=== PATIENT | female | born 1940 | race Caucasian/White ===

== ENCOUNTER 2016-12-08 10:34 | Observation (INO) | payer MEDICARE ==
[2016-12-08] MEDS: HYDROcodone/APAP 10-325MG 1 EACH TAB PO PRN (16:39)
[2016-12-08] MEDS: FLECAINIDE 50 MG TAB PO SCH ×2 (16:39→20:47)
[2016-12-08] MEDS: GABAPENTIN 300 MG CAP PO SCH ×2 (16:40→20:47)
[2016-12-08] MEDS: FUROSEMIDE 40 MG TAB PO SCH (16:41)
[2016-12-08 16:51] LABS: INR 3.3 (<1.1); Prothrombin Time 32.4 sec (9.0-12.0)
[2016-12-08] MEDS: NORTRIPTYLINE 25 MG CAP PO SCH (20:47)
[2016-12-08] MEDS: ATORVASTATIN 10 MG TAB PO SCH (20:47)
[2016-12-08] MEDS ORDERED: METOPROLOL TARTRATE 50 MG TAB PO SCH (21:00)
[2016-12-09] MEDS: HYDROcodone/APAP 10-325MG 1 EACH TAB PO PRN ×4 (00:11→22:04)
[2016-12-09 06:14] LABS: INR 3.2 (<1.1); Prothrombin Time 31.5 sec (9.0-12.0)
[2016-12-09] MEDS: BENZOCAINE SPRAY 100 APPLIC/CAN TOPICAL ONE ×2 (07:28→07:35)
[2016-12-09] MEDS ORDERED: SODIUM CHLORIDE 0.9% 1,000 ML IV ONE (07:32)
[2016-12-09] MEDS: DULoxetine HCL 60 MG CAPSULE.DR PO SCH (10:22)
[2016-12-09] MEDS: SODIUM CHLORIDE 0.9% 1,000 ML IV SCH (10:22)
[2016-12-09] MEDS: FUROSEMIDE 40 MG TAB PO SCH ×2 (10:22→15:59)
[2016-12-09] MEDS: LEVOTHYROXINE 75 MCG TAB PO SCH (10:22)
[2016-12-09] MEDS: GABAPENTIN 300 MG CAP PO SCH ×4 (10:23→22:04)
[2016-12-09] MEDS: FLECAINIDE 50 MG TAB PO SCH ×2 (10:23→22:03)
[2016-12-09] MEDS: NORTRIPTYLINE 25 MG CAP PO SCH ×2 (10:24→22:03)
[2016-12-09] MEDS: LISINOPRIL 10 MG TAB PO SCH (10:24)
[2016-12-09] MEDS: METOPROLOL TARTRATE 25 MG TAB PO SCH ×2 (10:27→22:03)
[2016-12-09] MEDS ORDERED: WARFARIN 2 MG TAB PO SCH (18:00)
[2016-12-09 18:29] VITALS: RESP 18
[2016-12-09] MEDS: ATORVASTATIN 10 MG TAB PO SCH (22:03)
[2016-12-10] MEDS: LEVOTHYROXINE 75 MCG TAB PO SCH (06:43)
[2016-12-10] MEDS: SODIUM CHLORIDE 0.9% 1,000 ML IV SCH (08:28)
[2016-12-10] MEDS: METOPROLOL TARTRATE 25 MG TAB PO SCH (08:36)
[2016-12-10] MEDS: GABAPENTIN 300 MG CAP PO SCH (08:36)
[2016-12-10] MEDS: FUROSEMIDE 40 MG TAB PO SCH (08:36)
[2016-12-10] MEDS: NORTRIPTYLINE 25 MG CAP PO SCH (08:37)
[2016-12-10] MEDS: LISINOPRIL 10 MG TAB PO SCH (08:37)
[2016-12-10] MEDS: DULoxetine HCL 60 MG CAPSULE.DR PO SCH (08:37)
[2016-12-10] MEDS: FLECAINIDE 50 MG TAB PO SCH (08:37)
--- NOTE | 2016-12-10 09:26 | P.PN ---
Subjective Principal diagnosis: Atrial fibrillation Discharge note This is a 76-year-old female with history of hypertension, hyperlipidemia, atrial fibrillation, paroxysmal, admitted to the hospital by Dr. Portillo to undergo a MEGAN and cardioversion. This was performed yesterday. Patient continues to be in a normal sinus rhythm this morning QT interval is normal, patient was started on flexion night. Overall she feels well, no complaints, up ambulating without any difficulty. Objective - Vital Signs Vital signs: Vital Signs Temp 96.3 F L 12/10/16 04:00 Pulse 82 12/10/16 04:00 Resp 18 12/10/16 04:00 BP 132/57 12/10/16 04:00 Pulse Ox 92 L 12/10/16 04:00 Intake & Output 12/09/16 12/10/16 12/10/16 18:59 06:59 18:59 Intake Total 240 400 Output Total 500 Balance 240 -100 Weight 93 kg Intake: Oral 240 400 Output: Urine 500 Other: # Voids 1 2 # Bowel Movements 0 - Exam PHYSICAL EXAMINATION: HEENT: Head is atraumatic, normocephalic. Pupils equal, round. Neck is supple. There is no elevated jugular venous pressure. HEART EXAMINATION: Heart S1, S2 normal. No murmur or gallop heard. CHEST EXAMINATION: Lungs are clear to auscultation and precussion. No chest wall tenderness is noted on palpation or with deep breathing. ABDOMEN: Soft, nontender. Bowel sounds are heard. No organomegaly noted. EXTREMITIES: 2+ peripheral pulses with no evidence of peripheral edema and no calf tenderness noted. NEUROLOGIC patient is awake, alert and oriented -3. . Assessment and Plan Plan: Assessment and plan #1 paroxysmal atrial fibrillation, status post MEGAN and cardioversion of yesterday. Patient remaining in normal sinus rhythm. QT interval normal on this morning's EKG. #2 hypertension #3 hyperlipidemia Plan Patient will be discharged home today. We will make her a follow-up appointment to see Dr. Yeboah in the office in one week. Discharge medications include Zocor 10 mg daily, Cymbalta 60 mg daily, flecainide 100 mg by mouth twice a day, Lasix 40 mg twice a day, Neurontin 300 mg 4 times a day, Synthroid 150 g daily, Zestril 10 mg daily, metoprolol tartrate 25 mg one tablet by mouth twice a day, Pamelor 50 mg one tablet by mouth twice a day, Coumadin 1 mg alternating with 2 mg. PT/INR will be obtained on Monday. DNP note has been reviewed, I agree with a documented findings and plan of care. Patient was seen and examined.
[2016-12-10] MEDS: HYDROcodone/APAP 10-325MG 1 EACH TAB PO PRN (12:11)
[2016-12-10 12:54] VITALS: BP 117/56; PULSE 74; TEMP 98.4
[2016-12-10] MEDS ORDERED: WARFARIN 1 MG TAB PO SCH (18:00)
== END 2016-12-10 13:46 | disposition home or self-care (01) ==
LOC: 6SEL 10:34
PROVIDERS: ADMIT Internal Medicine Cardiovascular Disease; ATTEND Internal Medicine Cardiovascular Disease
DX: I48.0 Paroxysmal atrial fibrillation (principal); I10 Essential (primary) hypertension; E78.5 Hyperlipidemia, unspecified
CPT/HCPCS: 92960; 85610 ×2; G0378 ×3; G0379; 99152

== ENCOUNTER 2016-12-27 06:31 | Inpatient (IN) | payer MEDICARE ==
[2016-12-27] MEDS ORDERED: OXYMETAZOLINE 0.05% NASL SPRAY 15 ML NASAL STA (06:46)
--- NOTE | 2016-12-27 07:37 | ED ---
General Adult HPI - General Chief complaint: ENT Stated complaint: NOSE BLEED Time Seen by Provider: 12/27/16 07:16 Source: patient, RN notes reviewed Mode of arrival: wheelchair Limitations: no limitations - History of Present Illness Initial comments: Patient is a pleasant 76-year-old female presenting to the emergency Department with epistaxis. Onset was just prior to arrival. Patient was switched from Coumadin to xarelto approximately 10 days ago. Patient has atrial fibrillation. No bleeding from other sites. No shortness of breath or weakness. No trauma. - Related Data Home Medications Medication Instructions Recorded Confirmed Benazepril HCl 10 mg PO HS 09/23/16 12/27/16 DULoxetine HCL [Cymbalta] 60 mg PO DAILY 09/23/16 12/27/16 Gabapentin [Neurontin] 300 mg PO QID 09/23/16 12/27/16 Nortriptyline [Pamelor] 100 mg PO HS 09/23/16 12/27/16 Simvastatin [Zocor] 5 mg PO HS 09/23/16 12/27/16 HYDROcodone/APAP 7.5-325MG [[place] 1 tab PO QID 12/06/16 12/27/16 7.5-325] Metoprolol Tartrate [Lopressor] 75 mg PO BID 12/06/16 12/27/16 Levothyroxine Sodium [Synthroid] 112 mcg PO DAILY 12/08/16 12/27/16 Amiodarone [Cordarone] 200 mg PO BID 12/27/16 12/27/16 Apixaban [Eliquis] 5 mg PO BID 12/27/16 12/27/16 Multivitamins, Thera [Multivitamin] 1 tab PO DAILY 12/27/16 12/27/16 Previous Rx's Medication Instructions Recorded Furosemide [Lasix] 40 mg PO BID #60 tab 09/26/16 Allergies Allergy/AdvReac Type Severity Reaction Status Date / Time No Known Allergies Allergy Verified 12/27/16 07:53 Review of Systems ROS Statement: Those systems with pertinent positive or pertinent negative responses have been documented in the HPI. ROS Other: All systems not noted in ROS Statement are negative. Constitutional: Denies: fever Eyes: Denies: eye pain ENT: Denies: ear pain Respiratory: Denies: cough Cardiovascular: Denies: chest pain Endocrine: Denies: fatigue Gastrointestinal: Denies: abdominal pain Genitourinary: Denies: dysuria Musculoskeletal: Denies: back pain Skin: Denies: rash Neurological: Denies: weakness Past Medical History Past Medical History: Atrial Fibrillation, Heart Failure, GERD/Reflux, GI Bleed , Hyperlipidemia, Hypertension, Osteoarthritis (OA), Pneumonia, Rheumatoid Arthritis (RA), Thyroid Disorder Additional Past Medical History / Comment(s): Afib with past RVR, chronic back pain with bilateral sciatica, gastric ulcer, rectal bleed, past migraines, bronchitis, hypothyroidism, generalized arthritis. History of Any Multi-Drug Resistant Organisms: None Reported Past Surgical History: Hysterectomy, Joint Replacement, Orthopedic Surgery Additional Past Surgical History / Comment(s): Bilateral total knee replacement , bilateral shoulder rotator cuff repairs, L cataract removal, EGDs and colonoscopy with ulcer cauterized, cardioversions/MEGAN, rt hand surgery, left foot surgery. Past Anesthesia/Blood Transfusion Reactions: No Reported Reaction Additional Past Anesthesia/Blood Transfusion Reaction / Comment(s): Pt received blood in 2007 with gastric bleed without reaction. Past Psychological History: No Psychological Hx Reported Additional Psychological History / Comment(s): Pt resides alone. She has a cane and a seated walker. She drives. Smoking Status: Never smoker Past Alcohol Use History: Daily Additional Past Alcohol Use History / Comment(s): Pt states she drinks 1 drink each day Past Drug Use History: None Reported - Past Family History Father Family Medical History: No Reported History Additional Family Medical History / Comment(s): Father was healthy and lived to be 80yrs old. Mother Family Medical History: No Reported History Additional Family Medical History / Comment(s): Mother was healthy and lived to be 80 yrs old. General Exam Limitations: no limitations General appearance: alert, in no apparent distress Head exam: Present: atraumatic Eye exam: Present: normal appearance, PERRL ENT exam: Present: other (Active bleeding left nares. After cleaning out with suction and patient blowing unable to identify site of bleeding.) Expanded Mouth exam: Present: other (Clots in the pharynx.) Neck exam: Present: normal inspection Respiratory exam: Present: normal lung sounds bilaterally Cardiovascular Exam: Present: irregular rhythm GI/Abdominal exam: Present: soft. Absent: tenderness Extremities exam: Present: normal inspection Neurological exam: Present: alert Psychiatric exam: Present: normal affect, normal mood Skin exam: Absent: rash Course Vital Signs 12/27/16 12/27/16 12/27/16 06:32 09:10 11:04 Temperature 97.7 F 98.0 F Pulse Rate 134 H 97 97 Respiratory 20 18 18 Rate Blood Pressure 141/93 141/69 157/101 O2 Sat by Pulse 96 95 98 Oximetry 12/27/16 12:09 Temperature Pulse Rate 115 H Respiratory 20 Rate Blood Pressure 162/84 O2 Sat by Pulse 96 Oximetry - Reevaluation(s) Reevaluation #1: 12/27/16 09:21 Patient did start bleeding again despite nasal packing. Patient will be given Kcentra for coagulopathy. 12/27/16 10:38 Patient with continued mild bleeding despite packing. Right nares was also packed with Merocel Procedures - Procedures Initial comment: Epistaxis: Left knee her cleaned out with suction and patient blowing. Afrin was applied. Attempted to insert Rhino Rocket however unable to do so secondary to patient anatomy. Bleeding has however stopped at this time. Bleeding later reoccurred. Patient did blow nose again and suction again. Patient did have Merisel packing placed. Antibiotic ointment was used as well as Afrin. Bleeding controlled again. 1039: Right side was packed with Merocel secondary to continued light bleeding. Medical Decision Making - Medical Decision Making Patient continues to have some mild oozing. Patient has soaked through gauze mustache after approximately 20-30 minutes. Case was discussed in detail with Dr. Bourgeois who recommends medical admission for observation. He will consult however does not anticipate further intervention. Case is also discussed in detail with Dr. Martinez, who will admit for Dr. Braxton. Patient was updated. - Lab Data Result diagrams: 12/27/16 09:25 12/27/16 09:25 Lab Results 12/27/16 12/27/16 12/27/16 Range/Units 09:25 09:25 09:25 WBC 9.7 (3.8-10.6) k/uL RBC 4.31 (3.80-5.40) m/uL Hgb 13.0 (11.4-16.0) gm/dL Hct 40.4 (34.0-46.0) % MCV 93.6 (80.0-100.0) fL MCH 30.2 (25.0-35.0) pg MCHC 32.3 (31.0-37.0) g/dL RDW 14.7 (11.5-15.5) % Plt Count 264 (150-450) k/uL Neutrophils % 72 % Lymphocytes % 20 % Monocytes % 5 % Eosinophils % 1 % Basophils % 0 % Neutrophils # 7.0 (1.3-7.7) k/uL Lymphocytes # 2.0 (1.0-4.8) k/uL Monocytes # 0.5 (0-1.0) k/uL Eosinophils # 0.1 (0-0.7) k/uL Basophils # 0.0 (0-0.2) k/uL PT 12.1 H (9.0-12.0) sec INR 1.2 (<1.1) APTT 25.4 (22.0-30.0) sec Sodium 141 (137-145) mmol/L Potassium 4.4 (3.5-5.1) mmol/L Chloride 101 (98-107) mmol/L Carbon Dioxide 28 (22-30) mmol/L Anion Gap 12 mmol/L BUN 33 H (7-17) mg/dL Creatinine 0.99 (0.52-1.04) mg/dL Est GFR (MDRD) Af Amer >60 (>60 ml/min/1.73 sqM) Est GFR (MDRD) Non-Af 54 (>60 ml/min/1.73 sqM) Glucose 120 H (74-99) mg/dL Calcium 9.2 (8.4-10.2) mg/dL Critical Care Time Critical Care Time: Yes Total Critical Care Time: 36 Disposition Clinical Impression: Coagulopathy, Left-sided epistaxis Disposition: ADMITTED IP TO THIS HOSP Referrals: Radha Braxton DO [Primary Care Provider] - 1-2 days
[2016-12-27] MEDS ORDERED: HUMAN PROTHROMBIN COMPLX 500 UNIT/16 ML VIAL IV ONE (07:40)
[2016-12-27] MEDS ORDERED: HUMAN PROTHROMBIN COMPLX IV ONE ×3 (09:04→09:30)
[2016-12-27 10:53] LABS: Basophils % (A) 0 %; CH 30.2; CHCM 32.4; Eosinophils # (A) 0.1 k/uL (0-0.7); Eosinophils % (A) 1 %; HCT 40.4 % (34.0-46.0); HDW 2.32; Luc # (Auto) 0.11; Luc % (Auto) 1; Lymphocytes % (A) 20 %; MCH 30.2 pg (25.0-35.0); MCHC 32.3 g/dL (31.0-37.0); MCV 93.6 fL (80.0-100.0); Mean Platelet Volume 7.1; Monocytes # (A) 0.5 k/uL (0-1.0); Monocytes % (A) 5 %; Neutrophils % (A) 72 %; RBC 4.31 m/uL (3.80-5.40); RDW 14.7 % (11.5-15.5); WBC 9.7 k/uL (3.8-10.6); WBC (Perox) 9.36
[2016-12-27 11:01] LABS: Anion Gap 12 mmol/L; Blood Urea Nitrogen 33 mg/dL (7-17); Calcium 9.2 mg/dL (8.4-10.2); Carbon Dioxide 28 mmol/L (22-30); Chloride 101 mmol/L (98-107); Glucose 120 mg/dL (74-99); Non-African American GFR(MDRD) 54 (>60 ml/min/1.73 sqM); Potassium 4.4 mmol/L (3.5-5.1); Sodium 141 mmol/L (137-145)
[2016-12-27 11:23] LABS: INR 1.2 (<1.1); Partial Thromboplastin Time 25.4 sec (22.0-30.0); Prothrombin Time 12.1 sec (9.0-12.0)
[2016-12-27] MEDS ORDERED: METOPROLOL TARTRATE 50 MG TAB PO STA (11:41)
[2016-12-27] MEDS ORDERED: FUROSEMIDE 40 MG TAB PO STA (11:41)
[2016-12-27] MEDS ORDERED: METOPROLOL TARTRATE 25 MG TAB PO STA (11:41)
[2016-12-27] MEDS ORDERED: GABAPENTIN 300 MG CAP PO STA (12:10)
[2016-12-27] MEDS ORDERED: HYDROcodone/APAP 7.5-325MG 1 EACH TAB PO STA (12:10)
[2016-12-27] MEDS ORDERED: NALOXONE 0.4 MG/ML 1 ML VIAL IV PRN (12:16)
[2016-12-27] MEDS: SODIUM CHLORIDE 0.9% 1,000 ML IV SCH (13:42)
[2016-12-27] MEDS: PANTOPRAZOLE 40 MG/10 ML VIAL IV SCH (13:44)
[2016-12-27 13:57] VITALS: BMI 35.2
[2016-12-27] MEDS: FUROSEMIDE 40 MG TAB PO SCH (15:28)
[2016-12-27] MEDS: GABAPENTIN 300 MG CAP PO SCH ×2 (15:28→21:47)
[2016-12-27] MEDS: CEPHALEXIN 500 MG CAP PO SCH ×2 (17:16→21:47)
[2016-12-27] MEDS: HYDROcodone/APAP 7.5-325MG 1 EACH TAB PO SCH ×2 (17:17→21:47)
--- NOTE | 2016-12-27 19:19 | CONS ---
DATE OF CONSULTATION: 12/27/2016 REASON FOR CONSULTATION: Epistaxis. HISTORY: This is a 76-year-old white female who early this morning around 6:00 a.m. developed acute onset of left-sided epistaxis when she got up in the morning. She has had no trauma and has not had a epistasis recently, although does have a remote history of epistaxis a few years ago while in [facility] visiting family, which required some packing. This was when she was on Coumadin. She, about 10 days ago, was change from Coumadin to Xarelto. She has no chronic nasal symptoms such as allergies or sinusitis. She does have history of hypertension, but states that she feels that this has been well-controlled. She had initially attempted a balloon pack on the left, which was unable to be passed due to her anatomy, and therefore a Merocel pack was placed in the left, which controlled the bleeding, although there was still some oozing and therefore a Merocel pack was placed on the right. She does have some discomfort but this is controlled with [place]. PAST MEDICAL HISTORY: Positive for atrial fibrillation, heart failure, GERD, GI bleed, hyperlipidemia, hypertension, osteoarthritis, pneumonia, rheumatoid arthritis, diabetes, migraines, bronchitis, hypothyroidism. PAST SURGICAL HISTORY: Joint replacement, hysterectomy, rotator cuff repair, cataract, EGD and colonoscopy. ALLERGIES: Known drug allergies. Medications: 1. Benazepril. 2. Cymbalta. 3. Neurontin. 4. Pamelor. 5. Zocor. 6. [place]. 7. Lopressor. 8. Synthroid. 9. Cordarone. 10. Xarelto, although listed as Eliquis. SOCIAL HISTORY: The patient does not smoke. Drinks alcohol one drink per day. FAMILY HISTORY: Noncontributory. REVIEW OF SYSTEMS: Noncontributory other than as above. PHYSICAL EXAM: Vital signs are stable with most recent blood pressure 162/84, pulse was 115, respiratory rate 20, O2 sat 96%. GENERAL: This is a well-developed, elderly white female in no acute distress. She is conversant, alert and awake and oriented x3. HEENT: Head normocephalic and atraumatic. EARS: Bilaterally canals clear. NOSE: Bilateral Merocel packs with the one on the right being white and the one on the left being blood stained, but no active bleeding. The right one was removed and there was no active bleeding or bleeding points noted on the right. The oral cavity and oropharynx were unremarkable. No abnormal masses or lesions. No posterior bleeding noted. NECK: Supple without adenopathy. ASSESSMENT: 1. Left epistaxis, presumed posterior. 2. Hypertension. 3. Anticoagulated status. PLAN: Would recommend leaving the current Merocel pack in place for 3 days total, therefore remove in the office in 3 days. This appointment would need to be made for her. In the meantime, pain control with the above noted [place] and we will add prophylactic antibiotics in the form of Keflex in the meantime which should be maintained. No nose blowing. Medical service to control hypertension and also her other medical comorbidities. Would recommend off of the anticoagulants if at all possible while the packing is in place. She may well have a minimal oozing due to anticoagulants, but would generally still treat this conservatively without surgery or embolization if at all possible. If there are any questions or concerns, please feel to contact me. If she is doing well tomorrow, she could be discharged home with follow up on Monday.
[2016-12-27] MEDS ORDERED: LISINOPRIL 10 MG TAB PO SCH (21:00)
[2016-12-27] MEDS ORDERED: ATORVASTATIN 10 MG TAB PO SCH (21:00)
[2016-12-27] MEDS ORDERED: NORTRIPTYLINE 25 MG CAP PO SCH (21:00)
[2016-12-27] MEDS: AMIODARONE 200 MG TAB PO SCH (21:48)
[2016-12-27] MEDS: METOPROLOL TARTRATE 25 MG TAB PO SCH (21:48)
[2016-12-28] MEDS ORDERED: LEVOTHYROXINE 112 MCG TAB PO SCH (06:30)
[2016-12-28 08:05] VITALS: RESP 18
[2016-12-28] MEDS: AMIODARONE 200 MG TAB PO SCH (08:25)
[2016-12-28] MEDS: CEPHALEXIN 500 MG CAP PO SCH ×3 (08:25→17:27)
[2016-12-28] MEDS: GABAPENTIN 300 MG CAP PO SCH ×3 (08:26→17:27)
[2016-12-28] MEDS: FUROSEMIDE 40 MG TAB PO SCH ×2 (08:26→15:58)
[2016-12-28] MEDS: PANTOPRAZOLE 40 MG/10 ML VIAL IV SCH (08:26)
[2016-12-28] MEDS: METOPROLOL TARTRATE 25 MG TAB PO SCH (08:27)
[2016-12-28] MEDS: HYDROcodone/APAP 7.5-325MG 1 EACH TAB PO SCH ×3 (08:29→17:27)
[2016-12-28] MEDS ORDERED: DULoxetine HCL 60 MG CAPSULE.DR PO SCH (09:00)
[2016-12-28 09:43] LABS: Basophils # (A) 0.1 k/uL (0-0.2); Basophils % (A) 1 %; CHCM 31.6; Eosinophils # (A) 0.2 k/uL (0-0.7); Eosinophils % (A) 2 %; HCT 40.6 % (34.0-46.0); HDW 2.42; HGB 12.3 gm/dL (11.4-16.0); Luc % (Auto) 1; Lymphocytes # (A) 2.8 k/uL (1.0-4.8); Lymphocytes % (A) 31 %; MCH 29.1 pg (25.0-35.0); MCHC 30.4 g/dL (31.0-37.0); MCV 95.8 fL (80.0-100.0); Mean Platelet Volume 7.7; Monocytes # (A) 0.4 k/uL (0-1.0); Monocytes % (A) 5 %; Neutrophils # (A) 5.4 k/uL (1.3-7.7); Neutrophils % (A) 60 %; RBC 4.24 m/uL (3.80-5.40); RDW 14.8 % (11.5-15.5); WBC 8.9 k/uL (3.8-10.6); WBC (Perox) 9.17
[2016-12-28 09:51] LABS: INR 1.1 (<1.1); Prothrombin Time 11.3 sec (9.0-12.0)
[2016-12-28 10:06] LABS: ALT 37 U/L (9-52); AST 25 U/L (14-36); Alkaline Phosphatase 94 U/L (38-126); Anion Gap 11 mmol/L; Blood Urea Nitrogen 29 mg/dL (7-17); Carbon Dioxide 31 mmol/L (22-30); Chloride 101 mmol/L (98-107); Glucose 159 mg/dL (74-99); Non-African American GFR(MDRD) 54 (>60 ml/min/1.73 sqM); Sodium 143 mmol/L (137-145); Total Bilirubin 0.8 mg/dL (0.2-1.3); Total Protein 6.6 g/dL (6.3-8.2)
[2016-12-28] MEDS: SODIUM CHLORIDE 0.9% 1,000 ML IV SCH (11:36)
[2016-12-28] MEDS ORDERED: MULTIVITAMINS, THERA 1 EACH TAB PO SCH (12:00)
[2016-12-28 16:13] VITALS: BP 106/51; PULSE 81; TEMP 97.9
--- NOTE | 2016-12-28 17:09 | P.HPIM ---
History of Present Illness H&P Date: 12/28/16 Chief Complaint: Epistaxis Patient is a 76-year-old female who sees Dr. Radha Braxton for primary care, and Dr. Esa Yeboah for cardiology, patient has a known history of atrial fibrillation she has been maintained on Coumadin for years, she was recently switched from Coumadin to Xarelto about 2 weeks ago, patient developed severe epistaxis she had to come to emergency room and had nasal packing she was admitted for observation Dr. Najera was consult Past Medical History Past Medical History: Atrial Fibrillation, Heart Failure, GERD/Reflux, GI Bleed , Hyperlipidemia, Hypertension, Osteoarthritis (OA), Pneumonia, Rheumatoid Arthritis (RA), Thyroid Disorder Additional Past Medical History / Comment(s): Afib with past RVR, chronic back pain with bilateral sciatica, gastric ulcer, rectal bleed, past migraines, bronchitis, hypothyroidism, generalized arthritis. History of Any Multi-Drug Resistant Organisms: None Reported Past Surgical History: Hysterectomy, Joint Replacement, Orthopedic Surgery Additional Past Surgical History / Comment(s): Bilateral total knee replacement , bilateral shoulder rotator cuff repairs, L cataract removal, EGDs and colonoscopy with ulcer cauterized, cardioversions/MEGAN, rt hand surgery, left foot surgery. Past Anesthesia/Blood Transfusion Reactions: No Reported Reaction Additional Past Anesthesia/Blood Transfusion Reaction / Comment(s): Pt received blood in 2007 with gastric bleed without reaction. Past Psychological History: No Psychological Hx Reported Additional Psychological History / Comment(s): Pt resides alone in a house. She has a cane and a seated walker. She drives. Smoking Status: Never smoker Past Alcohol Use History: None Reported Additional Past Alcohol Use History / Comment(s): used to drink one a day, but not anymroe since last visit for afib and new heart medication. Past Drug Use History: None Reported - Past Family History Father Family Medical History: No Reported History Additional Family Medical History / Comment(s): Father was healthy and lived to be 80yrs old. Mother Family Medical History: No Reported History Additional Family Medical History / Comment(s): Mother was healthy and lived to be 80 yrs old. Medications and Allergies Home Medications Medication Instructions Recorded Confirmed Type Benazepril HCl 10 mg PO HS 09/23/16 12/27/16 History DULoxetine HCL [Cymbalta] 60 mg PO DAILY 09/23/16 12/27/16 History Gabapentin [Neurontin] 300 mg PO QID 09/23/16 12/27/16 History Nortriptyline [Pamelor] 100 mg PO HS 09/23/16 12/27/16 History Simvastatin [Zocor] 5 mg PO HS 09/23/16 12/27/16 History HYDROcodone/APAP 7.5-325MG [[place] 1 tab PO QID 12/06/16 12/27/16 History 7.5-325] Metoprolol Tartrate [Lopressor] 75 mg PO BID 12/06/16 12/27/16 History Levothyroxine Sodium [Synthroid] 112 mcg PO DAILY 12/08/16 12/27/16 History Amiodarone [Cordarone] 200 mg PO BID 12/27/16 12/27/16 History Apixaban [Eliquis] 5 mg PO BID 12/27/16 12/27/16 History Multivitamins, Thera [Multivitamin] 1 tab PO DAILY 12/27/16 12/27/16 History Allergies Allergy/AdvReac Type Severity Reaction Status Date / Time No Known Allergies Allergy Verified 12/27/16 14:00 Physical Exam Vitals: Vital Signs Temp Pulse Resp BP Pulse Ox 12/28/16 15:00 97.9 F 81 18 106/51 95 12/28/16 07:00 97.4 F L 88 18 128/74 96 12/27/16 23:00 97.0 F L 82 20 122/72 90 L Intake and Output 12/28/16 12/28/16 12/28/16 06:59 14:59 22:59 Other: # Voids 1 2 # Bowel Movements 0 Results CBC & Chem 7: 12/28/16 08:50 12/28/16 08:50 Labs: Abnormal Lab Results - Last 24 Hours (Table) 12/28/16 12/28/16 Range/Units 08:50 08:50 MCHC 30.4 L (31.0-37.0) g/dL Carbon Dioxide 31 H (22-30) mmol/L BUN 29 H (7-17) mg/dL Glucose 159 H (74-99) mg/dL Thrombosis Risk Factor Assmnt - Choose All That Apply Each Risk Factor Represents 3 Points: Age 75 years or older Thrombosis Risk Factor Assessment Total Risk Factor Score: 3 Thrombosis Risk Factor Assessment Level: Moderate Risk Assessment and Plan Plan: #1 epistaxis bleeding controlled at this time was nasal packing #2 underlying history of atrial fibrillation #3 Underlying history of Coongestive heart failure #4 history of hypothyroidism, continue current medication Patient will be monitored on the medical floor input from Dr. Moreau reviewed.
--- NOTE | 2016-12-28 17:13 | P.DS ---
Providers Date of admission: 12/27/16 12:18 Expected date of discharge: 12/28/16 Attending physician: Carlene Martinez Consults: 12/28/16 15:20 Consult Physician Stat Consulting Provider: Hoang Deleon Consult Reason/Comments: anticoagulation therapy Do you want consulting provider notified?: Yes Primary care physician: Radha Braxton [facility] Course: Diagnoses on discharge #1 epistaxis requiring nasal packing #2 atrial fibrillation, chronic #3 underlying history of congestive heart failure Hospital course patient is a 76-year-old who presented to [facility] emergency room with a chief complaint of epistaxis, agent had severe bleeding requiring packing in the emergency room she was subsequently admitted to medical floor she was seen by Dr. Moreau, who advised that patient should be off anticoagulation for the next few days. Patient was maintained on Coumadin for years however she was recently switched from Coumadin to Xarelto. She will be referred back to Dr. 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 Follow-up was Dr. Yeboah within one week Follow-up with Dr. Radha Braxton within one week Please send a carbon copy to Dr. Neyda Yeboah and Dr. Radha Braxton Plan - Discharge Summary Discharge Medication List Benazepril HCl 10 mg PO HS 09/23/16 [History] DULoxetine HCL [Cymbalta] 60 mg PO DAILY 09/23/16 [History] Gabapentin [Neurontin] 300 mg PO QID 09/23/16 [History] Nortriptyline [Pamelor] 100 mg PO HS 09/23/16 [History] Simvastatin [Zocor] 5 mg PO HS 09/23/16 [History] Furosemide [Lasix] 40 mg PO BID #60 tab 09/26/16 [Rx] HYDROcodone/APAP 7.5-325MG [[place] 7.5-325] 1 tab PO QID 12/06/16 [History] Metoprolol Tartrate [Lopressor] 75 mg PO BID 12/06/16 [History] Levothyroxine Sodium [Synthroid] 112 mcg PO DAILY 12/08/16 [History] Amiodarone [Cordarone] 200 mg PO BID 12/27/16 [History] Apixaban [Eliquis] 5 mg PO BID 12/27/16 [History] Multivitamins, Thera [Multivitamin] 1 tab PO DAILY 12/27/16 [History] Follow up Appointment(s)/Referral(s): Radha Braxton DO [Primary Care Provider] - 1-2 days Patient Instructions/Handouts: Heart Failure (DC)
== END 2016-12-28 18:07 | disposition home or self-care (01) | DRG 151 ==
LOC: EC 06:31 → OBSVTOIN 12:18 → 4MS4W 12:18
PROVIDERS: ADMIT Internal Medicine; ATTEND Internal Medicine
PROC: 2Y41X5Z Packing of Nasal Region using Packing Material (ICD-10-PCS; principal; 2016-12-27)
DX: R04.0 Epistaxis (principal); I48.2 Chronic atrial fibrillation; I11.0 Hypertensive heart disease with heart failure; I50.9 Heart failure, unspecified; E11.9 Type 2 diabetes mellitus without complications; E78.5 Hyperlipidemia, unspecified; E03.9 Hypothyroidism, unspecified; G43.909 Migraine, unspecified, not intractable, without status migrainosus; R79.1 Abnormal coagulation profile; T45.515A Adverse effect of anticoagulants, initial encounter; G89.29 Other chronic pain; M06.9 Rheumatoid arthritis, unspecified; K21.9 Gastro-esophageal reflux disease without esophagitis; M19.90 Unspecified osteoarthritis, unspecified site; M54.9 Dorsalgia, unspecified; Z87.11 Personal history of peptic ulcer disease; Z90.710 Acquired absence of both cervix and uterus; Z96.653 Presence of artificial knee joint, bilateral; Z98.42 Cataract extraction status, left eye; Z79.01 Long term (current) use of anticoagulants; Z79.891 Long term (current) use of opiate analgesic; Z79.899 Other long term (current) drug therapy; Y92.009 Unspecified place in unspecified non-institutional (private) residence as the place of occurrence of the external cause
CPT/HCPCS: 30901; 36415; 80048; 80053; 85025; 85610; 85730; 99285

== ENCOUNTER 2017-07-08 08:56 | Emergency (ER) | payer MEDICARE ==
[2017-07-08] MEDS ORDERED: MORPHINE SULFATE 10 MG/ML SYRINGE IM STA (09:48)
--- NOTE | 2017-07-08 09:52 | ED ---
Extremity Problem HPI <Kenyon Mcghee - Last Filed: 07/08/17 10:35> - General Source: patient, EMS, RN notes reviewed Mode of arrival: EMS <Tona Jaffe - Last Filed: 07/08/17 10:57> - General Chief complaint: Extremity Problem,Nontraumatic Stated complaint: Shoulder Pain Time Seen by Provider: 07/08/17 09:09 - History of Present Illness Initial comments: Patient is a 76-year-old female presents emergency room for evaluation of left shoulder pain. Patient states last night while gardening and pressing down on one of the tools to remove a branch she felt a sharp pain in her left shoulder. Patient states pain has been worse since the incident. Patient states she was unable to sleep at night due to throbbing pain. Patient states unable move her shoulder secondary to pain. Patient denies any direct trauma or fall to her shoulder. Patient does state she has a history of bilateral rotator cuff repair by Dr. Sanon about 8 years ago. Patient denies any numbness or tingling going down her left arm. Patient denies chest pain or shortness of breath. Patient denies headache or dizziness. Patient states the pain is worse with movement. Patient states she took a Tyro with no relief of symptoms. Patient denies any other injuries or complaints at this time. (Tona Jaffe) - Related Data Home Medications Medication Instructions Recorded Confirmed Benazepril HCl 10 mg PO HS 09/23/16 12/27/16 DULoxetine HCL [Cymbalta] 60 mg PO DAILY 09/23/16 12/27/16 Gabapentin [Neurontin] 300 mg PO QID 09/23/16 12/27/16 Nortriptyline [Pamelor] 100 mg PO HS 09/23/16 12/27/16 Simvastatin [Zocor] 5 mg PO HS 09/23/16 12/27/16 HYDROcodone/APAP 7.5-325MG [Tyro 1 tab PO QID 12/06/16 12/27/16 7.5-325] Metoprolol Tartrate [Lopressor] 75 mg PO BID 12/06/16 12/27/16 Levothyroxine Sodium [Synthroid] 112 mcg PO DAILY 12/08/16 12/27/16 Amiodarone [Cordarone] 200 mg PO BID 12/27/16 12/27/16 Multivitamins, Thera [Multivitamin 1 tab PO DAILY 12/27/16 12/27/16 (formulary)] Previous Rx's Medication Instructions Recorded Furosemide [Lasix] 40 mg PO BID #60 tab 09/26/16 Allergies Allergy/AdvReac Type Severity Reaction Status Date / Time No Known Allergies Allergy Verified 07/08/17 09:12 Review of Systems ROS Other: All systems not noted in ROS Statement are negative. <Kenyon Mcghee - Last Filed: 07/08/17 10:35> ROS Other: All systems not noted in ROS Statement are negative. <Tona Jaffe - Last Filed: 07/08/17 10:57> ROS Statement: Those systems with pertinent positive or pertinent negative responses have been documented in the HPI. Past Medical History Past Medical History: Atrial Fibrillation, Heart Failure, GERD/Reflux, GI Bleed , Hyperlipidemia, Hypertension, Osteoarthritis (OA), Pneumonia, Rheumatoid Arthritis (RA), Thyroid Disorder Additional Past Medical History / Comment(s): Afib with past RVR, chronic back pain with bilateral sciatica, gastric ulcer, rectal bleed, past migraines, bronchitis, hypothyroidism, generalized arthritis. History of Any Multi-Drug Resistant Organisms: None Reported Past Surgical History: Hysterectomy, Joint Replacement, Orthopedic Surgery Additional Past Surgical History / Comment(s): Bilateral total knee replacement , bilateral shoulder rotator cuff repairs, L cataract removal, EGDs and colonoscopy with ulcer cauterized, cardioversions/MEGAN, rt hand surgery, left foot surgery. Past Anesthesia/Blood Transfusion Reactions: No Reported Reaction Additional Past Anesthesia/Blood Transfusion Reaction / Comment(s): Pt received blood in 2007 with gastric bleed without reaction. Past Psychological History: No Psychological Hx Reported Smoking Status: Never smoker Past Alcohol Use History: Occasional Past Drug Use History: None Reported - Past Family History Father Family Medical History: No Reported History Additional Family Medical History / Comment(s): Father was healthy and lived to be 80yrs old. Mother Family Medical History: No Reported History Additional Family Medical History / Comment(s): Mother was healthy and lived to be 80 yrs old. <Tona Jaffe - Last Filed: 07/08/17 10:57> General Exam <Kenyon Mcghee - Last Filed: 07/08/17 10:35> Limitations: no limitations General appearance: alert, in no apparent distress Head exam: Present: atraumatic, normocephalic, normal inspection Eye exam: Present: normal appearance ENT exam: Present: normal exam Neck exam: Present: normal inspection Respiratory exam: Present: normal lung sounds bilaterally. Absent: respiratory distress Cardiovascular Exam: Present: regular rate, normal rhythm, normal heart sounds Left Shoulder Exam: Present: normal inspection, full ROM (limited extension and abduction secondary to pain.), tenderness (tenderness on palpating over the anterior shoulder joint, posterior shoulder joint and deltoid). Absent: swelling, deformity, erythema, tenderness over AC joint Upper Arm exam: Present: normal inspection Elbow exam: Present: normal inspection. Absent: tenderness Forearm Wrist exam: Present: normal inspection. Absent: tenderness Hand Wrist exam: Present: normal inspection. Absent: tenderness Vascular: Present: normal capillary refill (capillary refill less than 2 seconds ), radial pulse (2+), ulnar pulse (2+) Back exam: Present: normal inspection Neurological exam: Present: alert, oriented X3, CN II-XII intact Psychiatric exam: Present: normal affect, normal mood Skin exam: Present: warm, dry, intact, normal color. Absent: rash <Tona Jaffe - Last Filed: 07/08/17 10:57> - General Exam Comments Initial Comments: laying in exam room, no acute distress. (Tona Jaffe) Course <Kenyon Mcghee - Last Filed: 07/08/17 10:35> <Tona Jaffe - Last Filed: 07/08/17 10:57> Vital Signs 07/08/17 09:03 Temperature 97.5 F L Pulse Rate 89 Respiratory 18 Rate Blood Pressure 166/97 O2 Sat by Pulse 97 Oximetry - Reevaluation(s) Reevaluation #1: 07/08/17 10:35 Chief [id number] evaluation the patient did discuss the findings with her. She does demonstrate tenderness palpation on the rotator cuff she posteriorly. X-ray show no evidence of acute findings. Patient will follow-up with her orthopedist. I do agree with the assessment and plan. (Kenyon Mcghee) Medical Decision Making <Kenyon Mcghee - Last Filed: 07/08/17 10:35> - Radiology Data Radiology results: report reviewed, image reviewed <Tona Jaffe - Last Filed: 07/08/17 10:57> - Medical Decision Making Patient is a 76-year-old female presents emergency room for evaluation of left shoulder pain. Patient does have rotator cuff like symptoms. Patient placed in an arm sling and advised to follow-up with auto radiator specialist or her previous orthopedic surgeon. X-ray shows a signs of osteoarthritis. Return parameters discussed. Case discussed Dr. Mcghee. (Tona Jaffe) Disposition <Kenyon Mcghee - Last Filed: 07/08/17 10:35> Time of Disposition: 10:41 <Tona Jaffe - Last Filed: 07/08/17 10:57> Clinical Impression: Osteoarthritis of left shoulder, Left shoulder pain Disposition: HOME SELF-CARE Condition: Good Instructions: Rotator Cuff Injury (ED), Osteoarthritis (ED) Additional Instructions: Ice on and off for 10-15 minutes for the next 24-48 hours. Continue taking her home pain medications as needed. Please follow-up with auto radiator specialist for further evaluation. If new symptoms develop or symptoms worsen, please return to the ER. Referrals: Radha Braxton DO [Primary Care Provider] - 1-2 days Lobito Sims DO [Doctor of Osteopathic Medicine] - 1-2 days
--- NOTE | 2017-07-08 10:23 | XR ---
EXAMINATION TYPE: XR shoulder complete LT DATE OF EXAM: 07/08/2017 COMPARISON: NONE HISTORY: Shoulder pain TECHNIQUE: 3 views FINDINGS: I see no fracture nor dislocation. There is moderate spurring at the glenohumeral joint. Th ere is a screw within the greater tuberosity of the humerus. IMPRESSION: Moderate osteoarthritis. No fracture.
[2017-07-08 10:58] VITALS: BP 162/82; PULSE 87; RESP 17; TEMP 97
== END 2017-07-08 11:08 | disposition home or self-care (01) ==
LOC: EC 08:56
DX: M19.012 Primary osteoarthritis, left shoulder (principal); I48.91 Unspecified atrial fibrillation; I11.0 Hypertensive heart disease with heart failure; I50.9 Heart failure, unspecified; E78.5 Hyperlipidemia, unspecified; E03.9 Hypothyroidism, unspecified; M06.9 Rheumatoid arthritis, unspecified; Z98.890 Other specified postprocedural states; Z96.653 Presence of artificial knee joint, bilateral; Z79.899 Other long term (current) drug therapy
CPT/HCPCS: 99283 ×2; 96372 ×2; 73030; J2270

== ENCOUNTER → 2017-11-28 | Outpatient (CLI) | payer MEDICARE ==
--- NOTE | 2017-11-28 13:04 | MR ---
EXAMINATION TYPE: MR brain wo con DATE OF EXAM: 11/28/2017 COMPARISON: NONE HISTORY: Balance T1-weighted sagittal, T2, FLAIR, and diffusion axial, and T2 coronal coronal views of the brain are s ubmitted. There is no evidence of acute ischemia. The ventricles, basal cisterns, and sulci overlying the conv exities are consistent with the patient's age. There is no mass effect. Craniocervical junction maintained. Sella turcica has a normal appearance. No cerebellopontine angle mass. There is diffuse and numerous focal areas of abnormal signal scattered throughout the white matter bi laterally measuring greater than 15 number. Abnormal signal within the basal ganglia and thalamus is most typical remote microvascular ischemia. Tiny areas of abnormal signal involving the obdulio suggestive of remote ischemia. Changes of chronic sinusitis noted. No midline shift or mass effect. IMPRESSION: 1. No acute intracranial process. 2. Diffuse abnormal signal within the white matter is nonspecific but most typical of remote microvas cular ischemia. 3. 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 4. Small focal areas of abnormal signal involving the obdulio likely in the bases remote ischemia. Patte rn is nonspecific and not diagnostic of central pontine myelinolysis. Correlate clinically.
== END | disposition home or self-care (01) ==
LOC: RADMRIMAIN 11:59
PROVIDERS: ATTEND Family Medicine
DX: I63.9 Cerebral infarction, unspecified (principal); R90.89 Other abnormal findings on diagnostic imaging of central nervous system; I67.82 Cerebral ischemia; E87.8 Other disorders of electrolyte and fluid balance, not elsewhere classified
CPT/HCPCS: 70551

== ENCOUNTER → 2018-01-04 | Outpatient (CLI) | payer MEDICARE ==
--- NOTE | 2018-01-04 11:26 | US ---
EXAMINATION TYPE: US carotid duplex BILAT DATE OF EXAM: 01/04/2018 COMPARISON: NONE CLINICAL HISTORY: D68.9 Coagulation defect,E78.5 Hyperlipidema. EXAM MEASUREMENTS: RIGHT: Peak Systolic Velocity (PSV) cm/sec ----- Right CCA: 69.9 ----- Right ICA: 95.3 ----- Right ECA: 72.1 ICA/CCA ratio: 1.4 RIGHT: End Diastole cm/sec ----- Right CCA: 7.3 ----- Right ICA: 12.4 ----- Right ECA: 0 LEFT: Peak Systolic Velocity (PSV) cm/sec ----- Left CCA: 80.9 ----- Left ICA: 117.3 ----- Left ECA: 85.2 ICA/CCA ratio: 1.4 LEFT: End Diastole cm/sec ----- Left CCA: 9.5 ----- Left ICA: 17.1 ----- Left ECA: 0 VERTEBRALS (direction of flow): Right Vertebral: Antegrade Left Vertebral: Antegrade Rhythm: Normal IMPRESSION: Moderate/severe atherosclerotic change bilaterally bulbs/ proximal ICAs no hemodynamic stenosis Criteria for Assigning % of Stenosis / Diameter reduction (Estimation based on the indirect measurements of the internal carotid artery velocities (ICA PSV). 1. Normal (no stenosis)=ICA PSV < 125 cm/s: ratio < 2.0: ICA EDV<40 cm/s. 2. Less than 50% stenosis=ICA PSV < 125 cm/s: ratio < 2.0: ICA EDV<40 cm/s. 3. 50 to 69% stenosis=ICA PSV of 125 to 230 cm/s: ration 2.0 ? 4.0: ICA EDV 40-100 cm/s. 4. Greater than 70% stenosis to near occlusion= ICA PSV > 230 cm/s: ratio > 4.0: ICA EDV > 100 cm/s. 5. Near occlusion= ICA PSV velocities may be low or undetectable: variable ratio and ICA EDV. 6. Total occlusion=unable to detect flow.
== END | disposition home or self-care (01) ==
LOC: RADUSWWP 09:01
PROVIDERS: ATTEND Family Medicine
DX: I65.23 Occlusion and stenosis of bilateral carotid arteries (principal); E78.5 Hyperlipidemia, unspecified
CPT/HCPCS: 93880

== ENCOUNTER → 2018-01-08 | Outpatient (CLI) | payer MEDICARE ==
[2018-01-08 15:05] LABS: Albumin 3.8 g/dL (3.5-5.0); Calcium 9.3 mg/dL (8.4-10.2); Magnesium 1.5 mg/dL (1.6-2.3); Potassium 3.8 mmol/L (3.5-5.1); Total Bilirubin 0.7 mg/dL (0.2-1.3); Total Protein 6.1 g/dL (6.3-8.2)
--- NOTE | 2018-01-08 16:36 | CT ---
EXAMINATION TYPE: CT abdomen pelvis w con DATE OF EXAM: 01/08/2018 HISTORY: Nausea x 3 weeks per patient. Nausea and vomiting with left lower quadrant pain per order. CT DLP: 967.4mGycm Automated Exposure Control for Dose Reduction was Utilized. CONTRAST: CT scan of the abdomen and pelvis is performed with IV Contrast, patient injected with 80 mL of Visip aque 320. COMPARISON: None. FINDINGS: LUNG BASES: Heart size is mildly enlarged. LIVER/GB: Dependent density in gallbladder could reflect vicarious excretion of contrast versus small dependent stones and/or gallbladder sludge. No surrounding inflammatory changes are present. PANCREAS: No significant abnormality is seen. SPLEEN: No significant abnormality is seen. ADRENALS: No significant abnormality is seen. KIDNEYS: There is simple appearing 1.1 cm cyst upper pole level right kidney axial image 26. There is symmetric cortical medullary uptake and excretion from both kidneys without hydronephrosis bilateral ly. There is exophytic 1.6 cm fat and soft tissue mass consistent with angiomyolipoma lower pole leve l left kidney coronal image 46. BOWEL: The oral contrast only reaches proximal ileal level in the right lower quadrant. There is no s uspicious small or large bowel dilatation. There is some redundancy of the sigmoid colon. There is so me prominence of fecal material throughout the colon most prominent in the right and transverse colon . There is small bowel feces sign in the terminal ileum consistent with delayed passage of ingested m aterial 2 colonic level. UTERUS/ADNEXA: Uterus is surgically absent or markedly atrophic in appearance. LYMPH NODES: No greater than 1cm abdominal or pelvic lymph nodes are appreciated. OSSEOUS STRUCTURES: Osseous structures are demineralized. There is multilevel vacuum disc phenomenon and disc space narrowing most prominent L2-L3 and L5-S1 le vels. There is moderate to severe joint space loss and spurring in both hips, right greater than left . OTHER: There is moderate to severe calcified plaque of the abdominal aorta extending into branch vess els. There is 5.9 x 4.4 cm heterogeneous hyperdense area right posterior gluteal region with surrounding m oderate ill-defined fluid or fat stranding, suspect soft tissue bruising and central hematoma related to recent trauma. Clinical correlation advised. IMPRESSION: 1. No bowel obstruction is present. There is fairly moderate proximal colonic fecal stasis noted. 2. Attention to right gluteal region, moderate-sized focal subcutaneous hematoma with surrounding sub cutaneous inflammatory change felt present. Correlate clinically. 3. 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 4. Dependent small stones or gallbladder sludge without CT evidence for acute cholecystitis.
== END | disposition home or self-care (01) ==
LOC: RADCTMAIN 14:01
PROVIDERS: ATTEND Family Medicine
DX: K59.8 Other specified functional intestinal disorders (principal); D17.71 Benign lipomatous neoplasm of kidney; M79.81 Nontraumatic hematoma of soft tissue
CPT/HCPCS: 80053; 82150; 83690; 83735; 84443; 74177; 36415; Q9967; 80299

== ENCOUNTER 2018-01-09 09:56 | Inpatient (IN) | payer MEDICARE ==
[2018-01-09] MEDS ORDERED: MECLIZINE 25 MG TAB PO STA (10:26)
--- NOTE | 2018-01-09 10:32 | ED ---
General Adult HPI - General Chief complaint: Nausea/Vomiting/Diarrhea Stated complaint: vomiting Time Seen by Provider: 01/09/18 10:00 Source: patient, RN notes reviewed Mode of arrival: ambulatory Limitations: no limitations - History of Present Illness Initial comments: This is a 77-year-old female who presents emergency department stating that she has been off balance for 3-4 months and she's been getting worked up by her primary medical care doctor for weeks. Patient states also associated with that off balance is nausea. Patient states that only started a few weeks ago but continues to get worse and she has Zofran and does not appear to help. Patient states she gets off balance and nauseous the most when she moves her head particularly when she looks backwards. Patient states she's fallen multiple times and doesn't do much but lay around because everything makes her nauseous. Patient is already had an MRI of her brain CT of her abdomen and pelvis. Patient has had a carotid Doppler as well. Patient comes in today because she states she is just so nauseated she didn't feel so she could make her primary medical care doctor appointment today. She denies any abdominal pain. Patient denies any diarrhea today. Patient states the last time she vomited was last night. Patient states eating food usually helps for a little while and then the nausea returned. Patient denies any chest pain difficulty breathing or shortness of breath per patient denies any recent fever chills or cough per patient denies any headache patient denies numbness weakness. - Related Data Home Medications Medication Instructions Recorded Confirmed DULoxetine HCL [Cymbalta] 60 mg PO DAILY 09/23/16 01/09/18 HYDROcodone/APAP 7.5-325MG [Hazard 1 tab PO HS 12/06/16 01/09/18 7.5-325] Levothyroxine Sodium [Synthroid] 112 mcg PO DAILY 12/08/16 01/09/18 Amiodarone [Cordarone] 200 mg PO DAILY 12/27/16 01/09/18 Benazepril [Lotensin] 5 mg PO HS 01/09/18 01/09/18 Esomeprazole Magnesium 40 mg PO DAILY 01/09/18 01/09/18 [Esomeprazole Magnesium] Furosemide [Lasix] 40 mg PO DAILY 01/09/18 01/09/18 Metoprolol Succinate (ER) [Toprol 50 mg PO DAILY 01/09/18 01/09/18 XL] Simvastatin [Zocor] 20 mg PO HS 01/09/18 01/09/18 Warfarin [Coumadin] 1 mg PO MOTUWETHFR 01/09/18 01/09/18 metFORMIN HCL ER [Glucophage Xr] 500 mg PO DAILY 01/09/18 01/09/18 Allergies Allergy/AdvReac Type Severity Reaction Status Date / Time No Known Allergies Allergy Verified 01/09/18 10:59 Review of Systems ROS Statement: Those systems with pertinent positive or pertinent negative responses have been documented in the HPI. ROS Other: All systems not noted in ROS Statement are negative. Past Medical History Past Medical History: Atrial Fibrillation, Heart Failure, GERD/Reflux, GI Bleed , Hyperlipidemia, Hypertension, Osteoarthritis (OA), Pneumonia, Rheumatoid Arthritis (RA), Thyroid Disorder Additional Past Medical History / Comment(s): Afib with past RVR, chronic back pain with bilateral sciatica, gastric ulcer, rectal bleed, past migraines, bronchitis, hypothyroidism, generalized arthritis. History of Any Multi-Drug Resistant Organisms: None Reported Past Surgical History: Hysterectomy, Joint Replacement, Orthopedic Surgery Additional Past Surgical History / Comment(s): Bilateral total knee replacement , bilateral shoulder rotator cuff repairs, L cataract removal, EGDs and colonoscopy with ulcer cauterized, cardioversions/MEGAN, rt hand surgery, left foot surgery. right toe surgery Past Anesthesia/Blood Transfusion Reactions: No Reported Reaction Additional Past Anesthesia/Blood Transfusion Reaction / Comment(s): Pt received blood in 2007 with gastric bleed without reaction. Past Psychological History: No Psychological Hx Reported Smoking Status: Never smoker Past Alcohol Use History: Occasional Past Drug Use History: None Reported - Past Family History Father Family Medical History: No Reported History Additional Family Medical History / Comment(s): Father was healthy and lived to be 80yrs old. Mother Family Medical History: No Reported History Additional Family Medical History / Comment(s): Mother was healthy and lived to be 80 yrs old. General Exam - General Exam Comments Initial Comments: GENERAL: Patient is well-developed and well-nourished. Patient is nontoxic and well- hydrated and is in mild distress. ENT: Neck is soft and supple. No significant lymphadenopathy is noted. Oropharynx is clear. Moist mucous membranes. Neck has full range of motion without eliciting any pain. EYES: The sclera were anicteric and conjunctiva were pink and moist. Extraocular movements were intact and pupils were equal round and reactive to light. Eyelids were unremarkable. PULMONARY: Unlabored respirations. Good breath sounds bilaterally. No audible rales rhonchi or wheezing was noted. CARDIOVASCULAR: There is a regular rate and rhythm without any murmurs gallops or rubs. ABDOMEN: Soft and nontender with normal bowel sounds. No palpable organomegaly was noted. There is no palpable pulsatile mass. SKIN: Skin is clear with no lesions or rashes and otherwise unremarkable. NEUROLOGIC: Patient is alert and oriented x3. Cranial nerves II through XII are grossly intact. Motor and sensory are also intact. Normal speech, volume and content. Symmetrical smile. Cerebellar testing finger to nose is equal bilaterally MUSCULOSKELETAL: Normal extremities with adequate strength and full range of motion. LYMPHATICS: No significant lymphadenopathy is noted PSYCHIATRIC: Normal psychiatric evaluation. Normal interpersonal interactions appears functionally intact in deals appropriately with others. No signs of depression. No signs of anxiety. Limitations: no limitations Course Vital Signs 01/09/18 01/09/18 09:57 11:30 Temperature 97.2 F L Pulse Rate 68 64 Respiratory 16 20 Rate Blood Pressure 125/59 131/62 O2 Sat by Pulse 99 99 Oximetry Medical Decision Making - Medical Decision Making I reviewed the patient's MRI of the brain and CT of the abdomen and pelvis. EKG showed normal sinus rhythm at 64 bpm AK interval 198 QRS is under 10 Q-T intervals 510 QTC is 526. Patient has a prolonged QT interval. Patient is on Zofran at home. Patient was given an opportunity to walk in the emergency department was unable to get away from the side of her bed. - Lab Data Result diagrams: 01/09/18 10:35 01/09/18 10:35 Lab Results 01/09/18 01/09/18 01/09/18 Range/Units 10:35 10:35 10:35 WBC 10.9 H (3.8-10.6) k/uL RBC 3.45 L (3.80-5.40) m/uL Hgb 10.3 L (11.4-16.0) gm/dL Hct 33.5 L (34.0-46.0) % MCV 97.0 (80.0-100.0) fL MCH 29.9 (25.0-35.0) pg MCHC 30.8 L (31.0-37.0) g/dL RDW 14.5 (11.5-15.5) % Plt Count 259 (150-450) k/uL Neutrophils % 77 % Lymphocytes % 13 % Monocytes % 9 % Eosinophils % 0 % Basophils % 0 % Neutrophils # 8.4 H (1.3-7.7) k/uL Lymphocytes # 1.4 (1.0-4.8) k/uL Monocytes # 0.9 (0-1.0) k/uL Eosinophils # 0.0 (0-0.7) k/uL Basophils # 0.0 (0-0.2) k/uL PT (9.0-12.0) sec INR (<1.2) APTT (22.0-30.0) sec Sodium 135 L (137-145) mmol/L Potassium 3.6 (3.5-5.1) mmol/L Chloride 94 L (98-107) mmol/L Carbon Dioxide 29 (22-30) mmol/L Anion Gap 12 mmol/L BUN 19 H (7-17) mg/dL Creatinine 1.30 H (0.52-1.04) mg/dL Est GFR (MDRD) Af Amer 48 (>60 ml/min/1.73 sqM) Est GFR (MDRD) Non-Af 40 (>60 ml/min/1.73 sqM) Glucose 141 H (74-99) mg/dL Calcium 9.0 (8.4-10.2) mg/dL Magnesium 1.6 (1.6-2.3) mg/dL Total Bilirubin 0.8 (0.2-1.3) mg/dL AST 56 H (14-36) U/L ALT 80 H (9-52) U/L Alkaline Phosphatase 94 (38-126) U/L Total Creatine Kinase 50 (30-135) U/L CK-MB (CK-2) 1.9 (0.0-2.4) ng/mL CK-MB (CK-2) Rel Index 3.8 Troponin I 0.018 (0.000-0.034) ng/mL Total Protein 5.7 L (6.3-8.2) g/dL Albumin 3.5 (3.5-5.0) g/dL Urine Color Urine Appearance (Clear) Urine pH (5.0-8.0) Ur Specific Flomot (1.001-1.035) Urine Protein (Negative) Urine Glucose (UA) (Negative) Urine Ketones (Negative) Urine Blood (Negative) Urine Nitrite (Negative) Urine Bilirubin (Negative) Urine Urobilinogen (<2.0) mg/dL Ur Leukocyte Esterase (Negative) Urine RBC (0-5) /hpf Urine WBC (0-5) /hpf Ur Squamous Epith Cells (0-4) /hpf Urine Bacteria (None) /hpf Hyaline Casts (0-2) /lpf Urine Mucus (None) /hpf 01/09/18 01/09/18 01/09/18 Range/Units 10:35 10:35 12:06 WBC (3.8-10.6) k/uL RBC (3.80-5.40) m/uL Hgb (11.4-16.0) gm/dL Hct (34.0-46.0) % MCV (80.0-100.0) fL MCH (25.0-35.0) pg MCHC (31.0-37.0) g/dL RDW (11.5-15.5) % Plt Count (150-450) k/uL Neutrophils % % Lymphocytes % % Monocytes % % Eosinophils % % Basophils % % Neutrophils # (1.3-7.7) k/uL Lymphocytes # (1.0-4.8) k/uL Monocytes # (0-1.0) k/uL Eosinophils # (0-0.7) k/uL Basophils # (0-0.2) k/uL PT 27.5 H (9.0-12.0) sec INR 3.1 H (<1.2) APTT 38.2 H (22.0-30.0) sec Sodium (137-145) mmol/L Potassium (3.5-5.1) mmol/L Chloride (98-107) mmol/L Carbon Dioxide (22-30) mmol/L Anion Gap mmol/L BUN (7-17) mg/dL Creatinine (0.52-1.04) mg/dL Est GFR (MDRD) Af Amer (>60 ml/min/1.73 sqM) Est GFR (MDRD) Non-Af (>60 ml/min/1.73 sqM) Glucose (74-99) mg/dL Calcium (8.4-10.2) mg/dL Magnesium 1.6 (1.6-2.3) mg/dL Total Bilirubin (0.2-1.3) mg/dL AST (14-36) U/L ALT (9-52) U/L Alkaline Phosphatase (38-126) U/L Total Creatine Kinase (30-135) U/L CK-MB (CK-2) (0.0-2.4) ng/mL CK-MB (CK-2) Rel Index Troponin I (0.000-0.034) ng/mL Total Protein (6.3-8.2) g/dL Albumin (3.5-5.0) g/dL Urine Color Yellow Urine Appearance Clear (Clear) Urine pH 6.0 (5.0-8.0) Ur Specific [place] 1.035 (1.001-1.035) Urine Protein Trace H (Negative) Urine Glucose (UA) Negative (Negative) Urine Ketones Negative (Negative) Urine Blood Negative (Negative) Urine Nitrite Negative (Negative) Urine Bilirubin Negative (Negative) Urine Urobilinogen <2.0 (<2.0) mg/dL Ur Leukocyte Esterase Trace H (Negative) Urine RBC 2 (0-5) /hpf Urine WBC 4 (0-5) /hpf Ur Squamous Epith Cells <1 (0-4) /hpf Urine Bacteria Rare H (None) /hpf Hyaline Casts 24 H (0-2) /lpf Urine Mucus Rare H (None) /hpf Disposition Clinical Impression: Multiple falls, Prolonged QT interval, Nausea, Ataxia Disposition: ADMITTED IP TO THIS HOSP Referrals: Radha Braxton DO [Primary Care Provider] - 1-2 days Time of Disposition: 13:04
[2018-01-09 10:51] LABS: Basophils % (A) 0 %; Eosinophils % (A) 0 %; HCT 33.5 % (34.0-46.0); HGB 10.3 gm/dL (11.4-16.0); Lymphocytes # (A) 1.4 k/uL (1.0-4.8); Lymphocytes % (A) 13 %; MCH 29.9 pg (25.0-35.0); MCHC 30.8 g/dL (31.0-37.0); Mean Platelet Volume 7.7; Monocytes # (A) 0.9 k/uL (0-1.0); Monocytes % (A) 9 %; Neutrophils # (A) 8.4 k/uL (1.3-7.7); Neutrophils % (A) 77 %; Platelet Count 259 k/uL (150-450); RBC 3.45 m/uL (3.80-5.40); RDW 14.5 % (11.5-15.5); WBC 10.9 k/uL (3.8-10.6)
[2018-01-09] MEDS ORDERED: METOCLOPRAMIDE 5 MG/ML 2 ML VIAL IVP STA (10:52)
[2018-01-09 11:02] LABS: Albumin 3.5 g/dL (3.5-5.0); Magnesium 1.6 mg/dL (1.6-2.3); Potassium 3.6 mmol/L (3.5-5.1); Total Bilirubin 0.8 mg/dL (0.2-1.3); Total Protein 5.7 g/dL (6.3-8.2)
[2018-01-09 11:05] LABS: INR 3.1 (<1.2); Partial Thromboplastin Time 38.2 sec (22.0-30.0); Prothrombin Time 27.5 sec (9.0-12.0)
--- NOTE | 2018-01-09 11:23 | XR ---
EXAMINATION TYPE: XR chest 2V DATE OF EXAM: 01/09/2018 COMPARISON: Prior chest x-ray 09/23/2016 HISTORY: Chest pain TECHNIQUE: Frontal and lateral views of the chest are obtained. FINDINGS: The heart remains enlarged. Patient is rotated and there are overlying cardiac leads. Ther e is improved aeration as compared to prior exam. No pneumothorax or pleural effusion. IMPRESSION: Cardiomegaly. Improvement in aeration.
[2018-01-09 11:35] LABS: Creatine Kinase MB 1.9 ng/mL (0.0-2.4); Troponin I 0.018 ng/mL (0.000-0.034)
[2018-01-09 12:42] LABS: Appearance,Urine Clear (Clear); Bacteria,Urine Rare /hpf; Bilirubin,Urine Negative (Negative); Blood,Urine Negative (Negative); Color,Urine Yellow; Glucose,Urine (UA) Negative (Negative); Hyaline Casts,Urine 24 /lpf (0-2); Ketones,Urine Negative (Negative); Leukocyte Esterase,Urine Trace (Negative); Mucus,Urine Rare /hpf; Nitrite,Urine Negative (Negative); Protein,Urine Trace (Negative); RBC,Urine 2 /hpf (0-5); Specific Gravity,Urine 1.035 (1.001-1.035); Squamous Epithelial Cell,Urine <1 /hpf (0-4); Urobilinogen,Urine <2.0 mg/dL (<2.0); WBC,Urine 4 /hpf (0-5)
[2018-01-09] MEDS ORDERED: SODIUM CHLORIDE 0.9% 1,000 ML IV ONE (13:04)
[2018-01-09] MEDS ORDERED: ONDANSETRON 4 MG/2 ML VIAL IVP PRN (14:54)
--- NOTE | 2018-01-09 14:57 | P.HPIM ---
History of Present Illness H&P Date: 01/09/18 Chief Complaint: Multiple falls with nausea This is a 77-year-old female, patient of [facility]. She has a known past medical history of atrial fibrillation anticoagulated with Coumadin, congestive heart failure, hyperlipidemia, hypertension, ostearthritis, rheumatoid arthritis, hypothyroidism, bleeding peptic ulcer, lacunar stroke, chronic back pain with degenerative disc disease and bulging disks and diabetes mellitus. Patient presents to the hospital with worsening complaints of falling frequently, having difficulty with her balance and severe nausea with vomiting. Patient reports it feels like her legs give out on her sometimes. Patient reports that her family doctor had started workup in the outpatient setting. However, patient's symptoms continued to worsen and she presented to the emergency room for further evaluation. Patient has been having symptoms for a couple months and within the last 2 weeks symptoms have worsened. She had an MRI of the brain on 11/28/2017 showing no acute intracranial process. Diffuse abnormal signal within the white matter is nonspecific but most typical of remote microvascular ischemia. 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 Small focal areas of abnormal signal involving the obdulio likely on the basis of remote ischemia. Carotid Doppler showed no snacking hemodynamic stenosis and a computed tomography scan of the abdomen and pelvis for further workup of nausea showed no bowel obstruction present there is fairly moderate proximal colonic fecal stasis attention to a right gluteal region moderate sized focal subcutaneous hematoma was subcutaneous inflammatory change. 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 Patient does have mildly elevated LFTs with AST of 56 and ALT of 80. Last episode of vomiting was yesterday. Patient reports having a bowel movement possibly yesterday. Does not feel constipated. Denies any abdominal pain. She reports eating does help her symptoms. The nausea comes on mostly in the morning as well as after the falling episodes. She has difficulty getting back up and has to call EMS to get her up. She denies any loss of consciousness. She denies hitting her head. Denies any chest pain or shortness of breath. Denies any fever or chills or sweats. Denies any burning with urination. Was being treated for UTI within the last week on Keflex. Patient states that she stopped taking the antibiotics because she wasn't feeling well. Chest x-ray showed cardiomegaly. EKG had shown normal sinus rhythm with prolonged QT interval. Patient has been admitted to the hospital for further workup of her frequent falls and nausea. Patient lives alone at home and uses a walker to ambulate. She was found have an INR of 3.1 and creatinine elevated at 1.30 AST 56 ALT 80 and hemoglobin 10.3. Patient denies any blood in her emesis and denies any black stools or blood in the stools. Neurology has been consulted. Patient reports her last EGD was several years ago when she had the peptic ulcer. Patient was given Antivert and Reglan in the ER. Patient was seen and examined in the emergency. Review of Systems Please refer to HPI otherwise unremarkable Past Medical History Past Medical History: Atrial Fibrillation, Heart Failure, GERD/Reflux, GI Bleed , Hyperlipidemia, Hypertension, Osteoarthritis (OA), Pneumonia, Rheumatoid Arthritis (RA), Thyroid Disorder Additional Past Medical History / Comment(s): Afib with past RVR, chronic back pain with bilateral sciatica, gastric ulcer, rectal bleed, past migraines, bronchitis, hypothyroidism, generalized arthritis. History of Any Multi-Drug Resistant Organisms: None Reported Past Surgical History: Hysterectomy, Joint Replacement, Orthopedic Surgery Additional Past Surgical History / Comment(s): Bilateral total knee replacement , bilateral shoulder rotator cuff repairs, L cataract removal, EGDs and colonoscopy with ulcer cauterized, cardioversions/MEGAN, rt hand surgery, left foot surgery. right toe surgery Past Anesthesia/Blood Transfusion Reactions: No Reported Reaction Additional Past Anesthesia/Blood Transfusion Reaction / Comment(s): Pt received blood in 2007 with gastric bleed without reaction. Past Psychological History: No Psychological Hx Reported Smoking Status: Never smoker Past Alcohol Use History: Occasional Past Drug Use History: None Reported - Past Family History Father Family Medical History: No Reported History Additional Family Medical History / Comment(s): Father was healthy and lived to be 80yrs old. Mother Family Medical History: No Reported History Additional Family Medical History / Comment(s): Mother was healthy and lived to be 80 yrs old. Medications and Allergies Home Medications Medication Instructions Recorded Confirmed Type DULoxetine HCL [Cymbalta] 60 mg PO DAILY 09/23/16 01/09/18 History HYDROcodone/APAP 7.5-325MG [Candor 1 tab PO HS 12/06/16 01/09/18 History 7.5-325] Levothyroxine Sodium [Synthroid] 112 mcg PO DAILY 12/08/16 01/09/18 History Amiodarone [Cordarone] 200 mg PO DAILY 12/27/16 01/09/18 History Benazepril [Lotensin] 5 mg PO HS 01/09/18 01/09/18 History Esomeprazole Magnesium 40 mg PO DAILY 01/09/18 01/09/18 History [Esomeprazole Magnesium] Furosemide [Lasix] 40 mg PO DAILY 01/09/18 01/09/18 History Metoprolol Succinate (ER) [Toprol 50 mg PO DAILY 01/09/18 01/09/18 History XL] Simvastatin [Zocor] 20 mg PO HS 01/09/18 01/09/18 History Warfarin [Coumadin] 1 mg PO MOTUWETHFR 01/09/18 01/09/18 History metFORMIN HCL ER [Glucophage Xr] 500 mg PO DAILY 01/09/18 01/09/18 History Allergies Allergy/AdvReac Type Severity Reaction Status Date / Time No Known Allergies Allergy Verified 01/09/18 10:59 Physical Exam Vitals: Vital Signs Temp Pulse Resp BP Pulse Ox 01/09/18 11:30 64 20 131/62 99 01/09/18 09:57 97.2 F L 68 16 125/59 99 Intake and Output 01/08/18 01/09/18 01/09/18 22:59 06:59 14:59 Other: Weight 83.915 kg Patient Weight 01/10/18 06:59 Weight 83.915 kg Head normocephalic Neck supple Lungs clear to auscultation bilaterally no wheezing or crackles Heart regular rate and rhythm S1-S2, no rub or gallop Abdomen is soft nontender nondistended positive bowel sounds no hepatosplenomegaly Extremities no edema Neuro alert and orientated to 3. Hand heel seat filler equal bilaterally but weak. Lower extremity strength week more so on the left than right. No sensation loss Skin exam: Patient's right glute has a large hard firm hematoma Results CBC & Chem 7: 01/09/18 10:35 01/09/18 10:35 Labs: Abnormal Lab Results - Last 24 Hours (Table) 01/09/18 01/09/18 01/09/18 Range/Units 10:35 10:35 10:35 WBC 10.9 H (3.8-10.6) k/uL RBC 3.45 L (3.80-5.40) m/uL Hgb 10.3 L (11.4-16.0) gm/dL Hct 33.5 L (34.0-46.0) % MCHC 30.8 L (31.0-37.0) g/dL Neutrophils # 8.4 H (1.3-7.7) k/uL PT 27.5 H (9.0-12.0) sec INR 3.1 H (<1.2) APTT 38.2 H (22.0-30.0) sec Sodium 135 L (137-145) mmol/L Chloride 94 L (98-107) mmol/L BUN 19 H (7-17) mg/dL Creatinine 1.30 H (0.52-1.04) mg/dL Glucose 141 H (74-99) mg/dL AST 56 H (14-36) U/L ALT 80 H (9-52) U/L Total Protein 5.7 L (6.3-8.2) g/dL Urine Protein (Negative) Ur Leukocyte Esterase (Negative) Urine Bacteria (None) /hpf Hyaline Casts (0-2) /lpf Urine Mucus (None) /hpf 01/09/18 Range/Units 12:06 WBC (3.8-10.6) k/uL RBC (3.80-5.40) m/uL Hgb (11.4-16.0) gm/dL Hct (34.0-46.0) % MCHC (31.0-37.0) g/dL Neutrophils # (1.3-7.7) k/uL PT (9.0-12.0) sec INR (<1.2) APTT (22.0-30.0) sec Sodium (137-145) mmol/L Chloride (98-107) mmol/L BUN (7-17) mg/dL Creatinine (0.52-1.04) mg/dL Glucose (74-99) mg/dL AST (14-36) U/L ALT (9-52) U/L Total Protein (6.3-8.2) g/dL Urine Protein Trace H (Negative) Ur Leukocyte Esterase Trace H (Negative) Urine Bacteria Rare H (None) /hpf Hyaline Casts 24 H (0-2) /lpf Urine Mucus Rare H (None) /hpf Assessment and Plan Assessment: 1. Multiple falls with unsteady balance and nausea with vomiting: Exact etiology unclear. Consult neurology. MRI of the brain showed no acute intracranial process. Did reveal remote lacunar infarct and small areas of abnormal signal involving the obdulio basal ganglia and thalamus likely in the basis remote ischemia. Also, Concerns about side effects from amiodarone contributing to patient's symptoms. We'll hold amiodarone. Consult cardiology. Her EKG had shown a prolonged QT interval. Check orthostatics. Carotid Doppler on 01/04/2018 showed no significant hemodynamic stenosis 2. Nausea and vomiting: Improves with eating. History of peptic ulcer disease. Consult GI service for further evaluation and possible EGD. Add Zofran. We'll switch Protonix to IV 3. Acute kidney injury: Possibly related to vomiting and medications. As well as patient had a computed tomography scan of the abdomen and pelvis with contrast on January 08. Hold Lasix and JULIEN inhibitor. Continue normal saline at 75 mL an hour. Repeat labs in a.m. 3. Large Right gluteal hematoma secondary to fall and Coumadin. Hold Coumadin. Continue monitor hemoglobin 4. Coagulopathy with an INR of 3.1. Hold Coumadin. Repeat PT/INR in a.m. 5. Elevated LFTs no abdominal pain. Computed tomography scan did show small stones and gallbladder sludge. At this time hold simvastatin. 6. Recent UTI outpatient taking Keflex. Patient did not complete antibiotic regimen. She is asymptomatic for UTI. However urinalysis is showing trace leukocyte Estrace. We'll check urine culture before starting antibiotics 7. History of type 2 diabetes mellitus: Hold metformin with the elevated creatinine. Add sliding scale coverage 8. Chronic atrial fibrillation: On amiodarone, metoprolol and Coumadin at home. At this time hold Coumadin for elevated INR of 3.1 and right gluteal hematoma. Amiodarone on hold until evaluated by cardiology 9. Hyperlipidemia statin on hold due to elevated LFTs 10. Hypothyroidism: Resume Synthroid. 11. Chronic back pain history with degenerative disc changes and bulging disks 12. Chronic systolic CHF. Stable. EF 40-45 %. Lasix on hold due to acute kidney injury Time with Patient: Greater than 30 (Greater than 50% of the total time spent in counseling and coordination of care.I performed an examination of the patient and discussed their management with the physician Floorman. I have reviewed the Physician Floorman's notes and agree with the documented findings and plan of care)
[2018-01-09] MEDS: INSULIN ASPART 100 UNIT/ML 1 ML 10 ML VIAL SQ SCH ×2 (18:59→23:31)
[2018-01-09] MEDS: DOCUSATE 100 MG CAP PO SCH (20:03)
[2018-01-09] MEDS: HYDROcodone/APAP 7.5-325MG 1 EACH TAB PO SCH (20:04)
[2018-01-09 21:22] LABS: Glucose,Whole Blood 132 mg/dL (75-99)
[2018-01-09 21:56] LABS: Hemoglobin A1C 5.8 % (4.0-6.0)
[2018-01-10] MEDS: LEVOTHYROXINE 112 MCG TAB PO SCH (04:03)
[2018-01-10 06:51] LABS: Glucose,Whole Blood 113 mg/dL (75-99)
[2018-01-10 07:19] LABS: Basophils % (A) 0 %; Eosinophils # (A) 0.1 k/uL (0-0.7); Eosinophils % (A) 1 %; HCT 29.8 % (34.0-46.0); HGB 9.3 gm/dL (11.4-16.0); Lymphocytes # (A) 2.2 k/uL (1.0-4.8); Lymphocytes % (A) 21 %; MCH 30.4 pg (25.0-35.0); MCHC 31.1 g/dL (31.0-37.0); MCV 97.6 fL (80.0-100.0); Mean Platelet Volume 6.9; Monocytes # (A) 1.1 k/uL (0-1.0); Monocytes % (A) 10 %; Neutrophils % (A) 66 %; Platelet Count 225 k/uL (150-450); RBC 3.06 m/uL (3.80-5.40); RDW 14.3 % (11.5-15.5); WBC 10.6 k/uL (3.8-10.6)
[2018-01-10] MEDS ORDERED: PANTOPRAZOLE 40 MG TABLET PO SCH (07:30)
[2018-01-10 07:44] LABS: Calcium 8.6 mg/dL (8.4-10.2); Total Bilirubin 0.7 mg/dL (0.2-1.3); Total Protein 5.2 g/dL (6.3-8.2)
[2018-01-10 07:45] LABS: Potassium 3.6 mmol/L (3.5-5.1)
[2018-01-10] MEDS: INSULIN ASPART 100 UNIT/ML 1 ML 10 ML VIAL SQ SCH ×4 (08:53→20:35)
--- NOTE | 2018-01-10 09:46 | CONS ---
CONSULTATION DATE OF CONSULTATION: 01/09/2018 CHIEF COMPLAINT: Ataxia. HISTORY OF PRESENT ILLNESS: Mrs. Lee is a pleasant 77-year-old, female, who was being evaluated today on 01/09/2018 by the neurology service per the request of Dr. Henning for ataxia. The patient states that over the past 2 weeks, she has been having frequent falls due to gait instability. She denies tripping over objects and states that she just feels significant disequilibrium "as if she was drunk". She is not able to pinpoint whether she is always falling towards one side. She denies any vertigo. She informs me that she had milder symptoms approximately 6 weeks ago and did see her primary care physician, Dr. Radha Braxton, who did order an MRI of the brain which was done back on. 11/28/2017. I did review this study and it showed multiple lacunar infarcts involving the basal ganglia, thalamus, and obdulio. Small vessel ischemic changes were also seen. The patient does have history of atrial fibrillation and does take Coumadin for anticoagulation therapy. Her INR on admission was therapeutic at 3.1. A carotid Doppler was done on 01/04/2018, which showed moderate plaques with no hemodynamically significant stenosis. Her comprehensive metabolic profile showed mild renal insufficiency with a BUN of 19 and creatinine of 1.3 and elevated liver enzymes with an AST of 56 and an ALT of 80. Her CBC showed anemia with a hemoglobin of 10.3. At the time of my evaluation, she is lying in her bed and appears to be in no acute distress. She still feels very unsteady whenever she gets up. She is also complaining of severe low back pain with any increased activity. She states that she has been suffering with chronic low back pain for several years and this has significantly hindered her normal daily activity. She denies any lateralizing numbness or weakness, but does complain of severe fatigue. Her urinalysis showed 4 WBCs with trace leukocyte esterase. PAST MEDICAL HISTORY: Atrial fibrillation, heart failure, gastroesophageal reflux disease, history of GI bleed, dyslipidemia, hypertension, arthritis, hypothyroidism, rheumatoid arthritis, history of strokes, history of migraines, history of joint replacement surgery and multiple orthopedic surgeries. She also has history of hysterectomy. SOCIAL HISTORY: She denies any tobacco or drug use. She occasionally drinks alcohol. FAMILY HISTORY: Noncontributory. HOME MEDICATIONS: Reviewed in the chart. ALLERGIES: No known drug allergies. REVIEW OF SYSTEMS: CONSTITUTIONAL: Positive for fatigue. EYES: Negative. ENT: Negative. CARDIOVASCULAR: As mentioned above. RESPIRATORY: Negative. NEUROLOGICAL: As mentioned above. GASTROINTESTINAL: Positive for occasional heartburn. GENITOURINARY: Negative. PSYCHIATRIC: Negative. MUSCULOSKELETAL: As mentioned above. DERMATOLOGICAL: Negative. ENDOCRINE: Positive for hypothyroidism. PHYSICAL EXAM: Vital signs show a temperature of 97.9, pulse 73, respiration 20, blood pressure 118/55. Orthostatics were checked and her blood pressure went from 125/57 in a supine position to 94/46 in a standing position and her pulse went from 79 beats per minute supine to 62 beats per minute standing. GENERAL APPEARANCE: The patient is a well-developed, elderly female who appears to be in no acute distress. HEENT: Normocephalic, atraumatic. Extraocular muscles are intact with no nystagmus seen, no facial asymmetry is seen. Neck is supple with no masses felt. CARDIOVASCULAR: Regular rate and rhythm. ABDOMEN: Nontender, nondistended. Extremities showed no edema or clubbing. NEUROLOGICAL EXAM: The patient is alert, aware and oriented x3. Speech and language are normal. Strength is 5 minus out of 5 in all 4 extremities. Sensory exam was normal to light touch in all 4 extremities. [id number] testing showed mild dysmetria in the right upper extremity compared to the left. Fine motor movements were difficult to assess due to severe arthritis in her hands. No pronator drift is seen. No facial asymmetry is noticed on cranial nerve testing. IMPRESSION: 1. Dysmetria, rule out right cerebellar infarct. 2. Gait instability. 3. Atrial fibrillation. 4. Coagulopathy. 5. Chronic pain syndrome. 6. Orthostatic hypotension. RECOMMENDATION: The patient has been having disequilibrium over the past 2 weeks and does have mild dysmetria on my neurological assessment today. Given her increased risk factors for strokes, a right cerebellar infarct needs to be ruled out. I will order a repeat MRI of the brain without contrast. Continue Coumadin for anticoagulation therapy. Her INR is therapeutic at this time. I will order a fasting lipid panel, EEG, and serum homocystine level. Continue IV hydration as tolerated as she did have mild orthostatic hypotension on her recent vital checks. Her renal function was slightly abnormal as well likely due to dehydration. As for her chronic pain syndrome, I had a lengthy discussion with her regarding various treatment options as this is significantly affecting her normal daily activity. Further management will be discussed in the outpatient setting. Continue neuro checks. Continue the rest of your current workup and management. I will continue to follow with you. Further recommendations to follow. Thank you for allowing me to participate in the care of your patient. If you have any questions, please feel free to contact me. BAUDILIO / JAYLENEN: [phone] /
[2018-01-10] MEDS ORDERED: METOCLOPRAMIDE 5 MG/ML 2 ML VIAL IVP PRN (09:51)
--- NOTE | 2018-01-10 10:00 | P.CONS ---
History of Present Illness - Reason for Consult Consult date: 01/10/18 Nausea Requesting physician: Nickolas Henning - History of Present Illness 77-year-old female with a history of chronic atrial fibrillation warfarin maintenance, lacunar stroke, chronic back pain, hypertension, hyperlipidemia, bleeding duodenal ulcer 2006, rheumatoid arthritis. Admitted with reports of persistent nausea and dry heaves small emesis for at least 2 weeks as well as frequent falls over the last month. She is scheduled for MRI brain today. Denies hematemesis hematochezia melena. Denies abdominal pain. Afebrile. No weight loss. Home medications include but not limited amiodarone 200 mg daily. Zocor 20 mg daily. Hemoglobin 9.3-10.3. White count 10.6. Platelet 225. INR 3.1. BUN 19. Creatinine 1.3. AST 56. ALT 80. Total bilirubin alkaline phosphatase within normal limits. Previous hemoglobin was 12.3-13.0 2 weeks ago. History of EGD many years ago. CT abdomen and pelvis 01/08/2018 reported no bowel obstruction. Moderate proximal colonic fecal stasis. Dependency gallstones or gallbladder sludge. Review of medical records EGD colonoscopy 2006 with findings of duodenal ulcer and diverticulosis performed by Dr. Espitia. Review of Systems Constitutional: Denies fever, chills, sweats, weight gain, or loss. HEENT: Negative for migraines, blurred vision or loss, earaches, drainage, tinnitus, oral mucosal lesions, dysphagia, or odynophagia. CARDIAC: Chronic atrial fibrillation. Hypertension. Hyperlipidemia. Negative for chest pain, arrhythmias, or palpitation. RESPIRATORY: Negative for shortness of breath, hemoptysis, cough, or sputum production. GI: See HPI for pertinent findings. : Negative for hematuria, urgency, frequency, polyuria, or dysuria. GYNc: Denies possibility of . Negative vaginal discharge. MUSCULOSKELETAL: Rheumatoid arthritis. Negative for muscle aches, swelling, arthritis, and arthralgias. NEUROLOGIC: Negative for stroke or TIA. ENDOCRINE: Negative for thyroid problems. SKIN: Negative for rash or itching. PSYCHIATRIC: Negative history for depression and anxiety Past Medical History Past Medical History: Atrial Fibrillation, Heart Failure, GERD/Reflux, GI Bleed , Hyperlipidemia, Hypertension, Osteoarthritis (OA), Pneumonia, Rheumatoid Arthritis (RA), Thyroid Disorder Additional Past Medical History / Comment(s): Afib with past RVR, chronic back pain with bilateral sciatica, gastric ulcer, rectal bleed, past migraines, bronchitis, hypothyroidism, generalized arthritis. History of Any Multi-Drug Resistant Organisms: None Reported Past Surgical History: Hysterectomy, Joint Replacement, Orthopedic Surgery Additional Past Surgical History / Comment(s): Bilateral total knee replacement , bilateral shoulder rotator cuff repairs, L cataract removal, EGDs and colonoscopy with ulcer cauterized, cardioversions/MEGAN, rt hand surgery, left foot surgery. right toe surgery Past Anesthesia/Blood Transfusion Reactions: No Reported Reaction Additional Past Anesthesia/Blood Transfusion Reaction / Comm: Pt received blood in 2007 with gastric bleed without reaction. Smoking Status: Never smoker - Past Family History Father Family Medical History: No Reported History Additional Family Medical History / Comment(s): Father was healthy and lived to be 80yrs old. Mother Family Medical History: No Reported History Additional Family Medical History / Comment(s): Mother was healthy and lived to be 80 yrs old. Medications and Allergies Home Medications Medication Instructions Recorded Confirmed Type DULoxetine HCL [Cymbalta] 60 mg PO DAILY 09/23/16 01/09/18 History HYDROcodone/APAP 7.5-325MG [[place] 1 tab PO HS 12/06/16 01/09/18 History 7.5-325] Levothyroxine Sodium [Synthroid] 112 mcg PO DAILY 12/08/16 01/09/18 History Amiodarone [Cordarone] 200 mg PO DAILY 12/27/16 01/09/18 History Benazepril [Lotensin] 5 mg PO HS 01/09/18 01/09/18 History Esomeprazole Magnesium 40 mg PO DAILY 01/09/18 01/09/18 History [Esomeprazole Magnesium] Furosemide [Lasix] 40 mg PO DAILY 01/09/18 01/09/18 History Metoprolol Succinate (ER) [Toprol 50 mg PO DAILY 01/09/18 01/09/18 History XL] Simvastatin [Zocor] 20 mg PO HS 01/09/18 01/09/18 History Warfarin [Coumadin] 1 mg PO MOTUWETHFR 01/09/18 01/09/18 History metFORMIN HCL ER [Glucophage Xr] 500 mg PO DAILY 01/09/18 01/09/18 History Allergies Allergy/AdvReac Type Severity Reaction Status Date / Time No Known Allergies Allergy Verified 01/09/18 10:59 Physical Exam Vitals: Vital Signs Temp Pulse Pulse Pulse Pulse Pulse Resp 01/10/18 08:00 97.9 F 69 18 01/10/18 03:39 98.3 F 71 16 01/10/18 03:38 16 01/10/18 00:00 16 01/09/18 23:57 98.3 F 79 16 01/09/18 20:00 16 01/09/18 19:26 99.0 F 71 16 01/09/18 16:01 97.9 F 73 88 70 01/09/18 15:33 98.3 F 66 20 01/09/18 14:00 63 20 01/09/18 11:30 64 20 01/09/18 09:57 97.2 F L 68 16 BP BP BP BP BP BP Pulse Ox 01/10/18 08:00 113/65 94 L 01/10/18 03:39 108/52 98 01/10/18 03:38 01/10/18 00:00 01/09/18 23:57 138/47 93 L 01/09/18 20:00 01/09/18 19:26 114/45 100 01/09/18 16:01 118/55 94/46 125/57 94 L 01/09/18 15:33 127/60 99 01/09/18 14:00 137/70 99 01/09/18 11:30 131/62 99 01/09/18 09:57 125/59 99 Intake and Output 01/09/18 01/10/18 01/10/18 22:59 06:59 14:59 Intake Total 240 Balance 240 Intake: Oral 240 Other: Voiding Method Toilet Toilet # Voids 1 1 Weight 82.7 kg General appearance: The patient is alert, oriented, in no acute distress. HET: Head is normocephalic and atraumatic. Pupils are equal and reactive. Oropharynx is clear without lesions. Neck: Supple without lymphadenopathy. Trachea midline. Heart: S1 S2. Regular rate and rhythm. Lungs: No crackles or wheezes are heard. Abdomen: Soft, nontender, nondistended with bowel sounds. No peritoneal signs. No palpable organomegaly or masses. Extremities: Normal skin color and turgor. No cyanosis, rash, ulceration, clubbing, or edema. Radial and pedal pulses are 2/4 bilaterally. Neurological: No focal deficits. Strength and sensation are grossly intact. Results CBC & Chem 7: 01/10/18 07:03 01/10/18 07:03 Labs: Abnormal Lab Results - Last 24 Hours (Table) 01/09/18 01/09/18 01/09/18 Range/Units 10:35 10:35 10:35 WBC 10.9 H (3.8-10.6) k/uL RBC 3.45 L (3.80-5.40) m/uL Hgb 10.3 L (11.4-16.0) gm/dL Hct 33.5 L (34.0-46.0) % MCHC 30.8 L (31.0-37.0) g/dL Neutrophils # 8.4 H (1.3-7.7) k/uL Monocytes # (0-1.0) k/uL PT 27.5 H (9.0-12.0) sec INR 3.1 H (<1.2) APTT 38.2 H (22.0-30.0) sec Sodium 135 L (137-145) mmol/L Chloride 94 L (98-107) mmol/L BUN 19 H (7-17) mg/dL Creatinine 1.30 H (0.52-1.04) mg/dL Glucose 141 H (74-99) mg/dL POC Glucose (mg/dL) (75-99) mg/dL AST 56 H (14-36) U/L ALT 80 H (9-52) U/L Total Protein 5.7 L (6.3-8.2) g/dL Albumin (3.5-5.0) g/dL Urine Protein (Negative) Ur Leukocyte Esterase (Negative) Urine Bacteria (None) /hpf Hyaline Casts (0-2) /lpf Urine Mucus (None) /hpf 01/09/18 01/09/18 01/10/18 Range/Units 12:06 21:14 06:51 WBC (3.8-10.6) k/uL RBC (3.80-5.40) m/uL Hgb (11.4-16.0) gm/dL Hct (34.0-46.0) % MCHC (31.0-37.0) g/dL Neutrophils # (1.3-7.7) k/uL Monocytes # (0-1.0) k/uL PT (9.0-12.0) sec INR (<1.2) APTT (22.0-30.0) sec Sodium (137-145) mmol/L Chloride (98-107) mmol/L BUN (7-17) mg/dL Creatinine (0.52-1.04) mg/dL Glucose (74-99) mg/dL POC Glucose (mg/dL) 132 H 113 H (75-99) mg/dL AST (14-36) U/L ALT (9-52) U/L Total Protein (6.3-8.2) g/dL Albumin (3.5-5.0) g/dL Urine Protein Trace H (Negative) Ur Leukocyte Esterase Trace H (Negative) Urine Bacteria Rare H (None) /hpf Hyaline Casts 24 H (0-2) /lpf Urine Mucus Rare H (None) /hpf 01/10/18 01/10/18 Range/Units 07:03 07:03 WBC (3.8-10.6) k/uL RBC 3.06 L (3.80-5.40) m/uL Hgb 9.3 L (11.4-16.0) gm/dL Hct 29.8 L (34.0-46.0) % MCHC (31.0-37.0) g/dL Neutrophils # (1.3-7.7) k/uL Monocytes # 1.1 H (0-1.0) k/uL PT (9.0-12.0) sec INR (<1.2) APTT (22.0-30.0) sec Sodium 134 L (137-145) mmol/L Chloride (98-107) mmol/L BUN 23 H (7-17) mg/dL Creatinine 1.16 H (0.52-1.04) mg/dL Glucose 106 H (74-99) mg/dL POC Glucose (mg/dL) (75-99) mg/dL AST 58 H (14-36) U/L ALT 86 H (9-52) U/L Total Protein 5.2 L (6.3-8.2) g/dL Albumin 3.0 L (3.5-5.0) g/dL Urine Protein (Negative) Ur Leukocyte Esterase (Negative) Urine Bacteria (None) /hpf Hyaline Casts (0-2) /lpf Urine Mucus (None) /hpf Microbiology - Last 24 Hours (Table) 01/09/18 12:06 Urine Culture - Preliminary Urine,Voided CT scan - abdomen: report reviewed (Dr. Neil) Assessment and Plan Assessment: Impression: 1. 77-year-old female with a history chronic atrial fibrillation CVA with warfarin maintenance presents with 2 week history of nausea and nonbloody emesis as well as frequent falls. History of remote peptic ulcer disease clinically without active GI bleeding current hemoglobin 9.3. 2. Warfarin coagulopathy. 3. History of remote bleeding peptic ulcer disease duodenal ulcer 2006. 4. Anemia possible component of acute blood loss. Recommendations: 1. Daily PT/INR; vitamin K administration to reverse coagulopathy. 2. Recommend EGD once INR is 1.5 or less. 3. Continue with Zofran for melena times every 6 hours as needed as well as Reglan 5 mg every 6 hours as needed for nausea vomiting. 4. Light diet as tolerated. 5. Daily CBC. 6. Neurology cardiology consultation. The merchant mill utility worker has discussed the risks, benefits and alternative therapies for the above-mentioned procedure and for both sedation/analgesia as well as necessary blood product administration, if indicated, as they pertain to this patient. The patient has indicated understanding and acceptance of the risks and procedures discussed. Thank you for this kind referral and the opportunity to participate in the care of your patient. This consultation was discussed with Dr. Neil. The impression and plan of care have been directed as dictated.
[2018-01-10 10:46] LABS: INR 2.3 (<1.2); Prothrombin Time 20.4 sec (9.0-12.0)
[2018-01-10 12:02] LABS: Glucose,Whole Blood 137 mg/dL (75-99)
--- NOTE | 2018-01-10 12:03 | MR ---
EXAMINATION TYPE: MR brain wo con DATE OF EXAM: 01/10/2018 COMPARISON: 11/28/2017 HISTORY: CVA, DYSMETRIA, ATAXIA TECHNIQUE: Multiplanar, multisequence images of the brain and brainstem is performed without IV contrast. FINDINGS: Diffusion weighted images demonstrate no evidence of a recent infarct or other diffusion ab normality. There is no extra-axial fluid collection. Confluent periventricular and subcortical white matter changes are moderate, most commonly on the basis of chronic microangiopathy. No infratentoria l white matter changes are identified. Major intracranial flow voids are maintained. The ventricular system and cisternal spaces are symmetrically prominent related to age-related volume loss. No enlarg ement of the ventricles to suggest normal pressure hydrocephalus in this patient with ataxia. Multipl e prominent perivascular spaces are noted at the level of the basal ganglia and inferior to the basal ganglia. Redemonstration of small lacunar infarcts involving the basal ganglia and thalami. Focal ar ea of T2/IR hyperintensity within the right lateral obdulio is unchanged from the prior of 11/28/2017 and favored to represent small remote infarct versus the previously questioned central pontine myelinolys is. Midline structures demonstrate normal morphology. The craniocervical junction appears within normal limits. Post contrast images demonstrate no abnormal enhancement. The dural venous sinuses appear pa tent. The globes are intact. There is near circumferential mucosal thickening in the right maxillary sinus and moderate mucosal thickening in the ethmoid sinuses. Remaining visualized paranasal sinuses are well aerated as are the mastoid air cells. Incidental note is made of left inferior nasal turbina te mucosal hypertrophy. IMPRESSION: 1. No acute territorial infarct, midline shift or mass effect. 2. The previously seen small focus of white matter change within the right lateral obdulio is favored to represent a small remote infarct atelectasis is unchanged from the prior exam. The previously questi oned central pontine myelinolysis on the prior exam is unlikely although correlation with clinical sy mptoms is recommended. 3. Old lacunar injuries of the basal ganglia and thalami as well as confluent areas of nonspecific wh ite matter change most commonly on the basis of chronic microangiopathy.
[2018-01-10] MEDS: DOCUSATE 100 MG CAP PO SCH ×2 (12:56→20:34)
[2018-01-10] MEDS: DULoxetine HCL 60 MG CAPSULE.DR PO SCH (12:56)
[2018-01-10] MEDS: METOPROLOL SUCCINATE (ER) 50 MG TAB.ER.24H PO SCH (12:57)
[2018-01-10] MEDS: PANTOPRAZOLE 40 MG/10 ML VIAL IVP SCH (12:57)
--- NOTE | 2018-01-10 13:09 | P.CRDCN ---
History of Present Illness Consult date: 01/10/18 History of present illness: Mrs. Lee is a pleasant 77-year old female past medical history significant for hypertension, dyslipidemia, coronary artery disease, paroxysmal atrial fibrillation, hypothyroid and cardiomyopathy. She sees Dr. Yeboah in the office. We have been asked to see her in consultation for a prolong QT on EKG. She presented to the hospital complaining of persistent nausea, unsteady gait and frequent falls. She states this has been going on for approximately 2-3 weeks and she has been following with her PCP. She was placed on zofran and antibiotic for urinary tract infection initially with no resolve to her symptoms. She denies symptoms of chest pain, shortness of breath, dizziness, palpitations, diaphoresis or any actual loss of consciousness. Orthostatic vital signs obtained in the emergency department are positive with a change from 125 systolic to 94 systolic from lying to standing. EKG on arrival reveals sinus mechanism with corrected QT of 526ms. She underwent a cardioversion 11/2016 that was initially successful but she ultimately converted back to atrial fibrillation. It was at this time she was started on amiodarone and has been in sinus rhythm ever since. QT prolongation is secondary to administration of amiodarone. Chest xray is negative for an acute cardiopulmonary process with evidence of cardiomegaly. Laboratory data reviewed, hemoglobin 9.3, platelets 225, INR 2.3, potassium 3.6 , magnesium 1.6, creatinine 1.16. Current cardiac medications include amiodarone 200 mg daily, benazepril 5 mg daily, Lasix 40 mg daily, Toprol 50 mg daily, Zocor 20 mg daily and Coumadin 1 mg daily on weekdays only. Most recent echocardiogram August 2016 reveals moderately decreased systolic function with ejection fraction 40%, mild concentric hypertrophy, mild aortic regurgitation. At the time of this echo cardiac patient was in atrial fibrillation. Review of Systems At the time of my exam: CONSTITUTIONAL: Denies fever. Denies chills. EYES: Denies blurred vision. Denies vision changes. Denies eye pain. EARS, NOSE, MOUTH & THROAT: Denies headache. Denies sore throat. Denies ear pain. CARDIOVASCULAR: Denies chest pain. Denies shortness of breath. Denies orthopnea. Denies PND. Denies palpitations. RESPIRATORY: Denies cough. GASTROINTESTINAL: Denies abdominal pain. Denies diarrhea. Denies constipation. Complains of nausea. Denies vomiting. MUSCULOSKELETAL: Denies myalgias. INTEGUMENTARY: Denies pruitis. Denies rash. NEUROLOGIC: Denies numbness. Denies tingling. Denies weakness. PSYCHIATRIC: Denies anxiety. Denies depression. ENDOCRINE: Denies fatigue. Denies weight change. Denies polydipsia. Denies polyurina. GENITOURINARY: Denies burning, hematuria or urgency with micturation. HEMATOLOGIC: Denies history of anemia. Denies bleeding. Past Medical History Past Medical History: Atrial Fibrillation, Heart Failure, GERD/Reflux, GI Bleed , Hyperlipidemia, Hypertension, Osteoarthritis (OA), Pneumonia, Rheumatoid Arthritis (RA), Thyroid Disorder Additional Past Medical History / Comment(s): Afib with past RVR, chronic back pain with bilateral sciatica, gastric ulcer, rectal bleed, past migraines, bronchitis, hypothyroidism, generalized arthritis. History of Any Multi-Drug Resistant Organisms: None Reported Past Surgical History: Hysterectomy, Joint Replacement, Orthopedic Surgery Additional Past Surgical History / Comment(s): Bilateral total knee replacement , bilateral shoulder rotator cuff repairs, L cataract removal, EGDs and colonoscopy with ulcer cauterized, cardioversions/MEGAN, rt hand surgery, left foot surgery. right toe surgery Past Anesthesia/Blood Transfusion Reactions: No Reported Reaction Additional Past Anesthesia/Blood Transfusion Reaction / Comment(s): Pt received blood in 2007 with gastric bleed without reaction. Smoking Status: Never smoker - Past Family History Father Family Medical History: No Reported History Additional Family Medical History / Comment(s): Father was healthy and lived to be 80yrs old. Mother Family Medical History: No Reported History Additional Family Medical History / Comment(s): Mother was healthy and lived to be 80 yrs old. Medications and Allergies Home Medications Medication Instructions Recorded Confirmed Type DULoxetine HCL [Cymbalta] 60 mg PO DAILY 09/23/16 01/09/18 History HYDROcodone/APAP 7.5-325MG [[place] 1 tab PO HS 12/06/16 01/09/18 History 7.5-325] Levothyroxine Sodium [Synthroid] 112 mcg PO DAILY 12/08/16 01/09/18 History Amiodarone [Cordarone] 200 mg PO DAILY 12/27/16 01/09/18 History Benazepril [Lotensin] 5 mg PO HS 01/09/18 01/09/18 History Esomeprazole Magnesium 40 mg PO DAILY 01/09/18 01/09/18 History [Esomeprazole Magnesium] Furosemide [Lasix] 40 mg PO DAILY 01/09/18 01/09/18 History Metoprolol Succinate (ER) [Toprol 50 mg PO DAILY 01/09/18 01/09/18 History XL] Simvastatin [Zocor] 20 mg PO HS 01/09/18 01/09/18 History Warfarin [Coumadin] 1 mg PO MOTUWETHFR 01/09/18 01/09/18 History metFORMIN HCL ER [Glucophage Xr] 500 mg PO DAILY 01/09/18 01/09/18 History Allergies Allergy/AdvReac Type Severity Reaction Status Date / Time No Known Allergies Allergy Verified 01/09/18 10:59 Physical Exam Vitals: Vital Signs Temp Pulse Pulse Pulse Pulse Pulse Resp 01/10/18 03:39 98.3 F 71 16 01/10/18 03:38 16 01/10/18 00:00 16 01/09/18 23:57 98.3 F 79 16 01/09/18 20:00 16 01/09/18 19:26 99.0 F 71 16 01/09/18 16:01 97.9 F 73 88 70 01/09/18 15:33 98.3 F 66 20 01/09/18 14:00 63 20 01/09/18 11:30 64 20 01/09/18 09:57 97.2 F L 68 16 BP BP BP BP BP Pulse Ox 01/10/18 03:39 108/52 98 01/10/18 03:38 01/10/18 00:00 01/09/18 23:57 138/47 93 L 01/09/18 20:00 01/09/18 19:26 114/45 100 01/09/18 16:01 118/55 94/46 125/57 94 L 01/09/18 15:33 127/60 99 01/09/18 14:00 137/70 99 01/09/18 11:30 131/62 99 01/09/18 09:57 125/59 99 Intake and Output 01/09/18 01/10/18 01/10/18 22:59 06:59 14:59 Intake Total 240 Balance 240 Intake: Oral 240 Other: Voiding Method Toilet Toilet # Voids 1 1 Weight 82.7 kg Blood pressure 113/65 heart rate 69 afebrile GENERAL: This is a 77-year-old female in no apparent distress at the time of my examination. HEENT: Head is atraumatic, normocephalic. Pupils are equal, round. Sclerae anicteric. Conjunctivae are clear. Mucous membranes of the mouth are moist. Neck is supple. There is no jugular venous distention. No carotid bruit is heard. LUNGS: Clear to auscultation no wheezes, rales or rhonchi. No chest wall tenderness is noted on palpation or with deep breathing. HEART: Regular rate and rhythm without murmurs, rubs or gallops. S1 and S2 heard. ABDOMEN: Soft, nontender. Bowel sounds are heard. No organomegaly noted. EXTREMITIES: No evidence of peripheral edema and no calf tenderness noted. VASCULAR: Radial and dorsalis pedis pulses palpated, no evidence of clubbing. NEUROLOGIC: Patient is awake, alert and oriented x3. Results 01/10/18 07:03 01/10/18 07:03 Cardiac Enzymes 01/09/18 01/09/18 01/10/18 Range/Units 10:35 10:35 07:03 AST 56 H 58 H (14-36) U/L CK-MB (CK-2) 1.9 (0.0-2.4) ng/mL Troponin I 0.018 (0.000-0.034) ng/mL Coagulation 01/09/18 Range/Units 10:35 PT 27.5 H (9.0-12.0) sec APTT 38.2 H (22.0-30.0) sec Lipids 01/10/18 Range/Units 07:03 Triglycerides 89 (<150) mg/dL Cholesterol 106 (<200) mg/dL HDL Cholesterol 52 (40-60) mg/dL CBC 01/09/18 01/10/18 Range/Units 10:35 07:03 WBC 10.9 H 10.6 (3.8-10.6) k/uL RBC 3.45 L 3.06 L (3.80-5.40) m/uL Hgb 10.3 L 9.3 L (11.4-16.0) gm/dL Hct 33.5 L 29.8 L (34.0-46.0) % Plt Count 259 225 (150-450) k/uL Comprehensive Metabolic Panel 01/09/18 01/10/18 Range/Units 10:35 07:03 Sodium 135 L 134 L (137-145) mmol/L Potassium 3.6 3.6 (3.5-5.1) mmol/L Chloride 94 L 98 (98-107) mmol/L Carbon Dioxide 29 27 (22-30) mmol/L BUN 19 H 23 H (7-17) mg/dL Creatinine 1.30 H 1.16 H (0.52-1.04) mg/dL Glucose 141 H 106 H (74-99) mg/dL Calcium 9.0 8.6 (8.4-10.2) mg/dL AST 56 H 58 H (14-36) U/L ALT 80 H 86 H (9-52) U/L Alkaline Phosphatase 94 97 (38-126) U/L Total Protein 5.7 L 5.2 L (6.3-8.2) g/dL Albumin 3.5 3.0 L (3.5-5.0) g/dL Current Medications Generic Name Dose Route Start Last Admin Trade Name Freq PRN Reason Stop Dose Admin Hydrocodone Bitart/Acetaminophen 1 each 01/09/18 21:00 01/09/18 20:04 [place] 7.5-325 PO 1 each HS ADOLFO Administration Docusate Sodium 100 mg 01/09/18 21:00 01/09/18 20:03 Colace PO 100 mg BID ADOLFO Administration Duloxetine HCl 60 mg 01/10/18 09:00 Cymbalta PO DAILY ADOLFO Insulin Aspart 0 unit 01/09/18 17:30 01/09/18 23:31 Novolog SQ Not Given ACHS ADOLFO Protocol Levothyroxine Sodium 112 mcg 01/10/18 06:30 01/10/18 04:03 Synthroid PO 112 mcg DAILY@0630 ADOLFO Administration Metoprolol Succinate 50 mg 01/10/18 09:00 Toprol Xl PO DAILY ADOLFO Ondansetron HCl 4 mg 01/09/18 14:54 Zofran IVP Q6HR PRN Vomiting Pantoprazole Sodium 40 mg 01/10/18 09:00 Protonix IVP DAILY ADOLFO Intake and Output 01/09/18 01/10/1801/10/18 22:59 06:59 14:59 Intake Total 240 Balance 240 Intake: Oral 240 Other: Voiding Method Toilet Toilet # Voids 1 1 Weight 82.7 kg 01/10/18 07:03 01/10/18 07:03 Assessment and Plan Assessment: ASSESSMENT 1. Paroxysmal atrial fibrillation on fpc anticoagulation. Currently maintaining sinus mechanism. 2. Hypertension 3. Dyslipidemia 4. Non-ischemic cardiomyopathy 5. Prolonged QTc secondary to amiodarone. This is a typical finding with this drug. No evidence of arrhythmia on telemetry. 6. Anemia with history of GI bleeding. GI is consulted and planning for EGD when INRs less than 1.5. Coumadin is currently on hold. 7. Ataxia and nausea with history of CVA in the past. MRI is pending neurology on consult. PLAN Obtain 2-D echocardiogram and Doppler study to assess cardiac structure and function. Continue to monitor on telemetry for any evidence of an acute arrhythmia. Continue amiodarone for suppression of atrial fibrillation. Prolonged QTC an expected finding with administration of this drug. This wa not evident prior to starting this medication therefore is not contraindicated. Thank you kindly for this consultation. Nurse Practitioner note has been reviewed, I agree with a documented findings and plan of care. Patient was seen and examined.
--- NOTE | 2018-01-10 14:20 | ECHOF ---
Referral Reason:cardiomyopathy MEASUREMENTS -------- HEIGHT: 167.6 cm WEIGHT: 84.4 kg BP: 137/51 RVIDd: 3.3 cm (< 3.3) IVSd: 1.2 cm (0.6 - 1.1) LVIDd: 4.9 cm (3.9 - 5.3) LVPWd: 1.3 cm (0.6 - 1.1) IVSs: 1.6 cm LVIDs: 3.5 cm LVPWs: 1.8 cm LA Diam: 4.3 cm (2.7 - 3.8) LAESV Index (A-L): 64.83 ml/m Ao Diam: 2.9 cm (2.0 - 3.7) AV Cusp: 2.0 cm (1.5 - 2.6) EPSS: 0.6 cm MV E Raad: 1.10 m/s MV DecT: 250 ms MV A Raad: 1.12 m/s MV E/A Ratio: 0.98 AV maxP.34 mmHg AV meanP.32 mmHg RAP: 5.00 mmHg RVSP: 43.23 mmHg MV EF SLOPE: 50.86 mm/s (70 - 150) MV EXCURSION: 1.30 cm (> 18.000) FINDINGS -------- Sinus rhythm. This was a technically good study. The left ventricular size is normal. There is mild concentric left ventricular hypertrophy. Overa ll left ventricular systolic function is normal with, an EF between 60 - 65 %. The right ventricle is mildly enlarged. LA is severely dilated >40 ml/m2 The right atrium is normal in size. There is mild aortic valve sclerosis. Trace amount of aortic regurgitation. Peak/mean gradient a cross the Aortic Valve is 21.34mmHg / 11.32mmHg. The mitral valve leaflets are mildly thickened. Mild mitral annular calcification present. Mild m itral regurgitation is present. Mild tricuspid regurgitation present. There is mild pulmonary hypertension. The right ventricular systolic pressure, as measured by Doppler, is 43.23mmHg. Trace/mild (physiologic) pulmonic regurgitation. The aortic root size is normal. Normal inferior vena cava with normal inspiratory collapse consistent with estimated right atrial pre ssure of 5 mmHg. There is no pericardial effusion. CONCLUSIONS -------- 1. Sinus rhythm. 2. This was a technically good study. 3. The left ventricular size is normal. 4. There is mild concentric left ventricular hypertrophy. 5. Overall left ventricular systolic function is normal with, an EF between 60 - 65 %. 6. The right ventricle is mildly enlarged. 7. LA is severely dilated >40 ml/m2 8. The right atrium is normal in size. 9. There is mild aortic valve sclerosis. 10. Trace amount of aortic regurgitation. 11. Peak/mean gradient across the Aortic Valve is 21.34mmHg / 11.32mmHg. 12. The mitral valve leaflets are mildly thickened. 13. Mild mitral annular calcification present. 14. Mild mitral regurgitation is present. 15. Mild tricuspid regurgitation present. 16. There is mild pulmonary hypertension. 17. The right ventricular systolic pressure, as measured by Doppler, is 43.23mmHg. 18. Trace/mild (physiologic) pulmonic regurgitation. 19. The aortic root size is normal. 20. Normal inferior vena cava with normal inspiratory collapse consistent with estimated right atrial pressure of 5 mmHg. 21. There is no pericardial effusion. SOFTWARE INSTALLATION ENGINEER: CINDY Madrigal
[2018-01-10] MEDS: AMIODARONE 200 MG TAB PO SCH (14:40)
[2018-01-10] MEDS: FUROSEMIDE 40 MG TAB PO SCH (14:40)
[2018-01-10] MEDS ORDERED: PHYTONADIONE ORAL 5 MG/5 ML ORAL.SYRG PO STA (16:03)
--- NOTE | 2018-01-10 16:03 | P.PN ---
Subjective Progress Note Date: 01/10/18 Patient is doing a little better today. She continues to have nausea. Objective - Vital Signs Vital signs: Vital Signs Temp 98.2 F 01/10/18 15:48 Pulse 68 01/10/18 15:48 Resp 18 01/10/18 15:48 BP 128/58 01/10/18 15:48 Pulse Ox 96 01/10/18 15:48 Intake & Output 01/09/18 01/10/18 01/10/18 18:59 06:59 18:59 Intake Total 240 620 Balance 240 620 Weight 82.7 kg Intake: Oral 240 420 Other 200 Other: Voiding Method Toilet Toilet Toilet # Voids 1 1 - Exam General: The patient is awake and alert, in no distress Eye: there is normal conjunctiva bilaterally. Neck: The neck is supple, there is no JVD. Cardiovascular: Normal S1-S2, no S3-S4, no murmurs. Respiratory: Lungs clear to auscultation bilaterally Gastrointestinal: Abdomen is soft, nontender Musculoskeletal: There is no pedal edema. Neurological:. Speech is normal. Skin: Skin is warm and dry - Labs CBC & Chem 7: 01/10/18 07:03 01/10/18 07:03 Labs: Abnormal Lab Results - Last 24 Hours (Table) 01/09/18 01/10/18 01/10/18 Range/Units 21:14 06:51 07:03 RBC 3.06 L (3.80-5.40) m/uL Hgb 9.3 L (11.4-16.0) gm/dL Hct 29.8 L (34.0-46.0) % Monocytes # 1.1 H (0-1.0) k/uL PT (9.0-12.0) sec INR (<1.2) Sodium (137-145) mmol/L BUN (7-17) mg/dL Creatinine (0.52-1.04) mg/dL Glucose (74-99) mg/dL POC Glucose (mg/dL) 132 H 113 H (75-99) mg/dL AST (14-36) U/L ALT (9-52) U/L Total Protein (6.3-8.2) g/dL Albumin (3.5-5.0) g/dL 02/01/10/18 01/10/18 Range/Units 07:03 07:03 11:59 RBC (3.80-5.40) m/uL Hgb (11.4-16.0) gm/dL Hct (34.0-46.0) % Monocytes # (0-1.0) k/uL PT 20.4 H (9.0-12.0) sec INR 2.3 H (<1.2) Sodium 134 L (137-145) mmol/L BUN 23 H (7-17) mg/dL Creatinine 1.16 H (0.52-1.04) mg/dL Glucose 106 H (74-99) mg/dL POC Glucose (mg/dL) 137 H (75-99) mg/dL AST 58 H (14-36) U/L ALT 86 H (9-52) U/L Total Protein 5.2 L (6.3-8.2) g/dL Albumin 3.0 L (3.5-5.0) g/dL Microbiology - Last 24 Hours (Table) 01/09/18 12:06 Urine Culture - Preliminary Urine,Voided Assessment and Plan Assessment: 1. Multiple falls with unsteady balance: Exact etiology unclear. May be attributed to physical debility. Consult neurology. MRI of the brain showed no acute intracranial process. Did reveal remote lacunar infarct and small areas of abnormal signal involving the obdulio basal ganglia and thalamus likely in the basis remote ischemia. Her EKG had shown a prolonged QT interval. No arrhythmia on monitoring coordinator. Carotid Doppler on 01/04/2018 showed no significant hemodynamic stenosis 2. Nausea and vomiting: History of peptic ulcer disease. Consulted GI service for further evaluation and possible EGD. 3. Acute kidney injury: Improved with IV fluid hydration 3. Large Right gluteal hematoma secondary to fall and Coumadin. Hold Coumadin. Continue monitor hemoglobin 4. Coagulopathy with an INR of 3.1. Hold Coumadin. Repeat PT/INR in a.m. 5. Elevated LFTs no abdominal pain. Computed tomography scan did show small stones and gallbladder sludge. At this time hold simvastatin. 6. Recent UTI outpatient taking Keflex. Patient did not complete antibiotic regimen. She is asymptomatic for UTI. However urinalysis is showing trace leukocyte Estrace. We'll check urine culture before starting antibiotics 7. History of type 2 diabetes mellitus: Hold metformin with the elevated creatinine. Add sliding scale coverage 8. Chronic atrial fibrillation: On amiodarone, metoprolol and Coumadin at home. 9. Hyperlipidemia statin on hold due to elevated LFTs 10. Hypothyroidism: Resume Synthroid. 11. Chronic back pain history with degenerative disc changes and bulging disks 12. Chronic systolic CHF. Stable. EF 40-45 %. Lasix on hold due to acute kidney injury Today I had a prolonged discussion with the patient and her daughter. She has a large gluteal hematoma measuring approximately 6 x 4.5 cm. I advised to discontinue anticoagulation for the next couple of weeks and repeat computed tomography scan to assess that the hematoma is shrinking. MAy use aspirin 81 mg for stroke prevention.
[2018-01-10 17:02] LABS: Glucose,Whole Blood 123 mg/dL (75-99)
--- NOTE | 2018-01-10 17:52 | P.PN ---
Subjective Progress Note Date: 01/10/18 Patient is a pleasant 77-year-old female who is being followed by the neurology service for ataxia. Patient has had more frequent falls over the past 2 weeks. She states she feels unsteady and reports significant disequilibrium. Patient had recent MRI of the brain done which showed multiple lacunar infarcts involving the basal ganglia, thalamus, and obdulio. Small vessel ischemic changes were also noted. Patient has history of chronic atrial fibrillation and takes Coumadin in the home setting. INR was 2.3 today. Carotid Doppler showed no hemodynamically significant stenosis. Patient had a repeat MRI to evaluate for possible cerebellar infarct. MRI does not reveal evidence of cerebellar pathology. Patient continues to complain of chronic low back pain. Patient also complaining of nausea and emesis over the last month. Patient is being evaluated by GI and possibly will be having an EGD done. Patient denies any lateralizing weakness or numbness. At the time of my evaluation, patient is resting comfortably in bed and appears to be in no acute distress. Objective - Vital Signs Vital signs: Vital Signs Temp 98.2 F 01/10/18 15:48 Pulse 68 01/10/18 15:48 Resp 18 01/10/18 15:48 BP 128/58 01/10/18 15:48 Pulse Ox 96 01/10/18 15:48 Intake & Output 01/09/18 01/10/18 01/10/18 18:59 06:59 18:59 Intake Total 240 620 Balance 240 620 Weight 82.7 kg Intake: Oral 240 420 Other 200 Other: Voiding Method Toilet Toilet Toilet # Voids 1 1 - Exam PHYSICAL EXAM: GENERAL APPEARANCE: Patient is a well-developed, female who appears to be in no acute distress. HEENT: Normocephalic, atraumatic, no facial asymmetry is seen. Neck is supple with no masses felt. CARDIOVASCULAR: Regular rate and rhythm. ABDOMEN: Nontender, nondistended. EXTREMITIES: Show no edema or clubbing. NEUROLOGICAL EXAM: Patient is awake, alert, and oriented 3. Speech and language are normal. Strength is 5-/5 in all 4 extremities. Sensory exam is normal to light touch in all 4 extremities. Sensory exam is normal to light touch in all 4 extremities. [id number] testing showed mild dysmetria in the right upper extremity as compared to the left. No facial asymmetry seen on cranial nerve testing. No tremors or seizure-like activity is noted. - Labs CBC & Chem 7: 01/10/18 07:03 01/10/18 07:03 Labs: Abnormal Lab Results - Last 24 Hours (Table) 01/09/18 01/10/18 01/10/18 Range/Units 21:14 06:51 07:03 RBC 3.06 L (3.80-5.40) m/uL Hgb 9.3 L (11.4-16.0) gm/dL Hct 29.8 L (34.0-46.0) % Monocytes # 1.1 H (0-1.0) k/uL PT (9.0-12.0) sec INR (<1.2) Sodium (137-145) mmol/L BUN (7-17) mg/dL Creatinine (0.52-1.04) mg/dL Glucose (74-99) mg/dL POC Glucose (mg/dL) 132 H 113 H (75-99) mg/dL AST (14-36) U/L ALT (9-52) U/L Total Protein (6.3-8.2) g/dL Albumin (3.5-5.0) g/dL 01/10/18 01/10/18 01/10/18 Range/Units 07:03 07:03 11:59 RBC (3.80-5.40) m/uL Hgb (11.4-16.0) gm/dL Hct (34.0-46.0) % Monocytes # (0-1.0) k/uL PT 20.4 H (9.0-12.0) sec INR 2.3 H (<1.2) Sodium 134 L (137-145) mmol/L BUN 23 H (7-17) mg/dL Creatinine 1.16 H (0.52-1.04) mg/dL Glucose 106 H (74-99) mg/dL POC Glucose (mg/dL) 137 H (75-99) mg/dL AST 58 H (14-36) U/L ALT 86 H (9-52) U/L Total Protein 5.2 L (6.3-8.2) g/dL Albumin 3.0 L (3.5-5.0) g/dL 01/10/18 Range/Units 17:00 RBC (3.80-5.40) m/uL Hgb (11.4-16.0) gm/dL Hct (34.0-46.0) % Monocytes # (0-1.0) k/uL PT (9.0-12.0) sec INR (<1.2) Sodium (137-145) mmol/L BUN (7-17) mg/dL Creatinine (0.52-1.04) mg/dL Glucose (74-99) mg/dL POC Glucose (mg/dL) 123 H (75-99) mg/dL AST (14-36) U/L ALT (9-52) U/L Total Protein (6.3-8.2) g/dL Albumin (3.5-5.0) g/dL Microbiology - Last 24 Hours (Table) 01/09/18 12:06 Urine Culture - Preliminary Urine,Voided Assessment and Plan Plan: Impression: 1. Dysmetria 2. 8 instability 3. Atrial fibrillation 4. Coagulopathy 5. Chronic pain syndrome 6. Orthostatic hypotension 7. Nausea/history of duodenal ulcer Recommendations: Patient continues to have mild dysmetria on assessment today. MRI did not reveal any cerebellar pathology or infarct. I recommend continuing anticoagulation and statin therapy. Fasting lipid panel and homocysteine level were within normal limits. EEG was done and results are pending. As for her chronic pain syndrome, we discussed multiple treatment options that can be done as an outpatient. Continue current medical management. Continue neurological checks. Barring any abnormality on the EEG, I will continue to follow with you on an as-needed basis. Feel free to call with any questions or concerns. I performed an examination of the patient and discussed the management with the FIREWALL ENGINEER. I have reviewed the FIREWALL ENGINEER notes and agree with the findings and plan of care.
--- NOTE | 2018-01-10 19:01 | EEG ---
ELECTROENCEPHALOGRAM REPORT DATE OF SERVICE: 01/10/2018. REASON FOR TESTING: Stroke. DESCRIPTION OF THE PROCEDURE: This EEG was performed using a 21 channel digital electroencephalograph, following international 10-20 system. DESCRIPTION OF THE RECORDING: From the beginning of the tracing, and with patient's eyes closed, the background rhythm was mostly consisting of 8 Hz alpha frequency in the posterior occipital leads. No obvious asymmetry is seen. Photic stimulation was performed with a minimal driving response seen. No pathological waves were elicited. Occasional movement artifacts and muscle artifacts are seen. Hyperventilation was not performed. The patient remains awake throughout the tracing. No epileptiform discharges were seen. Her EKG lead showed a regular rate and rhythm. INTERPRETATION: This awake EEG can be considered within normal limits. There was no asymmetry seen. No epileptiform discharges were noticed. The absence of epileptiform discharges does not rule out the diagnosis of epilepsy, therefore clinical correlation is recommended. MMTINAL / IJN: [id number] /
[2018-01-10 20:27] LABS: Glucose,Whole Blood 105 mg/dL (75-99)
[2018-01-10] MEDS: ATORVASTATIN 10 MG TAB PO SCH (20:34)
[2018-01-10] MEDS: LISINOPRIL 5 MG TAB PO SCH (20:34)
[2018-01-10] MEDS: HYDROcodone/APAP 7.5-325MG 1 EACH TAB PO SCH (20:34)
[2018-01-11 06:56] LABS: Glucose,Whole Blood 113 mg/dL (75-99)
[2018-01-11 07:17] LABS: Basophils % (A) 1 %; Eosinophils # (A) 0.1 k/uL (0-0.7); Eosinophils % (A) 1 %; HCT 26.2 % (34.0-46.0); HGB 8.4 gm/dL (11.4-16.0); Lymphocytes # (A) 1.9 k/uL (1.0-4.8); Lymphocytes % (A) 29 %; MCH 30.6 pg (25.0-35.0); MCHC 32.1 g/dL (31.0-37.0); MCV 95.6 fL (80.0-100.0); Monocytes # (A) 0.7 k/uL (0-1.0); Monocytes % (A) 10 %; Neutrophils # (A) 3.8 k/uL (1.3-7.7); Neutrophils % (A) 57 %; Platelet Count 226 k/uL (150-450); RBC 2.74 m/uL (3.80-5.40); RDW 14.4 % (11.5-15.5); WBC 6.7 k/uL (3.8-10.6)
[2018-01-11 07:25] LABS: INR 1.3 (<1.2); Prothrombin Time 12.5 sec (9.0-12.0)
[2018-01-11 07:38] LABS: ALT 76 U/L (9-52); AST 56 U/L (14-36); Albumin 2.8 g/dL (3.5-5.0); Alkaline Phosphatase 79 U/L (38-126); Anion Gap 7 mmol/L; Blood Urea Nitrogen 15 mg/dL (7-17); Calcium 8.3 mg/dL (8.4-10.2); Carbon Dioxide 31 mmol/L (22-30); Chloride 100 mmol/L (98-107); Glucose 93 mg/dL (74-99); Potassium 3.6 mmol/L (3.5-5.1); Sodium 138 mmol/L (137-145); Total Protein 4.8 g/dL (6.3-8.2)
[2018-01-11] MEDS: LEVOTHYROXINE 112 MCG TAB PO SCH (08:57)
[2018-01-11] MEDS: AMIODARONE 200 MG TAB PO SCH (08:58)
[2018-01-11] MEDS: FUROSEMIDE 40 MG TAB PO SCH (08:59)
[2018-01-11] MEDS: INSULIN ASPART 100 UNIT/ML 1 ML 10 ML VIAL SQ SCH ×4 (08:59→21:24)
[2018-01-11] MEDS: DULoxetine HCL 60 MG CAPSULE.DR PO SCH (08:59)
[2018-01-11] MEDS: METOPROLOL SUCCINATE (ER) 50 MG TAB.ER.24H PO SCH (08:59)
[2018-01-11] MEDS: DOCUSATE 100 MG CAP PO SCH ×2 (08:59→21:23)
[2018-01-11] MEDS: PANTOPRAZOLE 40 MG/10 ML VIAL IVP SCH (08:59)
--- NOTE | 2018-01-11 11:11 | P.PN ---
Subjective Progress Note Date: 01/11/18 This is a 77-year-old female, patient of [facility]. She has a known past medical history of atrial fibrillation anticoagulated with Coumadin, congestive heart failure, hyperlipidemia, hypertension, ostearthritis, rheumatoid arthritis, hypothyroidism, bleeding peptic ulcer, lacunar stroke, chronic back pain with degenerative disc disease and bulging disks and diabetes mellitus. Patient presents to the hospital with worsening complaints of falling frequently, having difficulty with her balance and severe nausea with vomiting. Patient reports it feels like her legs give out on her sometimes. Patient reports that her family doctor had started workup in the outpatient setting. However, patient's symptoms continued to worsen and she presented to the emergency room for further evaluation. Patient has been having symptoms for a couple months and within the last 2 weeks symptoms have worsened. She had an MRI of the brain on 11/28/2017 showing no acute intracranial process. Diffuse abnormal signal within the white matter is nonspecific but most typical of remote microvascular ischemia. 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 Small focal areas of abnormal signal involving the obdulio likely on the basis of remote ischemia. Carotid Doppler showed no snacking hemodynamic stenosis and a computed tomography scan of the abdomen and pelvis for further workup of nausea showed no bowel obstruction present there is fairly moderate proximal colonic fecal stasis attention to a right gluteal region moderate sized focal subcutaneous hematoma was subcutaneous inflammatory change. 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 Patient does have mildly elevated LFTs with AST of 56 and ALT of 80. Last episode of vomiting was yesterday. Patient reports having a bowel movement possibly yesterday. Does not feel constipated. Denies any abdominal pain. She reports eating does help her symptoms. The nausea comes on mostly in the morning as well as after the falling episodes. She has difficulty getting back up and has to call EMS to get her up. She denies any loss of consciousness. She denies hitting her head. Denies any chest pain or shortness of breath. Denies any fever or chills or sweats. Denies any burning with urination. Was being treated for UTI within the last week on Keflex. Patient states that she stopped taking the antibiotics because she wasn't feeling well. Chest x-ray showed cardiomegaly. EKG had shown normal sinus rhythm with prolonged QT interval. Patient has been admitted to the hospital for further workup of her frequent falls and nausea. Patient lives alone at home and uses a walker to ambulate. She was found have an INR of 3.1 and creatinine elevated at 1.30 AST 56 ALT 80 and hemoglobin 10.3. Patient denies any blood in her emesis and denies any black stools or blood in the stools. Neurology has been consulted. Patient reports her last EGD was several years ago when she had the peptic ulcer. Patient was given Antivert and Reglan in the ER. Patient was seen and examined in the emergency. 01/11/2018 patient reports improvement in her nausea with the IV Protonix. She is scheduled for an EGD today. She has been ambulating in the room without difficulty. Physical therapy will be consulted to ambulate in the hallway with patient. Patient denies any chest pain or shortness breath. Denies any vomiting. Denies any burning with urination. Echo shows an EF of 60-65%. LA severely dilated, mild pulmonary hypertension Objective - Vital Signs Vital signs: Vital Signs Temp 98.1 F 01/11/18 07:54 Pulse 60 01/11/18 08:18 Resp 18 01/11/18 07:54 BP 136/56 01/11/18 07:54 Pulse Ox 97 01/11/18 07:54 Intake & Output 01/10/18 01/11/18 01/11/18 18:59 06:59 18:59 Intake Total 1320 Balance 1320 Intake: Oral 1120 Other 200 Other: Voiding Method Toilet Toilet # Voids 1 - Exam Head normocephalic Neck supple Lungs clear to auscultation bilaterally no wheezing or crackles Heart regular rate and rhythm S1-S2, no rub or gallop Abdomen is soft nontender nondistended positive bowel sounds no hepatosplenomegaly Extremities no edema Neuro alert and orientated to 3 Skin: Large hematoma along the right buttocks moving into the left buttocks - Labs CBC & Chem 7: 01/11/18 06:21 01/11/18 06:21 Labs: Abnormal Lab Results - Last 24 Hours (Table) 01/10/18 01/10/18 01/10/18 Range/Units 11:59 17:00 20:25 RBC (3.80-5.40) m/uL Hgb (11.4-16.0) gm/dL Hct (34.0-46.0) % PT (9.0-12.0) sec INR (<1.2) Carbon Dioxide (22-30) mmol/L POC Glucose (mg/dL) 137 H 123 H 105 H (75-99) mg/dL Calcium (8.4-10.2) mg/dL AST (14-36) U/L ALT (9-52) U/L Total Protein (6.3-8.2) g/dL Albumin (3.5-5.0) g/dL 01/11/18 01/11/18 01/11/18 Range/Units 06:21 06:21 06:21 RBC 2.74 L (3.80-5.40) m/uL Hgb 8.4 L (11.4-16.0) gm/dL Hct 26.2 L (34.0-46.0) % PT 12.5 H (9.0-12.0) sec INR 1.3 H (<1.2) Carbon Dioxide 31 H (22-30) mmol/L POC Glucose (mg/dL) (75-99) mg/dL Calcium 8.3 L (8.4-10.2) mg/dL AST 56 H (14-36) U/L ALT 76 H (9-52) U/L Total Protein 4.8 L (6.3-8.2) g/dL Albumin 2.8 L (3.5-5.0) g/dL 01/11/18 Range/Units 06:52 RBC (3.80-5.40) m/uL Hgb (11.4-16.0) gm/dL Hct (34.0-46.0) % PT (9.0-12.0) sec INR (<1.2) Carbon Dioxide (22-30) mmol/L POC Glucose (mg/dL) 113 H (75-99) mg/dL Calcium (8.4-10.2) mg/dL AST (14-36) U/L ALT (9-52) U/L Total Protein (6.3-8.2) g/dL Albumin (3.5-5.0) g/dL Microbiology - Last 24 Hours (Table) 01/09/18 12:06 Urine Culture - Final Urine,Voided Assessment and Plan Assessment: 1. Multiple falls with unsteady balance: Dysmetria evaluated by neurology. Repeat MRI of the brain did not reveal any cerebellar pathology or infarct. MRI of the brain showed no acute intracranial process. Did reveal remote lacunar infarct and small areas of abnormal signal involving the obdulio basal ganglia and thalamus likely in the basis remote ischemia. Also, Concerns about side effects from amiodarone contributing to patient's symptoms. We'll hold amiodarone. Consult cardiology. Her EKG had shown a prolonged QT interval. Carotid Doppler on 01/04/2018 showed no significant hemodynamic stenosis. Telemetry shows no arrhythmia. EEG showed no acute seizure activity 2. Nausea and vomiting: Improves with eating. History of peptic ulcer disease. Continue Protonix. Scheduled for EGD today 3. Acute kidney injury: Possibly related to vomiting and medications. Kidney functions have improved. Lasix and JULIEN inhibitor resumed. IV fluids discontinued. 3. Large Right gluteal hematoma secondary to fall and Coumadin. Coumadin will be held for the next couple weeks. Will need to repeat a computed tomography scan to assess hematoma is shrinking 4. Coagulopathy with an INR of 3.1 on admission. Reverse with vitamin K for EGD 5. Elevated LFTs likely medication induced. Computed tomography scan did show small stones and gallbladder sludge. 6. Recent UTI outpatient taking Keflex. Patient did not complete antibiotic regimen. She is asymptomatic for UTI. Urine culture grows contamination. No need for antibiotics 7. History of type 2 diabetes mellitus: Hold metformin with the elevated creatinine. Add sliding scale coverage 8. Paroxysmal atrial fibrillation: On amiodarone, metoprolol and Coumadin at home. Coumadin discontinued for now due to hematoma 9. Hyperlipidemia statin on hold due to elevated LFTs 10. Hypothyroidism: Resume Synthroid. 11. Chronic back pain history with degenerative disc changes and bulging disks 12. Chronic systolic CHF. Stable. EF 40-45 %. Home Lasix dose resumed by cardiology 13. Prolonged QTc secondary to amiodarone. Evaluated by cardiology. They felt that this is a typical finding with this drug. No evidence of arrhythmia on telemetry. It was not evident prior to starting this medication therefore it is not contraindicated. Appreciate cardiacs recommendations. 14. Anemia: Hemoglobin trending down. Patient scheduled for EGD today.
[2018-01-11 12:16] LABS: Glucose,Whole Blood 113 mg/dL (75-99)
[2018-01-11] MEDS ORDERED: PROPOFOL 10 MG/ML 20 ML VIAL IV ONE (13:52)
[2018-01-11] MEDS ORDERED: LACTATED RINGERS 1,000 ML IV ONE (14:04)
--- NOTE | 2018-01-11 14:32 | P.PCN ---
Date of Procedure: 01/11/18 Procedure(s) Performed: Procedure: Esophagogastroduodenoscopy and biopsy. Preoperative diagnosis: Nausea and history of peptic ulcer disease. Postoperative diagnosis: 1. Small sliding hiatal hernia with no obvious esophagitis or complicated reflux disease. 2. Mild antral gastritis. 3. Multiple biopsies obtained from the duodenum, antrum and esophagus. Preparation and sedation: Was provided by anesthesia. Brief clinical history: The patient is a 77-year-old female with a history of chronic atrial fibrillation warfarin maintenance, lacunar stroke, chronic back pain, hypertension, hyperlipidemia, bleeding duodenal ulcer 2006, rheumatoid arthritis, who was admitted with reports of persistent nausea and dry heaves small emesis for at least 2 weeks as well as frequent falls over the last month. Denies hematemesis, hematochezia or melena. Denies abdominal pain. Afebrile. No weight loss. Home medications include but not limited amiodarone 200 mg daily. Zocor 20 mg daily. Hemoglobin 9.3-10.3. White count 10.6. Platelet 225. INR 3.1. BUN 19. Creatinine 1.3. AST 56. ALT 80. Total bilirubin alkaline phosphatase within normal limits. Previous hemoglobin was 12.3-13.0 around [address] abdomen and pelvis 01/08/2018 reported no bowel obstruction. Moderate proximal colonic fecal stasis. Dependency gallstones or gallbladder sludge. Had EGD and colonoscopy 2006 with findings of duodenal ulcer and diverticulosis. The details are summarized in the history and physical and dictated consultations and progress notes. Procedure: With the patient on her left lateral decubitus position and after informed consent and adequate sedation, I passed the Olympus-GIF 160 video upper endoscope through the cricopharyngeus down the esophagus. The esophagus did not show any obvious erosions or ulcers. There were no strictures or Terry's esophagus. GE junction was around 39 cm from the incisors. There was a small sliding hiatal hernia then the endoscope was passed into the stomach which was insufflated with air and inspected in detail including the retroflex view in the cardia. There was some mottling and erythema in the antrum but there were no ulcers or bleeding. Pyloric channel did not show any ulcers. Duodenal bulb, post bulbar area and descending duodenum appeared within normal limits. Because of her symptoms, I obtained biopsies from the duodenum, antrum, cardia and esophagus then the endoscope was withdrawn. The patient tolerated the procedure well. Plan: The patient was reassured. Will await biopsy results. Will allow diet as tolerated and make further plans based on her course and biopsy results. We will continue to follow with you with interest.
--- NOTE | 2018-01-11 16:48 | P.CONS ---
History of Present Illness - Chief Complaint Walking difficulty with history of falls - History of Present Illness I had the opportunity to see patient for inpatient consultation regard to walking difficulty. She was admitted to [place] [id number] with history of nausea and falls. Seen by cardiology who notes stable paroxysmal atrial fibrillation. Seen by Dr. Nikhil García who did perform EGD with biopsy. Chest x-ray demonstrates cardiomegaly. Cardiac echo done and appears negative. Brain MRI demonstrates small white matter change as well as a possible punctate lesion in the lateral obdulio. PT reports supervision to modified independent bed mobility and transfer. Supervision for gait 100 feet with roller walker. I have added OT. Previous functional history as elicited patient: 77-year-old right-handed white female who lives in a first-floor of HER-2 floor home, alone. Single. Retired. Has help for laundry. Otherwise independent with own simple cooking, driving, standing shower and gait with 4 wheeled walker. We'll have a new sitdown shower soon. Regular doctors Dr. Radha Braxton. Past family medical history both parents with hypertension. Review of Systems Review of systems: ENT: Denies sneezes or discharge. Eyes: Denies discharge or photophobia. Cardiac: Denies chest pain or palpitation. Pulmonary: Denies cough or shortness of breath. Breast: Denies discharge or lumps. Gastrointestinal: Nausea currently controlled. Genitourinary: Denies discharge or frequency. Musculoskeletal: Denies muscle or bone aches. Neurologic: Denies motor or sensory change. Endocrine: Denies shakes or sweats. Oncology: Denies cancers. Dermatologic: Denies rash, itching, pruritus. ALLERGY/immunology: Denies sneezes, rashes. Past Medical History Past Medical History: Atrial Fibrillation, Heart Failure, GERD/Reflux, GI Bleed , Hyperlipidemia, Hypertension, Osteoarthritis (OA), Pneumonia, Rheumatoid Arthritis (RA), Thyroid Disorder Additional Past Medical History / Comment(s): Afib with past RVR, chronic back pain with bilateral sciatica, gastric ulcer, rectal bleed, past migraines, bronchitis, hypothyroidism, generalized arthritis. History of Any Multi-Drug Resistant Organisms: None Reported Past Surgical History: Hysterectomy, Joint Replacement, Orthopedic Surgery Additional Past Surgical History / Comment(s): Bilateral total knee replacement , bilateral shoulder rotator cuff repairs, L cataract removal, EGDs and colonoscopy with ulcer cauterized, cardioversions/MEGAN, rt hand surgery, left foot surgery. right toe surgery Past Anesthesia/Blood Transfusion Reactions: No Reported Reaction Additional Past Anesthesia/Blood Transfusion Reaction / Comm: Pt received blood in 2007 with gastric bleed without reaction. Smoking Status: Never smoker - Past Family History Father Family Medical History: No Reported History Additional Family Medical History / Comment(s): Father was healthy and lived to be 80yrs old. Mother Family Medical History: No Reported History Additional Family Medical History / Comment(s): Mother was healthy and lived to be 80 yrs old. Medications and Allergies Home Medications Medication Instructions Recorded Confirmed Type DULoxetine HCL [Cymbalta] 60 mg PO DAILY 09/23/16 01/09/18 History HYDROcodone/APAP 7.5-325MG [[place] 1 tab PO HS 12/06/16 01/09/18 History 7.5-325] Levothyroxine Sodium [Synthroid] 112 mcg PO DAILY 12/08/16 01/09/18 History Amiodarone [Cordarone] 200 mg PO DAILY 12/27/16 01/09/18 History Benazepril [Lotensin] 5 mg PO HS 01/09/18 01/09/18 History Esomeprazole Magnesium 40 mg PO DAILY 01/09/18 01/09/18 History [Esomeprazole Magnesium] Furosemide [Lasix] 40 mg PO DAILY 01/09/18 01/09/18 History Metoprolol Succinate (ER) [Toprol 50 mg PO DAILY 01/09/18 01/09/18 History XL] Simvastatin [Zocor] 20 mg PO HS 01/09/18 01/09/18 History Warfarin [Coumadin] 1 mg PO MOTUWETHFR 01/09/18 01/09/18 History metFORMIN HCL ER [Glucophage Xr] 500 mg PO DAILY 01/09/18 01/09/18 History Allergies Allergy/AdvReac Type Severity Reaction Status Date / Time No Known Allergies Allergy Verified 01/09/18 10:59 Physical Exam Vitals: Vital Signs Temp Pulse Resp BP BP Pulse Ox 01/11/18 15:06 135/57 97 01/11/18 15:05 69 142/62 97 01/11/18 14:35 97.4 F L 68 18 133/51 98 01/11/18 11:55 97.4 F L 61 18 135/57 100 01/11/18 08:18 60 01/11/18 07:54 98.1 F 71 18 136/56 97 01/11/18 04:00 97.8 F 75 18 114/45 94 L 01/10/18 23:31 18 01/10/18 23:12 82 18 115/56 96 01/10/18 20:00 18 01/10/18 19:15 98.3 F 72 18 128/54 98 Intake and Output 01/11/18 01/11/18 01/11/18 06:59 14:59 22:59 Intake Total 200 Balance 200 Intake: IV 200 Other: Voiding Method Toilet # Voids 1 Skin: Good color, texture, turgor. General: Overweight build and comfortable appearance. Head: Normocephalic, atraumatic. Eyes: Symmetric. Pupils equal round. Ears: Symmetric. Hearing within normal limits. Mouth: Clear. Neck: Supple. Carotid without bruit. Cardiac: Regular rate and rhythm. Lungs: Clear anteriorly and posteriorly. Abdomen: Soft active nontender. Extremities: Normal tone. Neurological: Mental status: Alert, cooperative, pleasant. Cranial nerves: Symmetric facial tone and trapezius. Motor: Active movement normally all 4 limbs. Sensation: Intact throughout. DTRs: Symmetric and equal throughout. Mobility: Reports independent in room including bathroom privileges. Results CBC & Chem 7: 01/11/18 06:21 01/11/18 06:21 Labs: Abnormal Lab Results - Last 24 Hours (Table) 01/10/18 01/10/18 01/11/18 Range/Units 17:00 20:25 06:21 RBC 2.74 L (3.80-5.40) m/uL Hgb 8.4 L (11.4-16.0) gm/dL Hct 26.2 L (34.0-46.0) % PT (9.0-12.0) sec INR (<1.2) Carbon Dioxide (22-30) mmol/L POC Glucose (mg/dL) 123 H 105 H (75-99) mg/dL Calcium (8.4-10.2) mg/dL AST (14-36) U/L ALT (9-52) U/L Total Protein (6.3-8.2) g/dL Albumin (3.5-5.0) g/dL 01/11/18 01/11/18 01/11/18 Range/Units 06:21 06:21 06:52 RBC (3.80-5.40) m/uL Hgb (11.4-16.0) gm/dL Hct (34.0-46.0) % PT 12.5 H (9.0-12.0) sec INR 1.3 H (<1.2) Carbon Dioxide 31 H (22-30) mmol/L POC Glucose (mg/dL) 113 H (75-99) mg/dL Calcium 8.3 L (8.4-10.2) mg/dL AST 56 H (14-36) U/L ALT 76 H (9-52) U/L Total Protein 4.8 L (6.3-8.2) g/dL Albumin 2.8 L (3.5-5.0) g/dL 01/11/18 Range/Units 12:06 RBC (3.80-5.40) m/uL Hgb (11.4-16.0) gm/dL Hct (34.0-46.0) % PT (9.0-12.0) sec INR (<1.2) Carbon Dioxide (22-30) mmol/L POC Glucose (mg/dL) 113 H (75-99) mg/dL Calcium (8.4-10.2) mg/dL AST (14-36) U/L ALT (9-52) U/L Total Protein (6.3-8.2) g/dL Albumin (3.5-5.0) g/dL Microbiology - Last 24 Hours (Table) 01/09/18 12:06 Urine Culture - Final Urine,Voided Chest x-ray: report reviewed (Cardiomegaly.) MRI - head: report reviewed (Small white matter changes as well as possible punctate lesion lateral obdulio.) Assessment and Plan (1) Multiple falls Current Visit: Yes Status: Acute Code(s): R29.6 - REPEATED FALLS SNOMED Code(s): 716531858 Plan: Impression: 1. Walking difficulty with history of frequent falls. 2. Nausea. 3. Paroxysmal active fibrillation. 4. Heart failure. 5. Rheumatoid and osteoarthritis. 6. Hypertension. 7. Dyslipidemia. Comments and plan: At this time PT ongoing but in fact they're recommending only return home with home therapy. I have added OT to assess ADL function and possible safety concern.
[2018-01-11 17:09] LABS: Glucose,Whole Blood 148 mg/dL (75-99)
[2018-01-11 20:37] LABS: Glucose,Whole Blood 122 mg/dL (75-99)
[2018-01-11] MEDS: HYDROcodone/APAP 7.5-325MG 1 EACH TAB PO SCH (21:23)
[2018-01-11] MEDS: ATORVASTATIN 10 MG TAB PO SCH (21:23)
[2018-01-11] MEDS: LISINOPRIL 5 MG TAB PO SCH (21:47)
[2018-01-12] MEDS: LEVOTHYROXINE 112 MCG TAB PO SCH (06:26)
[2018-01-12 06:49] LABS: Glucose,Whole Blood 128 mg/dL (75-99)
[2018-01-12 06:58] LABS: Basophils % (A) 0 %; Eosinophils # (A) 0.2 k/uL (0-0.7); Eosinophils % (A) 2 %; HCT 27.7 % (34.0-46.0); HGB 8.9 gm/dL (11.4-16.0); Lymphocytes # (A) 1.8 k/uL (1.0-4.8); Lymphocytes % (A) 26 %; MCH 31.1 pg (25.0-35.0); MCHC 32.1 g/dL (31.0-37.0); MCV 96.8 fL (80.0-100.0); Mean Platelet Volume 7.2; Monocytes # (A) 0.7 k/uL (0-1.0); Monocytes % (A) 10 %; Neutrophils % (A) 59 %; Platelet Count 265 k/uL (150-450); RBC 2.86 m/uL (3.80-5.40); RDW 14.5 % (11.5-15.5); WBC 6.8 k/uL (3.8-10.6)
[2018-01-12 07:07] LABS: INR 1.1 (<1.2); Prothrombin Time 10.7 sec (9.0-12.0)
[2018-01-12 07:08] LABS: ALT 75 U/L (9-52); AST 55 U/L (14-36); Albumin 2.8 g/dL (3.5-5.0); Alkaline Phosphatase 99 U/L (38-126); Anion Gap 7 mmol/L; Blood Urea Nitrogen 14 mg/dL (7-17); Calcium 8.6 mg/dL (8.4-10.2); Carbon Dioxide 31 mmol/L (22-30); Chloride 101 mmol/L (98-107); Glucose 104 mg/dL (74-99); Potassium 3.7 mmol/L (3.5-5.1); Sodium 139 mmol/L (137-145); Total Bilirubin 1.3 mg/dL (0.2-1.3)
[2018-01-12 07:58] VITALS: RESP 16
[2018-01-12] MEDS: INSULIN ASPART 100 UNIT/ML 1 ML 10 ML VIAL SQ SCH ×2 (08:11→12:53)
[2018-01-12] MEDS: DOCUSATE 100 MG CAP PO SCH (08:16)
[2018-01-12] MEDS: METOPROLOL SUCCINATE (ER) 50 MG TAB.ER.24H PO SCH (08:16)
[2018-01-12] MEDS: AMIODARONE 200 MG TAB PO SCH (08:17)
[2018-01-12] MEDS: DULoxetine HCL 60 MG CAPSULE.DR PO SCH (08:17)
[2018-01-12] MEDS: FUROSEMIDE 40 MG TAB PO SCH (08:17)
[2018-01-12] MEDS: PANTOPRAZOLE 40 MG/10 ML VIAL IVP SCH (08:17)
--- NOTE | 2018-01-12 08:54 | P.PN ---
Subjective Progress Note Date: 01/12/18 Principal diagnosis: Nausea Status post EGD no evidence of peptic ulcer disease. Reports much improvement in her nausea. Tolerating diet without emesis. Denies some emesis hematochezia melena. Hemoglobin 8.9 improved. Denies abdominal pain. Objective - Vital Signs Vital signs: Vital Signs Temp 98.2 F 01/12/18 07:56 Pulse 71 01/12/18 07:56 Resp 16 01/12/18 07:56 BP 155/58 01/12/18 07:56 Pulse Ox 95 01/12/18 07:56 Intake & Output 01/11/18 01/12/18 01/12/18 18:59 06:59 18:59 Intake Total 640 240 236 Balance 640 240 236 Weight 82.7 kg Intake: IV 200 Oral 240 240 236 Other 200 Other: Voiding Method Toilet # Voids 1 - Exam General appearance: The patient is alert, oriented, in no acute distress. HET: Head is normocephalic and atraumatic. Pupils are equal and reactive. Oropharynx is clear without lesions. Neck: Supple without lymphadenopathy. Trachea midline. Heart: S1 S2. Lungs: No crackles or wheezes are heard. Abdomen: Soft, nontender, nondistended with bowel sounds. No peritoneal signs. No palpable organomegaly or masses. Extremities: Normal skin color and turgor. No cyanosis, rash, ulceration, clubbing, or edema. Radial and pedal pulses are 2/4 bilaterally. Neurological: No focal deficits. Strength and sensation are grossly intact. - Labs CBC & Chem 7: 01/12/18 06:35 01/12/18 06:35 Labs: Abnormal Lab Results - Last 24 Hours (Table) 01/11/18 01/11/18 01/11/18 Range/Units 12:06 17:05 20:27 RBC (3.80-5.40) m/uL Hgb (11.4-16.0) gm/dL Hct (34.0-46.0) % Carbon Dioxide (22-30) mmol/L Glucose (74-99) mg/dL POC Glucose (mg/dL) 113 H 148 H 122 H (75-99) mg/dL AST (14-36) U/L ALT (9-52) U/L Total Protein (6.3-8.2) g/dL Albumin (3.5-5.0) g/dL 01/12/18 01/12/18 01/12/18 Range/Units 06:35 06:35 06:47 RBC 2.86 L (3.80-5.40) m/uL Hgb 8.9 L (11.4-16.0) gm/dL Hct 27.7 L (34.0-46.0) % Carbon Dioxide 31 H (22-30) mmol/L Glucose 104 H (74-99) mg/dL POC Glucose (mg/dL) 128 H (75-99) mg/dL AST 55 H (14-36) U/L ALT 75 H (9-52) U/L Total Protein 5.0 L (6.3-8.2) g/dL Albumin 2.8 L (3.5-5.0) g/dL Assessment and Plan Assessment: Impression: 1. 77-year-old female with a history chronic atrial fibrillation CVA with warfarin maintenance presents with 2 week history of nausea and nonbloody emesis as well as frequent falls. History of remote peptic ulcer disease status post EGD evaluation without evidence of peptic ulcer disease presently clinically without active GI bleeding current hemoglobin 8.9. 2. Warfarin coagulopathy; corrected. 3. History of remote bleeding peptic ulcer disease duodenal ulcer 2006. 4. Anemia possible component of acute blood loss. Recommendations: 1. Light diet as tolerated. 2. DC per medicine. 3. Patient states Reglan has significantly improved her nausea and requested prescription. Will provide seven-day dose of Reglan 5 mg before meals meals. Return to office in 2-3 weeks for reevaluation. Assessment and plan a care discussed with Dr. Neil
[2018-01-12 11:50] VITALS: BP 117/55; PULSE 63; TEMP 98
[2018-01-12 12:22] LABS: Glucose,Whole Blood 100 mg/dL (75-99)
--- NOTE | 2018-01-12 13:19 | P.DS ---
Providers Date of admission: 01/12/18 07:43 Expected date of discharge: 01/12/18 Attending physician: Nickolas Henning Consults: 01/09/18 13:04 Consult Physician Urgent Consulting Provider: Homa Soares Consult Reason/Comments: Ataxia Do you want consulting provider notified?: Yes 01/09/18 14:41 Consult Physician Routine Consulting Provider: Kvng Mariee Consult Reason/Comments: evaluate if amiodarone contributing to patient's symptoms Do you want consulting provider notified?: Yes 01/11/18 14:56 Consult Physician Routine Consulting Provider: Alejo Solis Consult Reason/Comments: inpatient rehab Do you want consulting provider notified?: Yes Primary care physician: Radha Braxton [facility] Course: Discharge diagnosis 1. Multiple falls with unsteady balance: Dysmetria. evaluated by neurology. Discussed case with neurology. They felt patient's symptoms were related to her deconditioning. She is now actively ambulating and has been evaluated by physical therapy. They are recommending home with home care. Repeat MRI of the brain did not reveal any cerebellar pathology or infarct. MRI of the brain showed no acute intracranial process. Did reveal remote lacunar infarct and small areas of abnormal signal involving the obdulio basal ganglia and thalamus likely in the basis remote ischemia. Also, Concerns about side effects from amiodarone contributing to patient's symptoms. We'll hold amiodarone. Consult cardiology. Her EKG had shown a prolonged QT interval. Carotid Doppler on showed no significant hemodynamic stenosis. Telemetry shows no arrhythmia. EEG showed no acute seizure activity 2. Nausea and vomiting: Possibly related to her gastritis. Resolved with the addition of Protonix and Reglan. Status post EGD revealing mild antral gastritis and a small hiatal hernia. Patient will be discharged home with Protonix and Reglan. Follow up with GI service in the office 3. Acute kidney injury: Possibly related to vomiting and medications. Kidney functions have improved. Lasix and JULIEN inhibitor resumed. IV fluids discontinued. 3. Large Right gluteal hematoma secondary to fall and Coumadin. Coumadin will be held for the next couple weeks. Will need to repeat a computed tomography scan to assess hematoma is shrinking 4. Coagulopathy with an INR of 3.1 on admission. Reverse with vitamin K for EGD 5. Elevated LFTs likely medication induced. Computed tomography scan did show small stones and gallbladder sludge. No abdominal pain 6. Recent UTI outpatient taking Keflex. Patient did not complete antibiotic regimen. She is asymptomatic for UTI. Urine culture grows contamination. No need for antibiotics 7. History of type 2 diabetes mellitus: Hold metformin with the elevated creatinine. Add sliding scale coverage 8. Paroxysmal atrial fibrillation: On amiodarone, metoprolol and Coumadin at home. Coumadin discontinued for now due to hematoma 9. Hyperlipidemia statin on hold due to elevated LFTs 10. Hypothyroidism: Resume Synthroid. 11. Chronic back pain history with degenerative disc changes and bulging disks 12. Chronic systolic CHF. Stable. EF 40-45 %. Home Lasix dose resumed by cardiology 13. Prolonged QTc secondary to amiodarone. Evaluated by cardiology. They felt that this is a typical finding with this drug. No evidence of arrhythmia on telemetry. It was not evident prior to starting this medication therefore it is not contraindicated. Appreciate cardiacs recommendations. 14. Anemia likely acute blood loss anemia: No evidence of bleeding on EGD. Patient will follow-up with GI service in the office. She'll be sent home with iron supplement. Recommend checking a CBC on Monday Hospital course This is a 77-year-old female, patient of [facility]. She has a known past medical history of atrial fibrillation anticoagulated with Coumadin, congestive heart failure, hyperlipidemia, hypertension, ostearthritis, rheumatoid arthritis, hypothyroidism, bleeding peptic ulcer, lacunar stroke, chronic back pain with degenerative disc disease and bulging disks and diabetes mellitus. Patient presents to the hospital with worsening complaints of falling frequently, having difficulty with her balance and severe nausea with vomiting. Patient reports it feels like her legs give out on her sometimes. Patient reports that her family doctor had started workup in the outpatient setting. However, patient's symptoms continued to worsen and she presented to the emergency room for further evaluation. Patient has been having symptoms for a couple months and within the last 2 weeks symptoms have worsened. She had an MRI of the brain on 11/28/2017 showing no acute intracranial process. Diffuse abnormal signal within the white matter is nonspecific but most typical of remote microvascular ischemia. 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 Small focal areas of abnormal signal involving the obdulio likely on the basis of remote ischemia. Carotid Doppler showed no snacking hemodynamic stenosis and a computed tomography scan of the abdomen and pelvis for further workup of nausea showed no bowel obstruction present there is fairly moderate proximal colonic fecal stasis attention to a right gluteal region moderate sized focal subcutaneous hematoma was subcutaneous inflammatory change. 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 Patient does have mildly elevated LFTs with AST of 56 and ALT of 80. Last episode of vomiting was yesterday. Patient reports having a bowel movement possibly yesterday. Does not feel constipated. Denies any abdominal pain. She reports eating does help her symptoms. The nausea comes on mostly in the morning as well as after the falling episodes. She has difficulty getting back up and has to call EMS to get her up. She denies any loss of consciousness. She denies hitting her head. Denies any chest pain or shortness of breath. Denies any fever or chills or sweats. Denies any burning with urination. Was being treated for UTI within the last week on Keflex. Patient states that she stopped taking the antibiotics because she wasn't feeling well. Chest x-ray showed cardiomegaly. EKG had shown normal sinus rhythm with prolonged QT interval. Patient has been admitted to the hospital for further workup of her frequent falls and nausea. Patient lives alone at home and uses a walker to ambulate. She was found have an INR of 3.1 and creatinine elevated at 1.30 AST 56 ALT 80 and hemoglobin 10.3. Patient denies any blood in her emesis and denies any black stools or blood in the stools. Neurology has been consulted. Patient reports her last EGD was several years ago when she had the peptic ulcer. Patient was given Antivert and Reglan in the ER. Patient was seen and examined in the emergency. Patient's difficulty with balance and coordination is likely related to deconditioning. Patient seen by neurology they have cleared her for discharge. Patient will be discharged home with home care. She is working with physical therapy and they felt that she was stable for home. Patient underwent EGD with GI service for valuation of her nausea. There is no evidence of any peptic ulcer disease. She did have some antral gastritis and a small hiatal hernia. GI services recommending Reglan and we will also add Protonix. She'll follow- up with GI service in the office. She does have some anemia hemoglobin at discharge is 8.9 and likely this is related to the acute blood loss anemia due to her hematoma on her buttocks. Coumadin will be remained on hold for 2 weeks. Recommend having a repeat computed tomography scan of the abdomen and pelvis for further evaluation to make sure that the hematoma is shrinking. Patient is stable she is up and ambulating tolerating diet. Her nausea has resolved. Patient has been cleared by consulting physicians for discharge. At this time also will hold off on starting an aspirin. Recommend that she has blood work CBC and CMP repeated on Monday. Recommend that she follows up with her PCP in 1 week. Patient is medically stable for discharge. I performed an examination of the patient and discussed their management with the physician Auxiliary Engineer. I have reviewed the Physician Auxiliary Engineer's notes and agree with the documented findings and plan of care Patient Condition at Discharge: Stable Plan - Discharge Summary Discharge Rx Participant: No New Discharge Prescriptions: New Metoclopramide [Reglan] 5 mg PO AC-BID #14 tab Ferrous Sulfate [Feosol] 325 mg PO BID #60 tab Pantoprazole Sodium [Protonix] 40 mg PO DAILY #30 tablet.dr [place] DULoxetine HCL [Cymbalta] 60 mg PO DAILY HYDROcodone/APAP 7.5-325MG [[place] 7.5-325] 1 tab PO HS Levothyroxine Sodium [Synthroid] 112 mcg PO DAILY Amiodarone [Cordarone] 200 mg PO DAILY Benazepril [Lotensin] 5 mg PO HS Furosemide [Lasix] 40 mg PO DAILY metFORMIN HCL ER [Glucophage Xr] 500 mg PO DAILY Simvastatin [Zocor] 20 mg PO HS Metoprolol Succinate (ER) [Toprol XL] 50 mg PO DAILY Esomeprazole Magnesium 40 mg PO DAILY Discontinued Warfarin [Coumadin] 1 mg PO MOTUWETHFR Discharge Medication List DULoxetine HCL [Cymbalta] 60 mg PO DAILY 09/23/16 [History] HYDROcodone/APAP 7.5-325MG [[place] 7.5-325] 1 tab PO HS 12/06/16 [History] Levothyroxine Sodium [Synthroid] 112 mcg PO DAILY 12/08/16 [History] Amiodarone [Cordarone] 200 mg PO DAILY 12/27/16 [History] Benazepril [Lotensin] 5 mg PO HS 01/09/18 [History] Esomeprazole Magnesium 40 mg PO DAILY 01/09/18 [History] Furosemide [Lasix] 40 mg PO DAILY 01/09/18 [History] Metoprolol Succinate (ER) [Toprol XL] 50 mg PO DAILY 01/09/18 [History] Simvastatin [Zocor] 20 mg PO HS 01/09/18 [History] metFORMIN HCL ER [Glucophage Xr] 500 mg PO DAILY 01/09/18 [History] Ferrous Sulfate [Feosol] 325 mg PO BID #60 tab 01/12/18 [Rx] Metoclopramide [Reglan] 5 mg PO AC-BID #14 tab 01/12/18 [Rx] Pantoprazole Sodium [Protonix] 40 mg PO DAILY #30 tablet. 01/12/18 [Rx] Follow up Appointment(s)/Referral(s): Chance Neil MD [STAFF PHYSICIAN] - 02/05/18 4:30 pm [facility], [NON-STAFF] - Homa Soares MD [STAFF PHYSICIAN] - 1 Week Radha Braxton DO [Primary Care Provider] - 1 Week Activity/Diet/Wound Care/Special Instructions: Diet: cardiac, diabetic Activity: as tolerated check CBC, CMP on Monday Discharge Disposition: HOME WITH HOME HEALTH SERVICES
[2018-01-12] MEDS ORDERED: METOCLOPRAMIDE 5 MG TAB PO SCH (17:30)
== END 2018-01-12 15:05 | disposition home health service (06) | DRG 392 ==
LOC: EC 09:56 → 3OBS 13:04 → OBSVTOIN 01-12 07:43
PROVIDERS: ADMIT Internal Medicine; ATTEND Internal Medicine
PROC: 0DB68ZX Excision of Stomach, Via Natural or Artificial Opening Endoscopic, Diagnostic (ICD-10-PCS; 2018-01-11)
PROC: 0DB58ZX Excision of Esophagus, Via Natural or Artificial Opening Endoscopic, Diagnostic (ICD-10-PCS; 2018-01-11)
PROC: 0DB98ZX Excision of Duodenum, Via Natural or Artificial Opening Endoscopic, Diagnostic (ICD-10-PCS; principal; 2018-01-11 07:55)
DX: K29.70 Gastritis, unspecified, without bleeding (principal); N17.9 Acute kidney failure, unspecified; I42.9 Cardiomyopathy, unspecified; I27.20 Pulmonary hypertension, unspecified; D62 Acute posthemorrhagic anemia; I50.22 Chronic systolic (congestive) heart failure; I11.0 Hypertensive heart disease with heart failure; I45.81 Long QT syndrome; I48.0 Paroxysmal atrial fibrillation; I48.2 Chronic atrial fibrillation; G43.909 Migraine, unspecified, not intractable, without status migrainosus; E11.9 Type 2 diabetes mellitus without complications; E03.9 Hypothyroidism, unspecified; E78.5 Hyperlipidemia, unspecified; G89.4 Chronic pain syndrome; I25.10 Atherosclerotic heart disease of native coronary artery without angina pectoris; I35.1 Nonrheumatic aortic (valve) insufficiency; I95.1 Orthostatic hypotension; K21.9 Gastro-esophageal reflux disease without esophagitis; K44.9 Diaphragmatic hernia without obstruction or gangrene; K57.90 Diverticulosis of intestine, part unspecified, without perforation or abscess without bleeding; K80.20 Calculus of gallbladder without cholecystitis without obstruction; M06.9 Rheumatoid arthritis, unspecified; M13.0 Polyarthritis, unspecified; R29.6 Repeated falls; S30.0XXA Contusion of lower back and pelvis, initial encounter; T46.2X5A Adverse effect of other antidysrhythmic drugs, initial encounter; M54.31 Sciatica, right side; M54.32 Sciatica, left side; R74.8 Abnormal levels of other serum enzymes; R79.1 Abnormal coagulation profile; Z79.01 Long term (current) use of anticoagulants; Z79.84 Long term (current) use of oral hypoglycemic drugs; Z79.899 Other long term (current) drug therapy; Z96.653 Presence of artificial knee joint, bilateral; Z90.710 Acquired absence of both cervix and uterus; Z87.11 Personal history of peptic ulcer disease; Z86.73 Personal history of transient ischemic attack (TIA), and cerebral infarction without residual deficits; Z82.49 Family history of ischemic heart disease and other diseases of the circulatory system; W19.XXXA Unspecified fall, initial encounter; Y92.9 Unspecified place or not applicable
CPT/HCPCS: 36415; 43239; 70551; 71046; 80053; 80061; 81001; 82550; 82553; 83036; 83090; 83735; 84443; 84484; 85025; 85610; 85730; 87086; 88305; 93005; 93306; 95816; 96374; 99285

== ENCOUNTER 2018-04-19 06:52 | Day surgery (SDC) | payer MEDICARE ==
[2018-04-12 10:14] VITALS: BMI 27.6
[~2018-04-19 06:52] MED LIST: HEPARIN SODIUM,PORCINE 5,000 UNIT/ML 1 ML VIAL SQ ONE; HYDROmorphone 0.5 MG/0.5 ML SYRINGE IVP PRN; LACTATED RINGERS 1,000 ML IV SCH; ONDANSETRON 4 MG/2 ML VIAL IVP PRN; fentaNYL (PF) 50 MCG/ML 2 ML AMP IV PRN
[2018-04-19] MEDS ORDERED: LIDOCAINE 1% 20 ML VIAL (10MG/ML) FOR IV START INTRADERMA ONE (07:23)
[2018-04-19] MEDS ORDERED: BUPIVACAINE (PF) 0.5% 30 ML VIAL SQ ONE ×2 (07:26→08:28)
[2018-04-19 07:27] LABS: Glucose,Whole Blood 111 mg/dL (75-99)
--- NOTE | 2018-04-19 07:55 | P.GSHP ---
History of Present Illness H&P Date: 04/19/18 Chief Complaint: Right upper quadrant pain This is a 69-year-old female who's had complaints were quadrant pain. Patient was found have gallstones. She presents today for laparoscopic cholecystectomy. Past Medical History Past Medical History: Atrial Fibrillation, Heart Failure, CVA/TIA, Diabetes Mellitus, GERD/Reflux, GI Bleed, Hyperlipidemia, Hypertension, Osteoarthritis ( OA), Pneumonia, Rheumatoid Arthritis (RA), Thyroid Disorder Additional Past Medical History / Comment(s): Afib with past RVR, chronic back pain with bilateral sciatica, gastric ulcer, rectal bleed, past migraines, bronchitis, hypothyroidism, generalized arthritis. History of Any Multi-Drug Resistant Organisms: None Reported Past Surgical History: Hysterectomy, Joint Replacement, Orthopedic Surgery Additional Past Surgical History / Comment(s): Bilateral total knee replacement , bilateral shoulder rotator cuff repairs, L cataract removal, EGDs and colonoscopy with ulcer cauterized, cardioversions/MEGAN, rt hand surgery, left foot surgery. right toe surgery Past Anesthesia/Blood Transfusion Reactions: Postoperative Nausea & Vomiting ( PONV) Additional Past Anesthesia/Blood Transfusion Reaction / Comment(s): Pt received blood in 2007 with gastric bleed without reaction. Smoking Status: Never smoker - Past Family History Father Family Medical History: No Reported History Additional Family Medical History / Comment(s): Father was healthy and lived to be 80yrs old. Mother Family Medical History: No Reported History Additional Family Medical History / Comment(s): Mother was healthy and lived to be 80 yrs old. Medications and Allergies Home Medications Medication Instructions Recorded Confirmed Type HYDROcodone/APAP 7.5-325MG [[place] 1 tab PO DAILY PRN 12/06/16 04/19/18 History 7.5-325] Levothyroxine Sodium [Synthroid] 112 mcg PO DAILY 12/08/16 04/19/18 History Amiodarone [Cordarone] 200 mg PO DAILY 12/27/16 04/19/18 History Furosemide [Lasix] 40 mg PO DAILY 01/09/18 04/19/18 History Metoprolol Succinate (ER) [Toprol 50 mg PO DAILY 01/09/18 04/19/18 History XL] Simvastatin [Zocor] 20 mg PO HS 01/09/18 04/19/18 History metFORMIN HCL ER [Glucophage Xr] 500 mg PO DAILY 01/09/18 04/19/18 History Ferrous Sulfate [Feosol] 325 mg PO BID #60 tab 01/12/18 04/19/18 Rx Pantoprazole Sodium [Protonix] 40 mg PO DAILY #30 tablet. 01/12/18 04/19/18 Rx Benazepril [Lotensin] 5 mg PO DAILY 04/12/18 04/19/18 History Allergies Allergy/AdvReac Type Severity Reaction Status Date / Time No Known Allergies Allergy Verified 04/12/18 09:58 Surgical - Exam Vital Signs Temp Pulse Resp BP Pulse Ox 97.4 F L 70 16 151/75 93 L 04/19/18 07:12 04/19/18 07:12 04/19/18 07:12 04/19/18 07:12 04/19/18 07:12 - General well developed, no distress - Eyes PERRL - ENT normal pinna - Neck no masses - Respiratory normal expansion - Abdomen Abdomen: soft, non tender Results - Labs Abnormal Lab Results - Last 24 Hours (Table) 04/19/18 Range/Units 07:22 POC Glucose (mg/dL) 111 H (75-99) mg/dL Assessment and Plan Assessment: Lithiasis Chronically cholecystitis We'll perform laparoscopic cholecystectomy.
[2018-04-19] MEDS ORDERED: SUCCINYLCHOLINE CHLORIDE 100 MG/5 ML SYR IV ONE (08:00)
[2018-04-19] MEDS ORDERED: NEOSTIGMINE 1 MG/ML 10 ML VIAL ONE (08:00)
[2018-04-19] MEDS ORDERED: fentaNYL (PF) 50 MCG/ML 2 ML AMP ONE (08:00)
[2018-04-19] MEDS ORDERED: ROCURONIUM BROMIDE 10 MG/ML 10 ML VIAL IV ONE (08:00)
[2018-04-19] MEDS ORDERED: LIDOCAINE 1% INJ 10MG/ML (20 ML MDV) ONE (08:00)
[2018-04-19] MEDS ORDERED: PROPOFOL 10 MG/ML 20 ML VIAL IV ONE (08:00)
[2018-04-19] MEDS ORDERED: GLYCOPYRROLATE 0.2 MG/ML 2 ML VIAL ONE (08:00)
[2018-04-19] MEDS ORDERED: ePHEDrine SULFATE/0.9% NACL/PF 50 MG/5 ML SYRINGE IV ONE (08:00)
[2018-04-19] MEDS: ceFAZolin IN SWFI 2 GM/20 ML SYRINGE IVP ONE ×2 (08:11→08:16)
[2018-04-19 09:03] VITALS: TEMP 97.5
[2018-04-19 09:10] LABS: Glucose,Whole Blood 125 mg/dL (75-99)
[2018-04-19] MEDS ORDERED: METOCLOPRAMIDE 5 MG/ML 2 ML VIAL IVP ONE (10:31)
[2018-04-19] MEDS ORDERED: Acetaminophen-Codeine 300-30mg TAB PO ONE (10:42)
[2018-04-19 10:55] VITALS: BP 134/75; PULSE 72; RESP 16
--- NOTE | 2018-04-26 11:15 | P.OP ---
Date of Procedure: 04/19/18 Preoperative Diagnosis: Cholecystitis Postoperative Diagnosis: Cholecystitis Procedure(s) Performed: Laparoscopic cholecystectomy Anesthesia: TRENT Surgeon: Rogers Tejeda Estimated Blood Loss (ml): 5 Pathology: other (Gallbladder) Condition: stable Disposition: PACU Description of Procedure: The patient was placed on the operating table. The patient received a general endotracheal tube anesthesia. The patients abdomen was prepped and draped in the usual sterile fashion. Through an infraumbilical stab incision, the fascia of the anterior abdominal wall was grasped with a pair of Kochers and then the Veress needle was placed in the peritoneal cavity. Position of the Veress needle was confirmed with positive drop test. The abdomen was then insufflated. After adequate insufflation, the 10 mm trocar was placed in the peritoneal cavity. Following this the laparoscope was placed in the peritoneal cavity. The patient was placed in the head-up, right side up position and then a 5 mm trocar was placed in the right lateral and right subcostal position under direct visualization. A 8 mm trocar was placed in the epigastric position. The gallbladder was grasped in the fundus and infundibulum. Traction on the gallbladder was placed in the lateral and the cephalad positions. The triangle of Calot was visualized.. The cystic duct was bluntly dissected until the union of the cystic duct and common bile duct was seen. The cystic duct was then divided and sealed with the Harmonic scissors. A PDS Endoloop was then placed throughout the cystic duct stump. The cystic artery divided and sealed with the Harmonic scissors. The gallbladder was then removed from the liver bed using Harmonic scissors. The gallbladder was then extracted through the epigastric port site. Operative field was checked for any bleeding spots and Harmonic scissors was used to coagulate the liver bed. The abdomen was irrigated. The trocars were removed. The skin was closed using interrupted 3-0 Vicryl suture. Dermabond dressing were applied. The patient tolerated the procedure well.
== END 2018-04-19 11:22 | disposition home or self-care (01) ==
LOC: OR 06:52
PROVIDERS: ATTEND Surgery
DX: K80.10 Calculus of gallbladder with chronic cholecystitis without obstruction (principal); I11.0 Hypertensive heart disease with heart failure; I50.9 Heart failure, unspecified; I48.91 Unspecified atrial fibrillation; K21.9 Gastro-esophageal reflux disease without esophagitis; M06.9 Rheumatoid arthritis, unspecified; G89.29 Other chronic pain; E78.5 Hyperlipidemia, unspecified; E11.9 Type 2 diabetes mellitus without complications; E03.9 Hypothyroidism, unspecified; Z86.73 Personal history of transient ischemic attack (TIA), and cerebral infarction without residual deficits; Z87.19 Personal history of other diseases of the digestive system; Z90.49 Acquired absence of other specified parts of digestive tract; Z96.653 Presence of artificial knee joint, bilateral
CPT/HCPCS: 47562; 88304; J1644; J2710; J2765; J2405; J2001; J3010; J0330; J2704; J1170; J0690; 93005

== ENCOUNTER → 2018-07-24 | Outpatient (CLI) | payer MEDICARE ==
--- NOTE | 2018-07-24 18:27 | CONS ---
CONSULTATION Consultation for reason for insomnia. This 77-year-old female, patient started having issues with insomnia as of February 2018. Exact trigger is not known. She states that she is becoming very panicky and claustrophobic at night when she falls asleep and she gets anxious and she starts getting different thoughts and her mind races and she cannot fall asleep. When she sleeps, she wakes up frequently. She has had questionable history of congestive heart failure, yet there are no clear signs of any volume overload or symptoms of orthopnea that can be associated with heart failure. The patient seems to be having increased anxiety and panic and she was started on Remeron 30 mg at bedtime by her primary care physician and this has helped; however, she is still having issues in initiating and maintaining sleep. She goes to bed around 11 p.m., wakes up at 7:00 a.m. in the morning. It takes her more than an hour to fall asleep and her current [place] score is at 13. On and off, she may take a nap during the day, yet for the most part, she becomes very tired and sleepy. No recent weight gain. No snoring. She is excessively fatigued and sleepy during the day. No issues with pain. No issues with restlessness in lower extremities. No grinding of the teeth. No nocturia. No nocturnal heartburn or chest pain. No history of chronic psychotic disorder and this presentation is rather subacute's. PAST MEDICAL HISTORY: CHF, hypertension, hyperlipidemia, A. fib., diabetes and history of depression. PAST SURGICAL HISTORY: Includes 2 knee replacement and rotator cuff repair. DRUG ALLERGIES: Not known. MEDICATION LIST: Includes: 1. Omeprazole 40 mg p.o. daily. 2. Lasix 20 mg p.o. daily. 3. Benazepril 5 mg p.o. daily. 4. Coumadin 5 mg MWF. 5. Metoprolol mg p.o. daily. 6. Zocor 20 daily. 7. Metformin 500 mg p.o. daily. 8. Lisinopril 20 mg p.o. daily. 9. Wellbutrin 150 mg p.o. b.i.d. 10.[place] p.r.n. 11.Remeron 45 mg at bedtime. SOCIAL HISTORY: The patient is a nonsmoker. No history of alcohol. No history of IV drugs. She is a . She lives alone in an independent home. FAMILY HISTORY: Negative for insomnia or sleep apnea. REVIEW OF SYSTEMS: A 12-point review of system was done. Positive findings are mentioned above history of present illness. BP is 148/70, pulse 66, respirations 16, temp 97.7, saturation 96% on room air. Weight is 184, height is 5 feet 5 inches, neck size 14-1/2 inches. GENERAL APPEARANCE: Calm, comfortable. Head is atraumatic, normocephalic. NECK: Supple. There is no JVD. There is no goiter or neck mass. LUNGS: Clear to auscultation. HEART: Sounds are regular rate and rhythm. Normal S1, S2. No S3, S4. No murmurs. ABDOMEN: Soft, nontender. No organomegaly. EXTREMITIES: No edema. No cyanosis or clubbing. IMPRESSION: 1. Insomnia which is of a subacute onset, starting in February 2018. Exact trigger is not clear, although this has been associated with increased anxiety/panic/some feeling of claustrophobia. 2. History of depression. 3. History of hypertension. 4. History of the congestive heart failure.. 5. History of hyperlipidemia. 6. History of chronic atrial fibrillation. 7. History of diabetes mellitus. PLAN: I feel that the patient's insomnia is essentially anxiety/panic related. She may be having difficulty with sleep initiation and some issues with maintenance. Remeron has helped to improve her sleep quality. Will give a trial of Xanax 0.5 mg and if this trial works, the patient will need a long-term anxiolytic, probably a longer-acting agent which may help with sleep induction and maintenance and the choice of the medication will be made accordingly. For now, she will be given a trial of Xanax 0.5 mg to be taken half an hour before sleep, continue Remeron, continue Wellbutrin. Will continue to follow. No need for a sleep study at this point in time. MMODL / IJN: [id number] /
== END | disposition home or self-care (01) ==
LOC: SLEEP 14:43
PROVIDERS: ATTEND Internal Medicine Critical Care Medicine
DX: G47.00 Insomnia, unspecified (principal); F40.240 Claustrophobia; F41.0 Panic disorder [episodic paroxysmal anxiety]; F32.9 Major depressive disorder, single episode, unspecified; I11.0 Hypertensive heart disease with heart failure; I50.9 Heart failure, unspecified; E78.5 Hyperlipidemia, unspecified; I48.2 Chronic atrial fibrillation; E11.9 Type 2 diabetes mellitus without complications; Z79.01 Long term (current) use of anticoagulants; Z79.84 Long term (current) use of oral hypoglycemic drugs; Z79.891 Long term (current) use of opiate analgesic; Z79.899 Other long term (current) drug therapy; Z96.653 Presence of artificial knee joint, bilateral
CPT/HCPCS: 99211

== ENCOUNTER 2019-07-26 18:27 | Emergency (ER) | payer MEDICARE ==
[2019-07-26 19:02] LABS: Basophils # (A) 0.1 k/uL (0-0.2); Basophils % (A) 1 %; Eosinophils # (A) 0.2 k/uL (0-0.7); Eosinophils % (A) 2 %; HCT 37.7 % (34.0-46.0); HGB 12.3 gm/dL (11.4-16.0); Lymphocytes # (A) 2.1 k/uL (1.0-4.8); Lymphocytes % (A) 26 %; MCH 31.6 pg (25.0-35.0); MCHC 32.5 g/dL (31.0-37.0); MCV 97.2 fL (80.0-100.0); Mean Platelet Volume 7.1; Monocytes # (A) 0.7 k/uL (0-1.0); Monocytes % (A) 8 %; Neutrophils # (A) 4.9 k/uL (1.3-7.7); Neutrophils % (A) 61 %; Platelet Count 272 k/uL (150-450); RBC 3.88 m/uL (3.80-5.40); RDW 13.1 % (11.5-15.5); WBC 8.1 k/uL (3.8-10.6)
[2019-07-26 19:11] LABS: Albumin 4.3 g/dL (3.5-5.0); Calcium 9.2 mg/dL (8.4-10.2); Potassium 4.2 mmol/L (3.5-5.1); Total Bilirubin 0.3 mg/dL (0.2-1.3); Total Protein 6.9 g/dL (6.3-8.2)
[2019-07-26 19:12] LABS: INR 1.4 (<1.2); Partial Thromboplastin Time 32.3 sec (22.0-30.0); Prothrombin Time 14.4 sec (9.0-12.0)
--- NOTE | 2019-07-26 19:43 | ED ---
General Adult HPI - General Source: patient, RN notes reviewed, old records reviewed Mode of arrival: wheelchair Limitations: no limitations <Vince Salinas - Last Filed: 07/26/19 21:11> <Yina Mota - Last Filed: 07/30/19 00:02> - General Chief complaint: Extremity Problem,Nontraumatic Stated complaint: poss blood clot Time Seen by Provider: 07/26/19 18:32 - History of Present Illness Initial comments: 78-year-old female patient presents ED chief complaint of right lower extremity calf pain. Patient is currently anticoagulated on Coumadin for atrial fibrillation. Patient reports that the pain began last night. Patient denies any recent travel, prolonged immobilization. Patient denies any active cancer. Denies any chest pain shortness of breath. Denies other complaints at this time. Systemic: Pt denies fatigue, fever/chills, rash. Pt denies weakness, night sweats, weight loss. Neuro: Pt denies headache, visual disturbances, syncope or pre-syncope. HEENT: Pt denies ocular discharge or irritation, otalgia, rhinorrhea, pharyngitis or notable lymphadenopathy. Cardiopulmonary: Pt denies chest pain, SOB, heart palpitations, dyspnea on exertion. Abdominal/GI: Pt denies abdominal pain, n/v/d. : Pt denies dysuria, burning w/ urination, frequency/urgency. Denies new onset urinary or bowel incontinence. MSK: Pt denies loss of strength or function in extremities. Neuro: Pt denies new onset weakness, paresthesias. (Vince Salinas) - Related Data Home Medications Medication Instructions Recorded Confirmed HYDROcodone/APAP 7.5-325MG [[place] 1 tab PO BID 12/06/16 07/26/19 7.5-325] Simvastatin [Zocor] 20 mg PO HS 01/09/18 07/26/19 metFORMIN HCL ER [Glucophage Xr] 500 mg PO DAILY 01/09/18 07/26/19 Carvedilol [Coreg] 6.25 mg PO BID 07/26/19 07/26/19 Esomeprazole Magnesium [NexIUM] 40 mg PO DAILY 07/26/19 07/26/19 Furosemide [Lasix] 20 mg PO DAILY PRN 07/26/19 07/26/19 Gabapentin [Neurontin] 400 mg PO HS 07/26/19 07/26/19 Mirtazapine [Remeron] 45 mg PO HS 07/26/19 07/26/19 Warfarin [Coumadin] 1 mg PO SUMOWEFRSA 07/26/19 07/26/19 Allergies Allergy/AdvReac Type Severity Reaction Status Date / Time No Known Allergies Allergy Verified 07/26/19 19:05 Review of Systems ROS Other: All systems not noted in ROS Statement are negative. <Vince Salinas - Last Filed: 07/26/19 21:11> ROS Other: All systems not noted in ROS Statement are negative. <Yina Mota - Last Filed: 07/30/19 00:02> ROS Statement: Those systems with pertinent positive or pertinent negative responses have been documented in the HPI. Past Medical History Past Medical History: Atrial Fibrillation, Heart Failure, CVA/TIA, Diabetes Mellitus, GERD/Reflux, GI Bleed, Hyperlipidemia, Hypertension, Osteoarthritis (OA), Pneumonia, Rheumatoid Arthritis (RA), Thyroid Disorder Additional Past Medical History / Comment(s): Afib with past RVR, chronic back pain with bilateral sciatica, gastric ulcer, rectal bleed, past migraines, bronchitis, hypothyroidism, generalized arthritis. History of Any Multi-Drug Resistant Organisms: None Reported Past Surgical History: Hysterectomy, Joint Replacement, Orthopedic Surgery Additional Past Surgical History / Comment(s): Bilateral total knee replacement, bilateral shoulder rotator cuff repairs, L cataract removal, EGDs and colonoscopy with ulcer cauterized, cardioversions/MEGAN, rt hand surgery, left foot surgery. right toe surgery Past Anesthesia/Blood Transfusion Reactions: Postoperative Nausea & Vomiting (PONV) Additional Past Anesthesia/Blood Transfusion Reaction / Comment(s): Pt received blood in 2007 with gastric bleed without reaction. Past Psychological History: Anxiety Smoking Status: Never smoker - Past Family History Father Family Medical History: No Reported History Additional Family Medical History / Comment(s): Father was healthy and lived to be 80yrs old. Mother Family Medical History: No Reported History Additional Family Medical History / Comment(s): Mother was healthy and lived to be 80 yrs old. <Vince Salinas - Last Filed: 07/26/19 21:11> General Exam Limitations: no limitations <Vince Salinas - Last Filed: 07/26/19 21:11> - General Exam Comments Initial Comments: Constitutional: NAD, AOX3, Pt has pleasant affect. HEENT: NC/AT, trachea midline, neck supple, no lymphadenopathy. Posterior pharynx non erythematous, without exudates. External ears appear normal, without discharge. Mucous membranes moist. Eyes PERRLA, EOM intact. There is no scleral icterus. No pallor noted. Cardiopulmonary: RRR, no murmurs, rubs or gallops, no JVD noted. Lungs CTAB in anterior and posterior [place]. No peripheral edema. Abdominal exam: Abdomen soft and non-distended. Abdomen non-tender to palpation in all 4 quadrants. Bowel sounds active in LLQ. No hepatosplenomegaly. No ecchymosis Neuro: CN II-XII grossly intact. No nuchal rigidity. No raccon eyes, no almaraz sign, no hemotympanum. No cervical spinal tenderness. MSK: Right posterior calf mildly tender to palpation, mild amount of unilateral leg swelling noted. No skin changes. Left calf nontender palpation. Distal pulses intact and equal.. Posterior tibialis and radial pulse +2 bilaterally. Sensation intact in upper and lower extremities. Full active ROM in upper and lower extremities, 5/5 stregnth. (Vince Salinas) Course Vital Signs 07/26/19 07/26/19 18:28 21:56 Temperature 98.7 F 97.8 F Pulse Rate 84 92 Respiratory 16 19 Rate Blood Pressure 159/89 178/89 O2 Sat by Pulse 97 98 Oximetry Medical Decision Making - Lab Data Result diagrams: 07/26/19 18:50 07/26/19 18:50 <Vince Salinas - Last Filed: 07/26/19 21:11> - Lab Data Result diagrams: 07/26/19 18:50 07/26/19 18:50 <Yina Mota - Last Filed: 07/30/19 00:02> - Medical Decision Making 78-year-old female patient presents ED chief complaint of right lower extremity calf pain. Patient is currently anticoagulated on Coumadin for atrial fibrillation. Patient reports that the pain began last night. Patient denies any recent travel, prolonged immobilization. Patient denies any active cancer. Denies any chest pain shortness of breath. Denies other complaints at this time. Patient also has stable, afebrile. Physical exam displayed: Right posterior calf mildly tender to palpation, mild amount of unilateral leg swelling noted. No skin changes. Left calf nontender palpation. Distal pulses intact and equal.. Posterior tibialis and radial pulse +2 bilaterally. Sensation intact in upper and lower extremities. Full active ROM in upper and lower extremities, 5/5 stregnth. Investigations non-impressive. INR slightly subtherapeutic at 1.4. Lower extremity venous Doppler displayed no evidence of DVT, myositis popliteal cyst. This is likely cause of patient's pain. Patient discharged orthopedic follow-up. Case discussed with Dr. Mota. (Vince Salinas) I evaluated the patient myself. She was given 4 mg of morphine as she continues to complain of pain. I informed her that her INR is low and she needs to see her PCP to have her coumadin adjusted and re-evaluation of her high blood pressure. All of her questions were answered. She was discharged in stable condition. (Yina Mota) - Lab Data Lab Results 07/26/19 07/26/19 07/26/19 Range/Units 18:50 18:50 18:50 WBC 8.1 (3.8-10.6) k/uL RBC 3.88 (3.80-5.40) m/uL Hgb 12.3 (11.4-16.0) gm/dL Hct 37.7 (34.0-46.0) % MCV 97.2 (80.0-100.0) fL MCH 31.6 (25.0-35.0) pg MCHC 32.5 (31.0-37.0) g/dL RDW 13.1 (11.5-15.5) % Plt Count 272 (150-450) k/uL Neutrophils % 61 % Lymphocytes % 26 % Monocytes % 8 % Eosinophils % 2 % Basophils % 1 % Neutrophils # 4.9 (1.3-7.7) k/uL Lymphocytes # 2.1 (1.0-4.8) k/uL Monocytes # 0.7 (0-1.0) k/uL Eosinophils # 0.2 (0-0.7) k/uL Basophils # 0.1 (0-0.2) k/uL PT 14.4 H (9.0-12.0) sec INR 1.4 H (<1.2) APTT 32.3 H (22.0-30.0) sec Sodium 140 (137-145) mmol/L Potassium 4.2 (3.5-5.1) mmol/L Chloride 104 (98-107) mmol/L Carbon Dioxide 26 (22-30) mmol/L Anion Gap 10 mmol/L BUN 22 H (7-17) mg/dL Creatinine 0.93 (0.52-1.04) mg/dL Est GFR (CKD-EPI)AfAm 68 (>60 ml/min/1.73 sqM) Est GFR (CKD-EPI)NonAf 59 (>60 ml/min/1.73 sqM) Glucose 111 H (74-99) mg/dL Calcium 9.2 (8.4-10.2) mg/dL Total Bilirubin 0.3 (0.2-1.3) mg/dL AST 33 (14-36) U/L ALT 52 (9-52) U/L Alkaline Phosphatase 169 H (38-126) U/L Total Protein 6.9 (6.3-8.2) g/dL Albumin 4.3 (3.5-5.0) g/dL Disposition Is patient prescribed a controlled substance at d/c from ED?: No <Vince Salinas - Last Filed: 07/26/19 21:11> <Yina Mota - Last Filed: 07/30/19 00:02> Clinical Impression: Popliteal cyst Disposition: HOME SELF-CARE Condition: Stable Instructions (If sedation given, give patient instructions): [place] Cyst (ED) Additional Instructions: Patient to adhere to previously discussed treatment plan and will take medication(s) as directed. Patient to follow up with PCP in 1-2 days. Patient to return to ED if symptoms do not improve. WITH primary care provider and orthopedic consult. Return to ER if condition worsens. Referrals: Radha Braxton DO [Primary Care Provider] - 1-2 days Socrates Elena DO [Medical Doctor] - 1-2 days
--- NOTE | 2019-07-26 20:57 | US ---
EXAMINATION TYPE: US venous doppler duplex LE RT DATE OF EXAM: 07/26/2019 8:19 PM COMPARISON: NONE CLINICAL HISTORY: Pain. Pain right calf. Edema right leg. Patient on Coumadin for cardiac issues SIDE PERFORMED: right TECHNIQUE: The lower extremity deep venous system is examined utilizing real time linear array sonog aisha with graded compression, doppler sonography and color-flow sonography. VESSELS IMAGED: External Iliac Vein (EIV) Common Femoral Vein Deep Femoral Vein Greater Saphenous Vein * Femoral Vein Popliteal Vein Small Saphenous Vein * Proximal Calf Veins (* superficial vessels) Right Leg: No evidence of DVT. complex anechoic area right popliteal fossa = 7.0 x 1.7 x 4.2cm IMPRESSION: No evidence of deep venous thrombosis in the right leg. There is moderate size popliteal cyst.
[2019-07-26] MEDS ORDERED: MORPHINE SULFATE 4 MG/ML SYRINGE IM STA (21:36)
[2019-07-26 21:57] VITALS: BP 178/89; PULSE 92; RESP 19; TEMP 97.8
== END 2019-07-26 21:57 | disposition home or self-care (01) ==
LOC: EC 18:27
DX: M71.21 Synovial cyst of popliteal space [Baker], right knee (principal); M79.661 Pain in right lower leg; I48.91 Unspecified atrial fibrillation; I11.0 Hypertensive heart disease with heart failure; I50.9 Heart failure, unspecified; E11.9 Type 2 diabetes mellitus without complications; K21.9 Gastro-esophageal reflux disease without esophagitis; E78.5 Hyperlipidemia, unspecified; M19.90 Unspecified osteoarthritis, unspecified site; Z79.01 Long term (current) use of anticoagulants; Z79.84 Long term (current) use of oral hypoglycemic drugs; Z79.02 Long term (current) use of antithrombotics/antiplatelets; Z79.899 Other long term (current) drug therapy; Z96.653 Presence of artificial knee joint, bilateral
CPT/HCPCS: 99284 ×2; 96372 ×2; 36415; 80053; 85025; 85610; 85730; 93971; J2270

== ENCOUNTER 2019-07-30 05:34 | Inpatient (IN) | payer MEDICARE ==
[2019-07-30] MEDS ORDERED: ONDANSETRON 4 MG/2 ML VIAL IVP STA (06:01)
[2019-07-30] MEDS ORDERED: MORPHINE SULFATE 4 MG/ML SYRINGE IVP STA (06:01)
--- NOTE | 2019-07-30 06:04 | ED ---
Lower Extremity Injury HPI <Kevan Price - Last Filed: 07/30/19 09:51> - General Source: patient, EMS, RN notes reviewed Mode of arrival: EMS Limitations: physical limitation <Felton Aguiar - Last Filed: 07/30/19 09:56> - General Chief Complaint: Extremity Injury, Lower Stated Complaint: Leg Pain Time Seen by Provider: 07/30/19 05:52 - History of Present Illness Initial Comments: This a 78-year-old female presents emergency Department chief complaint severe right leg and right knee pain. Patient was seen here a few days prior for possible blood clot ultrasound was negative INR was 1.4 that time. Patient's had worsening extensive swelling and pain to the knee. Patient's had 2 prior knee surgeries. Patient states that she cannot move her knee secondary to severe pain. Patient states that she generalized does not feel well in the subjective fevers. Patient denies any hip or ankle pain. Denies any trauma. Patient states that she did have Bowman's cyst on ultrasound though they found no evidence of blood clot. Patient is unable to ambulate secondary to pain. (Felton Aguiar) - Related Data Home Medications Medication Instructions Recorded Confirmed HYDROcodone/APAP 7.5-325MG [[place] 1 tab PO BID 12/06/16 07/30/19 7.5-325] Simvastatin [Zocor] 20 mg PO HS 01/09/18 07/30/19 metFORMIN HCL ER [Glucophage Xr] 500 mg PO DAILY 01/09/18 07/30/19 Carvedilol [Coreg] 6.25 mg PO BID 07/26/19 07/30/19 Esomeprazole Magnesium [NexIUM] 40 mg PO DAILY 07/26/19 07/30/19 Furosemide [Lasix] 20 mg PO DAILY PRN 07/26/19 07/30/19 Gabapentin [Neurontin] 400 mg PO HS 07/26/19 07/30/19 Mirtazapine [Remeron] 45 mg PO HS 07/26/19 07/30/19 Warfarin [Coumadin] 1 mg PO SUMOWEFRSA 07/26/19 07/30/19 Allergies Allergy/AdvReac Type Severity Reaction Status Date / Time No Known Allergies Allergy Verified 07/30/19 07:42 Review of Systems ROS Other: All systems not noted in ROS Statement are negative. <Kevan Price - Last Filed: 07/30/19 09:51> ROS Other: All systems not noted in ROS Statement are negative. <Felton Aguiar - Last Filed: 07/30/19 09:56> ROS Statement: Those systems with pertinent positive or pertinent negative responses have been documented in the HPI. Past Medical History Past Medical History: Atrial Fibrillation, Heart Failure, CVA/TIA, Diabetes Mellitus, GERD/Reflux, GI Bleed, Hyperlipidemia, Hypertension, Osteoarthritis (OA), Pneumonia, Rheumatoid Arthritis (RA), Thyroid Disorder Additional Past Medical History / Comment(s): Afib with past RVR, chronic back pain with bilateral sciatica, gastric ulcer, rectal bleed, past migraines, bronchitis, hypothyroidism, generalized arthritis. History of Any Multi-Drug Resistant Organisms: None Reported Past Surgical History: Hysterectomy, Joint Replacement, Orthopedic Surgery Additional Past Surgical History / Comment(s): Bilateral total knee replacement, bilateral shoulder rotator cuff repairs, L cataract removal, EGDs and colonoscopy with ulcer cauterized, cardioversions/MEGAN, rt hand surgery, left foot surgery. right toe surgery Past Anesthesia/Blood Transfusion Reactions: Postoperative Nausea & Vomiting (PONV) Additional Past Anesthesia/Blood Transfusion Reaction / Comment(s): Pt received blood in 2007 with gastric bleed without reaction. Past Psychological History: Anxiety Smoking Status: Never smoker - Past Family History Father Family Medical History: No Reported History Additional Family Medical History / Comment(s): Father was healthy and lived to be 80yrs old. Mother Family Medical History: No Reported History Additional Family Medical History / Comment(s): Mother was healthy and lived to be 80 yrs old. <Felton Aguiar - Last Filed: 07/30/19 09:56> General Exam Limitations: physical limitation General appearance: alert, in no apparent distress Head exam: Present: atraumatic, normocephalic, normal inspection Eye exam: Present: normal appearance, PERRL, EOMI. Absent: scleral icterus, conjunctival injection, periorbital swelling ENT exam: Present: normal exam, normal oropharynx, mucous membranes moist Neck exam: Present: normal inspection, full ROM. Absent: tenderness, meningismus, lymphadenopathy Respiratory exam: Present: normal lung sounds bilaterally. Absent: respiratory distress, wheezes, rales, rhonchi, stridor Cardiovascular Exam: Present: regular rate, normal rhythm, normal heart sounds. Absent: systolic murmur, diastolic murmur, rubs, gallop, clicks Extremities exam: Present: other (Patient is a swelling to the right knee and right lower leg there is ecchymosis noted, increased warmth to the right knee compared to the left there is pain diffusely over the right knee and very limited passive range of motion pedal pulses equal bilaterally. There is no hip tenderness) Skin exam: Present: warm, dry, intact <Felton Aguiar - Last Filed: 07/30/19 09:56> Course Vital Signs 07/30/19 07/30/19 05:38 06:38 Temperature 98.1 F 98.3 F Pulse Rate 81 78 Respiratory 18 18 Rate Blood Pressure 174/80 177/79 O2 Sat by Pulse 98 100 Oximetry Procedures - Joint Aspiration/Injection Consent Obtained: verbal consent Indications: R/O septic arthritis Side of Body: right Joint Aspirated: knee Skin Prep: Povidone-Iodine1% Local Anesthesia Used: Lidocaine 1% Needle Size Used: 18G Syringe Size Used: 10cc Fluid Obtained: bloody Total Fluid Obtained (mls): 10 Patient Tolerated Procedure: well Complications: none <Kevan Price - Last Filed: 07/30/19 09:51> Medical Decision Making - Lab Data Result diagrams: 07/30/19 05:58 07/30/19 05:58 <Kevan Price - Last Filed: 07/30/19 09:51> - Lab Data Result diagrams: 07/30/19 05:58 07/30/19 05:58 <Felton Aguiar - Last Filed: 07/30/19 09:56> - Medical Decision Making Patient reexamined and reevaluated by myself, Dr. Price. I do agree with PA findings. This includes diagnostic interpretation and treatment plan. Patient does have apparent hemarthrosis with associated DVT on slightly subtherapeutic anticoagulation. Patient updated. Case discussed in detail with Dr. Dela Cruz, who will admit covering for Dr. Braxton. Consults will be placed for both hematology and orthopedics. He does recommend low dose heparin pending consults. (Kevan Price) 78-year-old female presented from for right leg and knee pain. Patient had worsening pain and right knee with increased swelling and increased warmth. There is concern for possible infection. Patient had a knee aspiration which showed hemarthrosis by Dr. Price and myself. Patient is anticoagulated but subtherapeutic is found to have a DVT which was negative for days ago on ultrasound. Patient's pain is uncontrolled. Patient will be admitted for consults of hematology and orthopedics recommended by Dr. Barrios. Patient does not have current orthopedic physician that she sees (Felton Aguiar) - Lab Data Lab Results 07/30/19 07/30/19 07/30/19 Range/Units 05:58 05:58 05:58 WBC 11.3 H (3.8-10.6) k/uL RBC 3.67 L (3.80-5.40) m/uL Hgb 12.0 (11.4-16.0) gm/dL Hct 35.9 (34.0-46.0) % MCV 97.7 (80.0-100.0) fL MCH 32.6 (25.0-35.0) pg MCHC 33.4 (31.0-37.0) g/dL RDW 14.0 (11.5-15.5) % Plt Count 314 (150-450) k/uL Neutrophils % 68 % Lymphocytes % 21 % Monocytes % 7 % Eosinophils % 2 % Basophils % 1 % Neutrophils # 7.7 (1.3-7.7) k/uL Lymphocytes # 2.4 (1.0-4.8) k/uL Monocytes # 0.8 (0-1.0) k/uL Eosinophils # 0.2 (0-0.7) k/uL Basophils # 0.1 (0-0.2) k/uL ESR 28 H (0-20) mm/hr PT (9.0-12.0) sec INR (<1.2) APTT (22.0-30.0) sec Sodium 141 (137-145) mmol/L Potassium 4.7 (3.5-5.1) mmol/L Chloride 105 (98-107) mmol/L Carbon Dioxide 27 (22-30) mmol/L Anion Gap 9 mmol/L BUN 20 H (7-17) mg/dL Creatinine 0.92 (0.52-1.04) mg/dL Est GFR (CKD-EPI)AfAm 69 (>60 ml/min/1.73 sqM) Est GFR (CKD-EPI)NonAf 60 (>60 ml/min/1.73 sqM) Glucose 106 H (74-99) mg/dL Plasma Lactic Acid Sav 1.2 (0.7-2.0) mmol/L Calcium 9.1 (8.4-10.2) mg/dL Total Bilirubin 0.8 (0.2-1.3) mg/dL AST 32 (14-36) U/L ALT 32 (9-52) U/L Alkaline Phosphatase 127 H (38-126) U/L C-Reactive Protein 21.1 H (<10.0) mg/L Total Protein 6.6 (6.3-8.2) g/dL Albumin 4.0 (3.5-5.0) g/dL 07/30/19 Range/Units 05:58 WBC (3.8-10.6) k/uL RBC (3.80-5.40) m/uL Hgb (11.4-16.0) gm/dL Hct (34.0-46.0) % MCV (80.0-100.0) fL MCH (25.0-35.0) pg MCHC (31.0-37.0) g/dL RDW (11.5-15.5) % Plt Count (150-450) k/uL Neutrophils % % Lymphocytes % % Monocytes % % Eosinophils % % Basophils % % Neutrophils # (1.3-7.7) k/uL Lymphocytes # (1.0-4.8) k/uL Monocytes # (0-1.0) k/uL Eosinophils # (0-0.7) k/uL Basophils # (0-0.2) k/uL ESR (0-20) mm/hr PT 17.0 H (9.0-12.0) sec INR 1.7 H (<1.2) APTT 35.6 H (22.0-30.0) sec Sodium (137-145) mmol/L Potassium (3.5-5.1) mmol/L Chloride (98-107) mmol/L Carbon Dioxide (22-30) mmol/L Anion Gap mmol/L BUN (7-17) mg/dL Creatinine (0.52-1.04) mg/dL Est GFR (CKD-EPI)AfAm (>60 ml/min/1.73 sqM) Est GFR (CKD-EPI)NonAf (>60 ml/min/1.73 sqM) Glucose (74-99) mg/dL Plasma Lactic Acid Sav (0.7-2.0) mmol/L Calcium (8.4-10.2) mg/dL Total Bilirubin (0.2-1.3) mg/dL AST (14-36) U/L ALT (9-52) U/L Alkaline Phosphatase (38-126) U/L C-Reactive Protein (<10.0) mg/L Total Protein (6.3-8.2) g/dL Albumin (3.5-5.0) g/dL Disposition <Kevan Price - Last Filed: 07/30/19 09:51> <Felton Aguiar - Last Filed: 07/30/19 09:56> Clinical Impression: Right leg DVT, Hemarthrosis of knee, right Disposition: ADMITTED IP TO THIS [facility] Condition: Fair Referrals: Radha Braxton DO [Primary Care Provider] - 1-2 days
[2019-07-30 06:27] LABS: Calcium 9.1 mg/dL (8.4-10.2); Total Bilirubin 0.8 mg/dL (0.2-1.3); Total Protein 6.6 g/dL (6.3-8.2)
[2019-07-30 06:29] LABS: Potassium 4.7 mmol/L (3.5-5.1)
[2019-07-30 06:35] LABS: INR 1.7 (<1.2); Partial Thromboplastin Time 35.6 sec (22.0-30.0)
[2019-07-30] MEDS ORDERED: HYDROmorphone 1 MG/ML 1 ML SYRINGE IVP STA ×2 (06:40→07:58)
[2019-07-30 06:42] LABS: Basophils # (A) 0.1 k/uL (0-0.2); Basophils % (A) 1 %; Eosinophils # (A) 0.2 k/uL (0-0.7); Eosinophils % (A) 2 %; HCT 35.9 % (34.0-46.0); Lymphocytes # (A) 2.4 k/uL (1.0-4.8); Lymphocytes % (A) 21 %; MCH 32.6 pg (25.0-35.0); MCHC 33.4 g/dL (31.0-37.0); MCV 97.7 fL (80.0-100.0); Mean Platelet Volume 7.4; Monocytes # (A) 0.8 k/uL (0-1.0); Monocytes % (A) 7 %; Neutrophils # (A) 7.7 k/uL (1.3-7.7); Neutrophils % (A) 68 %; Platelet Count 314 k/uL (150-450); RBC 3.67 m/uL (3.80-5.40); WBC 11.3 k/uL (3.8-10.6)
[2019-07-30 06:54] LABS: C Reactive Protein 21.1 mg/L (<10.0)
--- NOTE | 2019-07-30 07:56 | XR ---
EXAM: XR Right Knee, 3 views CLINICAL HISTORY: ITS.REASON XR Reason: Pain TECHNIQUE: Three views of the right knee. COMPARISON: No relevant prior studies available. FINDINGS: Bones/joints: Right total knee prosthesis. Mild lucency below the tibial component. No evidence of acute fracture or dislocation Soft tissues: Mild soft tissue swelling of the knee, especially anteriorly. Small joint effusion. IMPRESSION: 1. Right total knee prosthesis. Mild lucency below the tibial component. Raises possibility of loosening. Compare to priors if available. 2. Small joint effusion. 3. Mild soft tissue swelling of the knee, especially anteriorly.
[2019-07-30] MEDS ORDERED: LIDOCAINE 1% INJ 10MG/ML (20 ML MDV) SQ ONE (08:00)
[2019-07-30 08:32] LABS: Erythrocyte Sedimentation Rate 28 mm/hr (0-20)
--- NOTE | 2019-07-30 09:17 | US ---
EXAMINATION TYPE: US venous doppler duplex LE RT DATE OF EXAM: 07/30/2019 9:07 AM COMPARISON: NONE CLINICAL HISTORY: Persistent pain, repeat exam. Pain and swelling SIDE PERFORMED: Right TECHNIQUE: The lower extremity deep venous system is examined utilizing real time linear array sonog aisha with graded compression, doppler sonography and color-flow sonography. VESSELS IMAGED: External Iliac Vein (EIV) Common Femoral Vein Deep Femoral Vein Greater Saphenous Vein * Femoral Vein Popliteal Vein Small Saphenous Vein * Right Leg: Positive for DVT Popliteal Vein draining into the posterior tibial veins. Proximal veins are compressible with flow. IMPRESSION: Acute occlusive deep venous thrombosis beginning in the popliteal vein and extending into the posterior tibial veins of the right lower extremity.
[2019-07-30] MEDS ORDERED: HEPARIN SODIUM,PORCINE 5,000 UNIT/ML 1 ML VIAL IV PRN (09:50)
[2019-07-30] MEDS ORDERED: HYDROmorphone 0.5 MG/0.5 ML SYRINGE IVP PRN (09:51)
[2019-07-30] MEDS ORDERED: ONDANSETRON 4 MG/2 ML VIAL IVP PRN (09:51)
[2019-07-30] MEDS ORDERED: NALOXONE 0.4 MG/ML 1 ML VIAL IV PRN (09:51)
[2019-07-30] MEDS: HEPARIN SOD,PORK IN 0.45% NACL 25,000 UNIT in 0.45% NACL 1 250ML.BAG IV SCH (10:20)
[2019-07-30] MEDS: HYDROmorphone 1 MG/ML 1 ML SYRINGE IVP PRN ×4 (11:24→21:02)
[2019-07-30] MEDS ORDERED: HYDROcodone/APAP 7.5-325MG 1 EACH TAB PO PRN (11:54)
--- NOTE | 2019-07-30 13:26 | P.PN ---
Subjective Progress Note Date: 07/30/19 Principal diagnosis: Right knee Patient was admitted through the ED early this morning with right knee pain where an aspiration was performed and also was found to have a DVT. She had a TKA performed on the right knee by DR. Sanon previously. Orthopedics received consult for her right knee pain this afternoon. Objective - Vital Signs Vital signs: Vital Signs Temp 97.5 F L 07/30/19 11:14 Pulse 75 07/30/19 11:14 Resp 14 07/30/19 11:14 BP 188/99 07/30/19 11:14 Pulse Ox 96 07/30/19 11:14 Intake & Output 07/29/19 07/30/19 07/30/19 18:59 06:59 18:59 Weight 88.451 kg - Labs CBC & Chem 7: 07/30/19 05:58 07/30/19 05:58 Labs: Abnormal Lab Results - Last 24 Hours (Table) 07/30/19 07/30/19 07/30/19 Range/Units 05:58 05:58 05:58 WBC 11.3 H (3.8-10.6) k/uL RBC 3.67 L (3.80-5.40) m/uL ESR 28 H (0-20) mm/hr PT 17.0 H (9.0-12.0) sec INR 1.7 H (<1.2) APTT 35.6 H (22.0-30.0) sec BUN 20 H (7-17) mg/dL Glucose 106 H (74-99) mg/dL Alkaline Phosphatase 127 H (38-126) U/L C-Reactive Protein 21.1 H (<10.0) mg/L - Imaging and Cardiology xray shows no fracture Assessment and Plan Plan: I did not physically see the patient. Patient was reviewed with Dr. Tirado and he has recommended contacting and following up with Dr. Sanon regarding the patient's disposition and further care. We reviewed her xrays and other findings where it appears no emergent surgical intervention is required. Time with Patient: Less than 30
[2019-07-30] MEDS: CARVEDILOL 6.25 MG TAB PO SCH (17:04)
[2019-07-30] MEDS: GABAPENTIN 400 MG CAP PO SCH (22:24)
[2019-07-30] MEDS: MIRTAZAPINE 45 MG TABLET PO SCH (22:24)
[2019-07-30] MEDS: ATORVASTATIN 10 MG TAB PO SCH (22:24)
[2019-07-31] MEDS: HYDROmorphone 1 MG/ML 1 ML SYRINGE IVP PRN ×3 (00:01→06:01)
[2019-07-31 06:38] LABS: Basophils # (A) 0.1 k/uL (0-0.2); Basophils % (A) 1 %; Eosinophils # (A) 0.1 k/uL (0-0.7); Eosinophils % (A) 1 %; HCT 31.7 % (34.0-46.0); HGB 10.1 gm/dL (11.4-16.0); Lymphocytes # (A) 3.3 k/uL (1.0-4.8); Lymphocytes % (A) 38 %; MCH 31.9 pg (25.0-35.0); MCHC 31.9 g/dL (31.0-37.0); MCV 100.1 fL (80.0-100.0); Mean Platelet Volume 7.5; Monocytes # (A) 0.7 k/uL (0-1.0); Monocytes % (A) 8 %; Neutrophils # (A) 4.3 k/uL (1.3-7.7); Neutrophils % (A) 50 %; Platelet Count 295 k/uL (150-450); RBC 3.17 m/uL (3.80-5.40); RDW 14.3 % (11.5-15.5); WBC 8.6 k/uL (3.8-10.6)
[2019-07-31] MEDS: metFORMIN 500 MG TAB PO SCH (07:49)
[2019-07-31] MEDS: CARVEDILOL 6.25 MG TAB PO SCH ×2 (07:50→17:43)
[2019-07-31] MEDS: PANTOPRAZOLE 40 MG TABLET PO SCH (07:50)
[2019-07-31] MEDS: HEPARIN SOD,PORK IN 0.45% NACL 25,000 UNIT in 0.45% NACL 1 250ML.BAG IV SCH (08:15)
--- NOTE | 2019-07-31 13:57 | P.HPIM ---
History of Present Illness H&P Date: 07/30/19 Chief Complaint: Leg pain Angeline Lee is a 78 yo F with PMH significant for CAD, atrial fibrillation, GERD who presented to the ED with a 2 week history of worsening R knee pain and RLE swelling. She denies any specific injury but states she had been gardening every day and had to kneel down on the R knee to do so. She states the knee began to progressively hurt more and she noticed her R leg swollen compared to the left. She denies any fever, chills, shortness of breath or chest pain. She has no previous history of DVT. Pt states she was switched from her couamdin to eliquis approx 18 months ago but subsequently had a GI bleed and was switched back to coumadin. She has been compliant with coumadin and denies any recent changes to her diet. In the ED WBC 11.3, INR 1.7, XR with mod effusion and US positive for popliteal DVT. Pt underwent arthrocentesis which was positive for blood. Review of Systems All systems: negative Constitutional: Denies chills, Denies fever Eyes: denies blurred vision, denies pain Ears, nose, mouth and throat: Denies headache, Denies sore throat Cardiovascular: Denies chest pain, Denies shortness of breath Respiratory: Denies cough Gastrointestinal: Denies abdominal pain, Denies diarrhea, Denies nausea, Denies vomiting Genitourinary: Denies dysuria, Denies hematuria Musculoskeletal: Reports gait dysfunction, Reports myalgias Musculoskeletal: right: knee pain, knee swelling Integumentary: Denies pruritus, Denies rash Neurological: Denies numbness, Denies weakness Psychiatric: Denies anxiety, Denies depression Endocrine: Denies fatigue, Denies weight change Past Medical History Past Medical History: Atrial Fibrillation, Atrial Flutter, Heart Failure, Diabetes Mellitus, GERD/Reflux, GI Bleed, Hyperlipidemia, Hypertension, Osteoarthritis (OA), Pneumonia, Thyroid Disorder Additional Past Medical History / Comment(s): AFib/flutter with past RVR, MVP, cardiomyopathy, NIDDM type II, gastric ulcer, lower GI bleed, generalized arthritis, spinal stenosis, chronic low back pain with occasional bilateral sciatica, past migraines, bronchitis, hypothyroid, anemia years ago, UTI History of Any Multi-Drug Resistant Organisms: None Reported Past Surgical History: Cholecystectomy, Hysterectomy, Joint Replacement, Orthopedic Surgery Additional Past Surgical History / Comment(s): Bilateral total knee replacement, bilateral shoulder rotator cuff repairs, L cataract removal, EGDs and colonoscopy with gastric ulcer cauterized, cardioversions/TEEs, rt hand surgery- bone removed and tendon placed, left foot surgery d/t fracture, epidural back injections. Past Anesthesia/Blood Transfusion Reactions: Motion Sickness, Postoperative Nausea & Vomiting (PONV) Additional Past Anesthesia/Blood Transfusion Reaction / Comment(s): Pt received blood in 2007 with gastric bleed without reaction. Smoking Status: Never smoker - Past Family History Father Family Medical History: No Reported History Additional Family Medical History / Comment(s): Father was healthy and lived to be 80yrs old. Mother Family Medical History: No Reported History Additional Family Medical History / Comment(s): Mother was healthy and lived to be 80 yrs old-she had one kidney. Medications and Allergies Home Medications Medication Instructions Recorded Confirmed Type HYDROcodone/APAP 7.5-325MG [Hiko 1 tab PO BID 12/06/16 07/30/19 History 7.5-325] Simvastatin [Zocor] 20 mg PO HS 01/09/18 07/30/19 History metFORMIN HCL ER [Glucophage Xr] 500 mg PO DAILY 01/09/18 07/30/19 History Carvedilol [Coreg] 6.25 mg PO BID 07/26/19 07/30/19 History Esomeprazole Magnesium [NexIUM] 40 mg PO DAILY 07/26/19 07/30/19 History Furosemide [Lasix] 20 mg PO DAILY PRN 07/26/19 07/30/19 History Gabapentin [Neurontin] 400 mg PO HS 07/26/19 07/30/19 History Mirtazapine [Remeron] 45 mg PO HS 07/26/19 07/30/19 History Warfarin [Coumadin] 1 mg PO SUMOWEFRSA 07/26/19 07/30/19 History Allergies Allergy/AdvReac Type Severity Reaction Status Date / Time No Known Allergies Allergy Verified 07/30/19 07:42 Physical Exam Vitals: Vital Signs Temp Pulse Pulse Resp BP Pulse Ox 07/31/19 05:00 99.2 F 83 18 161/73 91 L 07/30/19 20:37 98.5 F 92 22 158/73 07/30/19 18:41 84 20 07/30/19 13:40 97.8 F 82 16 138/81 93 L Intake and Output 07/30/19 07/31/19 07/31/19 22:59 06:59 14:59 Intake Total 65.967 120 153.090 Output Total 0 Balance 65.967 120 153.090 Intake: Intake, IV Titration 65.967 153.090 Amount Heparin Sod,Pork in 0.45% 65.967 153.090 NaCl 25,000 unit In 0.45 % NaCl 1 250ml.bag @ 11.3 UNITS/KG/HR 9.995 mls/hr IV .Q24H ADOLFO Rx#: [id number] Oral 120 Output: Urine 0 Other: Voiding Method Toilet # Voids 1 0 General: well nourished, well developed, NAD. Vitals reviewed Eyes: PERRL, EOMI, conjunctiva normal HENT: normocephalic, mucus membranes moist Neck: supple, no JVD Lungs: normal respiratory effort, no wheezes or rales CV: Regular rate and rhythm, no murmur. Peripheral pulses 1+ Abdomen: soft, nondistended, no organomegaly MSK: RLE with 1+ edema, calf tenderness, thigh tenderness posterior. Mod effusion. LLE no edema Lymph: no cervical or axillary LAD Skin: warm and dry. Neuro: A&Ox3, normal mood and affect Results CBC & Chem 7: 07/31/19 06:23 07/30/19 05:58 Labs: Abnormal Lab Results - Last 24 Hours (Table) 07/30/19 07/31/19 07/31/19 Range/Units 15:46 06:23 06:25 RBC 3.17 L (3.80-5.40) m/uL Hgb 10.1 L (11.4-16.0) gm/dL Hct 31.7 L (34.0-46.0) % MCV 100.1 H (80.0-100.0) fL APTT 54.1 H 64.4 H (22.0-30.0) sec Thrombosis Risk Factor Assmnt - Choose All That Apply Any of the Below Risk Factors Present?: Yes Other Risk Factors: Yes Each Risk Factor Represents 3 Points: Age 75 years or older, History of DVT/PE Other congenital or acquired thrombophilia - If yes, enter type in comment: No Thrombosis Risk Factor Assessment Total Risk Factor Score: 6 Thrombosis Risk Factor Assessment Level: High Risk Assessment and Plan (1) Diastolic CHF, chronic Current Visit: Yes Status: Acute Code(s): I50.32 - CHRONIC DIASTOLIC (CONGESTIVE) HEART FAILURE SNOMED Code(s): 557428710 (2) Hemarthrosis of knee, right Current Visit: Yes Status: Acute Code(s): M25.061 - HEMARTHROSIS, RIGHT KNEE SNOMED Code(s): 024869628584395 (3) Right leg DVT Current Visit: Yes Status: Acute Code(s): I82.401 - ACUTE EMBOLISM AND THOMBOS UNSP DEEP VEINS OF R LOW EXTREM SNOMED Code(s): 056174802 (4) Subtherapeutic international normalized ratio (INR) Current Visit: Yes Status: Acute Code(s): R79.1 - ABNORMAL COAGULATION PROFILE SNOMED Code(s): 035800063 (5) Chronic a-fib Current Visit: No Status: Acute Code(s): I48.2 - CHRONIC ATRIAL FIBRILLATION SNOMED Code(s): 490314221 (6) Coagulopathy Current Visit: No Status: Acute Code(s): D68.9 - COAGULATION DEFECT, UNSPECIFIED SNOMED Code(s): 16996590 Plan: 1. DVT on coumadin. Subtherapeutic INR. With history of GI bleed on eliquis. Hematology consult for anticoagulation recs. Continue heparin 2. Hemarthrosis. S/p arthrocentesis in ED. Pain control 3. Chronic A fib. Rate controlled on coreg 4. GERD. Protonix
--- NOTE | 2019-07-31 14:04 | P.PN ---
Subjective Progress Note Date: 07/31/19 Angeline Lee is a 78 yo F with PMH significant for CAD, atrial fibrillation, GERD who presented to the ED with a 2 week history of worsening R knee pain and RLE swelling. She denies any specific injury but states she had been gardening every day and had to kneel down on the R knee to do so. She states the knee began to progressively hurt more and she noticed her R leg swollen compared to the left. She denies any fever, chills, shortness of breath or chest pain. She has no previous history of DVT. Pt states she was switched from her couamdin to eliquis approx 18 months ago but subsequently had a GI bleed and was switched back to coumadin. She has been compliant with coumadin and denies any recent changes to her diet. In the ED WBC 11.3, INR 1.7, XR with mod effusion and US positive for popliteal DVT. Pt underwent arthrocentesis which was positive for blood. 07/31. Pt feels her knee pain is significant improved since the arthrocentesis. No fevers, chest pain or shortness of breath. Still having leg pain with ambulation. Objective - Vital Signs Vital signs: Vital Signs Temp 99.2 F 07/31/19 05:00 Pulse 83 07/31/19 05:00 Resp 18 07/31/19 05:00 BP 161/73 07/31/19 05:00 Pulse Ox 91 L 07/31/19 05:00 Intake & Output 07/30/19 07/31/19 07/31/19 18:59 06:59 18:59 Intake Total 65.967 120 153.090 Output Total 0 Balance 65.967 120 153.090 Intake: Intake, IV Titration 65.967 153.090 Amount Heparin Sod,Pork in 0.45% 65.967 153.090 NaCl 25,000 unit In 0.45 % NaCl 1 250ml.bag @ 11.3 UNITS/KG/HR 9.995 mls/hr IV .Q24H ADOLFO Rx#: [id number] Oral 120 Output: Urine 0 Other: Voiding Method Toilet # Voids 2 0 - Exam General: well nourished, well developed, NAD. Vitals reviewed HENT: normocephalic, mucus membranes moist Lungs: normal respiratory effort, no wheezes or rales CV: Regular rate and rhythm, no murmur. Peripheral pulses 1+ MSK: RLE with 1+ edema, calf tenderness, thigh tenderness posterior. Small effusion. LLE no edema - Labs CBC & Chem 7: 07/31/19 06:23 07/30/19 05:58 Labs: Abnormal Lab Results - Last 24 Hours (Table) 07/30/19 07/31/19 07/31/19 Range/Units 15:46 06:23 06:25 RBC 3.17 L (3.80-5.40) m/uL Hgb 10.1 L (11.4-16.0) gm/dL Hct 31.7 L (34.0-46.0) % MCV 100.1 H (80.0-100.0) fL APTT 54.1 H 64.4 H (22.0-30.0) sec Assessment and Plan (1) Diastolic CHF, chronic Current Visit: Yes Status: Acute Code(s): I50.32 - CHRONIC DIASTOLIC (CONGESTIVE) HEART FAILURE SNOMED Code(s): 602380235 (2) Hemarthrosis of knee, right Current Visit: Yes Status: Acute Code(s): M25.061 - HEMARTHROSIS, RIGHT KNEE SNOMED Code(s): 723051089290580 (3) Right leg DVT Current Visit: Yes Status: Acute Code(s): I82.401 - ACUTE EMBOLISM AND THOMBOS UNSP DEEP VEINS OF R LOW EXTREM SNOMED Code(s): 375412860 (4) Subtherapeutic international normalized ratio (INR) Current Visit: Yes Status: Acute Code(s): R79.1 - ABNORMAL COAGULATION PROFILE SNOMED Code(s): 354261982 (5) Chronic a-fib Current Visit: No Status: Acute Code(s): I48.2 - CHRONIC ATRIAL FIBRILLATION SNOMED Code(s): 239997294 (6) Coagulopathy Current Visit: No Status: Acute Code(s): D68.9 - COAGULATION DEFECT, UNSPECIFIED SNOMED Code(s): 42176304 Plan: 1. DVT on coumadin. Subtherapeutic INR. With history of GI bleed on eliquis. Hematology consult for anticoagulation recs. Continue heparin 2. Hemarthrosis. S/p arthrocentesis in ED. Pain control 3. Chronic A fib. Rate controlled on coreg 4. GERD. Protonix
[2019-07-31] MEDS: ACETAMINOPHEN TAB 325 MG TAB PO PRN (14:55)
--- NOTE | 2019-07-31 17:59 | P.CONS ---
History of Present Illness - Reason for Consult Consult date: 07/31/19 coumadin, new DVT Requesting physician: Felton Aguiar - Chief Complaint pain in right knee - History of Present Illness Mrs. Lee is a very pleasant 78-year-old female with a history of atrial fibrillation for many years, maintained on anticoagulation with Coumadin. Patient denies any history of DVT, PE or stroke. Little over a week ago patient started noticing pain in the right knee-she has had 2 surgeries on this knee. Pain started when she arose from a sitting position, it did not last very long, it was followed by some minor swelling. The pain was better for a few days, she did recall slowly progressive swelling, she does not remember when the bruising in the lower extremity started. By Monday she was having significant pain, went to ER and was evaluated. No DVT on Doppler, INR was subtherapeutic. Pain was controlled and patient was going to see someone outpatient. Unfortunately, pain and swelling progressed over the weekend, she culd not bend the leg and was having trouble moving around, denied any fall or trauma. She returned to the hospital yesterday, she is now positive for a popliteal DVT, she did have a knee aspirate that was positive for hemarthrosis, possible Bowman's cyst rupture. Her right knee and right lower extremity continue to be painful today. She denies any other bruising or bleeding. States has INR checked about every 2-3 weeks, last Coumadin dose adjustment was a few months ago. INR was subtherapeutic on admission at 1.7. Review of Systems 14 point ROS is negative except as stated in HPI Past Medical History Past Medical History: Atrial Fibrillation, Atrial Flutter, Heart Failure, Diabetes Mellitus, GERD/Reflux, GI Bleed, Hyperlipidemia, Hypertension, Osteoarthritis (OA), Pneumonia, Thyroid Disorder Additional Past Medical History / Comment(s): AFib/flutter with past RVR, MVP, cardiomyopathy, NIDDM type II, gastric ulcer, lower GI bleed, generalized arthritis, spinal stenosis, chronic low back pain with occasional bilateral sciatica, past migraines, bronchitis, hypothyroid, anemia years ago, UTI History of Any Multi-Drug Resistant Organisms: None Reported Past Surgical History: Cholecystectomy, Hysterectomy, Joint Replacement, Orthopedic Surgery Additional Past Surgical History / Comment(s): Bilateral total knee replacement, bilateral shoulder rotator cuff repairs, L cataract removal, EGDs and colonoscopy with gastric ulcer cauterized, cardioversions/TEEs, rt hand surgery- bone removed and tendon placed, left foot surgery d/t fracture, epidural back injections. Past Anesthesia/Blood Transfusion Reactions: Motion Sickness, Postoperative Nausea & Vomiting (PONV) Additional Past Anesthesia/Blood Transfusion Reaction / Comm: Pt received blood in 2007 with gastric bleed without reaction. Smoking Status: Never smoker - Past Family History Father Family Medical History: No Reported History Additional Family Medical History / Comment(s): Father was healthy and lived to be 80yrs old. Mother Family Medical History: No Reported History Additional Family Medical History / Comment(s): Mother was healthy and lived to be 80 yrs old-she had one kidney. Medications and Allergies Home Medications Medication Instructions Recorded Confirmed Type HYDROcodone/APAP 7.5-325MG [[place] 1 tab PO BID 12/06/16 07/30/19 History 7.5-325] Simvastatin [Zocor] 20 mg PO HS 01/09/18 07/30/19 History metFORMIN HCL ER [Glucophage Xr] 500 mg PO DAILY 01/09/18 07/30/19 History Carvedilol [Coreg] 6.25 mg PO BID 07/26/19 07/30/19 History Esomeprazole Magnesium [NexIUM] 40 mg PO DAILY 07/26/19 07/30/19 History Furosemide [Lasix] 20 mg PO DAILY PRN 07/26/19 07/30/19 History Gabapentin [Neurontin] 400 mg PO HS 07/26/19 07/30/19 History Mirtazapine [Remeron] 45 mg PO HS 07/26/19 07/30/19 History Warfarin [Coumadin] 1 mg PO SUMOWEFRSA 07/26/19 07/30/19 History Allergies Allergy/AdvReac Type Severity Reaction Status Date / Time No Known Allergies Allergy Verified 07/30/19 07:42 Physical Exam Vitals: Vital Signs Temp Pulse Pulse Resp BP Pulse Ox 07/31/19 05:00 99.2 F 83 18 161/73 91 L 07/30/19 20:37 98.5 F 92 22 158/73 07/30/19 18:41 84 20 07/30/19 13:40 97.8 F 82 16 138/81 93 L Intake and Output 0907/31/19 07/31/19 22:59 06:59 14:59 Intake Total 65.967 120 153.090 Output Total 0 Balance 65.967 120 153.090 Intake: Intake, IV Titration 65.967 153.090 Amount Heparin Sod,Pork in 0.45% 65.967 153.090 NaCl 25,000 unit In 0.45 % NaCl 1 250ml.bag @ 11.3 UNITS/KG/HR 9.995 mls/hr IV .Q24H [facility] Rx#: [id number] Oral 120 Output: Urine 0 Other: Voiding Method Toilet # Voids 1 0 - Constitutional General appearance: average body habitus, cooperative, no acute distress - EENT Eyes: anicteric sclerae, EOMI ENT: hearing grossly normal, normal oropharynx - Neck Neck: no lymphadenopathy - Respiratory Respiratory: bilateral: CTA - Cardiovascular Rhythm: regular Heart sounds: normal: S1, S2 Abnormal Heart Sounds: no systolic murmur, no diastolic murmur, no rub, no S3 Gallop, no S4 Gallop, no click, no other leg Peripheral Edema: right: 2+, left: Trace - Gastrointestinal General gastrointestinal: no absent bowel sounds, no decreased bowel sounds, no distended, no hepatomegaly, no hyperactive bowel sounds, normal bowel sounds, no organomegaly, no rigid, no scaphoid, soft, no splenomegaly, no tenderness, no umbilical hernia, no ventral hernia - Integumentary Integumentary: normal turgor - Neurologic Neurologic: CNII-XII intact - Musculoskeletal Right lower leg has pretty significant bruising both anterior and posteriorly, it is sensitive to the touch, not hot to the touch. Patient's right knee is a lso swollen in comparison with the left knee - Psychiatric Psychiatric: A&O x's 3, appropriate affect, intact judgment & insight Results CBC & Chem 7: 07/31/19 06:23 07/30/19 05:58 Labs: Abnormal Lab Results - Last 24 Hours (Table) 07/30/19 07/31/19 07/31/19 Range/Units 15:46 06:23 06:25 RBC 3.17 L (3.80-5.40) m/uL Hgb 10.1 L (11.4-16.0) gm/dL Hct 31.7 L (34.0-46.0) % MCV 100.1 H (80.0-100.0) fL APTT 54.1 H 64.4 H (22.0-30.0) sec Venous US: report reviewed Assessment and Plan (1) Subtherapeutic international normalized ratio (INR) Narrative/Plan: Coumadin dose will have to be adjusted until INR is therapeutic. Current Visit: Yes Status: Acute Priority: High Code(s): R79.1 - ABNORMAL COAGULATION PROFILE SNOMED Code(s): 263000672 (2) Right leg DVT Narrative/Plan: From history patient provided this certainly sounds a provoked clot due to decreased range of motion, subtherapeutic INR, rupture of a Bowman's cyst, there are also is discussion in the x-ray report of a possible loosening of orthopedic hardware, pending Orthopedic plan. Patient is currently on a heparin drip. Continue until surgical plans are finalized. Postoperatively patient can be resumed on heparin drip with transition to Coumadin until INR is therapeutic. Current Visit: Yes Status: Acute Priority: High Code(s): I82.401 - ACUTE EMBOLISM AND THOMBOS UNSP DEEP VEINS OF R LOW EXTREM SNOMED Code(s): 807339483 (3) Popliteal cyst Current Visit: No Status: Acute Priority: Medium Code(s): M71.20 - SYNOVIAL CYST OF POPLITEAL SPACE [BOWMAN], UNSPECIFIED KNEE SNOMED Code(s): 66655927 Plan: Doctor attests: I performed a history and physical examination of this patient, developed impression and plan of care, discussed with dictator. I agree with dictators note, documented as a scribe.
[2019-07-31] MEDS: GABAPENTIN 400 MG CAP PO SCH (20:57)
[2019-07-31] MEDS: ATORVASTATIN 10 MG TAB PO SCH (20:57)
[2019-07-31] MEDS: MIRTAZAPINE 45 MG TABLET PO SCH (20:57)
[2019-07-31] MEDS: HYDROcodone/APAP 10-325MG 1 EACH TAB PO PRN (20:59)
[2019-07-31 21:18] LABS: Appearance,Urine Clear (Clear); Bilirubin,Urine Negative (Negative); Blood,Urine Negative (Negative); Color,Urine Yellow; Glucose,Urine (UA) Negative (Negative); Ketones,Urine Negative (Negative); Leukocyte Esterase,Urine Trace (Negative); Mucus,Urine Rare /hpf; Nitrite,Urine Negative (Negative); PH, Urine 5.5 (5.0-8.0); Protein,Urine Negative (Negative); RBC,Urine 1 /hpf (0-5); Squamous Epithelial Cell,Urine <1 /hpf (0-4); Urobilinogen,Urine <2.0 mg/dL (<2.0); WBC,Urine 4 /hpf (0-5)
[2019-08-01 06:53] LABS: Basophils % (A) 1 %; Eosinophils # (A) 0.2 k/uL (0-0.7); Eosinophils % (A) 2 %; HCT 32.3 % (34.0-46.0); HGB 10.2 gm/dL (11.4-16.0); Hypochromasia Slight; Lymphocytes # (A) 2.5 k/uL (1.0-4.8); Lymphocytes % (A) 29 %; MCH 31.4 pg (25.0-35.0); MCHC 31.7 g/dL (31.0-37.0); MCV 99.3 fL (80.0-100.0); Mean Platelet Volume 7.6; Monocytes # (A) 0.7 k/uL (0-1.0); Monocytes % (A) 8 %; Neutrophils # (A) 5.3 k/uL (1.3-7.7); Neutrophils % (A) 59 %; Platelet Count 270 k/uL (150-450); RBC 3.25 m/uL (3.80-5.40); RDW 13.1 % (11.5-15.5); WBC 8.9 k/uL (3.8-10.6)
[2019-08-01] MEDS: HYDROcodone/APAP 10-325MG 1 EACH TAB PO PRN ×3 (07:49→22:36)
[2019-08-01] MEDS: PANTOPRAZOLE 40 MG TABLET PO SCH (07:50)
[2019-08-01] MEDS: CARVEDILOL 6.25 MG TAB PO SCH ×2 (07:50→16:45)
[2019-08-01] MEDS: metFORMIN 500 MG TAB PO SCH (07:50)
[2019-08-01] MEDS: HEPARIN SOD,PORK IN 0.45% NACL 25,000 UNIT in 0.45% NACL 1 250ML.BAG IV SCH (07:53)
[2019-08-01] MEDS ORDERED: WARFARIN 2 MG TAB PO ONE (18:00)
[2019-08-01] MEDS: ACETAMINOPHEN TAB 325 MG TAB PO PRN (19:31)
[2019-08-01] MEDS: GABAPENTIN 400 MG CAP PO SCH (21:11)
[2019-08-01] MEDS: ATORVASTATIN 10 MG TAB PO SCH (21:11)
[2019-08-01] MEDS: MIRTAZAPINE 45 MG TABLET PO SCH (21:11)
--- NOTE | 2019-08-01 23:22 | P.PN ---
Subjective Progress Note Date: 08/01/19 Angeline Lee is a 78 yo F with PMH significant for CAD, atrial fibrillation, GERD who presented to the ED with a 2 week history of worsening R knee pain and RLE swelling. She denies any specific injury but states she had been gardening every day and had to kneel down on the R knee to do so. She states the knee began to progressively hurt more and she noticed her R leg swollen compared to the left. She denies any fever, chills, shortness of breath or chest pain. She has no previous history of DVT. Pt states she was switched from her couamdin to eliquis approx 18 months ago but subsequently had a GI bleed and was switched back to coumadin. She has been compliant with coumadin and denies any recent changes to her diet. In the ED WBC 11.3, INR 1.7, XR with mod effusion and US positive for popliteal DVT. Pt underwent arthrocentesis which was positive for blood. 07/31. Pt feels her knee pain is significant improved since the arthrocentesis. No fevers, chest pain or shortness of breath. Still having leg pain with ambulation. 08/01. She is trying to walk more but still weak and painful to ambulate. Warm compresses helping. No chest pain or shortness of breath. Objective - Vital Signs Vital signs: Vital Signs Temp 97.8 F 08/01/19 12:10 Pulse 65 08/01/19 12:10 Resp 18 08/01/19 12:10 BP 134/54 08/01/19 12:10 Pulse Ox 98 08/01/19 12:10 Intake & Output 08/01/19 08/01/19 08/02/19 06:59 18:59 06:59 Intake Total 575 236.216 Output Total 400 Balance 175 236.216 Intake: Intake, IV Titration 236.216 Amount Heparin Sod,Pork in 0.45% 236.216 NaCl 25,000 unit In 0.45 % NaCl 1 250ml.bag @ 11.3 UNITS/KG/HR 9.995 mls/hr IV .Q24H [facility] Rx#: [id number] Oral 575 Output: Urine 400 Other: Voiding Method Bedside Commode Bedside Commode # Voids 2 1 # Bowel Movements 1 - Exam General: well nourished, well developed, NAD. Vitals reviewed HENT: normocephalic, mucus membranes moist Lungs: normal respiratory effort, no wheezes or rales CV: Regular rate and rhythm, no murmur. Peripheral pulses 1+ MSK: RLE with 1+ edema, calf tenderness, thigh tenderness posterior. Small effusion. LLE no edema - Labs CBC & Chem 7: 08/01/19 06:43 07/30/19 05:58 Labs: Abnormal Lab Results - Last 24 Hours (Table) 08/01/19 08/01/19 Range/Units 06:42 06:43 RBC 3.25 L (3.80-5.40) m/uL Hgb 10.2 L (11.4-16.0) gm/dL Hct 32.3 L (34.0-46.0) % APTT 55.3 H (22.0-30.0) sec Assessment and Plan (1) Diastolic CHF, chronic Current Visit: Yes Status: Acute Code(s): I50.32 - CHRONIC DIASTOLIC (CONGESTIVE) HEART FAILURE SNOMED Code(s): 562906157 (2) Hemarthrosis of knee, right Current Visit: Yes Status: Acute Code(s): M25.061 - HEMARTHROSIS, RIGHT KNEE SNOMED Code(s): 874964256130535 (3) Right leg DVT Current Visit: Yes Status: Acute Priority: High Code(s): I82.401 - ACUTE EMBOLISM AND THOMBOS UNSP DEEP VEINS OF R LOW EXTREM SNOMED Code(s): 231650014 (4) Subtherapeutic international normalized ratio (INR) Current Visit: Yes Status: Acute Priority: High Code(s): R79.1 - ABNORMAL COAGULATION PROFILE SNOMED Code(s): 403915128 (5) Chronic a-fib Current Visit: No Status: Acute Code(s): I48.2 - CHRONIC ATRIAL FIBRILLATION SNOMED Code(s): 058529136 (6) Coagulopathy Current Visit: No Status: Acute Code(s): D68.9 - COAGULATION DEFECT, UNSPECIFIED SNOMED Code(s): 39310968 Plan: 1. DVT on coumadin. Subtherapeutic INR. With history of GI bleed on eliquis. As this clot was provoked, resume couamdin per hematology 2. Hemarthrosis. S/p arthrocentesis in ED. Pain control 3. Chronic A fib. Rate controlled on coreg 4. GERD. Protonix
[2019-08-02 02:16] VITALS: PULSE 75; RESP 20
[2019-08-02 05:17] VITALS: BP 171/70; TEMP 98.1
[2019-08-02] MEDS: HYDROcodone/APAP 10-325MG 1 EACH TAB PO PRN ×2 (05:19→10:58)
[2019-08-02 06:28] LABS: Basophils % (A) 1 %; Eosinophils # (A) 0.2 k/uL (0-0.7); Eosinophils % (A) 3 %; HCT 28.5 % (34.0-46.0); HGB 9.3 gm/dL (11.4-16.0); Lymphocytes # (A) 2.3 k/uL (1.0-4.8); Lymphocytes % (A) 28 %; MCH 31.9 pg (25.0-35.0); MCHC 32.5 g/dL (31.0-37.0); MCV 98.2 fL (80.0-100.0); Mean Platelet Volume 8.1; Monocytes # (A) 0.7 k/uL (0-1.0); Monocytes % (A) 9 %; Neutrophils # (A) 4.7 k/uL (1.3-7.7); Neutrophils % (A) 58 %; Platelet Count 270 k/uL (150-450); RDW 13.3 % (11.5-15.5); WBC 8.2 k/uL (3.8-10.6)
[2019-08-02 06:35] LABS: INR 1.2 (<1.2); Partial Thromboplastin Time 50.2 sec (22.0-30.0); Prothrombin Time 12.5 sec (9.0-12.0)
[2019-08-02] MEDS: PANTOPRAZOLE 40 MG TABLET PO SCH (08:18)
[2019-08-02] MEDS: CARVEDILOL 6.25 MG TAB PO SCH (08:18)
[2019-08-02] MEDS: metFORMIN 500 MG TAB PO SCH (08:18)
[2019-08-02] MEDS: HEPARIN SOD,PORK IN 0.45% NACL 25,000 UNIT in 0.45% NACL 1 250ML.BAG IV SCH (08:20)
[2019-08-02] MEDS ORDERED: ENOXAPARIN 100 MG/ML SYRINGE SQ SCH (10:30)
--- NOTE | 2019-08-02 11:00 | P.DS ---
Providers Date of admission: 07/30/19 09:51 Expected date of discharge: 08/02/19 Attending physician: Champ Barrios MD Consults: 07/30/19 09:52 Consult Physician Routine Consulting Provider: Calvin Gooden Consult Reason/Comments: DVT on warfin Do you want consulting provider notified?: Yes 07/30/19 09:53 Consult Physician Routine Consulting Provider: Jenaro Tirado Consult Reason/Comments: knee pain Do you want consulting provider notified?: Yes Primary care physician: Radha Braxton Hospital Course: Final diagnoses (1) Diastolic CHF, chronic Current Visit: Yes Status: Acute Code(s): I50.32 - CHRONIC DIASTOLIC (CONGESTIVE) HEART FAILURE SNOMED Code(s): 964754263 (2) Hemarthrosis of knee, right Current Visit: Yes Status: Acute Code(s): M25.061 - HEMARTHROSIS, RIGHT KNEE SNOMED Code(s): 100302299730167 (3) Right leg DVT Current Visit: Yes Status: Acute Priority: High Code(s): I82.401 - ACUTE EMBOLISM AND THOMBOS UNSP DEEP VEINS OF R LOW EXTREM SNOMED Code(s): 253889800 (4) Subtherapeutic international normalized ratio (INR) Current Visit: Yes Status: Acute Priority: High Code(s): R79.1 - ABNORMAL COAGULATION PROFILE SNOMED Code(s): 216603303 (5) Chronic a-fib Current Visit: No Status: Acute Code(s): I48.2 - CHRONIC ATRIAL FIBRILLATION SNOMED Code(s): 916023754 (6) Coagulopathy Current Visit: No Status: Acute Code(s): D68.9 - COAGULATION DEFECT, UNSPECIFIED SNOMED Code(s): 08901430 Hospital course:Angeline Lee is a 78 yo F with PMH significant for CAD, atrial fibrillation, GERD who presented to the ED with a 2 week history of worsening R knee pain and RLE swelling. She denies any specific injury but states she had been gardening every day and had to kneel down on the R knee to do so. She states the knee began to progressively hurt more and she noticed her R leg swollen compared to the left. She denies any fever, chills, shortness of breath or chest pain. She has no previous history of DVT. Pt states she was switched from her couamdin to eliquis approx 18 months ago but subsequently had a GI bleed and was switched back to coumadin. She has been compliant with coumadin and denies any recent changes to her diet. In the ED WBC 11.3, INR 1.7, XR with mod effusion and US positive for popliteal DVT. Pt underwent arthrocentesis which was positive for blood. 07/31. Pt feels her knee pain is significant improved since the arthrocentesis. No fevers, chest pain or shortness of breath. Still having leg pain with ambulation. 08/01. She is trying to walk more but still weak and painful to ambulate. Warm compresses helping. No chest pain or shortness of breath. Ruptured Bowman's cyst, evaluated by hematology with recommendations noted and appreciated. Coumadin resumed INR 1.2. Lovenox added for bridging until INR therapeutic.Daily PT/INRs .Right posterior calf pain and edema improving. Denies lightheadedness dizziness or focal deficits. Denies chest pain, palpitations or shortness of breath. Significant clinical improvement. Patient is being discharged to [facility] subacute rehab. pending authorization. - Exam General: Alert and oriented 3, no acute distress Lungs: normal respiratory effort, no wheezes or rales CV: Regular rate and rhythm, no murmur. Peripheral pulses 1+ MSK: RLE with 1+ edema, posterior calf tenderness. NEURO: No focal deficits The impression and plan of care has been dictated as directed. : I performed a history and examination of this patient, discussed the same with the dictator. I agree with the dictator's note ,documented as a scribe. Any additional findings or plans will be noted. Time taken: 35 minutes Patient Condition at Discharge: Stable Plan - Discharge Summary Discharge Rx Participant: No New Discharge Prescriptions: New Enoxaparin [Lovenox] 90 mg SQ Q12HR #6 syringe INSULIN LISPRO (HumaLOG) [humaLOG] 0 unit SQ ACHS #1 vial Continue metFORMIN HCL ER [Glucophage Xr] 500 mg PO DAILY Simvastatin [Zocor] 20 mg PO HS Mirtazapine [Remeron] 45 mg PO HS Carvedilol [Coreg] 6.25 mg PO BID Furosemide [Lasix] 20 mg PO DAILY PRN PRN Reason: Edema Esomeprazole Magnesium [NexIUM] 40 mg PO DAILY Gabapentin [Neurontin] 400 mg PO HS #3 cap Changed HYDROcodone/APAP 7.5-325MG [[place] 7.5-325] 1 tab PO Q6H PRN #12 tab PRN Reason: Pain Warfarin [Coumadin] 1 mg PO DAILY@1800 #1 Discontinued Warfarin [Coumadin] 1 mg PO SUMOWEFRSA Discharge Medication List Simvastatin [Zocor] 20 mg PO HS 01/09/18 [History] metFORMIN HCL ER [Glucophage Xr] 500 mg PO DAILY 01/09/18 [History] Carvedilol [Coreg] 6.25 mg PO BID 07/26/19 [History] Esomeprazole Magnesium [NexIUM] 40 mg PO DAILY 07/26/19 [History] Furosemide [Lasix] 20 mg PO DAILY PRN 07/26/19 [History] Mirtazapine [Remeron] 45 mg PO HS 07/26/19 [History] Enoxaparin [Lovenox] 90 mg SQ Q12HR #6 syringe 08/02/19 [Rx] Gabapentin [Neurontin] 400 mg PO HS #3 cap 08/02/19 [Rx] HYDROcodone/APAP 7.5-325MG [[place] 7.5-325] 1 tab PO Q6H PRN #12 tab 08/02/19 [Rx] INSULIN LISPRO (HumaLOG) [humaLOG] 0 unit SQ ACHS #1 vial 08/02/19 [Rx] Warfarin [Coumadin] 1 mg PO DAILY@1800 #1 08/02/19 [Rx] Follow up Appointment(s)/Referral(s): [facility], [NON-STAFF] - Radha Braxton DO [Primary Care Provider] - 1 Week (After DC from subacute rehab) Carlene Martinez MD [STAFF PHYSICIAN] - 3 Days (While at subacute rehab) Activity/Diet/Wound Care/Special Instructions: [facility] Daily PT/INRs. CBC/BMP in 3 days diet: Cardiac Activity: As tolerated Discharge Disposition: TRANSFER TO SNF/F
[2019-08-02] MEDS ORDERED: WARFARIN 2 MG TAB PO ONE (18:00)
== END 2019-08-02 14:00 | DRG 300 ==
LOC: EC 05:34 → 4MS4W 09:51
PROVIDERS: ADMIT Family Medicine; ATTEND Family Medicine
PROC: 0S9C3ZX Drainage of Right Knee Joint, Percutaneous Approach, Diagnostic (ICD-10-PCS; principal; 2019-07-30)
DX: I82.431 Acute embolism and thrombosis of right popliteal vein (principal); M25.061 Hemarthrosis, right knee; I50.32 Chronic diastolic (congestive) heart failure; I42.9 Cardiomyopathy, unspecified; I11.0 Hypertensive heart disease with heart failure; I48.2 Chronic atrial fibrillation; D64.9 Anemia, unspecified; E11.9 Type 2 diabetes mellitus without complications; G43.909 Migraine, unspecified, not intractable, without status migrainosus; I34.1 Nonrheumatic mitral (valve) prolapse; M06.9 Rheumatoid arthritis, unspecified; I25.10 Atherosclerotic heart disease of native coronary artery without angina pectoris; E03.9 Hypothyroidism, unspecified; E78.5 Hyperlipidemia, unspecified; K21.9 Gastro-esophageal reflux disease without esophagitis; M71.21 Synovial cyst of popliteal space [Baker], right knee; M19.90 Unspecified osteoarthritis, unspecified site; G89.29 Other chronic pain; M54.31 Sciatica, right side; M54.32 Sciatica, left side; M48.00 Spinal stenosis, site unspecified; M54.5 Low back pain; Z79.01 Long term (current) use of anticoagulants; Z79.84 Long term (current) use of oral hypoglycemic drugs; Z79.899 Other long term (current) drug therapy; Z87.440 Personal history of urinary (tract) infections; Z86.73 Personal history of transient ischemic attack (TIA), and cerebral infarction without residual deficits; Z87.19 Personal history of other diseases of the digestive system; Z87.01 Personal history of pneumonia (recurrent); Z87.11 Personal history of peptic ulcer disease; Z90.710 Acquired absence of both cervix and uterus; Z96.653 Presence of artificial knee joint, bilateral; Z90.49 Acquired absence of other specified parts of digestive tract; Z87.81 Personal history of (healed) traumatic fracture; Z86.79 Personal history of other diseases of the circulatory system; Z98.42 Cataract extraction status, left eye; Z98.890 Other specified postprocedural states
CPT/HCPCS: 20610; 36415; 80053; 81001; 83605; 85025; 85610; 85652; 85730; 86140; 93005; 96365; 96375; 96376; 99285

== ENCOUNTER 2019-08-04 22:15 | Observation (INO) | payer MEDICARE ==
[2019-08-04 22:52] LABS: Basophils # (A) 0.1 k/uL (0-0.2); Basophils % (A) 1 %; Eosinophils # (A) 0.1 k/uL (0-0.7); Eosinophils % (A) 1 %; HGB 10.2 gm/dL (11.4-16.0); Lymphocytes # (A) 2.6 k/uL (1.0-4.8); Lymphocytes % (A) 26 %; MCH 31.9 pg (25.0-35.0); MCHC 32.8 g/dL (31.0-37.0); MCV 97.2 fL (80.0-100.0); Mean Platelet Volume 7.5; Monocytes # (A) 0.9 k/uL (0-1.0); Monocytes % (A) 9 %; Neutrophils # (A) 6.2 k/uL (1.3-7.7); Neutrophils % (A) 61 %; Platelet Count 390 k/uL (150-450); RBC 3.18 m/uL (3.80-5.40); RDW 14.5 % (11.5-15.5); WBC 10.1 k/uL (3.8-10.6)
[2019-08-04 23:09] LABS: INR 1.7 (<1.2); Partial Thromboplastin Time 43.5 sec (22.0-30.0); Prothrombin Time 16.5 sec (9.0-12.0)
[2019-08-04 23:11] LABS: Calcium 8.5 mg/dL (8.4-10.2); Potassium 3.6 mmol/L (3.5-5.1)
[2019-08-04] MEDS ORDERED: MORPHINE SULFATE 4 MG/ML SYRINGE IV STA (23:14)
--- NOTE | 2019-08-04 23:21 | ED ---
General Adult HPI - General Chief complaint: Extremity Injury, Lower Stated complaint: leg swelling Time Seen by Provider: 08/04/19 22:17 Source: patient, EMS Mode of arrival: EMS Limitations: no limitations - History of Present Illness Initial comments: Dictation was produced using [employer] dictation software. please excuse any grammatical, word or spelling errors. Chief Complaint: 78-year-old female presents from nursing facility for right lower extremity pain. History of Present Illness: Any 8-year-old female she was discharged 2 days ago. Patient was recently diagnosed with deep venous thrombosis of the right lower extremity. She was admitted to the hospital 5 days ago where she was found to have right lower extremity deep venous thrombosis. Patient was also found to have a hemarthrosis of the right knee. She is discharged with Coumadin. She had arthrocentesis that was positive for blood. She was discharged tomorrow wound subacute rehabilitation facility. Today she was getting physical therapy when she began having significant pain and tenderness to her right lower extremity. She was brought to the emergency department via EMS. She adamantly denies any chest pain or shortness of breath. She states she's been compliant with her medications. Patient did have a Doppler was performed 5 days ago showing acute occlusive deep venous thrombosis beginning in the popliteal vein and extending into the posterior tibial vein of the right lower extremity. The ROS documented in this emergency department record has been reviewed and confirmed by me. Those systems with pertinent positive or negative responses have been documented in the HPI. All other systems are other negative and/or noncontributory. PHYSICAL EXAM: General Impression: Alert and oriented x3, not in acute distress HEENT: Normocephalic atraumatic, extra-ocular movements intact, pupils equal and reactive to light bilaterally, mucous membranes moist. Cardiovascular: Heart regular rate and rhythm, S1&S2 audible, no murmurs, rubs or gallops Chest: Lungs clear to auscultation bilaterally, no rhonchi, no wheeze, no rales Abdomen: Bowel sounds present, abdomen soft, non-tender, non-distended, no organomegaly Musculoskeletal: Pulses present and equal in all extremities, no peripheral edema Motor: no focal deficits noted Neurological: CN II-XII grossly intact, no focal motor or sensory deficits noted Right lower extremity: Warmth, tenderness and ecchymosis to the right lower extremity. Skin: Intact with no visualized rashes Psych: Normal affect and mood ED course: 78-year-old female presents with worsening right lower extremity pain. She is recently diagnosed with deep venous thrombosis. Signs upon arrival shows heart rate of 114, temperature 100.3, respiratory signs within acceptable limits. Laboratory evaluation obtained. CBC, coag panel, metabolic panel was obtained. INR slightly third subtherapeutic at 1.7. Patient pending CT of the right lower extremity. There is concern of possible acute infectious process versus hematoma the right lower extremity. Patient is signed out to oncoming physician for follow-up of CT angios results. EKG interpretation: Ventricular rate the 25, sinus tachycardia, ME interval 160, QRS 86, QTC 479. No ME prolongation, no QTC prolongation, no ST or T-wave changes noted. EKG compared to 04/19/2018 showing no changes. Overall, this EKG is unremarkable - Related Data Home Medications Medication Instructions Recorded Confirmed Simvastatin [Zocor] 20 mg PO HS@2100 01/09/18 08/04/19 metFORMIN HCL ER [Glucophage Xr] 500 mg PO DAILY@0800 01/09/18 08/04/19 Carvedilol [Coreg] 6.25 mg PO BID@0800,1700 07/26/19 08/04/19 Esomeprazole Magnesium [NexIUM] 40 mg PO DAILY@0600 07/26/19 08/04/19 Furosemide [Lasix] 20 mg PO DAILY PRN 07/26/19 08/04/19 Mirtazapine [Remeron] 45 mg PO HS@2100 07/26/19 08/04/19 Bisacodyl [Dulcolax] 10 mg RECTAL DAILY PRN 08/04/19 08/04/19 Gabapentin [Neurontin] 400 mg PO HS@2100 08/04/19 08/04/19 INSULIN LISPRO (HumaLOG) [humaLOG] See Protocol SQ ACHS 08/04/19 08/04/19 Magnesium Hydroxide [Milk of 2,400 mg PO DAILY PRN 08/04/19 08/04/19 Magnesia] Na Phos,M-B/Na Phos,Di-Ba [Fleet 133 ml RECTAL DAILY PRN 08/04/19 08/04/19 Adult] Warfarin [Coumadin] 1 mg PO DAILY@1700 08/04/19 08/04/19 Previous Rx's Medication Instructions Recorded Enoxaparin [Lovenox] 90 mg SQ Q12HR #6 syringe 08/02/19 HYDROcodone/APAP 7.5-325MG [[place] 1 tab PO Q6H PRN #12 tab 08/02/19 7.5-325] Allergies Allergy/AdvReac Type Severity Reaction Status Date / Time No Known Allergies Allergy Verified 08/04/19 22:28 Review of Systems ROS Statement: Those systems with pertinent positive or pertinent negative responses have been documented in the HPI. ROS Other: All systems not noted in ROS Statement are negative. Past Medical History Past Medical History: Atrial Fibrillation, Atrial Flutter, Heart Failure, Diabetes Mellitus, GERD/Reflux, GI Bleed, Hyperlipidemia, Hypertension, Osteoarthritis (OA), Pneumonia, Thyroid Disorder Additional Past Medical History / Comment(s): AFib/flutter with past RVR, MVP, cardiomyopathy, NIDDM type II, gastric ulcer, lower GI bleed, generalized arthritis, spinal stenosis, chronic low back pain with occasional bilateral sciatica, past migraines, bronchitis, hypothyroid, anemia years ago, UTI History of Any Multi-Drug Resistant Organisms: None Reported Past Surgical History: Cholecystectomy, Hysterectomy, Joint Replacement, Orthopedic Surgery Additional Past Surgical History / Comment(s): Bilateral total knee replacement, bilateral shoulder rotator cuff repairs, L cataract removal, EGDs and colonoscopy with gastric ulcer cauterized, cardioversions/TEEs, rt hand surgery- bone removed and tendon placed, left foot surgery d/t fracture, epidural back injections. Past Anesthesia/Blood Transfusion Reactions: Motion Sickness, Postoperative Nausea & Vomiting (PONV) Additional Past Anesthesia/Blood Transfusion Reaction / Comment(s): Pt received blood in 2007 with gastric bleed without reaction. Past Psychological History: Anxiety Smoking Status: Never smoker - Past Family History Father Family Medical History: No Reported History Additional Family Medical History / Comment(s): Father was healthy and lived to be 80yrs old. Mother Family Medical History: No Reported History Additional Family Medical History / Comment(s): Mother was healthy and lived to be 80 yrs old-she had one kidney. General Exam Limitations: no limitations Course Vital Signs 08/04/19 08/05/19 22:18 00:07 Temperature 100.3 F H 98.7 F Pulse Rate 114 H 112 H Respiratory 20 18 Rate Blood Pressure 173/116 146/85 O2 Sat by Pulse 98 96 Oximetry Medical Decision Making - Lab Data Result diagrams: 08/04/19 22:37 08/04/19 22:37 Lab Results 08/04/19 08/04/19 08/04/19 Range/Units 22:37 22:37 22:37 WBC 10.1 (3.8-10.6) k/uL RBC 3.18 L (3.80-5.40) m/uL Hgb 10.2 L (11.4-16.0) gm/dL Hct 31.0 L (34.0-46.0) % MCV 97.2 (80.0-100.0) fL MCH 31.9 (25.0-35.0) pg MCHC 32.8 (31.0-37.0) g/dL RDW 14.5 (11.5-15.5) % Plt Count 390 (150-450) k/uL Neutrophils % 61 % Lymphocytes % 26 % Monocytes % 9 % Eosinophils % 1 % Basophils % 1 % Neutrophils # 6.2 (1.3-7.7) k/uL Lymphocytes # 2.6 (1.0-4.8) k/uL Monocytes # 0.9 (0-1.0) k/uL Eosinophils # 0.1 (0-0.7) k/uL Basophils # 0.1 (0-0.2) k/uL PT 16.5 H (9.0-12.0) sec INR 1.7 H (<1.2) APTT 43.5 H (22.0-30.0) sec Sodium 139 (137-145) mmol/L Potassium 3.6 (3.5-5.1) mmol/L Chloride 104 (98-107) mmol/L Carbon Dioxide 29 (22-30) mmol/L Anion Gap 6 mmol/L BUN 16 (7-17) mg/dL Creatinine 0.79 (0.52-1.04) mg/dL Est GFR (CKD-EPI)AfAm 83 (>60 ml/min/1.73 sqM) Est GFR (CKD-EPI)NonAf 72 (>60 ml/min/1.73 sqM) Glucose 120 H (74-99) mg/dL Calcium 8.5 (8.4-10.2) mg/dL Blood Type Blood Type Recheck Bld Type Recheck Status Antibody Screen Spec Expiration Date 08/04/19 Range/Units 22:37 WBC (3.8-10.6) k/uL RBC (3.80-5.40) m/uL Hgb (11.4-16.0) gm/dL Hct (34.0-46.0) % MCV (80.0-100.0) fL MCH (25.0-35.0) pg MCHC (31.0-37.0) g/dL RDW (11.5-15.5) % Plt Count (150-450) k/uL Neutrophils % % Lymphocytes % % Monocytes % % Eosinophils % % Basophils % % Neutrophils # (1.3-7.7) k/uL Lymphocytes # (1.0-4.8) k/uL Monocytes # (0-1.0) k/uL Eosinophils # (0-0.7) k/uL Basophils # (0-0.2) k/uL PT (9.0-12.0) sec INR (<1.2) APTT (22.0-30.0) sec Sodium (137-145) mmol/L Potassium (3.5-5.1) mmol/L Chloride (98-107) mmol/L Carbon Dioxide (22-30) mmol/L Anion Gap mmol/L BUN (7-17) mg/dL Creatinine (0.52-1.04) mg/dL Est GFR (CKD-EPI)AfAm (>60 ml/min/1.73 sqM) Est GFR (CKD-EPI)NonAf (>60 ml/min/1.73 sqM) Glucose (74-99) mg/dL Calcium (8.4-10.2) mg/dL Blood Type O Negative Blood Type Recheck O Neg Bld Type Recheck Status No Antibody Screen NEGATIVE Spec Expiration Date 08/07/2019 - 9061 Disposition Referrals: Carlene Martinez MD [Primary Care Provider] - 1-2 days
[2019-08-05] MEDS ORDERED: HYDROmorphone 0.5 MG/0.5 ML SYRINGE IVP STA ×2 (00:27→04:45)
--- NOTE | 2019-08-05 02:15 | CT ---
EXAM: CT Right Lower Extremity With Intravenous Contrast CLINICAL HISTORY: ITS.REASON CT Reason: lower extremity pain TECHNIQUE: Axial computed tomography images of the right lower extremity with intravenous contrast. CTDI is 6.7 mGy and DLP is 739.9 mGy-cm. This CT exam was performed using one or more of the following dose reduction techniques: automated exposure control, adjustment of the mA and/or kV according to patient size, and/or use of iterative reconstruction technique. COMPARISON: No relevant prior studies available. FINDINGS: Bones/joints: There is a suprapatellar joint effusion with a fluid- fluid level and posterior hyperdensity within the suprapatellar joint. A right total knee arthroplasty is identified. No osseous fracture or appreciable hardware loosening is identified. Soft tissues: There is an intramuscular heterogeneously hyperdense collections noted within the gastrocnemius muscle, measuring approximately 4.8 x 6.2 x 17.4 cm. No active internal extravasation appreciated. However, evaluation of the superior margin of the collection is limited with beam hardening artifact from right total knee arthroplasty. There is subcutaneous increased fat density at the right ankle and in the visualized hindfoot. IMPRESSION: 1. There is an intramuscular heterogeneously hyperdense collections noted within the gastrocnemius muscle, measuring approximately 4.8 x 6.2 x 17.4 cm. No active internal extravasation appreciated. However, evaluation of the superior margin of the collection is limited with beam hardening artifact from right total knee arthroplasty. Finding is most consistent with an intramuscular hematoma. 2. There is subcutaneous increased fat density at the right ankle and in the visualized hindfoot. Findings suggest dependent edema. Cellulitis cannot be excluded given this appearance. Please correlate clinically. 3. There is a suprapatellar joint effusion with a fluid-fluid level and posterior hyperdensity within the suprapatellar joint. Detailed evaluation of the inferior margin of the collection is limited by right knee arthroplasty artifact. Findings are most consistent with hemarthrosis with layering hematocrit effect.
[2019-08-05] MEDS ORDERED: HYDROmorphone 0.5 MG/0.5 ML SYRINGE IM STA (04:25)
--- NOTE | 2019-08-05 05:01 | CT ---
EXAM: CT Angiography Chest With Intravenous Contrast CLINICAL HISTORY: ITS.REASON CT Reason: known DVT, subtherapeutic INR, tachycardia TECHNIQUE: Axial computed tomographic angiography images of the chest with intravenous contrast. CTDI is 16.7 mGy and DLP is 505.6 mGy-cm. This CT exam was performed using one or more of the following dose reduction techniques: automated exposure control, adjustment of the mA and/or kV according to patient size, and/or use of iterative reconstruction technique. MIP reconstructed images were created and reviewed. COMPARISON: No relevant prior studies available. FINDINGS: Pulmonary arteries: No evidence for pulmonary embolism. Aorta: Atherosclerotic calcification is seen involving the aortic arch and descending aorta. No thoracic aortic aneurysm. Lungs: Minimal bronchiectasis with linear changes involving the inferior right middle lobe and lingular segments is presumed chronic. Minimal bronchiectasis involving the lower lobes is noted. Minimal dependent atelectatic changes layering along the posterior lower lobes noted. There is a calcified granuloma noted involving the posterior aspect of the right middle lobe measuring 6 mm. There is a punctate calcified granuloma involving the inferior lingular segment adjacent to the major fissure. No mass. Pleural space: Unremarkable. No significant effusion. No pneumothorax. Heart: Unremarkable. No cardiomegaly. No significant pericardial effusion. Bones/joints: No acute fracture. No dislocation. Soft tissues: Unremarkable. Lymph nodes: Unremarkable. No enlarged lymph nodes. IMPRESSION: 1. No evidence for pulmonary embolism. 2. Chronic appearing changes, as noted above. No lobar consolidation. No pleural effusion or pneumothorax.
[2019-08-05] MEDS ORDERED: NALOXONE 0.4 MG/ML 1 ML VIAL IV PRN (05:59)
[2019-08-05] MEDS ORDERED: BISACODYL 10 MG SUPP RECTAL PRN (09:10)
[2019-08-05] MEDS ORDERED: HYDROcodone/APAP 7.5-325MG 1 EACH TAB PO PRN (09:10)
--- NOTE | 2019-08-05 09:34 | P.HPIM ---
History of Present Illness H&P Date: 08/05/19 Angeline Lee is a 78-year-old female with past medical history significant for DVT diagnosed 3 days ago, atrial fibrillation, CAD, GERD who presents to the emergency department from subacute rehab after experiencing worsening right knee pain after physical therapy yesterday. She was recently discharged on Monday after being diagnosed with provoked DVT of the right lower extremity. At that time she been experiencing 2 weeks of progressive right leg pain and swelling. She has no previous history of DVT. She was seen at that time by hematology who recommended she continue on Coumadin. At the time of discharge she had felt her pain had diminished significantly from time of admission. She was discharged with Lovenox bridging until her INR became therapeutic. She initially did well at physical therapy Monday, but states after working with PT on Monday her posterior calf began to hurt much more so she came back to the ED. In the ED, her INR was 1.7, CT chest was performed and negative for PE. She continues to complain of leg pain which limits her ability to walk. Review of Systems All systems: negative Constitutional: Denies chills, Denies fever Eyes: denies blurred vision, denies pain Ears, nose, mouth and throat: Denies headache, Denies sore throat Cardiovascular: Reports edema, Denies chest pain, Denies shortness of breath Respiratory: Denies cough Gastrointestinal: Denies abdominal pain, Denies diarrhea, Denies nausea, Denies vomiting Genitourinary: Denies dysuria, Denies hematuria Musculoskeletal: Reports limitation of motion, Reports muscle weakness, Reports myalgias Integumentary: Denies pruritus, Denies rash Neurological: Denies numbness, Denies weakness Psychiatric: Denies anxiety, Denies depression Endocrine: Denies fatigue, Denies weight change Past Medical History Past Medical History: Atrial Fibrillation, Atrial Flutter, Coronary Artery Disease (CAD), Heart Failure, Diabetes Mellitus, GERD/Reflux, GI Bleed, Hyperlipidemia, Hypertension, Osteoarthritis (OA), Pneumonia, Thyroid Disorder Additional Past Medical History / Comment(s): Pt recently admitted to [facility] on 07/30/19 with DVT R lower extremity/hemarthrosis R knee-ruptured Bowman's cyst. Other hx: AFib/flutter with past RVR, MVP, cardiomyopathy, NIDDM type II, gastric ulcer, lower GI bleed, generalized arthritis, spinal stenosis, chronic low back pain with occasional bilateral sciatica, past migraines, bronchitis, hypothyroid, anemia years ago, UTI History of Any Multi-Drug Resistant Organisms: None Reported Past Surgical History: Cholecystectomy, Hysterectomy, Joint Replacement, Orthopedic Surgery Additional Past Surgical History / Comment(s): Bilateral total knee replacement, bilateral shoulder rotator cuff repairs, L cataract removal, EGDs and colonoscopy with gastric ulcer cauterized, cardioversions/TEEs, rt hand surgery- bone removed and tendon placed, left foot surgery d/t fracture, epidural back injections. Past Anesthesia/Blood Transfusion Reactions: Motion Sickness, Postoperative Nausea & Vomiting (PONV) Additional Past Anesthesia/Blood Transfusion Reaction / Comment(s): Pt received blood in 2007 with gastric bleed without reaction. Smoking Status: Never smoker - Past Family History Father Family Medical History: No Reported History Additional Family Medical History / Comment(s): Father was healthy and lived to be 80yrs old. Mother Family Medical History: No Reported History Additional Family Medical History / Comment(s): Mother was healthy and lived to be 80 yrs old-she had one kidney. Medications and Allergies Home Medications Medication Instructions Recorded Confirmed Type Simvastatin [Zocor] 20 mg PO HS@2100 01/09/18 08/04/19 History metFORMIN HCL ER [Glucophage Xr] 500 mg PO DAILY@0800 01/09/18 08/04/19 History Carvedilol [Coreg] 6.25 mg PO BID@0800,1700 07/26/19 08/04/19 History Esomeprazole Magnesium [NexIUM] 40 mg PO DAILY@0600 07/26/19 08/04/19 History Furosemide [Lasix] 20 mg PO DAILY PRN 07/26/19 08/04/19 History Mirtazapine [Remeron] 45 mg PO HS@2100 07/26/19 08/04/19 History Enoxaparin [Lovenox] 90 mg SQ Q12HR #6 syringe 08/02/19 08/04/19 Rx HYDROcodone/APAP 7.5-325MG [[place] 1 tab PO Q6H PRN #12 tab 08/02/19 08/04/19 Rx 7.5-325] Bisacodyl [Dulcolax] 10 mg RECTAL DAILY PRN 08/04/19 08/04/19 History Gabapentin [Neurontin] 400 mg PO HS@2100 08/04/19 08/04/19 History INSULIN LISPRO (HumaLOG) [humaLOG] See Protocol SQ ACHS 08/04/19 08/04/19 History Magnesium Hydroxide [Milk of 2,400 mg PO DAILY PRN 08/04/19 08/04/19 History Magnesia] Na Phos,M-B/Na Phos,Di-Ba [Fleet 133 ml RECTAL DAILY PRN 08/04/19 08/04/19 History Adult] Warfarin [Coumadin] 1 mg PO DAILY@1700 08/04/19 08/04/19 History Allergies Allergy/AdvReac Type Severity Reaction Status Date / Time No Known Allergies Allergy Verified 08/04/19 22:28 Physical Exam Vitals: Vital Signs Temp Pulse Pulse Resp BP BP Pulse Ox 08/05/19 08:00 98.3 F 102 H 18 125/75 95 08/05/19 06:19 130 H 18 162/88 96 08/05/19 04:47 112 H 18 154/77 94 L 08/05/19 03:58 130 H 18 156/90 96 08/05/19 01:20 19 166/73 95 08/05/19 00:07 98.7 F 112 H 18 146/85 96 08/04/19 22:18 100.3 F H 114 H 20 173/116 98 Intake and Output 08/04/19 08/05/19 08/05/19 22:59 06:59 14:59 Other: Weight 88.451 kg Gen. Well-developed well-nourished no apparent distress. Vitals reviewed HEENT. normocephalic, atraumatic. TMs clear. Mucous membranes moist Neck. Supple, no thyromegaly, no JVD CV. Irregularly irregular, no murmur. Peripheral pulses 2+ Lungs. Normal inspiratory effort, clear throughout Abdomen. Soft, nontender, nondistended, no organomegaly Extremity. Right lower extremity 2+ edema, posterior calf tenderness, warm. Left lower extremity no edema Neuro. Alert and oriented 3, no focal deficits Skin. Warm and dry Results CBC & Chem 7: 08/04/19 22:37 08/04/19 22:37 Labs: Abnormal Lab Results - Last 24 Hours (Table) 08/04/19 08/04/19 08/04/19 Range/Units 22:37 22:37 22:37 RBC 3.18 L (3.80-5.40) m/uL Hgb 10.2 L (11.4-16.0) gm/dL Hct 31.0 L (34.0-46.0) % PT 16.5 H (9.0-12.0) sec INR 1.7 H (<1.2) APTT 43.5 H (22.0-30.0) sec Glucose 120 H (74-99) mg/dL Thrombosis Risk Factor Assmnt - Choose All That Apply Any of the Below Risk Factors Present?: Yes Each Factor Represents 1 point: Obesity (BMI >25) Other Risk Factors: Yes Each Risk Factor Represents 3 Points: Age 75 years or older, History of DVT/PE Thrombosis Risk Factor Assessment Total Risk Factor Score: 7 Thrombosis Risk Factor Assessment Level: High Risk Assessment and Plan (1) Chronic a-fib Current Visit: No Status: Acute Code(s): I48.2 - CHRONIC ATRIAL FIBRILLATION SNOMED Code(s): 327740379 (2) Coagulopathy Current Visit: No Status: Acute Code(s): D68.9 - COAGULATION DEFECT, U NSPECIFIED SNOMED Code(s): 56468040 (3) Diastolic CHF, chronic Current Visit: No Status: Acute Code(s): I50.32 - CHRONIC DIASTOLIC (CONGESTIVE) HEART FAILURE SNOMED Code(s): 247561079 (4) Hemarthrosis of knee, right Current Visit: No Status: Acute Code(s): M25.061 - HEMARTHROSIS, RIGHT KNEE SNOMED Code(s): 222606796189047 (5) Multiple falls Current Visit: No Status: Acute Code(s): R29.6 - REPEATED FALLS SNOMED Code(s): 290218803 (6) Right leg DVT Current Visit: No Status: Acute Priority: High Code(s): I82.401 - ACUTE EMBOLISM AND THOMBOS UNSP DEEP VEINS OF R LOW EXTREM SNOMED Code(s): 429821502 (7) Subtherapeutic international normalized ratio (INR) Current Visit: No Status: Acute Priority: High Code(s): R79.1 - ABNORMAL COAGULATION PROFILE SNOMED Code(s): 648703894 Plan: 1. Right lower extremity DVT. No evidence of PE. Continue Lovenox therapeutic dosing to bridge until Coumadin is therapeutic 2. Subtherapeutic INR. Continue to load Coumadin 4 mg today, check INR tomorrow 3. Chronic atrial fibrillation. Continue Coreg 4. CAD. Continue statin 5. Chronic diastolic CHF. Continue Lasix 20 mg daily. 6. Insomnia. Continue Remeron and gabapentin daily at bedtime.
[2019-08-05] MEDS: ENOXAPARIN 40 MG/0.4 ML SYRINGE SQ SCH ×2 (10:07→21:12)
[2019-08-05] MEDS: CARVEDILOL 6.25 MG TAB PO SCH ×2 (10:07→17:18)
[2019-08-05] MEDS: metFORMIN 500 MG TAB PO SCH ×2 (10:07→17:18)
[2019-08-05] MEDS ORDERED: HYDROmorphone 1 MG/ML 1 ML SYRINGE IVP STA (10:19)
[2019-08-05 11:04] LABS: INR 1.9 (<1.2); Prothrombin Time 19.2 sec (9.0-12.0)
[2019-08-05] MEDS: HYDROcodone/APAP 10-325MG 1 EACH TAB PO PRN ×2 (13:54→21:07)
[2019-08-05] MEDS ORDERED: WARFARIN 2 MG TAB PO ONE (18:00)
[2019-08-05 19:45] VITALS: RESP 18
[2019-08-05 20:28] LABS: Glucose,Whole Blood 117 mg/dL (75-99)
[2019-08-05] MEDS: MIRTAZAPINE 45 MG TABLET PO SCH (21:07)
[2019-08-05] MEDS: ATORVASTATIN 10 MG TAB PO SCH (21:07)
[2019-08-05] MEDS: GABAPENTIN 400 MG CAP PO SCH (21:07)
[2019-08-06] MEDS: HYDROcodone/APAP 10-325MG 1 EACH TAB PO PRN ×4 (03:07→19:43)
[2019-08-06] MEDS: PANTOPRAZOLE 40 MG TABLET PO SCH (05:55)
[2019-08-06 07:08] LABS: Glucose,Whole Blood 95 mg/dL (75-99)
[2019-08-06 07:23] LABS: INR 2.4 (<1.2); Prothrombin Time 23.4 sec (9.0-12.0)
[2019-08-06] MEDS: metFORMIN 500 MG TAB PO SCH ×3 (08:55→17:29)
[2019-08-06] MEDS: CARVEDILOL 6.25 MG TAB PO SCH ×2 (08:56→17:39)
[2019-08-06] MEDS: FUROSEMIDE 20 MG TAB PO PRN (08:56)
--- NOTE | 2019-08-06 11:13 | P.DS ---
Providers Date of admission: 08/05/19 05:59 Expected date of discharge: 08/06/19 Attending physician: Champ Barrios MD Primary care physician: Radha Braxton [facility] Course: (1) Chronic a-fib Current Visit: No Status: Acute Code(s): I48.2 - CHRONIC ATRIAL FIBRILLATION SNOMED Code(s): 968183434 (2) Coagulopathy Current Visit: No Status: Acute Code(s): D68.9 - COAGULATION DEFECT, UNSPECIFIED SNOMED Code(s): 60005363 (3) Diastolic CHF, chronic Current Visit: No Status: Acute Code(s): I50.32 - CHRONIC DIASTOLIC (CONGESTIVE) HEART FAILURE SNOMED Code(s): 249353317 (4) Hemarthrosis of knee, right Current Visit: No Status: Acute Code(s): M25.061 - HEMARTHROSIS, RIGHT KNEE SNOMED Code(s): 949310696643401 (5) Multiple falls Current Visit: No Status: Acute Code(s): R29.6 - REPEATED FALLS SNOMED Code(s): 336639614 (6) Right leg DVT Current Visit: No Status: Acute Priority: High Code(s): I82.401 - ACUTE EMBOLISM AND THOMBOS UNSP DEEP VEINS OF R LOW EXTREM SNOMED Code(s): 314898133 (7) Subtherapeutic international normalized ratio (INR) Current Visit: No Status: Acute Priority: High Code(s): R79.1 - ABNORMAL COAGULATION PROFILE SNOMED Code(s): 460985633 Hospital course:Angeline Lee is a 78-year-old female with past medical history significant for DVT diagnosed 3 days ago, atrial fibrillation, CAD, GERD who presents to the emergency department from subacute rehab after experiencing worsening right knee pain after physical therapy yesterday. She was recently discharged on Monday after being diagnosed with provoked DVT of the right lower extremity. At that time she been experiencing 2 weeks of progressive right leg pain and swelling. She has no previous history of DVT. She was seen at that time by hematology who recommended she continue on Coumadin. At the time of discharge she had felt her pain had diminished significantly from time of admission. She was discharged with Lovenox bridging until her INR became therapeutic. She initially did well at physical therapy Monday, but states after working with PT on [place] her posterior calf began to hurt much more so she came back to the ED. In the ED, her INR was 1.7, CT chest was performed and negative for PE. She continues to complain of leg pain which limits her ability to walk. INR 2.4. Swelling, pain improving. Significant clinical improvement. Denies chest pain, palpitations or shortness of breath. Denies lightheadedness dizziness or focal deficits. Patient is being discharged back to [facility] subacute rehab in a stable condition with guarded prognosis. EXAM: Gen. Alert and oriented 3, no acute distress CV. Irregularly irregular, no murmur. Peripheral pulses 2+ Lungs. Normal inspiratory effort, clear throughout Abdomen. Soft, nontender, nondistended, no organomegaly Extremity. Right lower extremity improving edema Neuro. Alert and oriented 3, no focal deficits The impression and plan of care has been dictated as directed. : I performed a history and examination of this patient, discussed the same with the dictator. I agree with the dictator's note ,documented as a scribe. Any additional findings or plans will be noted. Time taken: 35 minutes Patient Condition at Discharge: Stable Plan - Discharge Summary Discharge Rx Participant: No New Discharge Prescriptions: Continue metFORMIN HCL ER [Glucophage Xr] 500 mg PO DAILY@0800 Simvastatin [Zocor] 20 mg PO HS@2100 Mirtazapine [Remeron] 45 mg PO HS@2100 Carvedilol [Coreg] 6.25 mg PO BID@0800,1700 Furosemide [Lasix] 20 mg PO DAILY PRN PRN Reason: Edema Esomeprazole Magnesium [NexIUM] 40 mg PO DAILY@0600 Na Phos,M-B/Na Phos,Di-Ba [Fleet Adult] 133 ml RECTAL DAILY PRN PRN Reason: Constipation Bisacodyl [Dulcolax] 10 mg RECTAL DAILY PRN PRN Reason: Constipation INSULIN LISPRO (HumaLOG) [humaLOG] See Protocol SQ ACHS Magnesium Hydroxide [Milk of Magnesia] 2,400 mg PO DAILY PRN PRN Reason: Constipation Gabapentin [Neurontin] 400 mg PO HS@2100 #3 cap Changed Warfarin [Coumadin] 2 mg PO DAILY@1700 #2 HYDROcodone/APAP 7.5-325MG [[place] 7.5-325] 1 tab PO Q4H PRN #18 tab PRN Reason: Pain Discontinued Enoxaparin [Lovenox] 90 mg SQ Q12HR #6 syringe Discharge Medication List Simvastatin [Zocor] 20 mg PO HS@2100 01/09/18 [History] metFORMIN HCL ER [Glucophage Xr] 500 mg PO DAILY@0800 01/09/18 [History] Carvedilol [Coreg] 6.25 mg PO BID@0800,1700 07/26/19 [History] Esomeprazole Magnesium [NexIUM] 40 mg PO DAILY@0600 07/26/19 [History] Furosemide [Lasix] 20 mg PO DAILY PRN 07/26/19 [History] Mirtazapine [Remeron] 45 mg PO HS@2100 07/26/19 [History] Bisacodyl [Dulcolax] 10 mg RECTAL DAILY PRN 08/04/19 [History] INSULIN LISPRO (HumaLOG) [humaLOG] See Protocol SQ ACHS 08/04/19 [History] Magnesium Hydroxide [Milk of Magnesia] 2,400 mg PO DAILY PRN 08/04/19 [History] Na Phos,M-B/Na Phos,Di-Ba [Fleet Adult] 133 ml RECTAL DAILY PRN 08/04/19 [History] Gabapentin [Neurontin] 400 mg PO HS@2100 #3 cap 08/06/19 [Rx] HYDROcodone/APAP 7.5-325MG [[place] 7.5-325] 1 tab PO Q4H PRN #18 tab 08/06/19 [Rx] Warfarin [Coumadin] 2 mg PO DAILY@1700 #2 08/06/19 [Rx] Follow up Appointment(s)/Referral(s): Carlene Martinez MD [STAFF PHYSICIAN] - 3 Days (While at [facility]) Activity/Diet/Wound Care/Special Instructions: [facility] Diet: Consistent carb, Coumadin diet Activity: As tolerated CBC, BMP in 3 days PT/INR daily Discharge Disposition: TRANSFER TO SNF/F
[2019-08-06 12:09] LABS: Glucose,Whole Blood 99 mg/dL (75-99)
[2019-08-06 16:59] LABS: Glucose,Whole Blood 105 mg/dL (75-99)
[2019-08-06] MEDS: GABAPENTIN 400 MG CAP PO SCH (19:44)
[2019-08-06] MEDS: ATORVASTATIN 10 MG TAB PO SCH (19:44)
[2019-08-06 20:24] LABS: Glucose,Whole Blood 109 mg/dL (75-99)
[2019-08-06] MEDS: MIRTAZAPINE 45 MG TABLET PO SCH (21:36)
[2019-08-07] MEDS: HYDROcodone/APAP 10-325MG 1 EACH TAB PO PRN ×3 (01:52→13:30)
[2019-08-07] MEDS: PANTOPRAZOLE 40 MG TABLET PO SCH (06:04)
[2019-08-07 06:46] LABS: Glucose,Whole Blood 115 mg/dL (75-99)
[2019-08-07 07:03] LABS: INR 2.3 (<1.2); Prothrombin Time 22.4 sec (9.0-12.0)
[2019-08-07] MEDS: metFORMIN 500 MG TAB PO SCH (07:51)
[2019-08-07] MEDS: CARVEDILOL 6.25 MG TAB PO SCH (07:56)
[2019-08-07] MEDS: FUROSEMIDE 20 MG TAB PO PRN (07:56)
[2019-08-07 11:45] LABS: Glucose,Whole Blood 104 mg/dL (75-99)
[2019-08-07 12:07] VITALS: BP 145/59; PULSE 97; TEMP 97.9
--- NOTE | 2019-08-07 12:41 | P.DS ---
Providers Date of admission: 08/05/19 05:59 Expected date of discharge: 08/07/19 Attending physician: Champ Barrios MD Primary care physician: Radha Braxton [facility] Course: Final Diagnoses: (1) Chronic a-fib Current Visit: No Status: Acute Code(s): I48.2 - CHRONIC ATRIAL FIBRILLATION SNOMED Code(s): 564088746 (2) Coagulopathy Current Visit: No Status: Acute Code(s): D68.9 - COAGULATION DEFECT, UNSPECIFIED SNOMED Code(s): 95006581 (3) Diastolic CHF, chronic Current Visit: No Status: Acute Code(s): I50.32 - CHRONIC DIASTOLIC (CONGESTIVE) HEART FAILURE SNOMED Code(s): 970570555 (4) Hemarthrosis of knee, right Current Visit: No Status: Acute Code(s): M25.061 - HEMARTHROSIS, RIGHT KNEE SNOMED Code(s): 047401156662914 (5) Multiple falls Current Visit: No Status: Acute Code(s): R29.6 - REPEATED FALLS SNOMED Code(s): 531514159 (6) Right leg DVT Current Visit: No Status: Acute Priority: High Code(s): I82.401 - ACUTE EMBOLISM AND THOMBOS UNSP DEEP VEINS OF R LOW EXTREM SNOMED Code(s): 684364423 (7) Subtherapeutic international normalized ratio (INR) Current Visit: No Status: Acute Priority: High Code(s): R79.1 - ABNORMAL COAGULATION PROFILE SNOMED Code(s): 458067476 Hospital course:Angeline Lee is a 78-year-old female with past medical history significant for DVT diagnosed 3 days ago, atrial fibrillation, CAD, GERD who presents to the emergency department from subacute rehab after experiencing worsening right knee pain after physical therapy yesterday. She was recently discharged on Monday after being diagnosed with provoked DVT of the right lower extremity. At that time she been experiencing 2 weeks of progressive right leg pain and swelling. She has no previous history of DVT. She was seen at that time by hematology who recommended she continue on Coumadin. At the time of discharge she had felt her pain had diminished significantly from time of admission. She was discharged with Lovenox bridging until her INR became therapeutic. She initially did well at physical therapy Monday, but states after working with PT on Monday her posterior calf began to hurt much more so she came back to the ED. In the ED, her INR was 1.7, CT chest was performed and negative for PE. She continues to complain of leg pain which limits her ability to walk. INR 2.3. Swelling, pain improving. Significant clinical improvement. Denies chest pain, palpitations or shortness of breath. Denies lightheadedness dizziness or focal deficits. Patient is being discharged back to [facility] subacute rehab in a stable condition with guarded prognosis. EXAM: Gen. Alert and oriented 3, no acute distress CV. Irregularly irregular, no murmur. Peripheral pulses 2+ Lungs. Normal inspiratory effort, clear throughout Abdomen. Soft, nontender, nondistended, no organomegaly Extremity. Right lower extremity improving edema Neuro. Alert and oriented 3, no focal deficits The impression and plan of care has been dictated as directed. : I performed a history and examination of this patient, discussed the same with the dictator. I agree with the dictator's note ,documented as a scribe. Any additional findings or plans will be noted. Time taken: 35 minutes Patient Condition at Discharge: Stable Plan - Discharge Summary Discharge Rx Participant: No New Discharge Prescriptions: Continue metFORMIN HCL ER [Glucophage Xr] 500 mg PO DAILY@0800 Simvastatin [Zocor] 20 mg PO HS@2100 Mirtazapine [Remeron] 45 mg PO HS@2100 Carvedilol [Coreg] 6.25 mg PO BID@0800,1700 Furosemide [Lasix] 20 mg PO DAILY PRN PRN Reason: Edema Esomeprazole Magnesium [NexIUM] 40 mg PO DAILY@0600 Na Phos,M-B/Na Phos,Di-Ba [Fleet Adult] 133 ml RECTAL DAILY PRN PRN Reason: Constipation Bisacodyl [Dulcolax] 10 mg RECTAL DAILY PRN PRN Reason: Constipation INSULIN LISPRO (HumaLOG) [humaLOG] See Protocol SQ ACHS Magnesium Hydroxide [Milk of Magnesia] 2,400 mg PO DAILY PRN PRN Reason: Constipation Gabapentin [Neurontin] 400 mg PO HS@2100 #3 cap Changed Warfarin [Coumadin] 2 mg PO DAILY@1700 #2 HYDROcodone/APAP 7.5-325MG [[place] 7.5-325] 1 tab PO Q4H PRN #18 tab PRN Reason: Pain Discontinued Enoxaparin [Lovenox] 90 mg SQ Q12HR #6 syringe Discharge Medication List Simvastatin [Zocor] 20 mg PO HS@2100 01/09/18 [History] metFORMIN HCL ER [Glucophage Xr] 500 mg PO DAILY@0800 01/09/18 [History] Carvedilol [Coreg] 6.25 mg PO BID@0800,1700 07/26/19 [History] Esomeprazole Magnesium [NexIUM] 40 mg PO DAILY@0600 07/26/19 [History] Furosemide [Lasix] 20 mg PO DAILY PRN 07/26/19 [History] Mirtazapine [Remeron] 45 mg PO HS@2100 07/26/19 [History] Bisacodyl [Dulcolax] 10 mg RECTAL DAILY PRN 08/04/19 [History] INSULIN LISPRO (HumaLOG) [humaLOG] See Protocol SQ ACHS 08/04/19 [History] Magnesium Hydroxide [Milk of Magnesia] 2,400 mg PO DAILY PRN 08/04/19 [History] Na Phos,M-B/Na Phos,Di-Ba [Fleet Adult] 133 ml RECTAL DAILY PRN 08/04/19 [History] Gabapentin [Neurontin] 400 mg PO HS@2100 #3 cap 08/06/19 [Rx] HYDROcodone/APAP 7.5-325MG [[place] 7.5-325] 1 tab PO Q4H PRN #18 tab 08/06/19 [Rx] Warfarin [Coumadin] 2 mg PO DAILY@1700 #2 08/06/19 [Rx] Follow up Appointment(s)/Referral(s): Carlene Martinez MD [STAFF PHYSICIAN] - 3 Days (While at F) Activity/Diet/Wound Care/Special Instructions: Diet: Consistent carb, Coumadin diet Activity: As tolerated CBC, BMP in 3 days PT/INR daily Discharge Disposition: TRANSFER TO SNF/ECF
== END 2019-08-07 14:20 ==
LOC: EC 22:15 → 1SOBS 08-05 05:59
PROVIDERS: ADMIT Family Medicine; ATTEND Family Medicine
DX: I48.2 Chronic atrial fibrillation (principal); D68.9 Coagulation defect, unspecified; I11.0 Hypertensive heart disease with heart failure; I50.32 Chronic diastolic (congestive) heart failure; I82.401 Acute embolism and thrombosis of unspecified deep veins of right lower extremity; M25.061 Hemarthrosis, right knee; R29.6 Repeated falls; I48.92 Unspecified atrial flutter; E11.9 Type 2 diabetes mellitus without complications; I25.10 Atherosclerotic heart disease of native coronary artery without angina pectoris; K21.9 Gastro-esophageal reflux disease without esophagitis; E78.5 Hyperlipidemia, unspecified; I34.1 Nonrheumatic mitral (valve) prolapse; M15.9 Polyosteoarthritis, unspecified; G89.29 Other chronic pain; M54.42 Lumbago with sciatica, left side; M54.41 Lumbago with sciatica, right side; I42.9 Cardiomyopathy, unspecified; E03.9 Hypothyroidism, unspecified; E66.9 Obesity, unspecified; Z68.30 Body mass index [BMI] 30.0-30.9, adult; M48.00 Spinal stenosis, site unspecified; G47.00 Insomnia, unspecified; Z87.19 Personal history of other diseases of the digestive system; Z87.09 Personal history of other diseases of the respiratory system; Z87.01 Personal history of pneumonia (recurrent); Z87.440 Personal history of urinary (tract) infections; Z86.718 Personal history of other venous thrombosis and embolism; Z87.11 Personal history of peptic ulcer disease; Z79.01 Long term (current) use of anticoagulants; Z79.899 Other long term (current) drug therapy; Z79.4 Long term (current) use of insulin; Z90.49 Acquired absence of other specified parts of digestive tract; Z84.1 Family history of disorders of kidney and ureter; Z79.891 Long term (current) use of opiate analgesic
CPT/HCPCS: 96372; 96376 ×2; 96374; 96375; 99285; 36415; 93005; 97162; 97166; 86900; 86901; 80048; 85025; 85610 ×4; 85730; 86850; 73701; 71275; G0378 ×3; J2270; J1650; J1170 ×2; Q9967 ×2

== ENCOUNTER 2019-08-28 18:28 | Observation (INO) | payer MEDICARE ==
[2019-08-28] MEDS ORDERED: KETOROLAC 30 MG/ML 1 ML VIAL IVP STA (18:44)
[2019-08-28] MEDS ORDERED: HYDROmorphone 1 MG/ML 1 ML SYRINGE IVP STA ×2 (18:44→22:09)
--- NOTE | 2019-08-28 18:44 | ED ---
General Adult HPI <Kevan Price - Last Filed: 08/28/19 22:14> - General Source: EMS, RN notes reviewed, old records reviewed Mode of arrival: EMS Limitations: physical limitation <Peri Heller - Last Filed: 08/28/19 22:21> - General Chief complaint: Extremity Injury, Lower Stated complaint: Poss DVT Time Seen by Provider: 08/28/19 18:30 - History of Present Illness Initial comments: This Patient is a 78-year-old female with a recent history of DVT in the right leg. She presents from home with severe onset of worsening right knee and posterior leg pain starting this afternoon. Patient reports that she was doing well since her last admission to the hospital was proximal only 3 weeks ago for similar pains in her leg. Patient reports she's been taking Coumadin since that time. Patient states that she volunteered yesterday and was doing her normal activities when the pain started to become more severe as of this afternoon. She denies any recent falls or trauma. Denies any chest pain, shortness of breath. She reports that she does have some chronic swelling of the right knee. Denies any lightheadedness dizziness or any focal deficits. Patient reports she did see orthopedics last week and received a cortisone injection within her knee. She denies any back pain. (Peri Heller) - Related Data Home Medications Medication Instructions Recorded Confirmed Simvastatin [Zocor] 20 mg PO HS 01/09/18 08/28/19 metFORMIN HCL ER [Glucophage Xr] 500 mg PO DAILY 01/09/18 08/28/19 Carvedilol [Coreg] 6.25 mg PO BID 07/26/19 08/28/19 Esomeprazole Magnesium [NexIUM] 40 mg PO DAILY 07/26/19 08/28/19 Furosemide [Lasix] 20 mg PO DAILY PRN 07/26/19 08/28/19 Mirtazapine [Remeron] 45 mg PO HS 07/26/19 08/28/19 Amiodarone [Cordarone] 200 mg PO DAILY 08/28/19 08/28/19 DULoxetine HCL [Cymbalta] 30 mg PO HS 08/28/19 08/28/19 Gabapentin 600 mg PO BID 08/28/19 08/28/19 HYDROcodone/APAP 7.5-325MG [[place] 1 tab PO BID PRN 08/28/19 08/28/19 7.5-325] Levothyroxine Sodium [Synthroid] 125 mcg PO DAILY 08/28/19 08/28/19 Warfarin [Coumadin] 2 mg PO HS 08/28/19 08/28/19 Allergies Allergy/AdvReac Type Severity Reaction Status Date / Time No Known Allergies Allergy Verified 08/28/19 21:50 Review of Systems ROS Other: All systems not noted in ROS Statement are negative. <Kevan Price - Last Filed: 08/28/19 22:14> ROS Other: All systems not noted in ROS Statement are negative. <Peri Heller - Last Filed: 08/28/19 22:21> ROS Statement: Those systems with pertinent positive or pertinent negative responses have been documented in the HPI. Past Medical History Past Medical History: Atrial Fibrillation, Atrial Flutter, Coronary Artery Disease (CAD), Heart Failure, Diabetes Mellitus, GERD/Reflux, GI Bleed, Hyperlipidemia, Hypertension, Osteoarthritis (OA), Pneumonia, Thyroid Disorder Additional Past Medical History / Comment(s): Pt recently admitted to [facility] on 07/30/19 with DVT R lower extremity/hemarthrosis R knee-ruptured Bowman's cyst. Other hx: AFib/flutter with past RVR, MVP, cardiomyopathy, NIDDM type II, gastric ulcer, lower GI bleed, generalized arthritis, spinal stenosis, chronic low back pain with occasional bilateral sciatica, past migraines, bronchitis, hypothyroid, anemia years ago, UTI History of Any Multi-Drug Resistant Organisms: None Reported Past Surgical History: Cholecystectomy, Hysterectomy, Joint Replacement, Orthopedic Surgery Additional Past Surgical History / Comment(s): Bilateral total knee replacement, bilateral shoulder rotator cuff repairs, L cataract removal, EGDs and colonoscopy with gastric ulcer cauterized, cardioversions/TEEs, rt hand surgery- bone removed and tendon placed, left foot surgery d/t fracture, epidural back injections. Past Anesthesia/Blood Transfusion Reactions: Motion Sickness, Postoperative Nausea & Vomiting (PONV) Additional Past Anesthesia/Blood Transfusion Reaction / Comment(s): Pt received blood in 2007 with gastric bleed without reaction. Past Psychological History: Anxiety Smoking Status: Never smoker - Past Family History Father Family Medical History: No Reported History Additional Family Medical History / Comment(s): Father was healthy and lived to be 80yrs old. Mother Family Medical History: No Reported History Additional Family Medical History / Comment(s): Mother was healthy and lived to be 80 yrs old-she had one kidney. <Peri Heller - Last Filed: 08/28/19 22:21> General Exam Limitations: no limitations, physical limitation General appearance: alert, in no apparent distress Head exam: Present: atraumatic, normocephalic, normal inspection Eye exam: Present: normal appearance, PERRL, EOMI. Absent: scleral icterus, conjunctival injection, periorbital swelling ENT exam: Present: normal exam, mucous membranes moist Neck exam: Present: normal inspection. Absent: tenderness, meningismus, lymphadenopathy Respiratory exam: Present: normal lung sounds bilaterally. Absent: respiratory distress, wheezes, rales, rhonchi, stridor Cardiovascular Exam: Present: regular rate, normal rhythm, normal heart sounds. Absent: systolic murmur, diastolic murmur, rubs, gallop, clicks GI/Abdominal exam: Present: soft Extremities exam: Present: normal inspection, full ROM, normal capillary refill. Absent: tenderness, pedal edema, joint swelling, calf tenderness Right Knee exam: Present: tenderness, swelling. Absent: normal inspection, full ROM (Unable to bend or flex knee due to severe pain. A well-appearing surgical scar over the knee.) Lower Leg exam: Present: normal inspection, full ROM Ankle exam: Present: normal inspection, full ROM Foot/Toe exam: Present: normal inspection, full ROM Back exam: Present: normal inspection Neurological exam: Present: alert, oriented X3, CN II-XII intact Psychiatric exam: Present: normal affect, normal mood Skin exam: Present: warm, dry, intact, normal color. Absent: rash <Peri Heller - Last Filed: 08/28/19 22:21> - General Exam Comments Initial Comments: 78-year-old female. Alert and oriented 3. There is moderate discomfort. (Peri Heller) Course <Kevan Price - Last Filed: 08/28/19 22:14> <Peri Heller - Last Filed: 08/28/19 22:21> Vital Signs 08/28/19 18:35 Temperature 97.9 F Pulse Rate 83 Respiratory 16 Rate Blood Pressure 176/97 O2 Sat by Pulse 99 Oximetry - Reevaluation(s) Reevaluation #1: 08/28/19 22:14 Case discussed with practitioner Peri. Chart and results reviewed. Case also discussed with Dr. Dela Cruz, who will admit covered for Dr. Braxton. Ortho will be placed on consult. (Kevan Price) 08/28/19 19:53 Patient is requesting multiple narcotic medications. Exhibiting drug-seeking behavior. (Peri Heller) Medical Decision Making - Lab Data Result diagrams: 08/28/19 18:57 08/28/19 19:50 <Kevan Price - Last Filed: 08/28/19 22:14> - Lab Data Result diagrams: 08/28/19 18:57 08/28/19 19:50 - Radiology Data Radiology results: report reviewed <Peri Heller - Last Filed: 08/28/19 22:21> - Medical Decision Making 78-year-old female presents today for concerns for onset of right knee pain. For that she had a steroid injection within her knee by her primary care doctor a week ago. She reports she is doing well, but then developed severe pain tonight. Patient is on Coumadin after she is recently diagnosed with a DVT. At this time patient's INR is elevated at 7.9. She is given oral vitamin K. Patient ultrasound of the knee was completed and there is evidence of a large cyst drinks 16 cm x 5 cm. I am concerned with the onset of pain and inability to move any of his concern for possibility of hemarthrosis. She required multiple rounds of narcotic pain medicine and continue to complain of severe pain. She'll not ambulate on her knee. Discussed he can admit the Patient for intractable knee pain joint effusion. Dr. Price discussed the case with Dr. Barrios. We'll consult orthopedics. (Peri Heller) - Lab Data Lab Results 08/28/19 08/28/19 08/28/19 Range/Units 18:57 18:57 19:50 WBC 11.0 H (3.8-10.6) k/uL RBC 3.74 L (3.80-5.40) m/uL Hgb 11.1 L (11.4-16.0) gm/dL Hct 37.3 (34.0-46.0) % MCV 99.7 (80.0-100.0) fL MCH 29.8 (25.0-35.0) pg MCHC 29.9 L (31.0-37.0) g/dL RDW 13.6 (11.5-15.5) % Plt Count 280 (150-450) k/uL Neutrophils % 61 % Lymphocytes % 30 % Monocytes % 6 % Eosinophils % 1 % Basophils % 1 % Neutrophils # 6.7 (1.3-7.7) k/uL Lymphocytes # 3.3 (1.0-4.8) k/uL Monocytes # 0.6 (0-1.0) k/uL Eosinophils # 0.1 (0-0.7) k/uL Basophils # 0.1 (0-0.2) k/uL Hypochromasia Slight PT 74.4 H (9.0-12.0) sec INR 7.6 H* (<1.2) APTT 61.8 H (22.0-30.0) sec Sodium 140 (137-145) mmol/L Potassium 3.8 (3.5-5.1) mmol/L Chloride 104 (98-107) mmol/L Carbon Dioxide 27 (22-30) mmol/L Anion Gap 9 mmol/L BUN 19 H (7-17) mg/dL Creatinine 1.03 (0.52-1.04) mg/dL Est GFR (CKD-EPI)AfAm 60 (>60 ml/min/1.73 sqM) Est GFR (CKD-EPI)NonAf 52 (>60 ml/min/1.73 sqM) Glucose 113 H (74-99) mg/dL Calcium 9.3 (8.4-10.2) mg/dL Disposition <Kevan Price - Last Filed: 08/28/19 22:14> Is patient prescribed a controlled substance at d/c from ED?: No Time of Disposition: 22:21 <Peri Heller - Last Filed: 08/28/19 22:21> Clinical Impression: Right knee pain, Coagulopathy, Inability to ambulate due to knee Disposition[facility] Condition: Stable Referrals: Radha Braxton DO [Primary Care Provider] - 1-2 days
[2019-08-28 19:29] LABS: Basophils # (A) 0.1 k/uL (0-0.2); Basophils % (A) 1 %; Eosinophils # (A) 0.1 k/uL (0-0.7); Eosinophils % (A) 1 %; HCT 37.3 % (34.0-46.0); HGB 11.1 gm/dL (11.4-16.0); Hypochromasia Slight; Lymphocytes # (A) 3.3 k/uL (1.0-4.8); Lymphocytes % (A) 30 %; MCH 29.8 pg (25.0-35.0); MCHC 29.9 g/dL (31.0-37.0); MCV 99.7 fL (80.0-100.0); Mean Platelet Volume 8.1; Monocytes # (A) 0.6 k/uL (0-1.0); Monocytes % (A) 6 %; Neutrophils # (A) 6.7 k/uL (1.3-7.7); Neutrophils % (A) 61 %; Platelet Count 280 k/uL (150-450); RBC 3.74 m/uL (3.80-5.40); RDW 13.6 % (11.5-15.5)
[2019-08-28] MEDS ORDERED: MORPHINE SULFATE 4 MG/ML SYRINGE IVP STA (19:52)
--- NOTE | 2019-08-28 19:55 | XR ---
EXAMINATION TYPE: XR knee complete RT DATE OF EXAM: 08/28/2019 COMPARISON: 07/30/2019 HISTORY: Knee pain. Deep vein thrombosis. TECHNIQUE: 3 views FINDINGS: There is right knee prosthesis. There is large joint effusion. Components are in anatomic p osition. I see no fracture. There is anterior displacement of the patella. IMPRESSION: Large knee joint effusion increased compared to last exam. No fracture seen.
[2019-08-28 20:07] LABS: Calcium 9.3 mg/dL (8.4-10.2); Potassium 3.8 mmol/L (3.5-5.1)
[2019-08-28 20:09] LABS: Prothrombin Time 74.4 sec (9.0-12.0)
[2019-08-28 20:10] LABS: INR 7.6 (<1.2)
[2019-08-28 20:12] LABS: Partial Thromboplastin Time 61.8 sec (22.0-30.0)
--- NOTE | 2019-08-28 20:36 | US ---
EXAMINATION TYPE: US venous doppler duplex LE RT DATE OF EXAM: 08/28/2019 8:25 PM COMPARISON: US 07/30/2019 CLINICAL HISTORY: pain. Pain in right leg since this morning. Hx DVT. Patient is on coumadin. Right k nee replacement. SIDE PERFORMED: Right TECHNIQUE: The lower extremity deep venous system is examined utilizing real time linear array sonog aisha with graded compression, doppler sonography and color-flow sonography. VESSELS IMAGED: External Iliac Vein (EIV) Common Femoral Vein Deep Femoral Vein Greater Saphenous Vein * Femoral Vein Popliteal Vein Small Saphenous Vein * Proximal Calf Veins (* superficial vessels) Right Leg: No evidence of DVT at this time in veins imaged from prox calf veins to EIV. Complex area seen from right medial popliteal fossa at level of prox calf veins down to the lower calf. This area measures: 16.0 x 5.3 x 3.5 cm. IMPRESSION: No evidence of deep venous thrombosis in the right leg. There is a large popliteal cyst.
[2019-08-28] MEDS ORDERED: PHYTONADIONE ORAL 5 MG/5 ML ORAL.SYRG PO STA (21:17)
[2019-08-28] MEDS ORDERED: NALOXONE 0.4 MG/ML 1 ML VIAL IV PRN (22:21)
[2019-08-28] MEDS ORDERED: ACETAMINOPHEN TAB 325 MG TAB PO PRN (22:21)
[2019-08-28] MEDS ORDERED: TEMAZEPAM 15 MG CAP PO PRN (22:21)
[2019-08-28] MEDS ORDERED: IBUPROFEN 400 MG TAB PO PRN (22:21)
[2019-08-28] MEDS ORDERED: ONDANSETRON 4 MG/2 ML VIAL IVP PRN (22:21)
[2019-08-28] MEDS ORDERED: LABETALOL 5 MG/ML VIAL MDV IVP STA (22:45)
[2019-08-28] MEDS ORDERED: FUROSEMIDE 20 MG TAB PO PRN (23:04)
[2019-08-28 23:33] VITALS: BMI 30.7
[2019-08-29] MEDS: KETOROLAC 30 MG/ML 1 ML VIAL IVP PRN ×2 (00:18→12:25)
[2019-08-29] MEDS: HYDROmorphone 1 MG/ML 1 ML SYRINGE IVP PRN ×2 (01:07→06:32)
[2019-08-29 06:23] LABS: Glucose,Whole Blood 107 mg/dL (75-99)
[2019-08-29 06:31] LABS: INR 3.6 (<1.2)
[2019-08-29] MEDS: LEVOTHYROXINE 125 MCG TAB PO SCH (06:32)
[2019-08-29] MEDS: CARVEDILOL 6.25 MG TAB PO SCH ×2 (06:32→16:51)
[2019-08-29] MEDS: metFORMIN 500 MG TAB PO SCH ×2 (07:56→19:44)
[2019-08-29] MEDS: AMIODARONE 200 MG TAB PO SCH (07:56)
[2019-08-29] MEDS: GABAPENTIN 300 MG CAP PO SCH ×2 (07:56→19:44)
[2019-08-29] MEDS ORDERED: LIDOCAINE 2% INJ 20 MG/ML (20 ML MDV) SQ ONE (08:40)
[2019-08-29] MEDS ORDERED: PANTOPRAZOLE 40 MG/10 ML VIAL IV SCH (09:00)
--- NOTE | 2019-08-29 10:24 | P.CNOR ---
History of Present Illness - [facility] Consult date: 08/29/19 Consult reason: joint pain (Right knee effusion) History of present illness: This is a 78-year-old female admitted with increased right knee pain and swelling. She has a recent history of DVT to the right lower extremity. She is on Coumadin and had a recent elevation in her INR. She denies any trauma or injury to her right knee. She does have history of total right knee arthroplasty several years ago by Dr. Sanon. We're consulted for orthopedic evaluation of her right knee. Past Medical History Past Medical History: Atrial Fibrillation, Atrial Flutter, Coronary Artery Disease (CAD), Heart Failure, Diabetes Mellitus, GERD/Reflux, GI Bleed, Hyperlipidemia, Hypertension, Osteoarthritis (OA), Pneumonia, Thyroid Disorder Additional Past Medical History / Comment(s): Pt recently admitted to [facility] on 07/30/19 with DVT R lower extremity/hemarthrosis R knee-ruptured Bowman's cyst. Other hx: AFib/flutter with past RVR, MVP, cardiomyopathy, NIDDM type II, gastric ulcer, lower GI bleed, generalized arthritis, spinal stenosis, chronic low back pain with occasional bilateral sciatica, past migraines, bronchitis, hypothyroid, anemia years ago, UTI History of Any Multi-Drug Resistant Organisms: None Reported Past Surgical History: Cholecystectomy, Hysterectomy, Joint Replacement, Orthop edic Surgery Additional Past Surgical History / Comment(s): Bilateral total knee replacement, bilateral shoulder rotator cuff repairs, L cataract removal, EGDs and colonoscopy with gastric ulcer cauterized, cardioversions/TEEs, rt hand surgery- bone removed and tendon placed, left foot surgery d/t fracture, epidural back injections. Past Anesthesia/Blood Transfusion Reactions: Motion Sickness, Postoperative Nausea & Vomiting (PONV) Additional Past Anesthesia/Blood Transfusion Reaction / Comm: Pt received blood in 2007 with gastric bleed without reaction. Past Psychological History: Anxiety Additional Psychological History / Comment(s): Normally, pt resides alone in a house. She is currently in [facility] for rehab. She has walkers and scooters at home that she uses prn. She drives. Smoking Status: Never smoker Past Alcohol Use History: Occasional Additional Past Alcohol Use History / Comment(s): Drinks one drink at night time Past Drug Use History: None Reported - Past Family History Father Family Medical History: No Reported History Additional Family Medical History / Comment(s): Father was healthy and lived to be 80yrs old. Mother Family Medical History: No Reported History Additional Family Medical History / Comment(s): Mother was healthy and lived to be 80 yrs old-she had one kidney. Medications and Allergies Home Medications Medication Instructions Recorded Confirmed Type Simvastatin [Zocor] 20 mg PO HS 01/09/18 08/28/19 History metFORMIN HCL ER [Glucophage Xr] 500 mg PO DAILY 01/09/18 08/28/19 History Carvedilol [Coreg] 6.25 mg PO BID 07/26/19 08/28/19 History Esomeprazole Magnesium [NexIUM] 40 mg PO DAILY 07/26/19 08/28/19 History Furosemide [Lasix] 20 mg PO DAILY PRN 07/26/19 08/28/19 History Mirtazapine [Remeron] 45 mg PO HS 07/26/19 08/28/19 History Amiodarone [Cordarone] 200 mg PO DAILY 08/28/19 08/28/19 History DULoxetine HCL [Cymbalta] 30 mg PO HS 08/28/19 08/28/19 History Gabapentin 600 mg PO BID 08/28/19 08/28/19 History HYDROcodone/APAP 7.5-325MG [[place] 1 tab PO BID PRN 08/28/19 08/28/19 History 7.5-325] Levothyroxine Sodium [Synthroid] 125 mcg PO DAILY 08/28/19 08/28/19 History Warfarin [Coumadin] 2 mg PO HS 08/28/19 08/28/19 History Allergies Allergy/AdvReac Type Severity Reaction Status Date / Time No Known Allergies Allergy Verified 08/28/19 21:50 Physical Examination This is a pleasant 78-year-old female in no acute distress. She is alert and oriented 3. Exam of the lower extremities reveals an effusion to the right knee. She has no erythema or ecchymosis to the area. There is a small area of bruising about the calf. There is difficulty with range of motion of the knee secondary to pain and swelling. She has full foot and ankle motion. Pedal pulses +2/4. Neurovascular status to the lower extremity is intact. Results X-rays of the right knee reveal components in good position and alignment without evidence of loosening or migration. No acute fractures identified. - Labs Labs: Abnormal Lab Results - Last 24 Hours (Table) 08/28/19 08/28/19 08/28/19 Range/Units 18:57 18:57 19:50 WBC 11.0 H (3.8-10.6) k/uL RBC 3.74 L (3.80-5.40) m/uL Hgb 11.1 L (11.4-16.0) gm/dL MCHC 29.9 L (31.0-37.0) g/dL PT 74.4 H (9.0-12.0) sec INR 7.6 H* (<1.2) APTT 61.8 H (22.0-30.0) sec BUN 19 H (7-17) mg/dL Glucose 113 H (74-99) mg/dL POC Glucose (mg/dL) (75-99) mg/dL 08/29/19 08/29/19 Range/Units 06:07 06:22 WBC (3.8-10.6) k/uL RBC (3.80-5.40) m/uL Hgb (11.4-16.0) gm/dL MCHC (31.0-37.0) g/dL PT 35.0 H (9.0-12.0) sec INR 3.6 H (<1.2) APTT (22.0-30.0) sec BUN (7-17) mg/dL Glucose (74-99) mg/dL POC Glucose (mg/dL) 107 H (75-99) mg/dL H & H 08/28/19 Range/Units 18:57 Hgb 11.1 L (11.4-16.0) gm/dL Hct 37.3 (34.0-46.0) % Coagulation 08/28/19 08/29/19 Range/Units 18:57 06:07 INR 7.6 H* 3.6 H (<1.2) Result Diagrams: 08/28/19 18:57 08/28/19 19:50 Assessment and Plan (1) Coagulopathy Current Visit: Yes Status: Acute Code(s): D68.9 - COAGULATION DEFECT, UNSPECIFIED SNOMED Code(s): 89416311 (2) Inability to ambulate due to knee Current Visit: Yes Status: Acute Code(s): R26.2 - DIFFICULTY IN WALKING, NOT ELSEWHERE CLASSIFIED SNOMED Code(s): 068752398 (3) Right knee pain Current Visit: Yes Status: Acute Code(s): M25.561 - PAIN IN RIGHT KNEE SNOMED Code(s): 68077086 Plan: The clinical findings are discussed the patient. It is recommended she have aspiration of the right knee. Procedure: The lateral aspect of the knee is prepped with ChloraPrep. The areas anesthetized with lidocaine 2%. An 18-gauge needle is used to puncture the lateral aspect of the knee joint. Approximately 30 mL of sam blood was obtained. The patient tolerated the aspiration well. It is recommended that the patient follow up with her surgeon, Dr. Sanon. She may bear weight as tolerated with walker or cane.
[2019-08-29 11:54] LABS: Glucose,Whole Blood 89 mg/dL (75-99)
[2019-08-29 16:40] LABS: Glucose,Whole Blood 91 mg/dL (75-99)
[2019-08-29] MEDS ORDERED: WARFARIN 0.5 MG TAB PO ONE (18:00)
[2019-08-29 20:03] VITALS: RESP 16
[2019-08-29] MEDS ORDERED: MIRTAZAPINE 45 MG TABLET PO SCH (21:00)
[2019-08-29] MEDS ORDERED: ATORVASTATIN 10 MG TAB PO SCH (21:00)
[2019-08-29 21:23] LABS: Glucose,Whole Blood 126 mg/dL (75-99)
--- NOTE | 2019-08-29 23:36 | P.HPIM ---
History of Present Illness H&P Date: 08/29/19 Chief Complaint: R knee pain Angeline Lee is a 78 yo F with hx A fib, DVT, who presents with R knee pain and inability to bear weight since last night. Pt was admitted last month with a RLE DVT and hemarthrosis and at that time had arthrocentesis and her coumadin dose was adjusted up. Pt states that she was in her usual state of health yesterday morning, did a lot of walking and then later in the day her knee began to hurt. Pt's knee pain increased after she got home so she called EMS. In the ED her INR was noted to be 7.6 so she was given 10 mg vitamin K then admitted for further management. Review of Systems All systems: negative Constitutional: Denies chills, Denies fever Eyes: denies blurred vision, denies pain Ears, nose, mouth and throat: Denies headache, Denies sore throat Cardiovascular: Denies chest pain, Denies shortness of breath Respiratory: Denies cough Gastrointestinal: Denies abdominal pain, Denies diarrhea, Denies nausea, Denies vomiting Genitourinary: Denies dysuria, Denies hematuria Musculoskeletal: Reports as per HPI, Denies myalgias Musculoskeletal: right: knee pain, knee stiffness, knee swelling Integumentary: Denies pruritus, Denies rash Neurological: Denies numbness, Denies weakness Psychiatric: Denies anxiety, Denies depression Endocrine: Denies fatigue, Denies weight change Past Medical History Past Medical History: Atrial Fibrillation, Atrial Flutter, Coronary Artery Disease (CAD), Heart Failure, Diabetes Mellitus, GERD/Reflux, GI Bleed, Hyperlipidemia, Hypertension, Osteoarthritis (OA), Pneumonia, Thyroid Disorder Additional Past Medical History / Comment(s): Pt recently admitted to [facility] on 07/30/19 with DVT R lower extremity/hemarthrosis R knee-ruptured Bowman's cyst. Other hx: AFib/flutter with past RVR, MVP, cardiomyopathy, NIDDM type II, gastric ulcer, lower GI bleed, generalized arthritis, spinal stenosis, chronic low back pain with occasional bilateral sciatica, past migraines, bronchitis, hypothyroid, anemia years ago, UTI History of Any Multi-Drug Resistant Organisms: None Reported Past Surgical History: Cholecystectomy, Hysterectomy, Joint Replacement, Orthopedic Surgery Additional Past Surgical History / Comment(s): Bilateral total knee replacement, bilateral shoulder rotator cuff repairs, L cataract removal, EGDs and colonoscopy with gastric ulcer cauterized, cardioversions/TEEs, rt hand surgery- bone removed and tendon placed, left foot surgery d/t fracture, epidural back injections. Past Anesthesia/Blood Transfusion Reactions: Motion Sickness, Postoperative Nausea & Vomiting (PONV) Additional Past Anesthesia/Blood Transfusion Reaction / Comment(s): Pt received blood in 2007 with gastric bleed without reaction. Past Psychological History: Anxiety Additional Psychological History / Comment(s): Normally, pt resides alone in a house. She is currently in [facility] for rehab. She has walkers and scooters at home that she uses prn. She drives. Smoking Status: Never smoker Past Alcohol Use History: Occasional Additional Past Alcohol Use History / Comment(s): Drinks one drink at night time Past Drug Use History: None Reported - Past Family History Father Family Medical History: No Reported History Additional Family Medical History / Comment(s): Father was healthy and lived to be 80yrs old. Mother Family Medical History: No Reported History Additional Family Medical History / Comment(s): Mother was healthy and lived to be 80 yrs old-she had one kidney. Medications and Allergies Home Medications Medication Instructions Recorded Confirmed Type Simvastatin [Zocor] 20 mg PO HS 01/09/18 08/28/19 History metFORMIN HCL ER [Glucophage Xr] 500 mg PO DAILY 01/09/18 08/28/19 History Carvedilol [Coreg] 6.25 mg PO BID 07/26/19 08/28/19 History Esomeprazole Magnesium [NexIUM] 40 mg PO DAILY 07/26/19 08/28/19 History Furosemide [Lasix] 20 mg PO DAILY PRN 07/26/19 08/28/19 History Mirtazapine [Remeron] 45 mg PO HS 07/26/19 08/28/19 History Amiodarone [Cordarone] 200 mg PO DAILY 08/28/19 08/28/19 History DULoxetine HCL [Cymbalta] 30 mg PO HS 08/28/19 08/28/19 History Gabapentin 600 mg PO BID 08/28/19 08/28/19 History HYDROcodone/APAP 7.5-325MG [[place] 1 tab PO BID PRN 08/28/19 08/28/19 History 7.5-325] Levothyroxine Sodium [Synthroid] 125 mcg PO DAILY 08/28/19 08/28/19 History Warfarin [Coumadin] 2 mg PO HS 08/28/19 08/28/19 History Allergies Allergy/AdvReac Type Severity Reaction Status Date / Time No Known Allergies Allergy Verified 08/28/19 21:50 Physical Exam Vitals: Vital Signs Temp Pulse Resp BP Pulse Ox 08/29/19 23:15 64 16 119/53 96 08/29/19 19:48 98.9 F 61 16 158/67 95 08/29/19 16:00 97.9 F 66 18 177/76 99 08/29/19 11:59 98 F 63 18 135/60 98 08/29/19 07:53 97.4 F L 60 18 113/56 97 08/29/19 05:30 97.7 F 70 16 130/58 99 Intake and Output 08/29/19 08/29/19 08/30/19 14:59 22:59 06:59 Intake Total 120 Balance 120 Intake: Oral 120 Other: # Voids 1 General: well nourished, well developed, NAD. Vitals reviewed Eyes: PERRL, EOMI, conjunctiva normal HENT: normocephalic, mucus membranes moist Neck: supple, no JVD Lungs: normal respiratory effort, no wheezes or rales CV: Regular rate and rhythm, no murmur. Peripheral pulses 2+ Abdomen: soft, nondistended, no organomegaly MSK: R knee tender, effusion present. R distal calf nontender. 1+ edema R>L Lymph: no cervical or axillary LAD Skin: warm and dry. Results CBC & Chem 7: 08/28/19 18:57 08/28/19 19:50 Labs: Abnormal Lab Results - Last 24 Hours (Table) 08/29/19 08/29/19 08/29/19 Range/Units 06:07 06:22 21:13 PT 35.0 H (9.0-12.0) sec INR 3.6 H (<1.2) POC Glucose (mg/dL) 107 H 126 H (75-99) mg/dL Thrombosis Risk Factor Assmnt - Choose All That Apply Any of the Below Risk Factors Present?: Yes Each Factor Represents 1 point: Obesity (BMI >25) Each Risk Factor Represents 3 Points: History of DVT/PE Thrombosis Risk Factor Assessment Total Risk Factor Score: 4 Thrombosis Risk Factor Assessment Level: Moderate Risk Assessment and Plan (1) Supratherapeutic INR Current Visit: Yes Status: Acute Code(s): R79.1 - ABNORMAL COAGULATION PROFILE SNOMED Code(s): 009714471 (2) Coagulopathy Current Visit: Yes Status: Acute Code(s): D68.9 - COAGULATION DEFECT, UNSPECIFIED SNOMED Code(s): 87581780 (3) Inability to ambulate due to knee Current Visit: Yes Status: Acute Code(s): R26.2 - DIFFICULTY IN WALKING, NOT ELSEWHERE CLASSIFIED SNOMED Code(s): 639152568 (4) Chronic a-fib Current Visit: No Status: Acute Code(s): I48.2 - CHRONIC ATRIAL FIBRILLATION SNOMED Code(s): 831212156 (5) Diastolic CHF, chronic Current Visit: No Status: Acute Code(s): I50.32 - CHRONIC DIASTOLIC (CONGESTIVE) HEART FAILURE SNOMED Code(s): 381797697 (6) Right leg DVT Current Visit: No Status: Acute Priority: High Code(s): I82.401 - ACUTE EMBOLISM AND THOMBOS UNSP DEEP VEINS OF R LOW EXTREM SNOMED Code(s): 787096189 Plan: 1. Supratherapeutic INR. Reversed with vit K. Pharmacy to dose while inpatient. Reduce coumadin dose on discharge 2. Hemarthrosis. Ortho consulted, pt for arthocentesis today 3. Chronic atrial fibrillation. Continue coreg, amiodarone 4. Chronic diastolic CHF. Continue lasix 5. Hypothyroidism. continue synthroid DVT prophylaxis coumadin
[2019-08-30 06:17] LABS: Glucose,Whole Blood 100 mg/dL (75-99)
[2019-08-30 06:49] LABS: INR 1.3 (<1.2); Prothrombin Time 13.5 sec (9.0-12.0)
[2019-08-30] MEDS: LEVOTHYROXINE 125 MCG TAB PO SCH (06:53)
[2019-08-30] MEDS: CARVEDILOL 6.25 MG TAB PO SCH (06:53)
[2019-08-30] MEDS: metFORMIN 500 MG TAB PO SCH (08:59)
[2019-08-30] MEDS: AMIODARONE 200 MG TAB PO SCH (08:59)
[2019-08-30] MEDS: GABAPENTIN 300 MG CAP PO SCH (09:00)
[2019-08-30] MEDS ORDERED: PANTOPRAZOLE 40 MG TABLET PO SCH (09:00)
--- NOTE | 2019-08-30 09:01 | P.PN ---
Subjective Progress Note Date: 08/30/19 This is a 78-year-old female who we are following regarding her right knee. Approximately 30 mL of blood was aspirated off the knee yesterday. The patient states that her knee pain is improved. She has no new complaints or concerns today. Objective - Vital Signs Vital signs: Vital Signs Temp 98.1 F 08/30/19 05:35 Pulse 63 08/30/19 05:35 Resp 16 08/30/19 05:35 BP 176/70 08/30/19 05:35 Pulse Ox 95 08/30/19 05:35 Intake & Output 08/29/19 08/30/19 08/30/19 18:59 06:59 18:59 Intake Total 120 Balance 120 Intake: Oral 120 Other: # Voids 1 - Exam This is a pleasant 78-year-old female in no acute distress. She is alert and oriented 3. Exam of the right knee reveals no erythema or ecchymosis. She continues to have some swelling but is improved today. She has improved range of motion of the knee. She has full foot and ankle motion without difficulty or pain. Neurovascular status to the lower extremity is intact. - Labs CBC & Chem 7: 08/28/19 18:57 08/28/19 19:50 Labs: Abnormal Lab Results - Last 24 Hours (Table) 08/29/19 08/30/19 08/30/19 Range/Units 21:13 05:49 06:04 PT 13.5 H (9.0-12.0) sec INR 1.3 H (<1.2) POC Glucose (mg/dL) 126 H 100 H (75-99) mg/dL Assessment and Plan (1) Coagulopathy Current Visit: Yes Status: Acute Code(s): D68.9 - COAGULATION DEFECT, UNSPECIFIED SNOMED Code(s): 55185583 (2) Inability to ambulate due to knee Current Visit: Yes Status: Acute Code(s): R26.2 - DIFFICULTY IN WALKING, NOT ELSEWHERE CLASSIFIED SNOMED Code(s): 785585130 (3) Right knee pain Current Visit: Yes Status: Acute Code(s): M25.561 - PAIN IN RIGHT KNEE SNOMED Code(s): 74815242 Plan: The clinical findings are discussed the patient. It is recommended that the patient follow up with her surgeon, Dr. Sanon. She may bear weight as tolerated with walker or cane. She may be discharged from an orthopedic standpoint.
[2019-08-30 10:24] VITALS: BP 177/76; PULSE 65; TEMP 98
--- NOTE | 2019-08-30 12:03 | P.DS ---
Providers Date of admission: 08/28/19 22:15 Expected date of discharge: 08/30/19 Attending physician: Champ Barrios MD Consults: 08/28/19 22:21 Consult Physician Stat Consulting Provider: Fredis Torres Consult Reason/Comments: Knee pain, inability to ambulate, hemarthortis, popliteal cyst Do you want consulting provider notified?: Yes, Notify in am Primary care physician: Radha Braxton [facility] Course: Final Diagnoses: (1) Supratherapeutic INR Current Visit: Yes Status: Acute Code(s): R79.1 - ABNORMAL COAGULATION PROFILE SNOMED Code(s): 639234488 (2) Coagulopathy Current Visit: Yes Status: Acute Code(s): D68.9 - COAGULATION DEFECT, UNSPECIFIED SNOMED Code(s): 28240250 (3) Inability to ambulate due to knee Current Visit: Yes Status: Acute Code(s): R26.2 - DIFFICULTY IN WALKING, NOT ELSEWHERE CLASSIFIED SNOMED Code(s): 925134321 (4) Chronic a-fib Current Visit: No Status: Acute Code(s): I48.2 - CHRONIC ATRIAL FIBRILLATION SNOMED Code(s): 457034592 (5) Diastolic CHF, chronic Current Visit: No Status: Acute Code(s): I50.32 - CHRONIC DIASTOLIC (CONGESTIVE) HEART FAILURE SNOMED Code(s): 066579396 (6) Right leg DVT Current Visit: No Status: Acute Priority: High Code(s): I82.401 - ACUTE EMBOLISM AND THOMBOS UNSP DEEP VEINS OF R LOW EXTREM SNOMED Code(s): 610331240 (7) Hemarthrosis status post arthrocentesis Hospital course:Angeline Lee is a 78 yo F with hx A fib, DVT, who presents with R knee pain and inability to bear weight since last night. Pt was admitted last month with a RLE DVT and hemarthrosis and at that time had arthrocentesis and her coumadin dose was adjusted up. Pt states that she was in her usual state of health yesterday morning, did a lot of walking and then later in the day her knee began to hurt. Pt's knee pain increased after she got home so she called EMS. In the ED her INR was noted to be 7.6 so she was given 10 mg vitamin K then admitted for further management. Evaluated by a orthopedic surgery, 30 mL supplied aspirated off right knee. Tolerated procedure well. Coumadin dose decreased discharge ;1 mg daily with 2 mg on Monday and , recheck PT/INR on 09/03/2019. Significant clinical improvement. Cleared by orthopedics for discharge. Patient is being discharged home in a stable condition with guarded prognosis. EXAM:General: Alert and oriented 3, NAD. Lungs: normal respiratory effort, no wheezes or rales CV: Regular rate and rhythm, no murmur. Peripheral pulses 2+ Abdomen: soft, nondistended, no organomegaly MSK: R knee tender, no erythema, edema improving.R distal calf nontender. The impression and plan of care has been dictated as directed. : I performed a history and examination of this patient, discussed the same with the dictator. I agree with the dictator's note ,documented as a scribe. Any additional findings or plans will be noted. Patient Condition at Discharge: Stable Plan - Discharge Summary New Discharge Prescriptions: New Ibuprofen [Motrin] 400 mg PO Q6HR PRN #12 tab PRN Reason: Mild Pain Or Fever > 100.5 HYDROcodone/APAP 10-325MG [[place] 10-325] 1 tab PO Q6H PRN #8 tab PRN Reason: Pain Continue metFORMIN HCL ER [Glucophage Xr] 500 mg PO DAILY Simvastatin [Zocor] 20 mg PO HS Mirtazapine [Remeron] 45 mg PO HS Carvedilol [Coreg] 6.25 mg PO BID Furosemide [Lasix] 20 mg PO DAILY PRN PRN Reason: Edema Esomeprazole Magnesium [NexIUM] 40 mg PO DAILY Levothyroxine Sodium [Synthroid] 125 mcg PO DAILY DULoxetine HCL [Cymbalta] 30 mg PO HS Gabapentin 600 mg PO BID Amiodarone [Cordarone] 200 mg PO DAILY HYDROcodone/APAP 7.5-325MG [[place] 7.5-325] 1 tab PO BID PRN #0 PRN Reason: Pain Changed Warfarin [Coumadin] 1 mg PO DAILY #32 tab Discharge Medication List Simvastatin [Zocor] 20 mg PO HS 01/09/18 [History] metFORMIN HCL ER [Glucophage Xr] 500 mg PO DAILY 01/09/18 [History] Carvedilol [Coreg] 6.25 mg PO BID 07/26/19 [History] Esomeprazole Magnesium [NexIUM] 40 mg PO DAILY 07/26/19 [History] Furosemide [Lasix] 20 mg PO DAILY PRN 07/26/19 [History] Mirtazapine [Remeron] 45 mg PO HS 07/26/19 [History] Amiodarone [Cordarone] 200 mg PO DAILY 08/28/19 [History] DULoxetine HCL [Cymbalta] 30 mg PO HS 08/28/19 [History] Gabapentin 600 mg PO BID 08/28/19 [History] Levothyroxine Sodium [Synthroid] 125 mcg PO DAILY 08/28/19 [History] HYDROcodone/APAP 10-325MG [[place] 10-325] 1 tab PO Q6H PRN #8 tab 08/30/19 [Rx] HYDROcodone/APAP 7.5-325MG [[place] 7.5-325] 1 tab PO BID PRN #0 08/30/19 [Rx] Ibuprofen [Motrin] 400 mg PO Q6HR PRN #12 tab 08/30/19 [Rx] Warfarin [Coumadin] 1 mg PO DAILY #32 tab 08/30/19 [Rx] Follow up Appointment(s)/Referral(s): Alfredo Sanon MD [REFERRING] - 09/03/19 3:15 pm (Monday) Radha Braxton DO [Primary Care Provider] - 09/05/19 10:30 am () Ambulatory/Diagnostic Orders: Prothrombin Time INR [LAB.AMB] Time Frame: 09/03/19, Location: None Selected Activity/Diet/Wound Care/Special Instructions: May bear weight as tolerated with walker or cane. Patient is advised to follow-up with Dr. Sanon for reevaluation of her right knee. Discharge Disposition: HOME SELF-CARE
[2019-08-30] MEDS ORDERED: WARFARIN 2 MG TAB PO ONE (18:00)
== END 2019-08-30 11:11 | disposition home or self-care (01) ==
LOC: EC 18:28 → 3SCARD 22:15
PROVIDERS: ADMIT Family Medicine; ATTEND Family Medicine
DX: M25.061 Hemarthrosis, right knee (principal); M71.20 Synovial cyst of popliteal space [Baker], unspecified knee; R79.1 Abnormal coagulation profile; I82.401 Acute embolism and thrombosis of unspecified deep veins of right lower extremity; I48.20 Chronic atrial fibrillation, unspecified; I11.0 Hypertensive heart disease with heart failure; I50.32 Chronic diastolic (congestive) heart failure; K21.9 Gastro-esophageal reflux disease without esophagitis; I25.10 Atherosclerotic heart disease of native coronary artery without angina pectoris; E78.5 Hyperlipidemia, unspecified; I42.9 Cardiomyopathy, unspecified; E03.9 Hypothyroidism, unspecified; E11.9 Type 2 diabetes mellitus without complications; I48.92 Unspecified atrial flutter; I34.1 Nonrheumatic mitral (valve) prolapse; M48.00 Spinal stenosis, site unspecified; G43.909 Migraine, unspecified, not intractable, without status migrainosus; D64.9 Anemia, unspecified; G89.29 Other chronic pain; M54.42 Lumbago with sciatica, left side; M54.41 Lumbago with sciatica, right side; M15.9 Polyosteoarthritis, unspecified; E66.9 Obesity, unspecified; Z68.31 Body mass index [BMI] 31.0-31.9, adult; R26.2 Difficulty in walking, not elsewhere classified; F41.9 Anxiety disorder, unspecified; Z79.84 Long term (current) use of oral hypoglycemic drugs; Z79.890 Hormone replacement therapy; Z79.891 Long term (current) use of opiate analgesic; Z79.01 Long term (current) use of anticoagulants; Z79.899 Other long term (current) drug therapy; Z96.653 Presence of artificial knee joint, bilateral; Z90.49 Acquired absence of other specified parts of digestive tract; Z90.710 Acquired absence of both cervix and uterus; Z98.42 Cataract extraction status, left eye; Z87.11 Personal history of peptic ulcer disease; Z87.81 Personal history of (healed) traumatic fracture; Z87.440 Personal history of urinary (tract) infections; Z87.19 Personal history of other diseases of the digestive system; Z87.01 Personal history of pneumonia (recurrent)
CPT/HCPCS: 20610; 96376 ×2; 96375 ×2; 96374; 99285; 36415; 97162; 97165; 80048; 85025; 85610 ×3; 85730; 73562; 93971; G0378 ×2; J2270; J1885 ×2; J1170 ×2; C9113

== ENCOUNTER 2020-12-25 07:11 | Day surgery (SDC) | payer MEDICARE ==
[2020-12-23 14:34] VITALS: BMI 29.6
[~2020-12-25 07:11] MED LIST changes: -HEPARIN SODIUM,PORCINE 5,000 UNIT/ML 1 ML VIAL SQ ONE; -HYDROmorphone 0.5 MG/0.5 ML SYRINGE IVP PRN; -ONDANSETRON 4 MG/2 ML VIAL IVP PRN; -fentaNYL (PF) 50 MCG/ML 2 ML AMP IV PRN
[2020-12-25] MEDS ORDERED: LIDOCAINE 1% (10MG/ML) FOR IV START INTRADERMA ONE (07:52)
[2020-12-25 07:54] LABS: Glucose,Whole Blood 95 mg/dL (75-99)
[2020-12-25 07:56] VITALS: TEMP 97.1
[2020-12-25] MEDS ORDERED: PROPOFOL 10 MG/ML 20 ML VIAL IV ONE (08:17)
[2020-12-25] MEDS ORDERED: LIDOCAINE 1% INJ 10MG/ML (20 ML MDV) ONE (08:17)
--- NOTE | 2020-12-25 08:25 | P.GSHP ---
History of Present Illness H&P Date: 12/25/20 Chief Complaint: GERD, history of gastric ulcer This 80-year-old female who presents today for EGD. She's had issues with GERD. He also has a previous history of gastric ulcer. Past Medical History Past Medical History: Atrial Fibrillation, Atrial Flutter, Coronary Artery Disease (CAD), Heart Failure, Diabetes Mellitus, GERD/Reflux, GI Bleed, Hyperlipidemia, Hypertension, Osteoarthritis (OA), Pneumonia, Thyroid Disorder Additional Past Medical History / Comment(s): Pt recently admitted to [facility] on 07/30/19 with DVT R lower extremity/hemarthrosis R knee-ruptured Bowman's cyst. Other hx: AFib/flutter with past RVR, MVP, cardiomyopathy, NIDDM type II, gastric ulcer, lower GI bleed, generalized arthritis, spinal stenosis, chronic low back pain with occasional bilateral sciatica, past migraines, bronchitis, hypothyroid, anemia years ago, ABD. PAIN, CRAMPING History of Any Multi-Drug Resistant Organisms: None Reported Past Surgical History: Cholecystectomy, Hysterectomy, Joint Replacement, Orthopedic Surgery Additional Past Surgical History / Comment(s): Bilateral total knee replacement, bilateral shoulder rotator cuff repairs, L cataract removal, EGDs and colonoscopy with gastric ulcer cauterized, cardioversions/TEEs, rt hand surgery- bone removed and tendon placed, left foot surgery d/t fracture, epidural back injections. Past Anesthesia/Blood Transfusion Reactions: Motion Sickness, Postoperative Nausea & Vomiting (PONV) Additional Past Anesthesia/Blood Transfusion Reaction / Comment(s): Pt received blood in 2007 with gastric bleed without reaction. Smoking Status: Never smoker - Past Family History Father Family Medical History: No Reported History Additional Family Medical History / Comment(s): Father was healthy and lived to be 80yrs old. Mother Family Medical History: No Reported History Additional Family Medical History / Comment(s): Mother was healthy and lived to be 80 yrs old-she had one kidney. Medications and Allergies Home Medications Medication Instructions Recorded Confirmed Type Simvastatin [Zocor] 20 mg PO HS 01/09/18 12/25/20 History metFORMIN HCL ER [Glucophage Xr] 500 mg PO BID 01/09/18 12/25/20 History Esomeprazole Magnesium [NexIUM] 40 mg PO DAILY 07/26/19 12/25/20 History Furosemide [Lasix] 20 mg PO DAILY PRN 07/26/19 12/25/20 History carvediloL [Coreg] 6.25 mg PO BID 07/26/19 12/25/20 History Amiodarone [Cordarone] 200 mg PO DAILY 08/28/19 12/25/20 History DULoxetine HCL [Cymbalta] 30 mg PO HS 08/28/19 12/25/20 History Warfarin [Coumadin] 1 mg PO DAILY #32 tab 08/30/19 12/25/20 Rx ARIPiprazole [Abilify] 20 mg PO DAILY 12/23/20 12/25/20 History Atorvastatin [Lipitor] 20 mg PO DAILY 12/23/20 12/25/20 History Cyclobenzaprine [Flexeril] 5 mg PO QAM 12/23/20 12/25/20 History Cyclobenzaprine [Flexeril] 10 mg PO HS 12/23/20 12/25/20 History Dicyclomine [Bentyl] 10 mg PO TID 12/23/20 12/25/20 History Gabapentin [Neurontin] 300 mg PO BID 12/23/20 12/25/20 History Levothyroxine Sodium [Levoxyl] 25 mcg PO DAILY 12/23/20 12/25/20 History Losartan [Cozaar] 25 mg PO DAILY 12/23/20 12/25/20 History Mirtazapine [Remeron] 30 mg PO HS 12/23/20 12/25/20 History Potassium Chloride [K-Tab ER] 20 meq PO DAILY 12/23/20 12/25/20 History Sucralfate [Carafate] 1 gm PO BID 12/23/20 12/25/20 History ondansetron HCL [Zofran] 8 mg PO Q8HR PRN 12/23/20 12/25/20 History oxyCODONE-APAP 10-325MG [Percocet 1 tab PO Q6HR PRN 12/23/20 12/25/20 History 10-325 mg] oxyCODONE-APAP 7.5-325MG [Percocet 1 tab PO Q6HR PRN 12/23/20 12/25/20 History 7.5-325 mg] Allergies Allergy/AdvReac Type Severity Reaction Status Date / Time No Known Allergies Allergy Verified 12/25/20 07:39 Surgical - Exam Vital Signs Temp Pulse Resp BP Pulse Ox 97.1 F L 82 18 185/84 93 L 12/25/20 07:54 12/25/20 07:54 12/25/20 07:54 12/25/20 07:54 12/25/20 07:54 - General well developed, well nourished, no distress - Eyes PERRL - ENT normal pinna - Neck no masses - Respiratory normal expansion - Cardiovascular Rhythm: regular - Abdomen Abdomen: soft, non tender Assessment and Plan Assessment: GERD, history of gastric ulcer. We'll perform EGD.
[2020-12-25 08:36] VITALS: PULSE 74
--- NOTE | 2020-12-25 08:41 | P.OP ---
Date of Procedure: 12/25/20 Preoperative Diagnosis: Peptic ulcer disease Postoperative Diagnosis: Antral inflammation biopsy pending Procedure(s) Performed: EGD Anesthesia: MAC Surgeon: Rogers Tejeda Pathology: other (Antral Biopsy) Condition: stable Disposition: PACU Description of Procedure: The patient's placed on the endoscopy table in the lateral position. She received IV sedation. The gastroscope placed oropharynx and passed in the esophagus into the stomach. Scope was then placed through the pylorus. The first and second portion of the duodenum appeared normal. Scope was then brought back the antrum and at the level of the pylorus there is inflammation. A biopsies performed. Scope was unretroflexed and remainder of the stomach appeared normal. There was a small sliding hiatal hernia. The GE junction was at 38 and is. The distal esophagus appeared inflamed. The proximal esophagus appeared normal. The scope was withdrawn for patient.
[2020-12-25 08:50] VITALS: BP 144/62; RESP 18
== END 2020-12-25 09:49 | disposition home or self-care (01) ==
LOC: ORWHC2ENDO 07:11
PROVIDERS: ATTEND Surgery
DX: K29.50 Unspecified chronic gastritis without bleeding (principal); K44.9 Diaphragmatic hernia without obstruction or gangrene; K21.9 Gastro-esophageal reflux disease without esophagitis; Z87.11 Personal history of peptic ulcer disease; I48.91 Unspecified atrial fibrillation; I48.92 Unspecified atrial flutter; I25.10 Atherosclerotic heart disease of native coronary artery without angina pectoris; I11.0 Hypertensive heart disease with heart failure; I50.9 Heart failure, unspecified; I42.9 Cardiomyopathy, unspecified; E11.9 Type 2 diabetes mellitus without complications; E78.5 Hyperlipidemia, unspecified; M17.11 Unilateral primary osteoarthritis, right knee; Z87.01 Personal history of pneumonia (recurrent); E03.9 Hypothyroidism, unspecified; Z86.718 Personal history of other venous thrombosis and embolism; G89.29 Other chronic pain; M54.5 Low back pain; M54.32 Sciatica, left side; M54.31 Sciatica, right side; G43.909 Migraine, unspecified, not intractable, without status migrainosus; Z90.49 Acquired absence of other specified parts of digestive tract; Z90.710 Acquired absence of both cervix and uterus; Z96.653 Presence of artificial knee joint, bilateral; Z98.42 Cataract extraction status, left eye; Z98.890 Other specified postprocedural states; Z87.81 Personal history of (healed) traumatic fracture; Z79.01 Long term (current) use of anticoagulants; Z79.84 Long term (current) use of oral hypoglycemic drugs; Z79.890 Hormone replacement therapy; Z79.891 Long term (current) use of opiate analgesic; Z79.899 Other long term (current) drug therapy
CPT/HCPCS: 43239; J2001; J2704; 88305; 88342

== ENCOUNTER → 2021-07-21 | Outpatient (CLI) | payer MEDICARE ==
[2021-07-22 06:19] LABS: African American GFR (CKD) 69.5 (60.0-200.0); Anion Gap 12.1 mmol/L (4.00-12.00); BUN/Creat Ratio 21.11 Ratio (12.00-20.00); Calcium 9.6 mg/dL (8.7-10.3); Carbon Dioxide 23.9 mmol/L (21.6-31.8); Potassium 4.2 mmol/L (3.5-5.5)
== END | disposition home or self-care (01) ==
LOC: LABWHC1 11:17
PROVIDERS: ATTEND Internal Medicine Clinical Cardiac Electrophysiology
DX: I10 Essential (primary) hypertension (principal)
CPT/HCPCS: 36415; 80048

== ENCOUNTER 2021-08-26 17:28 | Inpatient (IN) | payer MEDICARE ==
[2021-08-26] MEDS ORDERED: ACETAMINOPHEN TAB 500 MG TAB PO STA (17:48)
[2021-08-26] MEDS ORDERED: HYDROmorphone 0.5 MG/0.5 ML SYRINGE IVP STA (18:03)
[2021-08-26 18:37] LABS: Basophils % (A) 0 %; Eosinophils # (A) 0.1 k/uL (0-0.7); Eosinophils % (A) 1 %; HCT 29.3 % (34.0-46.0); HGB 10.2 gm/dL (11.4-16.0); Lymphocytes # (A) 3.6 k/uL (1.0-4.8); Lymphocytes % (A) 31 %; MCH 32.1 pg (25.0-35.0); MCHC 34.6 g/dL (31.0-37.0); MCV 92.8 fL (80.0-100.0); Mean Platelet Volume 7.8; Monocytes # (A) 0.9 k/uL (0-1.0); Monocytes % (A) 8 %; Neutrophils # (A) 6.5 k/uL (1.3-7.7); Neutrophils % (A) 57 %; Platelet Count 346 k/uL (150-450); RBC 3.16 m/uL (3.80-5.40); RDW 13.1 % (11.5-15.5); WBC 11.4 k/uL (3.8-10.6)
[2021-08-26 18:48] LABS: Calcium 8.8 mg/dL (8.4-10.2); Potassium 5.5 mmol/L (3.5-5.1)
[2021-08-26] MEDS ORDERED: FUROSEMIDE 10 MG/ML 2 ML VIAL IV ONE (19:52)
[2021-08-26] MEDS ORDERED: NALOXONE 0.4 MG/ML 1 ML VIAL IV PRN (19:54)
[2021-08-26] MEDS ORDERED: INSULIN REGULAR 100 UNIT/ML VIAL (IV) IV ONE (19:56)
[2021-08-26] MEDS ORDERED: FUROSEMIDE 20 MG TAB PO PRN (19:57)
[2021-08-26] MEDS ORDERED: DEXTROSE 50% SYRINGE 50 ML IVP STA (19:57)
--- NOTE | 2021-08-26 20:01 | ED ---
General Adult HPI - General Chief complaint: Extremity Injury, Lower Stated complaint: hip pain Time Seen by Provider: 08/26/21 17:46 Source: patient, EMS Mode of arrival: EMS Limitations: physical limitation - History of Present Illness Initial comments: The patient was evaluated when she was placed in a room.Patient is a 80-year-old female with past medical history remarkable for atrial fibrillation, atrial flutter on Coumadin, CAD, heart failure, diabetes, hypertension, thyroid disease who presents emergency Department complaining of acute on chronic right hip pain. She states she did not following experienced this worsening right hip pain beginning on Monday. His progressively gotten worse over the last few days. She is normally on Percocet at home, however states it is not improving it. She is difficulty moving her right hip. She denies any trauma, fall. She states that over the last day does gotten particularly worse, where she is not able to ambulate well, even with her normal Walker. She does live at home and has minimal help at home getting around, and therefore comes emergency department for evaluation. She is due for an MRI on the right hip next month, however due to her worsening acute symptoms, she wants to be evaluated. Denies any numbness, weakness in the right lower extremity. Denies any rashes or skin changes. Denies any new onset back pain, saddle anesthesias, difficulty with urination or bowel movements. She has no other acute complaint at this time. She states she did not fall and did not hit her head. She is compliant with all medications. She denies any fevers, chills, sick contacts. - Related Data Home Medications Medication Instructions Recorded Confirmed Simvastatin [Zocor] 20 mg PO HS 01/09/18 12/25/20 metFORMIN HCL ER [Glucophage XR] 500 mg PO BID 01/09/18 12/25/20 Esomeprazole Magnesium [NexIUM] 40 mg PO DAILY 07/26/19 12/25/20 Furosemide [Lasix] 20 mg PO DAILY PRN 07/26/19 12/25/20 carvediloL [Coreg] 6.25 mg PO BID 07/26/19 12/25/20 Amiodarone [Cordarone] 200 mg PO DAILY 08/28/19 12/25/20 DULoxetine HCL [Cymbalta] 30 mg PO HS 08/28/19 12/25/20 ARIPiprazole [Abilify] 20 mg PO DAILY 12/23/20 12/25/20 Atorvastatin [Lipitor] 20 mg PO DAILY 12/23/20 12/25/20 Cyclobenzaprine [Flexeril] 5 mg PO QAM 12/23/20 12/25/20 Cyclobenzaprine [Flexeril] 10 mg PO HS 12/23/20 12/25/20 Dicyclomine [Bentyl] 10 mg PO TID 12/23/20 12/25/20 Gabapentin [Neurontin] 300 mg PO BID 12/23/20 12/25/20 Levothyroxine Sodium [Levoxyl] 25 mcg PO DAILY 12/23/20 12/25/20 Losartan [Cozaar] 25 mg PO DAILY 12/23/20 12/25/20 Mirtazapine [Remeron] 30 mg PO HS 12/23/20 12/25/20 Potassium Chloride [K-Tab ER] 20 meq PO DAILY 12/23/20 12/25/20 Sucralfate [Carafate] 1 gm PO BID 12/23/20 12/25/20 ondansetron HCL [Zofran] 8 mg PO Q8HR PRN 12/23/20 12/25/20 oxyCODONE-APAP 10-325MG [Percocet 1 tab PO Q6HR PRN 12/23/20 12/25/20 10-325 mg] oxyCODONE-APAP 7.5-325MG [Percocet 1 tab PO Q6HR PRN 12/23/20 12/25/20 7.5-325 mg] Previous Rx's Medication Instructions Recorded Warfarin [Coumadin] 1 mg PO DAILY #32 tab 08/30/19 Allergies Allergy/AdvReac Type Severity Reaction Status Date / Time No Known Allergies Allergy Verified 08/26/21 20:49 Review of Systems ROS Statement: Those systems with pertinent positive or pertinent negative responses have been documented in the HPI. Review of Systems: CONST: Denies fever EYES: Denies blurry vision ENT: Denies nasal congestion C/V: Denies Chest pain RESP: Denies shortness of breath GI: Denies abdominal pain : Denies dysuria SKIN: Denies rash. MSK: Acute on chronic right hip pain. NEURO: Denies headache ROS Other: All systems not noted in ROS Statement are negative. Past Medical History Past Medical History: Atrial Fibrillation, Atrial Flutter, Coronary Artery Disease (CAD), Heart Failure, Diabetes Mellitus, GERD/Reflux, GI Bleed, Hyperlipidemia, Hypertension, Osteoarthritis (OA), Pneumonia, Thyroid Disorder Additional Past Medical History / Comment(s): Pt recently admitted to [facility] on 07/30/19 with DVT R lower extremity/hemarthrosis R knee-ruptured Bowman's cyst. Other hx: AFib/flutter with past RVR, MVP, cardiomyopathy, NIDDM type II, gas tric ulcer, lower GI bleed, generalized arthritis, spinal stenosis, chronic low back pain with occasional bilateral sciatica, past migraines, bronchitis, hypothyroid, anemia years ago, ABD. PAIN, CRAMPING History of Any Multi-Drug Resistant Organisms: None Reported Past Surgical History: Cholecystectomy, Hysterectomy, Joint Replacement, Orthopedic Surgery Additional Past Surgical History / Comment(s): Bilateral total knee replacement, bilateral shoulder rotator cuff repairs, L cataract removal, EGDs and colonoscopy with gastric ulcer cauterized, cardioversions/TEEs, rt hand surgery- bone removed and tendon placed, left foot surgery d/t fracture, epidural back injections. Past Anesthesia/Blood Transfusion Reactions: Motion Sickness, Postoperative Nausea & Vomiting (PONV) Additional Past Anesthesia/Blood Transfusion Reaction / Comment(s): Pt received blood in 2007 with gastric bleed without reaction. Past Psychological History: No Psychological Hx Reported Smoking Status: Never smoker Past Alcohol Use History: None Reported Past Drug Use History: None Reported - Past Family History Father Family Medical History: No Reported History Additional Family Medical History / Comment(s): Father was healthy and lived to be 80yrs old. Mother Family Medical History: No Reported History Additional Family Medical History / Comment(s): Mother was healthy and lived to be 80 yrs old-she had one kidney. General Exam - General Exam Comments Initial Comments: General: Appears in mild to moderate distress secondary to right hip pain. HEAD: Normal with no signs of head trauma. EYES: PERRLA, EOMI, conjunctiva normal, no discharge. ENT: Hearing grossly intact, normal oropharynx. RESPIRATORY: Clear breath sounds bilaterally. No wheezes, rales, or rhonchi. C/V: Regular rate and rhythm. S1 and S2 auscultated, no edema, peripheral pulses 2+ and intact throughout ABD: Abd is soft, nontender, nondistended EXT: Patient is tender to palpation over the right lateral femoral head as well as the right lateral pelvis. Tenderness seems to focus on the hip, which is worse with flexion and extension of the hip. There is no shortening. No obvious deformity. She has intact sensation distal to the hip as well as intact 2+ pulses in the right lower extremity. She is able to flex and extend the knee without difficulty, however it is difficult secondary to pain in the right hip. I did not attempt to ambulate the patient secondary to her pain. Baseline is ambulation via wheelchair or walker. No overlying skin changes to the right hip. Pelvis is otherwise stable. No midline cervical, thoracic, lumbar spine tenderness to palpation. SKIN: No rashes or lesions observed on exposed skin. NEURO: Alert and oriented 4. No focal sensory deficits. Strength in right hip is decreased secondary to acute on chronic pain, causing difficulty with am bulation. Baseline ambulation is with assistance via walker or wheelchair. Limitations: physical limitation Course Vital Signs 08/26/21 08/26/21 17:35 21:02 Temperature 97.8 F 98 F Pulse Rate 78 80 Respiratory 18 20 Rate Blood Pressure 147/73 144/70 O2 Sat by Pulse 96 97 Oximetry Medical Decision Making - Medical Decision Making Based on the patient's presentation and physical exam, I believe she will likely require admission for orthopedic evaluation secondary to acute on chronic right hip pain. There was no trauma involved. She is no other acute complaint at this time. Therefore basic labs will be obtained, we will obtain an x-ray of the pelvis and hip. She'll be given Dilaudid for pain management. She was in agreement this plan. Laboratory studies were remarkable for a mild leukocytosis of 11.4 which is likely reactive. Patient is a normocytic anemia with a hemoglobin of 10.2. Patient is mildly hyponatremic to 132. Patient is hyperkalemic to 5.5. EKG was obtained to assess for acute changes secondary to hyperkalemia, and it showed no peaked T waves, intervals are within normal limits, and it appears to be in normal sinus rhythm without any changes. On reevaluation, patient still complaining of right hip pain. She was started on additional Dilaudid at this time. The patient's hyperkalemia without EKG changes, we will administer a dose of Lasix as well as IV insulin and D50 amp. She was in agreement this plan. Patient's pelvis x-ray with right hip revealed osteoarthritis. I spoke with the admitting physician, Dr. Barrios, who was in agreement with the plan. He'll consult orthopedic surgery for evaluation the patient tomorrow as well as place an MRI the right hip for the patient. Consult was placed to Dr. Garzon per patient's request. Patient was therefore admitted to the hospital in stable condition. She is admitted to observation. - Lab Data Result diagrams: 08/26/21 18:21 08/26/21 18:21 Lab Results 08/26/21 08/26/21 Range/Units 18:21 18:21 WBC 11.4 H (3.8-10.6) k/uL RBC 3.16 L (3.80-5.40) m/uL Hgb 10.2 L (11.4-16.0) gm/dL Hct 29.3 L (34.0-46.0) % MCV 92.8 (80.0-100.0) fL MCH 32.1 (25.0-35.0) pg MCHC 34.6 (31.0-37.0) g/dL RDW 13.1 (11.5-15.5) % Plt Count 346 (150-450) k/uL MPV 7.8 Neutrophils % 57 % Lymphocytes % 31 % Monocytes % 8 % Eosinophils % 1 % Basophils % 0 % Neutrophils # 6.5 (1.3-7.7) k/uL Lymphocytes # 3.6 (1.0-4.8) k/uL Monocytes # 0.9 (0-1.0) k/uL Eosinophils # 0.1 (0-0.7) k/uL Basophils # 0.0 (0-0.2) k/uL Sodium 132 L (137-145) mmol/L Potassium 5.5 H (3.5-5.1) mmol/L Chloride 99 (98-107) mmol/L Carbon Dioxide 24 (22-30) mmol/L Anion Gap 9 mmol/L BUN 36 H (7-17) mg/dL Creatinine 0.90 (0.52-1.04) mg/dL Est GFR (CKD-EPI)AfAm 70 (>60 ml/min/1.73 sqM) Est GFR (CKD-EPI)NonAf 60 (>60 ml/min/1.73 sqM) Glucose 127 H (74-99) mg/dL Calcium 8.8 (8.4-10.2) mg/dL - EKG Data -: EKG Interpreted by Me EKG Comments: 12-lead Electrocardiogram Interpretation Note EKG was reviewed and interpreted by myself. 12-lead ECG performed at 1934 is int erpreted by me as revealing normal sinus rhythm at a rate of 71 beats per minute. Hitchcock is normal. ND interval is 190 ms, QRS duration is 86 ms, QTc is 449 ms.. There were no ST or T wave abnormalities to suggest myocardial ischemia or injury. R wave progression across the precordium was satisfactory. By my interpretation this EKG is non-diagnostic for acute ischemia. No changes suggestive of hyperkalemia. Disposition Clinical Impression: Acute right hip pain, Chronic right hip pain, Difficulty in walking, Hyperkalemia, History of atrial fibrillation, Osteoarthritis Disposition: ADMITTED IP TO THIS HOSP Condition: Fair
--- NOTE | 2021-08-26 20:59 | XR ---
EXAMINATION TYPE: XR Hip RT and AP Pelvis DATE OF EXAM: 08/26/2021 COMPARISON: NONE HISTORY: Hip pain TECHNIQUE: 3 views FINDINGS: Pelvic ring appears intact. There is hypertrophic acetabular spurring bilaterally and worse on the right side. There is mild sclerosis in the right femoral head. Sacroiliac joints are intact. There is no evidence of a fracture. There are some cystic changes in the right femoral head. IMPRESSION: No fractures seen. Osteoarthritis in the right hip joint.
[2021-08-26] MEDS: HYDROmorphone 0.5 MG/0.5 ML SYRINGE IVP PRN (22:33)
[2021-08-26] MEDS: MIRTAZAPINE 15 MG TAB PO SCH (22:33)
[2021-08-26] MEDS: DULoxetine HCL 30 MG CAPSULE.DR PO SCH (22:34)
[2021-08-26] MEDS: GABAPENTIN 300 MG CAP PO SCH (22:34)
[2021-08-26] MEDS: carvediloL 6.25 MG TAB PO SCH (22:37)
[2021-08-26] MEDS: metFORMIN 500 MG TAB PO SCH (22:38)
[2021-08-27] MEDS: HYDROmorphone 0.5 MG/0.5 ML SYRINGE IVP PRN ×3 (01:32→09:26)
[2021-08-27] MEDS: LEVOTHYROXINE 25 MCG TAB PO SCH (05:18)
[2021-08-27 06:13] LABS: INR 2.7 (<1.2); Prothrombin Time 25.8 sec (9.0-12.0)
[2021-08-27 07:16] LABS: Glucose,Whole Blood 175 mg/dL (75-99)
[2021-08-27] MEDS ORDERED: HYDROcodone/APAP 10-325MG 1 EACH TAB PO PRN (08:07)
[2021-08-27] MEDS: metFORMIN 500 MG TAB PO SCH ×2 (08:29→17:16)
[2021-08-27] MEDS: ATORVASTATIN 20 MG TAB PO SCH (08:29)
[2021-08-27] MEDS: PANTOPRAZOLE 40 MG TABLET PO SCH (08:29)
[2021-08-27] MEDS: GABAPENTIN 300 MG CAP PO SCH ×2 (08:29→21:25)
[2021-08-27] MEDS: LOSARTAN 25 MG TAB PO SCH (08:29)
[2021-08-27] MEDS: carvediloL 6.25 MG TAB PO SCH ×2 (08:29→17:16)
[2021-08-27] MEDS: AMIODARONE 200 MG TAB PO SCH (08:29)
[2021-08-27] MEDS ORDERED: methylPREDNISolone SOD SUCCI 125 MG/2 ML VIAL IV STA (08:32)
[2021-08-27 08:45] LABS: African American GFR (CKD) 68 (>60 ml/min/1.73 sqM); Anion Gap 8 mmol/L; Blood Urea Nitrogen 32 mg/dL (7-17); Calcium 8.9 mg/dL (8.4-10.2); Carbon Dioxide 26 mmol/L (22-30); Chloride 100 mmol/L (98-107); Glucose 142 mg/dL (74-99); Magnesium 1.9 mg/dL (1.6-2.3); Non-African American GFR(CKD) 59 (>60 ml/min/1.73 sqM); Potassium 4.4 mmol/L (3.5-5.1); Sodium 134 mmol/L (137-145)
--- NOTE | 2021-08-27 08:45 | P.CNOR ---
History of Present Illness - [facility] Consult date: 08/27/21 Consult reason: joint pain (Right lateral hip and buttock pain), low back pain History of present illness: This is an 80-year-old female with history of atrial fibrillation and on anticoagulation therapy who presented to the emergency department with acute on chronic right hip pain. She describes her pain is beginning in the right buttock radiating down the posterior lateral aspect of her thigh down to the emile f. She denies a numbness or tingling. She denies any recent history of trauma or fall. She states that she did have a ruptured blood vessel in the left leg a few years back which caused bruising all the way down her left side. She does currently have a bruise to the right buttock and lateral thigh and is unsure as to how it happened. She has positive that she has not had a fall recently. She is on chronic pain medication at home. She takes Percocet which has not been helping with her current pain. She is admitted to internal medicine and we're consulted for orthopedic evaluation for possible hip fracture. I spoke with Dr. Barrios who informed me that he did try a piriformis injection in the office this week which provided no relief. Past Medical History Past Medical History: Atrial Fibrillation, Atrial Flutter, Coronary Artery Disease (CAD), Heart Failure, Diabetes Mellitus, GERD/Reflux, GI Bleed, Hyperlipidemia, Hypertension, Osteoarthritis (OA), Pneumonia, Thyroid Disorder Additional Past Medical History / Comment(s): Pt recently admitted to [facility] on 07/30/19 with DVT R lower extremity/hemarthrosis R knee-ruptured Bowman's cyst. Other hx: AFib/flutter with past RVR, MVP, cardiomyopathy, NIDDM type II, gastric ulcer, lower GI bleed, generalized arthritis, spinal stenosis, chronic low back pain with occasional bilateral sciatica, past migraines, bronchitis, hypothyroid, anemia years ago, ABD. PAIN, CRAMPING History of Any Multi-Drug Resistant Organisms: None Reported Past Surgical History: Cholecystectomy, Hysterectomy, Joint Replacement, Orthopedic Surgery Additional Past Surgical History / Comment(s): Bilateral total knee replacement, bilateral shoulder rotator cuff repairs, L cataract removal, EGDs and colonoscopy with gastric ulcer cauterized, cardioversions/TEEs, rt hand surgery- bone removed and tendon placed, left foot surgery d/t fracture, epidural back injections. Past Anesthesia/Blood Transfusion Reactions: Motion Sickness, Postoperative Nausea & Vomiting (PONV) Additional Past Anesthesia/Blood Transfusion Reaction / Comm: Pt received blood in 2007 with gastric bleed without reaction. Past Psychological History: No Psychological Hx Reported Additional Psychological History / Comment(s): Normally, pt resides alone in a house; uses a walker for mobility and drives. Smoking Status: Never smoker Past Alcohol Use History: None Reported Past Drug Use History: None Reported - Past Family History Father Family Medical History: No Reported History Additional Family Medical History / Comment(s): Father was healthy and lived to be 80yrs old. Mother Family Medical History: No Reported History Additional Family Medical History / Comment(s): Mother was healthy and lived to be 80 yrs old-she had one kidney. Medications and Allergies Home Medications Medication Instructions Recorded Confirmed Type Esomeprazole Magnesium [NexIUM] 40 mg PO DAILY 07/26/19 08/26/21 History carvediloL [Coreg] 6.25 mg PO BID 07/26/19 08/26/21 History Amiodarone [Cordarone] 200 mg PO DAILY 08/28/19 08/26/21 History ARIPiprazole [Abilify] 20 mg PO HS 12/23/20 08/26/21 History Atorvastatin [Lipitor] 20 mg PO DAILY 12/23/20 08/26/21 History Cyclobenzaprine [Flexeril] 5 mg PO DAILY 12/23/20 08/26/21 History Cyclobenzaprine [Flexeril] 10 mg PO HS 12/23/20 08/26/21 History Dicyclomine [Bentyl] 10 mg PO TID 12/23/20 08/26/21 History Gabapentin [Neurontin] 300 mg PO HS 12/23/20 08/26/21 History Losartan [Cozaar] 25 mg PO DAILY 12/23/20 08/26/21 History Mirtazapine [Remeron] 30 mg PO HS 12/23/20 08/26/21 History Sucralfate [Carafate] 1 gm PO TID 12/23/20 08/26/21 History oxyCODONE-APAP 10-325MG [Percocet 1 tab PO QID PRN 12/23/20 08/26/21 History 10-325 mg] DULoxetine HCL [Cymbalta] 60 mg PO HS 08/26/21 08/26/21 History Diclofenac Sodium Gel [Voltaren 2 gm TOPICAL BID PRN 08/26/21 08/26/21 History Gel] Latanoprost/Pf [Latanoprost 0.005% 1 drop BOTH EYES HS 08/26/21 08/26/21 History Eye Drop] Levothyroxine Sodium [Synthroid] 100 mcg PO DAILY 08/26/21 08/26/21 History Liothyronine Sodium 25 mcg PO DAILY 08/26/21 08/26/21 History Warfarin [Coumadin] 1 mg PO MOTUWETH 08/26/21 08/26/21 History Warfarin [Coumadin] 1 mg PO SUFRSA 08/26/21 08/26/21 History amLODIPine BESYLATE 5 mg PO DAILY 08/26/21 08/26/21 History metFORMIN HCL 500 mg PO BID 08/26/21 08/26/21 History Allergies Allergy/AdvReac Type Severity Reaction Status Date / Time No Known Allergies Allergy Verified 08/26/21 20:49 Physical Examination This is an 80-year-old female in no acute distress. She is alert and oriented 3. She appears uncomfortable secondary to pain. Exam of the head and neck reveals no obvious deformity. She has full cervical spine motion without difficulty or pain. Exam of the thoracic and lumbar spine reveal no deformity. She has minimal tenderness to palpation about the lower lumbar spine. Exam of the lower extremities reveals a large area of ecchymosis about the lateral right hip which is significantly tender. She has tenderness about the posterior buttock and posterior thigh. She has no groin or anterior thigh pain. Logroll is painful in the posterior buttock and thigh. Logroll does not produce pain in the groin or anterior thigh. The patient is unable to lift her leg off the bed independently secondary to lower lobe back and buttock pain. There is no rotational deformity or shortening noted to the legs. Neurovascular status to the lower extremities is intact. Results X-rays of the pelvis and right hip reveal moderate to severe arthritis to the right hip. No acute fracture identified. - Labs Labs: Abnormal Lab Results - Last 24 Hours (Table) 08/26/21 08/26/21 08/27/21 Range/Units 18:21 18:21 05:47 WBC 11.4 H (3.8-10.6) k/uL RBC 3.16 L (3.80-5.40) m/uL Hgb 10.2 L (11.4-16.0) gm/dL Hct 29.3 L (34.0-46.0) % PT 25.8 H (9.0-12.0) sec INR 2.7 H (<1.2) Sodium 132 L (137-145) mmol/L Potassium 5.5 H (3.5-5.1) mmol/L BUN 36 H (7-17) mg/dL Glucose 127 H (74-99) mg/dL POC Glucose (mg/dL) (75-99) mg/dL 08/27/21 Range/Units 06:57 WBC (3.8-10.6) k/uL RBC (3.80-5.40) m/uL Hgb (11.4-16.0) gm/dL Hct (34.0-46.0) % PT (9.0-12.0) sec INR (<1.2) Sodium (137-145) mmol/L Potassium (3.5-5.1) mmol/L BUN (7-17) mg/dL Glucose (74-99) mg/dL POC Glucose (mg/dL) 175 H (75-99) mg/dL H & H 08/26/21 Range/Units 18:21 Hgb 10.2 L (11.4-16.0) gm/dL Hct 29.3 L (34.0-46.0) % Coagulation 08/27/21 Range/Units 05:47 INR 2.7 H (<1.2) Result Diagrams: 08/26/21 18:21 08/26/21 18:21 Assessment and Plan (1) Lumbar back pain with radiculopathy affecting right lower extremity Current Visit: Yes Status: Acute Code(s): M54.16 - RADICULOPATHY, LUMBAR REGION SNOMED Code(s): 273408761 (2) Sciatica, right side Current Visit: Yes Status: Acute Code(s): M54.31 - SCIATICA, RIGHT SIDE SNOMED Code(s): 21376132 (3) Acute right hip pain Current Visit: Yes Status: Acute Code(s): M25.551 - PAIN IN RIGHT HIP SNOMED Code(s): 27607105 (4) History of atrial fibrillation Current Visit: Yes Status: Acute Code(s): Z86.79 - PERSONAL HISTORY OF OTHER DISEASES OF THE CIRCULATORY SYSTEM SNOMED Code(s): 810725651 (5) Osteoarthritis Current Visit: Yes Status: Acute Code(s): M19.90 - UNSPECIFIED OSTEOARTHR ITIS, UNSPECIFIED SITE SNOMED Code(s): 021057673 (6) Contusion of right hip and thigh Current Visit: Yes Status: Acute Code(s): S70.01XA - CONTUSION OF RIGHT HIP, INITIAL ENCOUNTER; S70.11XA - CONTUSION OF RIGHT THIGH, INITIAL ENCOUNTER SNOMED Code(s): 469611372 Plan: The clinical and neck findings are discussed with the patient and with her primary care physician, Dr. Barrios. Her history and exam are more consistent with a lumbar radiculopathy. She does not seem to be having much trouble in the groin or anterior thigh. She does have significant arthritis to the right hip but her current symptoms seem to be more consistent with low back issues. Dr. Barrios has ordered a dose of site Medrol. I will contact pain management for evaluation. I have ordered lumbar x-rays. She may follow-up with our spine s ervice as an outpatient as necessary.
--- NOTE | 2021-08-27 09:40 | XR ---
Lumbar spine HISTORY: Sciatica 3 views of the lumbar spine correlated to prior exam 08/14/2017 Findings are similar. Bone mineralization is reduced. Lumbar vertebral body shows stable height and a lignment. There is multilevel spondylosis. Loss of disc height is present at the intervertebral level s, anterolisthesis grade 1 L4-5 again noted. Vacuum phenomenon present at L5-S1, possibly L3-4, L2-3. Slight spinal curvature is again seen. Sclerosis is present in the posterior elements of the lower l umbar spine. Abdomen chronic calcification is present in the aortoiliac distribution. IMPRESSION: Degenerative disc disease, low bone mineralization, spinal curvature, facet arthropathy a nd additional findings above
[2021-08-27 11:41] LABS: Glucose,Whole Blood 172 mg/dL (75-99)
[2021-08-27] MEDS: INSULIN ASPART (NovoLOG) 100 UNIT/ML VIAL SQ SCH ×3 (11:54→21:25)
--- NOTE | 2021-08-27 12:15 | P.CONS ---
History of Present Illness - Reason for Consult Consult date: 08/27/21 - History of Present Illness This is an 80-year-old lady with history of chronic back pain with radiation to the right lower extremity down to the right calf. The patient is on Coumadin for history of DVT . she denies any trauma or any history of falls recently. She denies any bowel or bladder dysfunction. She states that she cannot even move her legs due to her pain. By physical exam she is alert oriented 3 in moderate distress due to her pain. The patient has bruising on the lateral aspect of the right thigh. Any movement in the leg with increase her pain. The patient had an x-ray on the right hip which showed arthritis but did not show any fractures The patient has been on Coumadin and last time she uses it was about 2 days ago. Plan: The patient may benefit from an epidural steroid injection for her right lumbar radiculopathy however given her severe pain with any movement in her right leg and would like to rule out the femur head fracture by doing a computed tomography scan on the right hip and femur head. The patient cannot have injections at this time due to her recent treatment with Coumadin. I agree with The treatment plan of the primary care physician for oral Depo- Medrol. Continue with Holden 5 mg every 4-6 hours when necessary pain I thank you for the consultation. Past Medical History Past Medical History: Atrial Fibrillation, Atrial Flutter, Coronary Artery Disease (CAD), Heart Failure, Diabetes Mellitus, GERD/Reflux, GI Bleed, Hyperl ipidemia, Hypertension, Osteoarthritis (OA), Pneumonia, Thyroid Disorder Additional Past Medical History / Comment(s): Pt recently admitted to [facility] on 07/30/19 with DVT R lower extremity/hemarthrosis R knee-ruptured Bowman's cyst. Other hx: AFib/flutter with past RVR, MVP, cardiomyopathy, NIDDM type II, gastric ulcer, lower GI bleed, generalized arthritis, spinal stenosis, chronic low back pain with occasional bilateral sciatica, past migraines, bronchitis, hypothyroid, anemia years ago, ABD. PAIN, CRAMPING History of Any Multi-Drug Resistant Organisms: None Reported Past Surgical History: Cholecystectomy, Hysterectomy, Joint Replacement, Orthopedic Surgery Additional Past Surgical History / Comment(s): Bilateral total knee replacement, bilateral shoulder rotator cuff repairs, L cataract removal, EGDs and colonoscopy with gastric ulcer cauterized, cardioversions/TEEs, rt hand surgery- bone removed and tendon placed, left foot surgery d/t fracture, epidural back injections. Past Anesthesia/Blood Transfusion Reactions: Motion Sickness, Postoperative Nausea & Vomiting (PONV) Additional Past Anesthesia/Blood Transfusion Reaction / Comm: Pt received blood in 2007 with gastric bleed without reaction. Past Psychological History: No Psychological Hx Reported Additional Psychological History / Comment(s): Normally, pt resides alone in a house; uses a walker for mobility and drives. Smoking Status: Never smoker Past Alcohol Use History: None Reported Past Drug Use History: None Reported - Past Family History Father Family Medical History: No Reported History Additional Family Medical History / Comment(s): Father was healthy and lived to be 80yrs old. Mother Family Medical History: No Reported History Additional Family Medical History / Comment(s): Mother was healthy and lived to be 80 yrs old-she had one kidney. Medications and Allergies Home Medications Medication Instructions Recorded Confirmed Type Esomeprazole Magnesium [NexIUM] 40 mg PO DAILY 07/26/19 08/26/21 History carvediloL [Coreg] 6.25 mg PO BID 07/26/19 08/26/21 History Amiodarone [Cordarone] 200 mg PO DAILY 08/28/19 08/26/21 History ARIPiprazole [Abilify] 20 mg PO HS 12/23/20 08/26/21 History Atorvastatin [Lipitor] 20 mg PO DAILY 12/23/20 08/26/21 History Cyclobenzaprine [Flexeril] 5 mg PO DAILY 12/23/20 08/26/21 History Cyclobenzaprine [Flexeril] 10 mg PO HS 12/23/20 08/26/21 History Dicyclomine [Bentyl] 10 mg PO TID 12/23/20 08/26/21 History Gabapentin [Neurontin] 300 mg PO HS 12/23/20 08/26/21 History Losartan [Cozaar] 25 mg PO DAILY 12/23/20 08/26/21 History Mirtazapine [Remeron] 30 mg PO HS 12/23/20 08/26/21 History Sucralfate [Carafate] 1 gm PO TID 12/23/20 08/26/21 History oxyCODONE-APAP 10-325MG [Percocet 1 tab PO QID PRN 12/23/20 08/26/21 History 10-325 mg] DULoxetine HCL [Cymbalta] 60 mg PO HS 08/26/21 08/26/21 History Diclofenac Sodium Gel [Voltaren 2 gm TOPICAL BID PRN 08/26/21 08/26/21 History Gel] Latanoprost/Pf [Latanoprost 0.005% 1 drop BOTH EYES HS 08/26/21 08/26/21 History Eye Drop] Levothyroxine Sodium [Synthroid] 100 mcg PO DAILY 08/26/21 08/26/21 History Liothyronine Sodium 25 mcg PO DAILY 08/26/21 08/26/21 History Warfarin [Coumadin] 1 mg PO MOTUWETH 08/26/21 08/26/21 History Warfarin [Coumadin] 1 mg PO SUFRSA 08/26/21 08/26/21 History amLODIPine BESYLATE 5 mg PO DAILY 08/26/21 08/26/21 History metFORMIN HCL 500 mg PO BID 08/26/21 08/26/21 History Allergies Allergy/AdvReac Type Severity Reaction Status Date / Time No Known Allergies Allergy Verified 08/26/21 20:49 Physical Exam Vitals: Vital Signs Temp Pulse Pulse Pulse Resp BP BP 08/27/21 07:41 97.5 F L 76 16 165/62 08/27/21 02:00 97.7 F 77 17 148/73 08/26/21 22:06 97.8 F 86 17 150/72 08/26/21 21:02 98 F 80 20 144/70 08/26/21 17:35 97.8 F 78 18 147/73 Pulse Ox 08/27/21 07:41 96 08/27/21 02:00 94 L 08/26/21 22:06 96 08/26/21 21:02 97 08/26/21 17:35 96 Intake and Output 08/26/21 08/27/21 08/27/21 22:59 06:59 14:59 Other: # Voids 4 Weight 90.718 kg Results CBC & Chem 7: 08/26/21 18:21 08/27/21 05:47 Labs: Abnormal Lab Results - Last 24 Hours (Table) 08/26/21 08/26/21 08/27/21 Range/Units 18:21 18:21 05:47 WBC 11.4 H (3.8-10.6) k/uL RBC 3.16 L (3.80-5.40) m/uL Hgb 10.2 L (11.4-16.0) gm/dL Hct 29.3 L (34.0-46.0) % PT (9.0-12.0) sec INR (<1.2) Sodium 132 L 134 L (137-145) mmol/L Potassium 5.5 H (3.5-5.1) mmol/L BUN 36 H 32 H (7-17) mg/dL Glucose 127 H 142 H (74-99) mg/dL POC Glucose (mg/dL) (75-99) mg/dL 08/27/21 08/27/21 08/27/21 Range/Units 05:47 06:57 11:38 WBC (3.8-10.6) k/uL RBC (3.80-5.40) m/uL Hgb (11.4-16.0) gm/dL Hct (34.0-46.0) % PT 25.8 H (9.0-12.0) sec INR 2.7 H (<1.2) Sodium (137-145) mmol/L Potassium (3.5-5.1) mmol/L BUN (7-17) mg/dL Glucose (74-99) mg/dL POC Glucose (mg/dL) 175 H 172 H (75-99) mg/dL
[2021-08-27] MEDS: oxyCODONE-APAP 10-325MG 1 EACH TAB PO PRN ×2 (14:58→22:44)
[2021-08-27 17:06] LABS: Glucose,Whole Blood 202 mg/dL (75-99)
[2021-08-27] MEDS: methylPREDNISolone SOD SUCCI 40 MG/ML 1 ML VIAL IV SCH (17:16)
[2021-08-27] MEDS: WARFARIN 1 MG TAB PO SCH (17:23)
[2021-08-27 21:07] LABS: Glucose,Whole Blood 195 mg/dL (75-99)
[2021-08-27] MEDS: DULoxetine HCL 30 MG CAPSULE.DR PO SCH (21:24)
[2021-08-27] MEDS: MIRTAZAPINE 15 MG TAB PO SCH (21:25)
[2021-08-28] MEDS: methylPREDNISolone SOD SUCCI 40 MG/ML 1 ML VIAL IV SCH ×4 (00:14→23:37)
--- NOTE | 2021-08-28 00:32 | P.HPIM ---
History of Present Illness H&P Date: 08/27/21 Chief Complaint: R hip pain Angeline Lee is an 80 yo F with PMH of arthritis, A fib on coumadin, CAD who presented to the ED complaining of severe and worsened R hip pain. She complains that this has been present for almost a month but it has been getting progressivley worse. She saw her PCP and was initially recommended stretches and trigger point injection for piriformis syndrome but no improvement. She complains of radiation from the groin into mid leg. On presentation vitals and labs stable, hip XR with OA, no acute fracture. Review of Systems All systems: negative Constitutional: Denies chills, Denies fever Eyes: denies blurred vision, denies pain Ears, nose, mouth and throat: Denies headache, Denies sore throat Cardiovascular: Denies chest pain, Denies shortness of breath Respiratory: Denies cough Gastrointestinal: Denies abdominal pain, Denies diarrhea, Denies nausea, Denies vomiting Genitourinary: Denies dysuria, Denies hematuria Musculoskeletal: Reports as per HPI, Reports gait dysfunction, Reports low back pain, Reports shooting leg pain, Denies myalgias Integumentary: Denies pruritus, Denies rash Neurological: Denies numbness, Denies weakness Psychiatric: Denies anxiety, Denies depression Endocrine: Denies fatigue, Denies weight change Past Medical History Past Medical History: Atrial Fibrillation, Atrial Flutter, Coronary Artery Disease (CAD), Heart Failure, Diabetes Mellitus, GERD/Reflux, GI Bleed, Hyperlipidemia, Hypertension, Osteoarthritis (OA), Pneumonia, Thyroid Disorder Additional Past Medical History / Comment(s): Pt recently admitted to [facility] on 07/30/19 with DVT R lower extremity/hemarthrosis R knee-ruptured Bowman's cyst. Other hx: AFib/flutter with past RVR, MVP, cardiomyopathy, NIDDM type II, gastric ulcer, lower GI bleed, generalized arthritis, spinal stenosis, chronic low back pain with occasional bilateral sciatica, past migraines, bronchitis, hypothyroid, anemia years ago, ABD. PAIN, CRAMPING History of Any Multi-Drug Resistant Organisms: None Reported Past Surgical History: Cholecystectomy, Hysterectomy, Joint Replacement, Orthopedic Surgery Additional Past Surgical History / Comment(s): Bilateral total knee replacement, bilateral shoulder rotator cuff repairs, L cataract removal, EGDs and colonoscopy with gastric ulcer cauterized, cardioversions/TEEs, rt hand surgery- bone removed and tendon placed, left foot surgery d/t fracture, epidural back injections. Past Anesthesia/Blood Transfusion Reactions: Motion Sickness, Postoperative Nausea & Vomiting (PONV) Additional Past Anesthesia/Blood Transfusion Reaction / Comment(s): Pt received blood in 2007 with gastric bleed without reaction. Past Psychological History: No Psychological Hx Reported Additional Psychological History / Comment(s): Normally, pt resides alone in a house; uses a walker for mobility and drives. Smoking Status: Never smoker Past Alcohol Use History: None Reported Past Drug Use History: None Reported - Past Family History Father Family Medical History: No Reported History Additional Family Medical History / Comment(s): Father was healthy and lived to be 80yrs old. Mother Family Medical History: No Reported History Additional Family Medical History / Comment(s): Mother was healthy and lived to be 80 yrs old-she had one kidney. Medications and Allergies Home Medications Medication Instructions Recorded Confirmed Type Esomeprazole Magnesium [NexIUM] 40 mg PO DAILY 07/26/19 08/26/21 History carvediloL [Coreg] 6.25 mg PO BID 07/26/19 08/26/21 History Amiodarone [Cordarone] 200 mg PO DAILY 08/28/19 08/26/21 History ARIPiprazole [Abilify] 20 mg PO HS 12/23/20 08/26/21 History Atorvastatin [Lipitor] 20 mg PO DAILY 12/23/20 08/26/21 History Cyclobenzaprine [Flexeril] 5 mg PO DAILY 12/23/20 08/26/21 History Cyclobenzaprine [Flexeril] 10 mg PO HS 12/23/20 08/26/21 History Dicyclomine [Bentyl] 10 mg PO TID 12/23/20 08/26/21 History Gabapentin [Neurontin] 300 mg PO HS 12/23/20 08/26/21 History Losartan [Cozaar] 25 mg PO DAILY 12/23/20 08/26/21 History Mirtazapine [Remeron] 30 mg PO HS 12/23/20 08/26/21 History Sucralfate [Carafate] 1 gm PO TID 12/23/20 08/26/21 History oxyCODONE-APAP 10-325MG [Percocet 1 tab PO QID PRN 12/23/20 08/26/21 History 10-325 mg] DULoxetine HCL [Cymbalta] 60 mg PO HS 08/26/21 08/26/21 History Diclofenac Sodium Gel [Voltaren 2 gm TOPICAL BID PRN 08/26/21 08/26/21 History Gel] Latanoprost/Pf [Latanoprost 0.005% 1 drop BOTH EYES HS 08/26/21 08/26/21 History Eye Drop] Levothyroxine Sodium [Synthroid] 100 mcg PO DAILY 08/26/21 08/26/21 History Liothyronine Sodium 25 mcg PO DAILY 08/26/21 08/26/21 History Warfarin [Coumadin] 1 mg PO MOTUWETH 08/26/21 08/26/21 History Warfarin [Coumadin] 1 mg PO SUFRSA 08/26/21 08/26/21 History amLODIPine BESYLATE 5 mg PO DAILY 08/26/21 08/26/21 History metFORMIN HCL 500 mg PO BID 08/26/21 08/26/21 History Allergies Allergy/AdvReac Type Severity Reaction Status Date / Time No Known Allergies Allergy Verified 08/26/21 20:49 Physical Exam Vitals: Vital Signs Temp Pulse Pulse Resp BP Pulse Ox 08/27/21 20:00 98.4 F 81 17 170/71 96 08/27/21 14:00 98.5 F 71 18 151/73 93 L 08/27/21 07:41 97.5 F L 76 16 165/62 96 08/27/21 02:00 97.7 F 77 17 148/73 94 L Intake and Output 08/27/21 08/27/21 08/28/21 14:59 22:59 06:59 Other: # Voids 3 General: well nourished, well developed, NAD. Vitals reviewed Eyes: PERRL, EOMI, conjunctiva normal HENT: normocephalic, mucus membranes moist Neck: supple, no JVD Lungs: normal respiratory effort, no wheezes or rales CV: Regular rate and rhythm, no murmur. Peripheral pulses 2+ Abdomen: soft, nondistended, no organomegaly Lymph: no cervical or axillary LAD Skin: warm and dry. Neuro: A&Ox3, normal mood and affect Results CBC & Chem 7: 08/26/21 18:21 08/27/21 05:47 Labs: Abnormal Lab Results - Last 24 Hours (Table) 08/27/21 08/27/21 08/27/21 Range/Units 05:47 05:47 06:57 PT 25.8 H (9.0-12.0) sec INR 2.7 H (<1.2) Sodium 134 L (137-145) mmol/L BUN 32 H (7-17) mg/dL Glucose 142 H (74-99) mg/dL POC Glucose (mg/dL) 175 H (75-99) mg/dL 08/27/21 08/27/21 08/27/21 Range/Units 11:38 16:46 21:05 PT (9.0-12.0) sec INR (<1.2) Sodium (137-145) mmol/L BUN (7-17) mg/dL Glucose (74-99) mg/dL POC Glucose (mg/dL) 172 H 202 H 195 H (75-99) mg/dL Thrombosis Risk Factor Assmnt - Choose All That Apply Any of the Below Risk Factors Present?: Yes Each Factor Represents 1 point: Obesity (BMI >25) Other Risk Factors: Yes Each Risk Factor Represents 3 Points: Age 75 years or older, History of DVT/PE Thrombosis Risk Factor Assessment Total Risk Factor Score: 7 Thrombosis Risk Factor Assessment Level: High Risk Assessment and Plan Plan: 1. Chronic pain of R leg. Suspect sciatica. Ortho consulted. Start solumedrol. Oral pain control 2. A fib. Continue coreg, couamdin at this time 3. CAD. Continue lasix
[2021-08-28] MEDS: LEVOTHYROXINE 25 MCG TAB PO SCH (06:03)
[2021-08-28 07:08] LABS: INR 2.9 (<1.2); Prothrombin Time 27.9 sec (9.0-12.0)
[2021-08-28 07:10] LABS: Glucose,Whole Blood 186 mg/dL (75-99)
[2021-08-28] MEDS: oxyCODONE-APAP 10-325MG 1 EACH TAB PO PRN (07:44)
[2021-08-28] MEDS: LOSARTAN 25 MG TAB PO SCH (07:44)
[2021-08-28] MEDS: metFORMIN 500 MG TAB PO SCH ×2 (07:45→17:48)
[2021-08-28] MEDS: PANTOPRAZOLE 40 MG TABLET PO SCH (07:45)
[2021-08-28] MEDS: INSULIN ASPART (NovoLOG) 100 UNIT/ML VIAL SQ SCH ×4 (07:45→21:09)
[2021-08-28] MEDS: ATORVASTATIN 20 MG TAB PO SCH (07:45)
[2021-08-28] MEDS: carvediloL 6.25 MG TAB PO SCH ×2 (07:45→17:48)
[2021-08-28] MEDS: GABAPENTIN 300 MG CAP PO SCH ×2 (07:45→21:09)
[2021-08-28] MEDS: AMIODARONE 200 MG TAB PO SCH (07:45)
[2021-08-28 10:54] LABS: African American GFR (CKD) 75 (>60 ml/min/1.73 sqM); Anion Gap 9 mmol/L; Blood Urea Nitrogen 29 mg/dL (7-17); Calcium 9.1 mg/dL (8.4-10.2); Carbon Dioxide 27 mmol/L (22-30); Chloride 99 mmol/L (98-107); Glucose 156 mg/dL (74-99); Non-African American GFR(CKD) 65 (>60 ml/min/1.73 sqM); Potassium 4.4 mmol/L (3.5-5.1); Sodium 135 mmol/L (137-145)
[2021-08-28 11:36] LABS: Glucose,Whole Blood 156 mg/dL (75-99)
[2021-08-28 15:20] LABS: Glucose,Whole Blood 216 mg/dL (75-99)
--- NOTE | 2021-08-28 15:56 | PN ---
PROGRESS NOTE I am covering for Dr. Barrios. DATE OF SERVICE: 08/28/2019 This 80-year-old woman who was admitted with chronic pain in her right leg also had atrial fibrillation. The patient also had multiple electrolyte abnormalities. No chest pain. No palpitations. No fever. Pain Management has seen the patient, basically for right hip pain. X-rays did not show any acute abnormality. Epidural injection has been planned. Past medical history reviewed. REVIEW OF SYSTEMS: CARDIOVASCULAR: No angina, palpitations. RESPIRATORY SYSTEM: No cough, hemoptysis. GI: As mentioned earlier. : No dysuria. NERVOUS SYSTEM: No numbness, weakness. PHYSICAL EXAMINATION: Patient is alert and oriented x3. Pulse 77, blood pressure 107/65, respirations 17, temperature 97.9, pulse ox 93% on room air. HEENT: Conjunctivae normal. NECK: No jugular venous distention. CARDIOVASCULAR: S1, S2 muffled. RESPIRATION: Breath sounds diminished at the bases. ABDOMEN: Soft, nontender. NERVOUS SYSTEM: No focal deficit. LABS: Accu-Cheks noted. Sodium 135. INR 2.9. ASSESSMENT: 1. Right hip pain, possibly degenerative joint disease or sciatica with severe gait dysfunction. 2. Atrial fibrillation. 3. Coumadin monitoring. 4. History of coronary artery disease. 5. Hyponatremia, mild. 6. History of congestive heart failure. 7. Diabetes mellitus, type 2. 8. Gastrointestinal bleed. 9. Hypertension. 10.Hyperlipidemia. 11.History of degenerative joint disease. RECOMMENDATIONS AND DISCUSSION: I recommend to continue current medications, continue with symptomatic treatment. Pain management. Closely follow with Pain Management. Prognosis guarded. PT/OT evaluation. Further recommendations to follow. MMODL / IJN: [id number] /
--- NOTE | 2021-08-28 16:06 | CT ---
EXAMINATION TYPE: CT brain wo con DATE OF EXAM: 08/28/2021 COMPARISON: 01/09/2011 HISTORY: Confusion, difficulty with speech. CT DLP: 1106.8 mGycm Automated exposure control for dose reduction was used. Images obtained of the brain without contrast. There is cerebral cortical atrophy. There is no mass effect nor midline shift. There is no sign of in tracranial hemorrhage. There is some patchy hypodensity in the periventricular white matter. Calvariu m is intact. Skull base is intact. There is normal aeration of the mastoid sinuses. There is opacific ation right maxillary sinus. There is some bulging into the nasopharynx. IMPRESSION: Cerebral atrophy and chronic small vessel ischemia that has progressed compared to old exam. There is right maxillary sinusitis and possible mucocele. There is some wall thickening of the right maxillary sinus. There is progression compared to old exam.
[2021-08-28 16:35] LABS: Glucose,Whole Blood 242 mg/dL (75-99)
--- NOTE | 2021-08-28 16:40 | CT ---
EXAMINATION TYPE: CT angio head neck DATE OF EXAM: 08/28/2021 COMPARISON: None HISTORY: Confusion. CT DLP: mGycm Automated exposure control for dose reduction was used. CONTRAST: There are 3-D post processed images. Images obtained from the aortic arch to the vertex of the brain with IV contrast Isovue 65 mL. There is normal branching pattern of the great vessels on the aortic arch. There is bilateral arteria l flow in the subclavian arteries. There is arterial flow in the common internal and external carotid arteries bilaterally. There is bilateral plaque formation at the carotid artery bifurcations and est imated 40% stenosis of the proximal internal carotid arteries bilaterally. There is arterial flow in both vertebral arteries. There is no evidence of carotid or vertebral artery aneurysm or dissection. There is arterial flow in the anterior middle and posterior cerebral arteries. There is no mass effec t. There is no sign of intracranial aneurysm or neovascularity. There is no evidence of intracranial arterial stenosis. IMPRESSION: Negative CT angiogram of the brain. Mild atherosclerotic plaque at the carotid artery bifurcations and 40% stenosis of the proximal inter nal carotid arteries bilaterally.
[2021-08-28 20:36] LABS: Glucose,Whole Blood 146 mg/dL (75-99)
[2021-08-28] MEDS: WARFARIN 1 MG TAB PO SCH (21:09)
[2021-08-28] MEDS: MIRTAZAPINE 15 MG TAB PO SCH (21:09)
[2021-08-28] MEDS: DULoxetine HCL 30 MG CAPSULE.DR PO SCH (21:09)
[2021-08-29 03:17] LABS: Appearance,Urine Clear (Clear); Bilirubin,Urine Negative (Negative); Blood,Urine Negative (Negative); Color,Urine Yellow; Glucose,Urine (UA) Negative (Negative); Ketones,Urine Negative (Negative); Leukocyte Esterase,Urine Negative (Negative); Nitrite,Urine Negative (Negative); PH, Urine 5.5 (5.0-8.0); Protein,Urine Negative (Negative); Specific Gravity,Urine 1.042 (1.001-1.035); Urobilinogen,Urine <2.0 mg/dL (<2.0)
[2021-08-29] MEDS: LEVOTHYROXINE 25 MCG TAB PO SCH (05:41)
[2021-08-29 06:39] LABS: INR 3.7 (<1.2); Prothrombin Time 35.2 sec (9.0-12.0)
[2021-08-29 07:36] LABS: Glucose,Whole Blood 166 mg/dL (75-99)
--- NOTE | 2021-08-29 09:30 | US ---
EXAMINATION TYPE: US carotid duplex BILAT DATE OF EXAM: 08/29/2021 COMPARISON: MRI Brain, CT angio CLINICAL HISTORY: had code stroke on 08/28. mental confusion. EXAM MEASUREMENTS: RIGHT: Peak Systolic Velocity (PSV) cm/sec ----- Right CCA: 114.0 ----- Right ICA: 127.0 ----- Right ECA: 128.6 ICA/CCA ratio: 1.1 RIGHT: End Diastole cm/sec ----- Right CCA: 20.4 ----- Right ICA: 23.6 ----- Right ECA: 0.0 LEFT: Peak Systolic Velocity (PSV) cm/sec ----- Left CCA: 83.6 ----- Left ICA: 188.4 ----- Left ECA: 157.1 ICA/CCA ratio: 2.3 LEFT: End Diastole cm/sec ----- Left CCA: 15.0 ----- Left ICA: 46.3 ----- Left ECA: 0.0 VERTEBRALS (direction of flow): Right Vertebral: Antegrade Left Vertebral: Antegrade Rhythm: Normal Moderate, irregular and calcified wall plaque noted at bilateral carotid bifurcation with abnormally elevated PSV in Bilateral ICA and Bilateral ECA. Grayscale, color Doppler, spectral Doppler imaging performed of the carotid arteries. Waveform analys is shows elevated peak systolic velocity proximal internal carotid artery on the left, elevated ICA t o CCA ratio and end-diastolic velocity. IMPRESSION: Hemodynamic significant stenosis corresponding to 50-69% diameter reduction in the proxi mal internal carotid on the left by Doppler criteria an indirect measurement of carotid stenosis. Criteria for Assigning % of Stenosis / Diameter reduction (Estimation based on the indirect measurements of the internal carotid artery velocities (ICA PSV). 1. Normal (no stenosis)=ICA PSV < 125 cm/s: ratio < 2.0: ICA EDV<40 cm/s. 2. Less than 50% stenosis=ICA PSV < 125 cm/s: ratio < 2.0: ICA EDV<40 cm/s. 3. 50 to 69% stenosis=ICA PSV of 125 to 230 cm/s: ration 2.0 ? 4.0: ICA EDV 40-100 cm/s. 4. Greater than 70% stenosis to near occlusion= ICA PSV > 230 cm/s: ratio > 4.0: ICA EDV > 100 cm/s. 5. Near occlusion= ICA PSV velocities may be low or undetectable: variable ratio and ICA EDV. 6. Total occlusion=unable to detect flow.
[2021-08-29] MEDS: INSULIN ASPART (NovoLOG) 100 UNIT/ML VIAL SQ SCH ×4 (09:59→20:34)
[2021-08-29] MEDS: GABAPENTIN 300 MG CAP PO SCH ×2 (10:10→20:34)
[2021-08-29] MEDS: ATORVASTATIN 20 MG TAB PO SCH (10:10)
[2021-08-29] MEDS: LOSARTAN 25 MG TAB PO SCH (10:10)
[2021-08-29] MEDS: carvediloL 6.25 MG TAB PO SCH ×2 (10:10→17:04)
[2021-08-29] MEDS: methylPREDNISolone SOD SUCCI 40 MG/ML 1 ML VIAL IV SCH ×3 (10:10→23:38)
[2021-08-29] MEDS: metFORMIN 500 MG TAB PO SCH ×2 (10:10→17:04)
[2021-08-29] MEDS: AMIODARONE 200 MG TAB PO SCH (10:11)
[2021-08-29] MEDS: PANTOPRAZOLE 40 MG TABLET PO SCH (10:11)
[2021-08-29 11:28] LABS: Glucose,Whole Blood 161 mg/dL (75-99)
[2021-08-29] MEDS: ACETAMINOPHEN TAB 325 MG TAB PO PRN (12:57)
[2021-08-29 16:29] LABS: Glucose,Whole Blood 165 mg/dL (75-99)
[2021-08-29] MEDS ORDERED: WARFARIN 0.5 MG TAB PO ONE (18:00)
--- NOTE | 2021-08-29 18:07 | P.CNNES ---
History of Present Illness Consult date: 08/29/21 Reason for Consult: code stroke, garbled speech, word salad History of Present Illness: The patient is a pleasant 80-year-old female who is seen in neurologic consultation on August 29, 2021, via telemedicine. The patient was originally admitted to the hospital because of severe, uncontrolled right leg pain. She had been taking Percocet at home, without benefit. Upon admission, August 27, the patient was started on Solu- Medrol 40 mg every 8 hours. According to the patient's son, who is in the room at the time of the ev aluation, the patient's pain has been much improved since the steroid was started. In regards to the patient's neurological symptoms, she had sudden onset of confusion, rambling and incomprehensible speech, at approximately 3 PM yesterday. The family reports that it continues to be present today. Patient is usually very sharp. She has no difficulty with her speech or memory. The family does not know if the patient has ever had steroids in the past. In addition to her difficulty with speech, the patient also has a new onset tremor, per family. Yesterday after symptoms began, a code stroke was called. The patient had a stat CT scan of the brain and CT angiogram of the head and neck. The stroke interventionalists was contacted. CT scan and CT angiogram were negative. Urinalysis was checked is a possible cause for the patient's confusion. Urine is negative for infection. Solu-Medrol is the only new medication that has been started since the patient was admitted. Past Medical History Past Medical History: Atrial Fibrillation, Atrial Flutter, Coronary Artery Disease (CAD), Heart Failure, Diabetes Mellitus, GERD/Reflux, GI Bleed, Hyperlipidemia, Hypertension, Osteoarthritis (OA), Pneumonia, Thyroid Disorder Additional Past Medical History / Comment(s): Pt recently admitted to [facility] on 07/30/19 with DVT R lower extremity/hemarthrosis R knee-ruptured Bowman's cyst. Other hx: AFib/flutter with past RVR, MVP, cardiomyopathy, NIDDM type II, gastric ulcer, lower GI bleed, generalized arthritis, spinal stenosis, chronic low back pain with occasional bilateral sciatica, past migraines, bronchitis, hypothyroid, anemia years ago, ABD. PAIN, CRAMPING History of Any Multi-Drug Resistant Organisms: None Reported Past Surgical History: Cholecystectomy, Hysterectomy, Joint Replacement, Orthopedic Surgery Additional Past Surgical History / Comment(s): Bilateral total knee replacement, bilateral shoulder rotator cuff repairs, L cataract removal, EGDs and colonoscopy with gastric ulcer cauterized, cardioversions/TEEs, rt hand surgery-bone removed and tendon placed, left foot surgery d/t fracture, epidural back injections. Past Anesthesia/Blood Transfusion Reactions: Motion Sickness, Postoperative Nausea & Vomiting (PONV) Additional Past Anesthesia/Blood Transfusion Reaction / Comment(s): Pt received blood in 2007 with gastric bleed without reaction. Past Psychological History: No Psychological Hx Reported Additional Psychological History / Comment(s): Normally, pt resides alone in a house; uses a walker for mobility and drives. Smoking Status: Never smoker Past Alcohol Use History: None Reported Past Drug Use History: None Reported - Past Family History Father Family Medical History: No Reported History Additional Family Medical History / Comment(s): Father was healthy and lived to be 80yrs old. Mother Family Medical History: No Reported History Additional Family Medical History / Comment(s): Mother was healthy and lived to be 80 yrs old-she had one kidney. Medications and Allergies Home Medications Medication Instructions Recorded Confirmed Type Esomeprazole Magnesium [NexIUM] 40 mg PO DAILY 07/26/19 08/26/21 History carvediloL [Coreg] 6.25 mg PO BID 07/26/19 08/26/21 History Amiodarone [Cordarone] 200 mg PO DAILY 08/28/19 08/26/21 History ARIPiprazole [Abilify] 20 mg PO HS 12/23/20 08/26/21 History Atorvastatin [Lipitor] 20 mg PO DAILY 12/23/20 08/26/21 History Cyclobenzaprine [Flexeril] 5 mg PO DAILY 12/23/20 08/26/21 History Cyclobenzaprine [Flexeril] 10 mg PO HS 12/23/20 08/26/21 History Dicyclomine [Bentyl] 10 mg PO TID 12/23/20 08/26/21 History Gabapentin [Neurontin] 300 mg PO HS 12/23/20 08/26/21 History Losartan [Cozaar] 25 mg PO DAILY 12/23/20 08/26/21 History Mirtazapine [Remeron] 30 mg PO HS 12/23/20 08/26/21 History Sucralfate [Carafate] 1 gm PO TID 12/23/20 08/26/21 History oxyCODONE-APAP 10-325MG [Percocet 1 tab PO QID PRN 12/23/20 08/26/21 History 10-325 mg] DULoxetine HCL [Cymbalta] 60 mg PO HS 08/26/21 08/26/21 History Diclofenac Sodium Gel [Voltaren 2 gm TOPICAL BID PRN 08/26/21 08/26/21 History Gel] Latanoprost/Pf [Latanoprost 0.005% 1 drop BOTH EYES HS 08/26/21 08/26/21 History Eye Drop] Levothyroxine Sodium [Synthroid] 100 mcg PO DAILY 08/26/21 08/26/21 History Liothyronine Sodium 25 mcg PO DAILY 08/26/21 08/26/21 History Warfarin [Coumadin] 1 mg PO MOTUWETH 08/26/21 08/26/21 History Warfarin [Coumadin] 1 mg PO SUFRSA 08/26/21 08/26/21 History amLODIPine BESYLATE 5 mg PO DAILY 08/26/21 08/26/21 History metFORMIN HCL 500 mg PO BID 08/26/21 08/26/21 History Allergies Allergy/AdvReac Type Severity Reaction Status Date / Time No Known Allergies Allergy Verified 08/26/21 20:49 Physical Examination - Vital Signs Vital Signs: Vital Signs Temp Pulse Pulse Resp BP Pulse Ox 08/29/21 08:00 98.5 F 83 18 153/78 94 L 08/29/21 02:00 97.8 F 70 122/82 93 L 08/28/21 20:00 73 77 16 08/28/21 19:39 97.7 F 73 16 108/51 92 L Intake and Output 08/28/21 08/29/21 08/29/21 22:59 06:59 14:59 Output Total 350 500 Balance -350 -500 Output: Urine 350 500 Other: Voiding Method External Catheter Incontinent External Catheter # Voids 2 # Bowel Movements 1 Gen.: The patient is reclining in the bed. She is well-nourished. She is in no acute distress. HEENT: Head is atraumatic, normocephalic. Fundus not visualized. There is no scleral icterus. Mucous membranes are moist. Neck: Supple, without carotid bruits Heart: Regular rate and rhythm Lungs: Clear to auscultation Extremities: Without edema Neurological examination Mental status: The patient is awake. He is oriented to her name, date of . She states that her age is "20". She is able to accurately follow two-step commands. There is no anomia. There is no right left confusion. The patient is very easily distracted. At times patient is speaking and her words are nons ensical. Cranial nerves: Pupils are equal at 3 mm and reactive. She will higginbotham are full to confrontation. Extraocular movements are intact. There is no nystagmus. Facial sensation is intact. There is no facial asymmetry. Hearing is grossly intact. Uvula and palate are midline. Shoulder shrug is symmetric. Tongue protrudes midline. Motor: Bilateral upper extremity strength is 3/5. Right hip flexor strength 1/5. Left hip flexor strength 3/5. Left hamstrings 3-4/5. Bilateral ankle dulce ntar flexors 3/5. Coordination: There is a right pronator drift. There is ataxia and tremor of the bilateral upper extremities with arms extended. There is right-sided dysmetria on finger to nose testing. Sensation: Grossly intact to light touch throughout. There is no extinction with double simultaneous stimulation. Deep tendon reflexes: 2+/4+ in the upper extremities. Bilateral patellar refl exes are difficult to assess secondary to knee replacements. Results - Laboratory Findings CBC and BMP: 08/26/21 18:08/28/21 06:36 Abnormal Lab Findings: Abnormal Labs 08/26/21 08/26/21 08/27/21 18:21 18:21 05:47 WBC 11.4 H RBC 3.16 L Hgb 10.2 L Hct 29.3 L PT INR Sodium 132 L 134 L Potassium 5.5 H BUN 36 H 32 H Glucose 127 H 142 H POC Glucose (mg/dL) Ur Specific [place] 08/27/21 08/27/21 08/27/21 05:47 06:57 11:38 WBC RBC Hgb Hct PT 25.8 H INR 2.7 H Sodium Potassium BUN Glucose POC Glucose (mg/dL) 175 H 172 H Ur Specific [place] 08/27/21 08/27/21 08/28/21 16:46 21:05 06:36 WBC RBC Hgb Hct PT 27.9 H INR 2.9 H Sodium Potassium BUN Glucose POC Glucose (mg/dL) 202 H 195 H Ur Specific [place] 08/28/21 08/28/21 08/28/21 06:36 07:09 11:34 WBC RBC Hgb Hct PT INR Sodium 135 L Potassium BUN 29 H Glucose 156 H POC Glucose (mg/dL) 186 H 156 H Ur Specific [place] 08/28/21 08/28/21 08/28/21 15:18 16:34 20:33 WBC RBC Hgb Hct PT INR Sodium Potassium BUN Glucose POC Glucose (mg/dL) 216 H 242 H 146 H Ur Specific [place] 08/29/21 08/29/21 08/29/21 02:29 06:15 07:35 WBC RBC Hgb Hct PT 35.2 H INR 3.7 H Sodium Potassium BUN Glucose POC Glucose (mg/dL) 166 H Ur Specific [place] 1.042 H 08/29/21 11:27 WBC RBC Hgb Hct PT INR Sodium Potassium BUN Glucose POC Glucose (mg/dL) 161 H Ur Specific [place] Assessment and Plan Assessment: 1. [place] stroke involving left MCA territory, there is intermittent difficulty with speech, right upper extremity weakness and ataxia. Also must consider, side effects of Solu-Medrol 2. History of right lower extremity chronic pain Plan: 1. Agree wit MRI brain 2. Agree with 2-D echocardiogram and carotid Doppler 3. If MRI is positive for stroke, we'll continue stroke workup including PT, OT and speech therapy consultations, as well as lipid panel and hemoglobin A1c Thank you for allowing me to participate in the care of this patient Dr. Neal will take over neurology coverage beginning 08/30/2021 Time with Patient: Greater than 30 (spent 40 minutes with patient via telemedicine)
[2021-08-29 20:00] LABS: Glucose,Whole Blood 183 mg/dL (75-99)
[2021-08-29] MEDS: DULoxetine HCL 30 MG CAPSULE.DR PO SCH (20:34)
[2021-08-29] MEDS: MIRTAZAPINE 15 MG TAB PO SCH (20:34)
--- NOTE | 2021-08-29 20:47 | PN ---
PROGRESS NOTE I am covering for Dr. Barrios. DATE OF SERVICE: 08/29/2021. This 80-year-old woman was admitted with right hip pain and some difficulty in speech and some confusion. CT scan showed cerebral atrophy and as well as chronic small ischemic changes and CT angio was also done which showed no acute abnormality. Mild atherosclerotic changes. A carotid Doppler was also done which showed significant stenosis corresponding to diameter in the proximal left internal carotid artery. PAST MEDICAL HISTORY: Reviewed. REVIEW OF SYSTEMS: Cardiovascular: No angina or palpitations. Respiratory: As mentioned earlier. GI: As mentioned earlier. : No dysuria. Nervous system: Diffusely weak. CURRENT MEDICATIONS: Reviewed and include: Tylenol, Cordarone, Abilify, Lipitor, Coreg, Cymbalta, Lasix, Neurontin, doses are reviewed. PHYSICAL EXAMINATION: Patient is alert, oriented x2. Pulse 85. Blood pressure ntd, respiration 18, temperature 97.9, pulse ox 97 percent on room air. HEENT: Conjunctivae normal. Neck: No JVD. Cardiovascular: S1, S2 muffled. Respiration: Breath sounds diminished in the bases. A few scattered rhonchi. Abdomen: Soft. Nervous System: No focal deficits. LABS: INR 3.7, otherwise sodium is 135. Other labs are noted. ASSESSMENT: 1. Right hip pain possibly degenerative joint disease, sciatica with severe gait dysfunction. 2. Change in mental status with possible acute metabolic encephalopathy. 3. Left carotid stenosis 50-69 percent. 4. Atrial fibrillation. 5. Coumadin monitoring. 6. History of coronary artery disease. 7. Mild hyponatremia. 8. History of congestive heart failure. 9. Diabetes mellitus type 2. 10.Gastroesophageal reflux disease. 11.Hypertension. 12.Hyperlipidemia. 13.History of degenerative joint disease. 14.Mild Coumadin coagulopathy. RECOMMENDATIONS AND DISCUSSION: Recommend to continue current medications, symptomatic treatment. Hold Coumadin today. Otherwise, pharmacy to monitor and continue with rest of the medications. CT scan of the brain noted. Dr. Barrios will follow tomorrow. Prognosis guarded. Further recommendations to follow. MMODL / IJN: [id number] / MTDD
[2021-08-30] MEDS: LEVOTHYROXINE 25 MCG TAB PO SCH (05:46)
[2021-08-30 06:55] LABS: Glucose,Whole Blood 166 mg/dL (75-99)
[2021-08-30 07:18] LABS: INR 3.9 (<1.2); Prothrombin Time 37.2 sec (9.0-12.0)
[2021-08-30] MEDS: metFORMIN 500 MG TAB PO SCH ×2 (08:51→17:08)
[2021-08-30] MEDS: LOSARTAN 25 MG TAB PO SCH (08:51)
[2021-08-30] MEDS: PANTOPRAZOLE 40 MG TABLET PO SCH (08:51)
[2021-08-30] MEDS: GABAPENTIN 300 MG CAP PO SCH ×2 (08:52→21:41)
[2021-08-30] MEDS: INSULIN ASPART (NovoLOG) 100 UNIT/ML VIAL SQ SCH ×4 (08:52→21:41)
[2021-08-30] MEDS: methylPREDNISolone SOD SUCCI 40 MG/ML 1 ML VIAL IV SCH ×3 (08:52→23:49)
[2021-08-30] MEDS: carvediloL 6.25 MG TAB PO SCH ×2 (08:52→17:08)
[2021-08-30] MEDS: AMIODARONE 200 MG TAB PO SCH (08:52)
--- NOTE | 2021-08-30 11:01 | MR ---
EXAMINATION TYPE: MR brain wo/w con DATE OF EXAM: 08/30/2021 COMPARISON: 08/28/2021 CT right HISTORY: Altered mental status, speech difficulties CONTRAST: Performed utilizing 10 mL intravenous Gadavist gadolinium contrast. TECHNIQUE: Multiplanar, multiecho imaging on a 3.0 Georgina magnet is performed through the brain. Stud y is performed within 24 hours of arrival to the hospital. The craniovertebral junction is normal. The pituitary is normal. Diffusion-weighted imaging is performed. There is hyperintensity within the medial left thalamus. 2 confluent punctate hyperintensities may be present. An additional couple of hyperintensities are slig htly more inferior within the left thalamus. Findings can be compatible with acute ischemic areas. Additional areas of hyperintensity are identified on T2 and inversion recovery weighted sequences. Th is includes the bilateral basal ganglion and periventricular white matter, likely on the basis of con fluent white matter ischemic changes. Ventricles and sulci are appropriate for the patient age. No abnormal enhancement is evident. IMPRESSIONS: 1. There are small punctate hyperintensities on diffusion-weighted imaging within the left thalamus c ompatible with acute ischemic change. 2. Additional chronic appearing periventricular white matter ischemic changes.
[2021-08-30] MEDS: ACETAMINOPHEN TAB 325 MG TAB PO PRN (11:52)
--- NOTE | 2021-08-30 12:00 | ECHOF ---
Referral Reason:had code stroke on 08/28 MEASUREMENTS -------- HEIGHT: 175.3 cm WEIGHT: 90.7 kg BP: IVSd: 1.1 cm (0.6 - 1.1) LVIDd: 4.8 cm (3.9 - 5.3) LVPWd: 1.4 cm (0.6 - 1.1) IVSs: 1.8 cm LVIDs: 2.5 cm LVPWs: 1.3 cm Ao Diam: 3.2 cm (2.0 - 3.7) AV Cusp: 1.9 cm (1.5 - 2.6) MV EXCURSION: 22.256 mm (> 18.000) MV EF SLOPE: 70 mm/s (70 - 150) EPSS: 0.6 cm MV E Raad: 0.79 m/s MV DecT: 266 ms MV A Raad: 1.03 m/s MV E/A Ratio: 0.76 AV maxP.74 mmHg AV meanP.90 mmHg RAP: 5.00 mmHg RVSP: 13.09 mmHg FINDINGS -------- Sinus rhythm. This was a technically good study. The left ventricular size is normal. Overall left ventricular systolic function is normal with, an EF between 55 - 60 %. The right ventricle is normal in size. The left atrial size is normal. The right atrial size is normal. The aortic valve was not well visualized. There is mild aortic stenosis present. Peak/mean gradie nt across the Aortic Valve is 16.74mmHg / 7.90mmHg. Mild mitral regurgitation is present. Mild tricuspid regurgitation present. Right ventricular systolic pressure is normal at < 35 mmHg. The pulmonic valve was not well visualized. The aortic root size is normal. There is no pericardial effusion. CONCLUSIONS -------- 1. The left ventricular size is normal. 2. Overall left ventricular systolic function is normal with, an EF between 55 - 60 %. 3. The right ventricle is normal in size. 4. The left atrial size is normal. 5. The right atrial size is normal. 6. The aortic valve was not well visualized. 7. There is mild aortic stenosis present. 8. Peak/mean gradient across the Aortic Valve is 16.74mmHg / 7.90mmHg. 9. Mild mitral regurgitation is present. 10. Mild tricuspid regurgitation present. 11. The pulmonic valve was not well visualized. 12. The aortic root size is normal. 13. There is no pericardial effusion. WALKING DRAGLINE OPERATOR: Kaye Sunshine RDCS
[2021-08-30 12:20] LABS: Glucose,Whole Blood 155 mg/dL (75-99)
--- NOTE | 2021-08-30 15:53 | P.GSCN ---
History of Present Illness Consult date: 08/30/21 Reason for Consult: Left ICA stenosis Requesting physician: Rick Neal History of present illness: 80-year-old with a past medical history significant for atrial fibrillation, atrial flutter on Coumadin, coronary artery disease, heart failure, diabetes, hypertension, thyroid disease who presented to the emergency department with complaint of acute on chronic hip pain. Patient apparently stated that his pain began a week ago from Monday and progressively got worse to the point that she was not able to ambulate well. Currently during this hospitalization yesterday afternoon a code stroke was called on this patient as the patient had a sudden onset of confusion, rambling and incomprehensible speech. Patient had a computed tomography scan of the brain and CT angiogram of the head and neck. Brain CT shows cerebral atrophy and chronic small vessel ischemia that has progressed compared to old exam. Right maxillary sinusitis and possible mucocele. There is some wall thickening of the right maxillary sinus. There is progression compared to old exam. CT angiogram of head and neck shows negative CT angiogram of the brain, mild arthrosclerotic plaque at the carotid artery bifurcations and 40% stenosis of the proximal internal carotid arteries bilaterally. She also underwent a carotid ultrasound with report of hemodynamic significant stenosis corresponding to 50-69% diameter reduction in the proximal internal carotid on the left by Doppler criteria. Patient went down for MRI. She is alert and oriented, she is able to follow simple commands and directions. However, when asked questions she is having expressive aphasia. Patient states she is right hand dominant. No previous strokes. HPI is difficult to obtain from patient at this time due to expressive aphasia. Review of Systems ROS unobtainable: due to mental status Past Medical History Past Medical History: Atrial Fibrillation, Atrial Flutter, Coronary Artery Disease (CAD), Heart Failure, Diabetes Mellitus, GERD/Reflux, GI Bleed, Hyperlipidemia, Hypertension, Osteoarthritis (OA), Pneumonia, Thyroid Disorder Additional Past Medical History / Comment(s): Pt recently admitted to [facility] on 07/30/19 with DVT R lower extremity/hemarthrosis R knee-ruptured Bowman's cyst. Other hx: AFib/flutter with past RVR, MVP, cardiomyopathy, NIDDM type II, gastric ulcer, lower GI bleed, generalized arthritis, spinal stenosis, chronic low back pain with occasional bilateral sciatica, past migraines, bronchitis, hypothyroid, anemia years ago, ABD. PAIN, CRAMPING History of Any Multi-Drug Resistant Organisms: None Reported Past Surgical History: Cholecystectomy, Hysterectomy, Joint Replacement, Orthopedic Surgery Additional Past Surgical History / Comment(s): Bilateral total knee replacement, bilateral shoulder rotator cuff repairs, L cataract removal, EGDs and colonoscopy with gastric ulcer cauterized, cardioversions/TEEs, rt hand surgery- bone removed and tendon placed, left foot surgery d/t fracture, epidural back injections. Past Anesthesia/Blood Transfusion Reactions: Motion Sickness, Postoperative Nausea & Vomiting (PONV) Additional Past Anesthesia/Blood Transfusion Reaction / Comm: Pt received blood in 2007 with gastric bleed without reaction. Past Psychological History: No Psychological Hx Reported Additional Psychological History / Comment(s): Normally, pt resides alone in a house; uses a walker for mobility and drives. Smoking Status: Never smoker Past Alcohol Use History: None Reported Past Drug Use History: None Reported - Past Family History Father Family Medical History: No Reported History Additional Family Medical History / Comment(s): Father was healthy and lived to be 80yrs old. Mother Family Medical History: No Reported History Additional Family Medical History / Comment(s): Mother was healthy and lived to be 80 yrs old-she had one kidney. Medications and Allergies Home Medications Medication Instructions Recorded Confirmed Type Esomeprazole Magnesium [NexIUM] 40 mg PO DAILY 07/26/19 08/26/21 History carvediloL [Coreg] 6.25 mg PO BID 07/26/19 08/26/21 History Amiodarone [Cordarone] 200 mg PO DAILY 08/28/19 08/26/21 History ARIPiprazole [Abilify] 20 mg PO HS 12/23/20 08/26/21 History Atorvastatin [Lipitor] 20 mg PO DAILY 12/23/20 08/26/21 History Cyclobenzaprine [Flexeril] 5 mg PO DAILY 12/23/20 08/26/21 History Cyclobenzaprine [Flexeril] 10 mg PO HS 12/23/20 08/26/21 History Dicyclomine [Bentyl] 10 mg PO TID 12/23/20 08/26/21 History Gabapentin [Neurontin] 300 mg PO HS 12/23/20 08/26/21 History Losartan [Cozaar] 25 mg PO DAILY 12/23/20 08/26/21 History Mirtazapine [Remeron] 30 mg PO HS 12/23/20 08/26/21 History Sucralfate [Carafate] 1 gm PO TID 12/23/20 08/26/21 History oxyCODONE-APAP 10-325MG [Percocet 1 tab PO QID PRN 12/23/20 08/26/21 History 10-325 mg] DULoxetine HCL [Cymbalta] 60 mg PO HS 08/26/21 08/26/21 History Diclofenac Sodium Gel [Voltaren 2 gm TOPICAL BID PRN 08/26/21 08/26/21 History Gel] Latanoprost/Pf [Latanoprost 0.005% 1 drop BOTH EYES HS 08/26/21 08/26/21 History Eye Drop] Levothyroxine Sodium [Synthroid] 100 mcg PO DAILY 08/26/21 08/26/21 History Liothyronine Sodium 25 mcg PO DAILY 08/26/21 08/26/21 History Warfarin [Coumadin] 1 mg PO MOTUWETH 08/26/21 08/26/21 History Warfarin [Coumadin] 1 mg PO SUFRSA 08/26/21 08/26/21 History amLODIPine BESYLATE 5 mg PO DAILY 08/26/21 08/26/21 History metFORMIN HCL 500 mg PO BID 08/26/21 08/26/21 History Allergies Allergy/AdvReac Type Severity Reaction Status Date / Time No Known Allergies Allergy Verified 08/26/21 20:49 Surgical - Exam Vital Signs Temp Pulse Resp BP Pulse Ox 97.8 F 78 18 147/73 96 08/26/21 17:35 08/26/21 17:35 08/26/21 17:35 08/26/21 17:35 08/26/21 17:35 General appearance: The patient is alert, oriented, in no acute distress. HET: Head is normocephalic and atraumatic. Pupils are equal and reactive. Oropharynx is clear without lesions. Neck: Supple without lymphadenopathy. Trachea midline. No carotid bruit. Heart: S1 S2. Regular rate and rhythm. Lungs: Clear to auscultation. Abdomen: Soft, nontender, nondistended. Extremities: Normal skin color and turgor. No cyanosis, rash, ulceration, clubbing, or edema. Radial and pedal pulses are 2/4 bilaterally. Neurological: Speech is clear but aphasic. Patient is able to follow simple commands. Appears to have some right upper extremity weakness compared to left with grasp, 3/5. Unable to assess strength of right lower extremity due to hip pain. Left upper and lower extremity strength intact, 4/5. Patient has good tone bilateral upper and lower extremities. Appears to have facial symmetry, tongue protrudes midline. Results - Labs 08/26/21 18:21 08/28/21 06:36 Abnormal Lab Results - Last 24 Hours (Table) 08/29/21 08/29/21 08/29/21 Range/Units 11:27 16:27 19:58 PT (9.0-12.0) sec INR (<1.2) POC Glucose (mg/dL) 161 H 165 H 183 H (75-99) mg/dL 08/30/21 08/30/21 Range/Units 06:27 06:53 PT 37.2 H (9.0-12.0) sec INR 3.9 H (<1.2) POC Glucose (mg/dL) 166 H (75-99) mg/dL - Imaging Comments: CT angiogram head and neck. No acute findings on brain. No significant stenosis bilateral internal carotid arteries. Carotid Doppler ultrasound: Right ICA PSV 127.0, ICA/CCA ratio 1.1. Left ICA PSV 188.4, ICA/CCA ratio 2.3 Assessment and Plan Assessment: 1. Left ICA stenosis approximately 50-69% per carotid duplex 2. Expressive aphasia, right upper extremity weakness 3. Hip pain 4. History of atrial fibrillation 5. History coronary artery disease 6. History of hypertension and hyperlipidemia Plan: 1. MRI ordered, pending 2. Await further recommendations from neurology 3. Continue current medications 4. Further recommendations to follow pending clinical course Thank you for this consultation, we will continue to follow. The impression and plan of care has been dictated as directed. Dr. Hernández I performed a history and examination of this patient, discussed the same with the dictator. I agree with the dictator's note ,documented as a scribe. Any additional findings or plans will be noted.
--- NOTE | 2021-08-30 16:39 | P.PN ---
Subjective Progress Note Date: 08/30/21 I am seeing the patient for the first time for neurological management. Please refer to Dr. Mcclellan's note for further details. Per the patient nurse she is aphasic but is understanding commands. Objective - Vital Signs Vital signs: Vital Signs Temp 97.5 F L 08/30/21 14:00 Pulse 80 08/30/21 14:00 Resp 18 08/30/21 14:00 BP 144/64 08/30/21 14:00 Pulse Ox 94 L 08/30/21 14:00 Intake & Output 08/29/21 08/30/21 08/30/21 18:59 06:59 18:59 Output Total 850 Balance -850 Output: Urine 850 Other: Voiding Method Incontinent Incontinent Incontinent External Catheter External Catheter External Catheter # Voids 1 1 # Bowel Movements 1 1 - Exam Gen.: She is well-nourished. She is in no acute distress. Neurological examination Mental status: The patient is awake. She is oriented to her name but and stated the year is 2021 and the month is August or September. She stated she is in the hospital. She is able to name pen and watch. 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 She keeps on saying horses and is r epeating about her horses. Cranial nerves: Pupils are equal at 3 mm and reactive. Visual higginbotham are full to confrontation. Extraocular movements are intact. There is no nystagmus. Facial sensation is intact. There is no facial asymmetry. Hearing is grossly intact. Uvula and palate are midline. Shoulder shrug is symmetric. Tongue protrudes midline. Motor: Bilateral upper extremity strength is 5/5. Right hip flexor strength 1/5 and with help can raise right lower extremity above gravity but has drops to ground. While left lower extremity is able to lift without difficulty. Sensation: Grossly intact to light touch throughout. There is no extinction with double simultaneous stimulation. Deep tendon reflexes: 2+/4+ in the upper extremities. Bilateral patellar reflexes are difficult to assess secondary to knee replacements. WORK-UP: CT angiography of the head and neck is a the head is reported as negative wall the next reported as mild at this carotid plaque at the carotid artery bifurcation and 40% stenosis of the proximal internal carotid artery bilaterally Carotid duplex was reported as hemodynamic significant stenosis corresponding to 50-69% diameter reduction in the proximal internal carotid artery on the left by Doppler criteria and in direct management of carotid stenosis. MRI the brain is reported as there are small punctate hyperintensity on diffusion-weighted image within the left thalamus compatible with acute ischemic change. Additional chronic appearing periventricular white matter ischemic changes. 2-D echo was reported as left ventricular size is normal. Ejection fraction of 55-60%. Left atrial size is normal. - Labs CBC & Chem 7: 08/26/21 18:21 08/28/21 06:36 Labs: Abnormal Lab Results - Last 24 Hours (Table) 08/29/21 08/29/21 08/30/21 Range/Units 16:27 19:58 06:27 PT 37.2 H (9.0-12.0) sec INR 3.9 H (<1.2) POC Glucose (mg/dL) 165 H 183 H (75-99) mg/dL 08/30/21 08/30/21 Range/Units 06:53 12:14 PT (9.0-12.0) sec INR (<1.2) POC Glucose (mg/dL) 166 H 155 H (75-99) mg/dL Assessment and Plan Assessment: Acute ischemic stroke (left thalamus on MRI Brain. And has aphasia and seems broca). No IV TPA since onset the window and is on anticoagulation. Unknown s ource of the stroke possibly artery to artery (left ICA stenosis) Left ICA stenosis of 50-69% per carotid duplex Supratherapeutic INR (most recent is 3.9) History of right lower extremity chronic pain Hip pain. History of atrial fibrillation on anticoagulation History of coronary disease History of hypertension History of hyperlipidemia Plan: Patient is on Coumadin and the INR supratherapeutic and I will not add and antiplatelets that which will increased risk of a bleed. Once INR is therapeutic recommend adding aspirin 81 mg daily. Continue Lipitor 40 mg daily at bedtime for secondary stroke prophylaxis. Ordered Lipid panel and TSH Every 4 hours neuro checks On cardiac monitoring Consulted vascular surgery team for the left ICA stenosis Please avoid supratherapeutic INR recommend INR to be 2-3 from a neurological perspective but will defer the management to the primary team. PT, OT are consulted. I consulted the speech therapy as well. We'll defer the rest of the medical management to primary team Upon discharge the patient needs to follow-up with a neurologist as an outpatient within 1-2 weeks at. Next Or DVT prophylaxis patient is on Coumadin The plan is discussed with the patient's nurse. Rick Neal M.D. Neuro-hospitalist Time with Patient: Less than 30
[2021-08-30 16:50] LABS: Glucose,Whole Blood 208 mg/dL (75-99)
[2021-08-30 16:56] LABS: Chol/HDL Ratio 2.54 Ratio; HDL Cholesterol 41.3 mg/dL (40.00-60.00); LDL Cholesterol,Calculated 37.5 mg/dL (0.0-131.0); VLDL Calculation 26.2 mg/dL (5.00-40.00)
[2021-08-30] MEDS ORDERED: WARFARIN 0.5 MG TAB PO ONE (18:00)
[2021-08-30 20:24] LABS: Glucose,Whole Blood 197 mg/dL (75-99)
[2021-08-30] MEDS: DULoxetine HCL 30 MG CAPSULE.DR PO SCH (21:41)
[2021-08-30] MEDS: ATORVASTATIN 40 MG TAB PO SCH (21:41)
[2021-08-30] MEDS: MIRTAZAPINE 15 MG TAB PO SCH (21:41)
[2021-08-30] MEDS ORDERED: ONDANSETRON 4 MG/2 ML VIAL IVP PRN (23:28)
[2021-08-31] MEDS: oxyCODONE-APAP 10-325MG 1 EACH TAB PO PRN ×4 (00:53→21:51)
[2021-08-31] MEDS: LEVOTHYROXINE 25 MCG TAB PO SCH (05:25)
[2021-08-31 06:44] LABS: INR 3.3 (<1.2)
[2021-08-31 07:15] LABS: Glucose,Whole Blood 133 mg/dL (75-99)
[2021-08-31] MEDS: LOSARTAN 25 MG TAB PO SCH (07:35)
[2021-08-31] MEDS: GABAPENTIN 300 MG CAP PO SCH ×2 (07:35→21:54)
[2021-08-31] MEDS: carvediloL 6.25 MG TAB PO SCH ×2 (07:35→17:15)
[2021-08-31] MEDS: AMIODARONE 200 MG TAB PO SCH (07:35)
[2021-08-31] MEDS: metFORMIN 500 MG TAB PO SCH ×2 (07:35→17:15)
[2021-08-31] MEDS: PANTOPRAZOLE 40 MG TABLET PO SCH (07:35)
[2021-08-31] MEDS: INSULIN ASPART (NovoLOG) 100 UNIT/ML VIAL SQ SCH ×5 (07:36→21:56)
[2021-08-31] MEDS: methylPREDNISolone SOD SUCCI 40 MG/ML 1 ML VIAL IV SCH (07:36)
--- NOTE | 2021-08-31 08:30 | P.PN ---
Subjective Progress Note Date: 08/30/21 Her leg pain is significantly improved today. She remains aphasic and complains of frustration with her difficulty getting words out. Denies numbness, tingling or weakness. Pt underwent MRI brain which did show L thalamic CVA. She remains on coumadin and lipitor. Objective - Vital Signs Vital signs: Vital Signs Temp 97.5 F L 08/31/21 07:31 Pulse 81 08/31/21 07:31 Resp 18 08/31/21 07:31 BP 162/73 08/31/21 07:31 Pulse Ox 98 08/31/21 07:31 Intake & Output 08/30/21 08/31/21 08/31/21 18:59 06:59 18:59 Output Total 600 700 Balance -600 -700 Output: Urine 600 700 Other: Voiding Method Incontinent Incontinent External Catheter External Catheter # Voids 1 # Bowel Movements 2 - Exam General: elderly female in NAD HEENT: normocephalic, atraumatic, mucus membranes moist CV: irregular, no murmur Lungs: normal effort, clear thoughout Neuro: aphasia, str 5/5 bilateral. Oriented x3 - Labs CBC & Chem 7: 08/26/21 18:21 08/28/21 06:36 Labs: Abnormal Lab Results - Last 24 Hours (Table) 08/30/21 08/30/21 08/30/21 Range/Units 12:14 16:49 20:22 PT (9.0-12.0) sec INR (<1.2) POC Glucose (mg/dL) 155 H 208 H 197 H (75-99) mg/dL 08/31/21 08/31/21 Range/Units 05:47 07:13 PT 32.0 H (9.0-12.0) sec INR 3.3 H (<1.2) POC Glucose (mg/dL) 133 H (75-99) mg/dL Assessment and Plan Plan: Neurology consulted, recommending addition of ASA. continue with coumadin and lipitor. Continue solumedrol for sciatica and taper dosage.
[2021-08-31] MEDS: predniSONE 20 MG TAB PO SCH (08:47)
[2021-08-31 11:34] LABS: Glucose,Whole Blood 154 mg/dL (75-99)
--- NOTE | 2021-08-31 11:57 | P.PN ---
Subjective Progress Note Date: 08/31/21 Patient seen and examined sitting up in bed. Speech therapy is at the bedside working with the patient. No acute changes through the night. She is alert and oriented 3 however she is still having severe expressive aphasia. Patient underwent MRI of the brain yesterday that showed small punctuate hyper intensities on diffusion weighted imaging within the left thalamus compatible with acute ischemic change. Additional chronic appearing. Ventricular white matter ischemic changes. Objective - Vital Signs Vital signs: Vital Signs Temp 97.5 F L 08/31/21 07:31 Pulse 81 08/31/21 07:31 Resp 18 08/31/21 07:31 BP 162/73 08/31/21 07:31 Pulse Ox 98 08/31/21 07:31 Intake & Output 08/30/21 08/31/21 08/31/21 18:59 06:59 18:59 Output Total 600 700 Balance -600 -700 Output: Urine 600 700 Other: Voiding Method Incontinent Incontinent External Catheter External Catheter # Voids 1 # Bowel Movements 2 - Exam General appearance: The patient is alert, oriented, appears in no acute distress. HET: Head is normocephalic and atraumatic. Pupils are equal and reactive. . Neck: Supple without lymphadenopathy. Trachea midline. Left Carotid bruit Heart: S1 S2. Regular rate and rhythm. Lungs: Clear to auscultation. Extremities: Normal skin color and turgor. No cyanosis, rash, ulceration, clubbing, or edema. Neurological: Continued expressive aphasia. Patient is alert and oriented 3. She is able to follow simple commands.. - Labs CBC & Chem 7: 08/26/21 18:21 08/28/21 06:36 Labs: Abnormal Lab Results - Last 24 Hours (Table) 08/30/21 08/30/21 08/30/21 Range/Units 12:14 16:49 20:22 PT (9.0-12.0) sec INR (<1.2) POC Glucose (mg/dL) 155 H 208 H 197 H (75-99) mg/dL 08/31/21 08/31/21 Range/Units 05:47 07:13 PT 32.0 H (9.0-12.0) sec INR 3.3 H (<1.2) POC Glucose (mg/dL) 133 H (75-99) mg/dL Assessment and Plan Assessment: 1. Left ICA stenosis approximately 50-69% per carotid duplex 2. Acute ischemic stroke left thalamus on MRI of the brain. 3. Expressive aphasia, right upper extremity weakness 4. Hip pain 5. History of atrial fibrillation 6. History coronary artery disease 7. History of hypertension and hyperlipidemia Plan: 1. Continue anticoagulation per recommendations from neurology 2. Continue Lipitor 40 mg daily 3. Patient discussed with neurology, at this time patient is a likely candidate for vascular surgical intervention. Neurology is recommending no immediate intervention, consider outpatient follow-up with intervention in the next 2 weeks when symptoms are resolved. Thank you for this consultation, patient will need outpatient follow-up in one week to further discuss vascular surgical intervention for left ICA stenosis The impression and plan of care has been dictated as directed. Dr. Elliott I performed a history and examination of this patient, discussed the same with the dictator. I agree with the dictator's note ,documented as a scribe. Any additional findings or plans will be noted.
--- NOTE | 2021-08-31 13:58 | P.PN ---
Subjective Progress Note Date: 08/31/21 The patient is seen today and she feels betters. She said she was notified that she was told her speech is getting better compared to yesterday. She denies of any new neurological problems. Objective - Vital Signs Vital signs: Vital Signs Temp 97.7 F 08/31/21 12:24 Pulse 66 08/31/21 12:24 Resp 14 08/31/21 12:24 BP 119/61 08/31/21 12:24 Pulse Ox 99 08/31/21 12:24 Intake & Output 08/30/21 08/31/21 08/31/21 18:59 06:59 18:59 Output Total 600 700 Balance -600 -700 Output: Urine 600 700 Other: Voiding Method Incontinent Incontinent Incontinent External Catheter External Catheter External Catheter # Voids 1 # Bowel Movements 2 - Exam Gen.: She is well-nourished. She is in no acute distress. Neurological examination Mental status: The patient is awake. She is oriented self, place. She correctly stated the current year but stated it was November for . She is able to name pen and watch. She had few word finding difficulty and seems slight broca aphasia but better today compared to yesterday. No neglect. Cranial nerves: Pupils are equal at 3 mm and reactive. Visual higginbotham are full to confrontation. Extraocular movements are intact. There is no nystagmus. Facial sensation is intact. There is no facial asymmetry. Hearing is grossly intact. Uvula and palate are midline. Shoulder shrug is symmetric. Tongue protrudes midline. Motor: Bilateral upper extremity strength is 5/5. Right hip flexor strength 2/5 and right knee extension is 3, right ankle is 4 (somewhat limited because of right hip pain). Otherwise left lower extremity is 5/5. Sensation: Grossly intact to light touch throughout. There is no extinction with double simultaneous stimulation. Deep tendon reflexes: 2+/4+ in the upper extremities. Bilateral patellar reflexes are difficult to assess secondary to knee replacements. WORK-UP: CT angiography of the head and neck is a the head is reported as negative wall the next reported as mild at this carotid plaque at the carotid artery bifurcation and 40% stenosis of the proximal internal carotid artery bilaterally Carotid duplex was reported as hemodynamic significant stenosis corresponding to 50-69% diameter reduction in the proximal internal carotid artery on the left by Doppler criteria and in direct management of carotid stenosis. MRI the brain is reported as there are small punctate hyperintensity on diffusion-weighted image within the left thalamus compatible with acute ischemic change. Additional chronic appearing periventricular white matter ischemic changes. 2-D echo was reported as left ventricular size is normal. Ejection fraction of 55-60%. Left atrial size is normal. Panels triglycerides 131, cholesterol 105, LDL is 37 and HDL 41. TSH is 1.03. - Labs CBC & Chem 7: 08/26/21 18:21 08/28/21 06:36 Labs: Abnormal Lab Results - Last 24 Hours (Table) 08/30/21 08/30/21 08/31/21 Range/Units 16:49 20:22 05:47 PT 32.0 H (9.0-12.0) sec INR 3.3 H (<1.2) POC Glucose (mg/dL) 208 H 197 H (75-99) mg/dL 08/31/21 08/31/21 Range/Units 07:13 11:33 PT (9.0-12.0) sec INR (<1.2) POC Glucose (mg/dL) 133 H 154 H (75-99) mg/dL Assessment and Plan Assessment: Acute ischemic stroke (left thalamus on MRI Brain. And has aphasia and seems broca)--speech is improving. No IV TPA since onset the window and is on anticoagulation. Unknown source of the stroke possibly artery to artery (left ICA stenosis) Left ICA stenosis of 50-69% per carotid duplex Supratherapeutic INR (most recent is 3.3) History of right lower extremity chronic pain Hip pain. History of atrial fibrillation on anticoagulation History of coronary disease History of hypertension History of hyperlipidemia Plan: Patient is on Coumadin and the INR supratherapeutic and I will not add and a ntiplatelets that which will increased risk of a bleed. Once INR is therapeutic recommend adding aspirin 81 mg daily. Continue Lipitor 40 mg daily at bedtime for secondary stroke prophylaxis. Every 4 hours neuro checks On cardiac monitoring vascular surgery team for the left ICA stenosis and spoke with the vascular surgery team and it was planned for patient to follow-up as outpatient and possible intervention as outpatient. Please avoid supratherapeutic INR recommend INR to be 2-3 from a neurological perspective but will defer the management to the primary team. PT, OT and speech therapy are consulted. Orthopedic team is on board. Consider MRI of the lumbosacral spine. We'll defer the rest of the medical management to primary team Upon discharge the patient needs to follow-up with a neurologist as an outpatient within 1-2 weeks. Or DVT prophylaxis patient is on Coumadin The plan is discussed with the patient. Rick Neal M.D. Neuro-hospitalist Time with Patient: Less than 30
[2021-08-31 16:47] LABS: Glucose,Whole Blood 223 mg/dL (75-99)
[2021-08-31] MEDS ORDERED: WARFARIN 0.5 MG TAB PO ONE (18:00)
[2021-08-31 20:57] LABS: Glucose,Whole Blood 200 mg/dL (75-99)
[2021-08-31] MEDS: MIRTAZAPINE 15 MG TAB PO SCH (21:54)
[2021-08-31] MEDS: ATORVASTATIN 40 MG TAB PO SCH (21:55)
[2021-08-31] MEDS: DULoxetine HCL 30 MG CAPSULE.DR PO SCH (21:55)
[2021-09-01] MEDS: LEVOTHYROXINE 25 MCG TAB PO SCH (06:05)
[2021-09-01 06:41] LABS: INR 3.3 (<1.2); Prothrombin Time 31.9 sec (9.0-12.0)
[2021-09-01 06:56] LABS: Glucose,Whole Blood 129 mg/dL (75-99)
[2021-09-01] MEDS: INSULIN ASPART (NovoLOG) 100 UNIT/ML VIAL SQ SCH ×4 (07:11→21:52)
[2021-09-01 07:49] VITALS: RESP 16
--- NOTE | 2021-09-01 08:27 | P.PN ---
Subjective Progress Note Date: 08/31/21 She reports significant improvement today in her aphasia, able to communicate without difficulty. Leg pain is stable. Objective - Vital Signs Vital signs: Vital Signs Temp 97.6 F 09/01/21 07:47 Pulse 70 09/01/21 07:47 Resp 16 09/01/21 07:47 BP 135/64 09/01/21 07:47 Pulse Ox 100 09/01/21 02:00 Intake & Output 08/31/21 09/01/21 09/01/21 18:59 06:59 18:59 Output Total 450 1400 Balance -450 -1400 Output: Urine 450 1400 Other: Voiding Method External Catheter External Catheter - Exam General: elderly female in NAD HEENT: normocephalic, atraumatic, mucus membranes moist CV: irregular, no murmur Lungs: normal effort, clear thoughout Neuro: mild aphasia, Oriented x3 - Labs CBC & Chem 7: 08/26/21 18:21 08/28/21 06:36 Labs: Abnormal Lab Results - Last 24 Hours (Table) 08/31/21 08/31/21 08/31/21 Range/Units 11:33 16:46 20:56 PT (9.0-12.0) sec INR (<1.2) POC Glucose (mg/dL) 154 H 223 H 200 H (75-99) mg/dL 09/01/21 09/01/21 Range/Units 05:35 06:55 PT 31.9 H (9.0-12.0) sec INR 3.3 H (<1.2) POC Glucose (mg/dL) 129 H (75-99) mg/dL Assessment and Plan Plan: Switch solumedrol to prednisone today, plan on extended taper. ASA per neurology. Anticipate discharge to [facility]
[2021-09-01] MEDS: predniSONE 20 MG TAB PO SCH (08:49)
[2021-09-01] MEDS: PANTOPRAZOLE 40 MG TABLET PO SCH (08:49)
[2021-09-01] MEDS: LOSARTAN 25 MG TAB PO SCH (08:50)
[2021-09-01] MEDS: carvediloL 6.25 MG TAB PO SCH ×2 (08:51→17:00)
[2021-09-01] MEDS: AMIODARONE 200 MG TAB PO SCH (08:52)
[2021-09-01] MEDS: metFORMIN 500 MG TAB PO SCH ×2 (08:53→17:00)
[2021-09-01] MEDS: GABAPENTIN 300 MG CAP PO SCH ×2 (08:54→20:38)
[2021-09-01] MEDS: oxyCODONE-APAP 10-325MG 1 EACH TAB PO PRN ×2 (08:55→20:38)
--- NOTE | 2021-09-01 10:24 | P.PN ---
Subjective Progress Note Date: 09/01/21 Since seen at bedside and she is accompanied with her son. Patient stated that she's doing better compared to couple days ago. Her son agreed that that she's doing better compared to when he saw her on Monday. The patient has chronic lower back pain that radiates to the anterior right thigh region and she was told that she has sciatica in the past. Per the patient's son she usually walks with a walker for the past at least one year but he stated that she does prefer one leg over the other that he recalls. 2 days ago the patient talking about her horse and yesterday she stated that she did have a hoarse. Per the son that he stated that she did not have a worse but she had the dogs and cat and she had her horses when she was very young (prior to her 20's). Objective - Vital Signs Vital signs: Vital Signs Temp 97.6 F 09/01/21 07:47 Pulse 99 09/01/21 09:17 Resp 16 09/01/21 09:17 BP 135/64 09/01/21 07:47 Pulse Ox 100 09/01/21 02:00 Intake & Output 08/31/21 09/01/21 09/01/21 18:59 06:59 18:59 Intake Total 236 Output Total 450 1400 Balance -450 -1400 236 Intake: Oral 236 Output: Urine 450 1400 Other: Voiding Method External Catheter External Catheter External Catheter - Exam Gen.: She is well-nourished. She is in no acute distress. Neurological examination Mental status: The patient is awake. She is oriented self, place. She correctly stated the current year but could not tell me month until gave her options. Shee had few word finding difficulty and seems slight broca aphasia but better today compared to two days ago and about the same as yesterday. No neglect. Cranial nerves: Pupils are equal at 3 mm and reactive. Visual higginbotham are full to confrontation. Extraocular movements are intact. There is no nystagmus. Facial sensation is intact. There is no facial asymmetry. Hearing is grossly intact. Uvula and palate are midline. Shoulder shrug is symmetric. Tongue protrudes midline. Motor: Bilateral upper extremity strength is 5/5. Right hip flexor strength 2/5 and right knee extension is 3, right ankle is 4 (somewhat limited because of right hip pain). Otherwise left lower extremity is 5/5. Sensation: Grossly intact to light touch throughout. There is no extinction with double simultaneous stimulation. Deep tendon reflexes: 2+/4+ in the upper extremities. Right patellar is 0 (somewhat limited because of pain) while left is 1-2+. Right ankle is 0 and left is 1+. Plantars are mute bilaterally. WORK-UP: CT angiography of the head and neck is a the head is reported as negative wall the next reported as mild at this carotid plaque at the carotid artery bifurcation and 40% stenosis of the proximal internal carotid artery bilaterally Carotid duplex was reported as hemodynamic significant stenosis corresponding to 50-69% diameter reduction in the proximal internal carotid artery on the left by Doppler criteria and in direct management of carotid stenosis. MRI the brain is reported as there are small punctate hyperintensity on diffusion-weighted image within the left thalamus compatible with acute ischemic change. Additional chronic appearing periventricular white matter ischemic changes. 2-D echo was reported as left ventricular size is normal. Ejection fraction of 55-60%. Left atrial size is normal. Lipid Panel: Triglycerides 131, cholesterol 105, LDL is 37 and HDL 41. TSH is 1.03. - Labs CBC & Chem 7: 08/26/21 18:21 08/28/21 06:36 Labs: Abnormal Lab Results - Last 24 Hours (Table) 08/31/21 08/31/21 08/31/21 Range/Units 11:33 16:46 20:56 PT (9.0-12.0) sec INR (<1.2) POC Glucose (mg/dL) 154 H 223 H 200 H (75-99) mg/dL 09/01/21 09/01/21 Range/Units 05:35 06:55 PT 31.9 H (9.0-12.0) sec INR 3.3 H (<1.2) POC Glucose (mg/dL) 129 H (75-99) mg/dL Assessment and Plan Assessment: Acute ischemic stroke (left thalamus on MRI Brain. And has aphasia and seems broca)--speech is improving. No IV TPA since onset the window and is on anticoagulation. Unknown source of the stroke possibly artery to artery (left ICA stenosis) Left ICA stenosis of 50-69% per carotid duplex Right lower extremity and per son seems likely new. Supratherapeutic INR (most recent is 3.3) Chronic lower back pain with right lumbosacral radiculopathy Right Hip pain Sugar are labile (130-200's). History of atrial fibrillation on anticoagulation History of coronary disease History of hypertension History of hyperlipidemia Plan: * Ordered MRI of the lumbosacral spine w/ and w/o. * Patient is on Coumadin and the INR supratherapeutic and I will not add and antiplatelets that which will increased risk of a bleed. Once INR is therapeutic recommend adding aspirin 81 mg daily. Continue Lipitor 40 mg daily at bedtime for secondary stroke prophylaxis. * Every 4 hours neuro checks * Ordered HbA1c. * On cardiac monitoring * vascular surgery team for the left ICA stenosis and spoke with the vascular surgery team and it was planned for patient to follow-up as outpatient and possible intervention as outpatient. * Please avoid supratherapeutic INR recommend INR to be 2-3 from a neurological perspective but will defer the management to the primary team. * PT, OT and speech therapy are consulted. * Orthopedic team is on board. * We'll defer the rest of the medical management to primary team * Upon discharge the patient needs to follow-up with a neurologist as an outpatient within 1-2 weeks. Or DVT prophylaxis patient is on Coumadin The plan is discussed with the patient, her son who is at bedside and her nurse. Rick Neal M.D. Neuro-hospitalist Time with Patient: Less than 30
[2021-09-01 11:37] LABS: Glucose,Whole Blood 183 mg/dL (75-99)
[2021-09-01 14:13] VITALS: BMI 30.4
--- NOTE | 2021-09-01 14:23 | P.PN ---
Subjective Progress Note Date: 09/01/21 Patient seen and examined sitting up in bed. Patient's son is at the bedside.. No acute changes through the night. She is alert and oriented 3 however she is still having severe expressive aphasia. Patient underwent MRI of the brain that showed small punctuate hyperintensities on diffusion weighted imaging within the left thalamus compatible with acute ischemic change. Additional chronic appearing. Ventricular white matter ischemic changes. Speech therapy is working with patient. Neurology is following closely. She has been complaining of continued right lower extremity pain and low back pain. She is scheduled for an MRI of the lumbar spine today. Objective - Vital Signs Vital signs: Vital Signs Temp 97.6 F 09/01/21 07:47 Pulse 99 09/01/21 09:17 Resp 16 09/01/21 09:17 BP 135/64 09/01/21 07:47 Pulse Ox 100 09/01/21 02:00 Intake & Output 08/31/21 09/01/21 09/01/21 18:59 06:59 18:59 Intake Total 236 Output Total 450 1400 Balance -450 -1400 236 Intake: Oral 236 Output: Urine 450 1400 Other: Voiding Method External Catheter External Catheter External Catheter - Exam General appearance: The patient is alert, oriented, appears in no acute distress. HET: Head is normocephalic and atraumatic. Pupils are equal and reactive. . Neck: Supple without lymphadenopathy. Trachea midline. Left Carotid bruit Heart: S1 S2. Regular rate and rhythm. Lungs: Clear to auscultation. Extremities: Normal skin color and turgor. No cyanosis, rash, ulceration, clubbing, or edema. Neurological: Continued expressive aphasia. Patient is alert and oriented 3. She is able to follow simple commands.. - Labs CBC & Chem 7: 08/26/21 18:21 08/28/21 06:36 Labs: Abnormal Lab Results - Last 24 Hours (Table) 08/31/21 08/31/21 08/31/21 Range/Units 11:33 16:46 20:56 PT (9.0-12.0) sec INR (<1.2) POC Glucose (mg/dL) 154 H 223 H 200 H (75-99) mg/dL 09/01/21 09/01/21 Range/Units 05:35 06:55 PT 31.9 H (9.0-12.0) sec INR 3.3 H (<1.2) POC Glucose (mg/dL) 129 H (75-99) mg/dL Assessment and Plan Assessment: 1. Left ICA stenosis approximately 50-69% per carotid duplex 2. Acute ischemic stroke left thalamus on MRI of the brain. 3. Expressive aphasia, right upper extremity weakness 4. Hip pain 5. History of atrial fibrillation 6. History coronary artery disease 7. History of hypertension and hyperlipidemia Plan: 1. Continue anticoagulation/antiplatelet therapy per recommendations from neurology 2. Continue Lipitor 40 mg daily 3. Patient discussed with neurology, at this time patient is a likely candidate for vascular surgical intervention. Neurology is recommending no immediate intervention, consider outpatient follow-up with intervention in the next 2 weeks when symptoms are resolved. This was discussed with both patient and her son who was at the bedside. Thank you for this consultation, patient will need outpatient follow-up in one week to further discuss vascular surgical intervention for left ICA stenosis, otherwise patient is cleared for discharge from vascular surgical standpoint once otherwise medically stable. The impression and plan of care has been dictated as directed. Dr. Andres I performed a history and examination of this patient, discussed the same with the dictator. I agree with the dictator's note ,documented as a scribe. Any additional findings or plans will be noted.
--- NOTE | 2021-09-01 15:53 | MR ---
EXAMINATION TYPE: MR lspine/sacrum wo/w con DATE OF EXAM: 09/01/2021 COMPARISON: MRI lumbar spine 01/16/2014 HISTORY: RT leg weakness, low back pain TECHNIQUE: Multiplanar, multisequence images of the lumbar spine and sacrum is performed without and with IV con trast, utilizing 10 mL intravenous Gadavist FINDINGS: Lumbar vertebral bodies show stable height, there is multilevel spondylosis with endplate d iscogenic marrow signal change. Loss of disc height signal is present at intervertebral levels L2-3, L5-S1, L3-4. The conus is at L1 shows an unremarkable appearance. Tarlov cysts noted incidentally ove r the sacral region. There is no significant spinal stenosis. There is a mild spinal curvature. T2 br ight focus within the upper pole the kidneys consistent with a cortical cyst which is increased in si ze compared to prior exam now measuring approximately 2.3 cm. No abnormal enhancement on contrast adm inistration. L5-S1 shows posterior broad-based disc bulge causing mild anterior mass effect on the thecal sac. The re is some facet arthropathy change. Circumferential extension endplate disc complex encroaches minim ally on the inferior aspect of the foramina. L4-5: Mild anterolisthesis grade 1 L4-5 contributes to cause some mild spinal stenosis. There is face t arthropathy with posterior lateral mass effect on the thecal sac. L3-4: Posterior extension endplate disc complex causes anterior mass effect on the thecal sac is ecce ntric towards the left. Circumflex frontal extension endplate disc complex causes foraminal encroachm ent greater on the left. L2-3: Posterior extension endplate disc complex somewhat eccentric towards the right is noted, circum ferential extension endplate disc complex encroaches mildly on the foramina. L1-2: Posterior broad-based disc bulge causes mild anterior mass effect on the thecal sac. Sacrum MRI shows a Tarlov cyst. Urine distended bladder is present. Bone marrow signal is maintained. No evident fracture. No abnormal enhancement following contrast administration. IMPRESSION:. Degenerative disc disease, facet arthropathy, foraminal encroachment and spinal curvatur e similar to prior exam.
[2021-09-01 16:50] LABS: Glucose,Whole Blood 187 mg/dL (75-99)
--- NOTE | 2021-09-01 17:07 | P.PN ---
Subjective Progress Note Date: 09/01/21 No new events overnight . Pleasant expressive aphasia continues, improving. Participate with speech therapy.Son at bedside, updated. Complains of ongoing right lower extremity pain. Neurology workup in progress with lumbar spine MRI scheduled for this afternoon. Denies chest pain, palpitations or shortness of breath. Objective - Vital Signs Vital signs: Vital Signs Temp 98.4 F 09/01/21 11:34 Pulse 72 09/01/21 11:34 Resp 16 09/01/21 11:34 BP 110/58 09/01/21 11:34 Pulse Ox 100 09/01/21 02:00 Intake & Output 08/31/21 09/01/21 09/01/21 18:59 06:59 18:59 Intake Total 472 Output Total 450 1400 Balance -450 -1400 472 Weight 90.718 kg Intake: Oral 472 Output: Urine 450 1400 Other: Voiding Method External Catheter External Catheter External Catheter - Exam - Exam General: elderly female in NAD HEENT: normocephalic, atraumatic, mucus membranes moist CV: irregular, no murmur Lungs: normal effort, clear thoughout Neuro: mild aphasia, Oriented x3 - Labs CBC & Chem 7: 08/26/21 18:21 08/28/21 06:36 Labs: Abnormal Lab Results - Last 24 Hours (Table) 08/31/21 08/31/21 09/01/21 Range/Units 16:46 20:56 05:35 PT 31.9 H (9.0-12.0) sec INR 3.3 H (<1.2) POC Glucose (mg/dL) 223 H 200 H (75-99) mg/dL 09/01/21 09/01/21 Range/Units 06:55 11:33 PT (9.0-12.0) sec INR (<1.2) POC Glucose (mg/dL) 129 H 183 H (75-99) mg/dL Assessment and Plan Assessment: Acute ischemic stroke, left thalamus, etiology unclear. Left ICA stenosis 50-69% Chronic pain of right leg, right lumbosacral, suspect sciatica, on steroids A. fib, chronic Subtherapeutic INR CAD Hypertension Hyperlipidemia Diabetes mellitus Plan: Continue current medication regime, monitoring and symptomatic treatment. Hemoglobin A1c pending. Neurology workup in progress, MRI pending. Coumadin dosing per pharmacy. Discharge planning in progress for subacute rehab tomorrow. Maintain aspirin and statin, and Coumadin. Continue on steroids for her suspected sciatica. The impression and plan of care has been dictated as directed. : I performed a history and examination of this patient, discussed the same with the dictator. I agree with the dictator's note ,documented as a scribe. Any additional findings or plans will be noted.
[2021-09-01] MEDS ORDERED: WARFARIN 0.5 MG TAB PO ONE (18:00)
[2021-09-01] MEDS: MIRTAZAPINE 15 MG TAB PO SCH (20:39)
[2021-09-01] MEDS: ATORVASTATIN 40 MG TAB PO SCH (20:39)
[2021-09-01] MEDS: DULoxetine HCL 30 MG CAPSULE.DR PO SCH (20:40)
[2021-09-01 21:38] LABS: Glucose,Whole Blood 187 mg/dL (75-99)
[2021-09-02] MEDS: LEVOTHYROXINE 25 MCG TAB PO SCH (06:13)
[2021-09-02 07:02] LABS: Glucose,Whole Blood 114 mg/dL (75-99)
[2021-09-02] MEDS: INSULIN ASPART (NovoLOG) 100 UNIT/ML VIAL SQ SCH ×2 (07:11→11:51)
[2021-09-02 07:12] LABS: INR 2.5 (<1.2); Prothrombin Time 24.4 sec (9.0-12.0)
[2021-09-02] MEDS: PANTOPRAZOLE 40 MG TABLET PO SCH (07:38)
[2021-09-02] MEDS: carvediloL 6.25 MG TAB PO SCH (07:38)
[2021-09-02] MEDS: GABAPENTIN 300 MG CAP PO SCH (07:38)
[2021-09-02] MEDS: metFORMIN 500 MG TAB PO SCH (07:38)
[2021-09-02] MEDS: AMIODARONE 200 MG TAB PO SCH (07:38)
[2021-09-02] MEDS: LOSARTAN 25 MG TAB PO SCH (07:38)
[2021-09-02] MEDS: predniSONE 20 MG TAB PO SCH (07:38)
[2021-09-02 08:16] VITALS: BP 144/63; PULSE 75; TEMP 98
[2021-09-02] MEDS: oxyCODONE-APAP 10-325MG 1 EACH TAB PO PRN (09:26)
--- NOTE | 2021-09-02 09:54 | P.CNOR ---
History of Present Illness - HPI Consult date: 09/02/21 Consult reason: low back pain History of present illness: Patient's very pleasant 80-year-old female whose been having low back issues for years. She is currently admitted to hospital due to a cerebrovascular accident from which she seems be recovering well. Last week she presented to the hospital because she was having back pain and right lower extremity pain but over time she developed an ischemic cerebral incident. Has been undergoing active treatment in this regard. She's been making good progress with her speech mentation and activity but she continues to have some pain at her right hip and extending down her right leg. Her son is present at bedside. Apparently her pain is significantly better now than it was when she presented last week. She feels as though she has been having weakness in her right leg for extended period time. She has history of low back pain and right lower extremity radiculopathy for years and has had treatment including epidural steroid injections years ago. She's not sure if she feels more week at her right leg now than she did before but she is deathly feels some weakness her right leg and needs to move her right leg using her hands and her left leg. She denies any problems in her chest or neck. She denies any problems in her upper extremity. Review of Systems As per HPI. She denies changes in bowel bladder function. She feels weakness splinter lift her leg up off the bed on the right side. She denies pain to palpation at her hip thigh near ankle or foot. She denies abdominal pain , chest pain or shortness breath. Past Medical History Past Medical History: Atrial Fibrillation, Atrial Flutter, Coronary Artery Disease (CAD), Heart Failure, Diabetes Mellitus, GERD/Reflux, GI Bleed, Hyperlipidemia, Hypertension, Osteoarthritis (OA), Pneumonia, Thyroid Disorder Additional Past Medical History / Comment(s): Pt recently admitted to [facility] on 07/30/19 with DVT R lower extremity/hemarthrosis R knee-ruptured Bowman's cyst. Other hx: AFib/flutter with past RVR, MVP, cardiomyopathy, NIDDM type II, gastric ulcer, lower GI bleed, generalized arthritis, spinal stenosis, chronic low back pain with occasional bilateral sciatica, past migraines, bronchitis, hypothyroid, anemia years ago, ABD. PAIN, CRAMPING History of Any Multi-Drug Resistant Organisms: None Reported Past Surgical History: Cholecystectomy, Hysterectomy, Joint Replacement, Orthopedic Surgery Additional Past Surgical History / Comment(s): Bilateral total knee replacement, bilateral shoulder rotator cuff repairs, L cataract removal, EGDs and colonoscopy with gastric ulcer cauterized, cardioversions/TEEs, rt hand surgery- bone removed and tendon placed, left foot surgery d/t fracture, epidural back injections. Past Anesthesia/Blood Transfusion Reactions: Motion Sickness, Postoperative Nausea & Vomiting (PONV) Additional Past Anesthesia/Blood Transfusion Reaction / Comm: Pt received blood in 2007 with gastric bleed without reaction. Past Psychological History: No Psychological Hx Reported Additional Psychological History / Comment(s): Normally, pt resides alone in a house; uses a walker for mobility and drives. Smoking Status: Never smoker Past Alcohol Use History: None Reported Past Drug Use History: None Reported - Past Family History Father Family Medical History: No Reported History Additional Family Medical History / Comment(s): Father was healthy and lived to be 80yrs old. Mother Family Medical History: No Reported History Additional Family Medical History / Comment(s): Mother was healthy and lived to be 80 yrs old-she had one kidney. Medications and Allergies Home Medications Medication Instructions Recorded Confirmed Type Esomeprazole Magnesium [NexIUM] 40 mg PO DAILY 07/26/19 08/26/21 History carvediloL [Coreg] 6.25 mg PO BID 07/26/19 08/26/21 History Amiodarone [Cordarone] 200 mg PO DAILY 08/28/19 08/26/21 History ARIPiprazole [Abilify] 20 mg PO HS 12/23/20 08/26/21 History Atorvastatin [Lipitor] 20 mg PO DAILY 12/23/20 08/26/21 History Cyclobenzaprine [Flexeril] 5 mg PO DAILY 12/23/20 08/26/21 History Cyclobenzaprine [Flexeril] 10 mg PO HS 12/23/20 08/26/21 History Dicyclomine [Bentyl] 10 mg PO TID 12/23/20 08/26/21 History Gabapentin [Neurontin] 300 mg PO HS 12/23/20 08/26/21 History Losartan [Cozaar] 25 mg PO DAILY 12/23/20 08/26/21 History Mirtazapine [Remeron] 30 mg PO HS 12/23/20 08/26/21 History Sucralfate [Carafate] 1 gm PO TID 12/23/20 08/26/21 History oxyCODONE-APAP 10-325MG [Percocet 1 tab PO QID PRN 12/23/20 08/26/21 History 10-325 mg] DULoxetine HCL [Cymbalta] 60 mg PO HS 08/26/21 08/26/21 History Diclofenac Sodium Gel [Voltaren 2 gm TOPICAL BID PRN 08/26/21 08/26/21 History Gel] Latanoprost/Pf [Latanoprost 0.005% 1 drop BOTH EYES HS 08/26/21 08/26/21 History Eye Drop] Levothyroxine Sodium [Synthroid] 100 mcg PO DAILY 08/26/21 08/26/21 History Liothyronine Sodium 25 mcg PO DAILY 08/26/21 08/26/21 History Warfarin [Coumadin] 1 mg PO MOTUWETH 08/26/21 08/26/21 History Warfarin [Coumadin] 1 mg PO SUFRSA 08/26/21 08/26/21 History amLODIPine BESYLATE 5 mg PO DAILY 08/26/21 08/26/21 History metFORMIN HCL 500 mg PO BID 08/26/21 08/26/21 History Allergies Allergy/AdvReac Type Severity Reaction Status Date / Time No Known Allergies Allergy Verified 08/26/21 20:49 Physical Examination Osteopathic Statement: *. No significant issues noted on an osteopathic structural exam other than those noted in the History and Physical/Consult. - L Spine: dermatomal strength & reflexes bilateral Strength: hip flexion: 4/5 (She is nontender at her lower back that she has some spasm for the right side at her right gluteus. She is nontender with internal and external rotation of her hips bilaterally. She has well-healed total knee incisions. She is able to dorsiflex and plantarflex with good strength on left) Strength: hip extension: 4/5 (She has proximally 4-5 strength with dorsi flexion on the right as well as hip flexion and knee extension on the right. Calves an d thighs soft and nontender.) Results - Labs Labs: Abnormal Lab Results - Last 24 Hours (Table) 09/01/21 09/01/21 09/01/21 Range/Units 11:33 16:49 21:37 PT (9.0-12.0) sec INR (<1.2) POC Glucose (mg/dL) 183 H 187 H 187 H (75-99) mg/dL 09/02/21 09/02/21 Range/Units 06:27 07:01 PT 24.4 H (9.0-12.0) sec INR 2.5 H (<1.2) POC Glucose (mg/dL) 114 H (75-99) mg/dL H & H 08/26/21 Range/Units 18:21 Hgb 10.2 L (11.4-16.0) gm/dL Hct 29.3 L (34.0-46.0) % Coagulation 08/27/21 08/28/21 08/29/21 Range/Units 05:47 06:36 06:15 INR 2.7 H 2.9 H 3.7 H (<1.2) 08/30/21 08/31/21 09/01/21 Range/Units 06:27 05:47 05:35 INR 3.9 H 3.3 H 3.3 H (<1.2) 09/02/21 Range/Units 06:27 INR 2.5 H (<1.2) Result Diagrams: 08/26/21 18:21 08/28/21 06:36 - Diagnostic results Lumbar MRI with/without contrast: report reviewed (There is also diffuse disc bulging throughout. There is no acute new disc herniation. There is no severe stenosis or central issues. There is no evidence of any cauda symptoms. There is no evidence of fracture.), image reviewed (New MRI of lumbar spine is reviewed. It shows degenerative scoliosis with significant spondylosis throughout lumbar spine. There is disc degeneration at lumbar spine. With facet arthrosis at multiple levels. There is right foraminal stenosis at L2-3. Bilateral foraminal stenosis L3 4 and L4 5. ) Assessment and Plan Assessment: Recent CVA which is being treated appropriately and improving Chronic low back pain with acute exacerbation with right lower extremity radiculopathy Degenerative scoliosis Foraminal encroachment with facet arthrosis at multiple levels lumbar spine Degenerative disc disease Right lower extremity weakness of undetermined chronicity Plan: Recent CVA which is being treated appropriately and improving Chronic low back pain with acute exacerbation with right lower extremity radiculopathy Degenerative scoliosis Foraminal encroachment with facet arthrosis at multiple levels lumbar spine Degenerative disc disease Right lower extremity weakness of undetermined chronicity Overall the patient is making good progress in terms of her recent stroke. A LLERGIES Benzinger appropriately along with medicine and she'll continue her treatment as well as her anticoagulation. In terms of her lumbar spine she has multiple chronic changes at his lumbar spin e and appears to have an acute exacerbation. This seems to be resolving over the past week according to her son and her overall symptoms at her right lower extremity. She continues to have some radiculopathy in the right lower extremity with some evidence of weakness. Most this weakness appears to be somewhat chronic, and she does not seem to be having progressive neurologic change at this point. I think it is okay for her to continue with conservative treatment. I would not recommend surgical intervention for her lumbar spine as she does not have evidence of severe stenosis or new acute neural compression. She has had interventional pain management in the past with minimal results but she still may be a candidate for this in outpatient basis if her pain is unrelenting and if she is able to come off her anticoagulation. I discussed this with her and she will hold off on this as long as she can. We do not have any plans for acute surgical intervention for her. She should increase her physical therapy for mobilization and ambulation. I do not think that this poses a threat to her lumbar spine per se. From an orthopedic spine standpoint is okay for her to be discharged to correction or hold home health whenever she is cleared with medicine. We can follow her up on an outpatient basis. I discussed this with him at length and answered her questions best my ability and they are agreeable.
--- NOTE | 2021-09-02 10:21 | P.PN ---
Subjective Progress Note Date: 09/02/21 The patient seen at bedside and she is accompanied with her son. The patient stated that she's doing better today. She feels her right leg weakness is slightly getting better. She continues to have lower back pain as well as right hip pain. Objective - Vital Signs Vital signs: Vital Signs Temp 98 F 09/02/21 08:00 Pulse 75 09/02/21 08:00 Resp 16 09/02/21 08:00 BP 144/63 09/02/21 08:00 Pulse Ox 99 09/02/21 08:48 Intake & Output 09/01/21 09/02/21 09/02/21 18:59 06:59 18:59 Intake Total 708 236 Output Total 400 Balance 708 -400 236 Weight 90.718 kg Intake: Oral 708 236 Output: Urine 400 Other: Voiding Method External Catheter Incontinent Incontinent External Catheter External Catheter # Voids 2 1 - Exam Gen.: She is well-nourished. She is in no acute distress. Neurological examination Mental status: The patient is awake. She is oriented self, place. She correctly stated the current year but could not tell me month until gave her options. Shee had few word finding difficulty and seems slight broca aphasia but better today compared to two days ago and about the same as yesterday. No neglect. Cranial nerves: Pupils are equal at 3 mm and reactive. Visual higginbotham are full to confrontation. Extraocular movements are intact. There is no nystagmus. Facial sensation is intact. There is no facial asymmetry. Hearing is grossly intact. Uvula and palate are midline. Shoulder shrug is symmetric. Tongue protrudes midline. Motor: Bilateral upper extremity strength is 5/5. Right hip flexor strength 3/5 and right knee extension is 3, right ankle is 4+ (somewhat limited because of right hip pain). Otherwise left lower extremity is 5/5. Sensation: Grossly intact to light touch throughout. There is no extinction with double simultaneous stimulation. Deep tendon reflexes: 2+/4+ in the upper extremities. Right patellar is 0 (somewhat limited because of pain) while left is 1-2+. Right ankle is 0 and left is 1+. Plantars are mute bilaterally. WORK-UP: CT angiography of the head and neck is a the head is reported as negative wall the next reported as mild at this carotid plaque at the carotid artery bifurcation and 40% stenosis of the proximal internal carotid artery bilaterally Carotid duplex was reported as hemodynamic significant stenosis corresponding to 50-69% diameter reduction in the proximal internal carotid artery on the left by Doppler criteria and in direct management of carotid stenosis. MRI the brain is reported as there are small punctate hyperintensity on diffus ion-weighted image within the left thalamus compatible with acute ischemic change. Additional chronic appearing periventricular white matter ischemic changes. Mild lumbar/Sacral spine with and without: Was reported as degenerative disc disease, facet arthropathy, former neural encroachment and spinal curvature as similar to prior exam. It is reported that there is mild and enterolithiasis over L4-L5 causing some mild spinal stenosis as well as over the L5-S1 there is a mild anterior mass effect of the thecal sac. As well as over L3-L4 there is a posture extension at endplate disc complex cause anterior mass effect 2-D echo was reported as left ventricular size is normal. Ejection fraction of 55-60%. Left atrial size is normal. Lipid Panel: Triglycerides 131, cholesterol 105, LDL is 37 and HDL 41. TSH is 1.03. - Labs CBC & Chem 7: 08/26/21 18:21 08/28/21 06:36 Labs: Abnormal Lab Results - Last 24 Hours (Table) 09/01/21 09/01/21 09/01/21 Range/Units 11:33 16:49 21:37 PT (9.0-12.0) sec INR (<1.2) POC Glucose (mg/dL) 183 H 187 H 187 H (75-99) mg/dL 09/02/21 09/02/21 Range/Units 06:27 07:01 PT 24.4 H (9.0-12.0) sec INR 2.5 H (<1.2) POC Glucose (mg/dL) 114 H (75-99) mg/dL Assessment and Plan Assessment: Acute ischemic stroke (left thalamus on MRI Brain. And has aphasia and seems broca)--speech is improving. No IV TPA since onset the window and is on anticoagulation. Unknown source of the stroke possibly artery to artery (left ICA stenosis) Left ICA stenosis of 50-69% per carotid duplex Chronic lower back pain with right lumbosacral radiculopathy (on examination she felt leg weaker but exacerbated and limited with pain. MRI is reported as similiar to 2014 study)--on today's examination improvement of right leg weakness. Acute Right Hip pain Sugar are labile (130-200's). History of atrial fibrillation on anticoagulation History of coronary disease History of hypertension History of hyperlipidemia Plan: * Patient is on Coumadin and the INR was supratherapeutic during stay. Once continues to be therapeutic, recommend adding aspirin 81 mg daily. Continue Lipitor 40 mg daily at bedtime for secondary stroke prophylaxis. * Every 4 hours neuro checks * Ordered HbA1c. * On cardiac monitoring * vascular surgery team for the left ICA stenosis and spoke with the vascular surgery team and it was planned for patient to follow-up as outpatient and possible intervention as outpatient. * Please avoid supratherapeutic INR recommend INR to be 2-3 from a neurological perspective but will defer the management to the primary team. * PT, OT and speech therapy are consulted. * Orthopedic team is on board and they stated no intervention at this time and continue conservative management. * We'll defer the rest of the medical management to primary team * Upon discharge the patient needs to follow-up with a neurologist as an outpatient within 1-2 weeks. Or DVT prophylaxis patient is on Coumadin The plan is discussed with the patient, her son who is at bedside and her nurse. There is no further neurological work-up. Rick Neal M.D. Neuro-hospitalist Time with Patient: Less than 30
--- NOTE | 2021-09-02 11:05 | P.DS ---
Providers Date of admission: 08/30/21 09:51 Expected date of discharge: 09/02/21 Attending physician: Champ Barrios MD Consults: 08/26/21 19:55 Consult Physician Routine Consulting Provider: Thomas Garzon Consult Reason/Comments: Hip pain, MRI results of lower spine Do you want consulting provider notified?: Yes 08/28/21 16:19 Consult Physician Urgent Consulting Provider: Alvina Mcclellan Consult Reason/Comments: code stroke, word salad Do you want consulting provider notified?: Yes 08/30/21 07:40 Consult Physician Routine Consulting Provider: Ada Andres Consult Reason/Comments: left ICA stenosis Do you want consulting provider notified?: Yes Primary care physician: Champ Barrios MD Hospital Course: Final Diagnoses: Acute ischemic stroke, left thalamus, etiology unclear. Left ICA stenosis 50-69%, further follow-up/monitoring outpatient recommended with vascular surgery Chronic pain of right leg, right lumbosacral, suspect sciatica, on steroids A. fib, chronic on Coumadin Subtherapeutic INR CAD Hypertension Hyperlipidemia Diabetes mellitus, A1c 5.9 Hospital course: Angeline Lee is an 80 yo F with PMH of arthritis, A fib on coumadin, CAD who presented to the ED complaining of severe and worsened R hip pain. She complains that this has been present for almost a month but it has been getting progressivley worse. She saw her PCP and was initially recommended stretches and trigger point injection for piriformis syndrome but no improvement. She complains of radiation from the groin into mid leg. On presentation vitals and labs stable, hip XR with OA, no acute fracture. Her leg pain is significantly improved today. She remains aphasic and complains of frustration with her difficulty getting words out. Denies numbness, tingling or weakness. Pt underwent MRI brain which did show L thalamic CVA. She remains on coumadin and lipitor. She reports significant improvement today in her aphasia, able to communicate without difficulty. Leg pain is stable. No new events overnight . Pleasant expressive aphasia continues, improving. Participate with speech therapy.Son at bedside, updated. Complains of ongoing right lower extremity pain. Neurology workup in progress with lumbar spine MRI scheduled for this afternoon. Denies chest pain, palpitations or shortness of breath. Lumbar spine MRI report degenerative disc disease, facet arthropathy, foraminal encroachment and spinal curvature similar to prior exam;mild and enterolithiasis over L4-L5 causing some mild spinal stenosis as well as over the L5-S1 there is a mild anterior mass effect of the thecal sac, L3-L4 there is a posture extension at endplate disc complex cause anterior mass effect. Continues on aspirin and statin and Coumadin, INR currently 2.5. Steroid taper ordered for suspected sciatica. Significant clinical improvement. Patient will be discharged to [facility] subacute rehab today in a stable condition with guarded prognosis. Son at bedside, updated. The impression and plan of care has been dictated as directed. : I performed a history and examination of this patient, discussed the same with the dictator. I agree with the dictator's note ,documented as a scribe. Any additional findings or plans will be noted. Patient Condition at Discharge: Stable Plan - Discharge Summary Discharge Rx Participant: No New Discharge Prescriptions: New DULoxetine HCL [Cymbalta] 30 mg PO HS predniSONE [Deltasone] See Taper PO DAILY 18 Days tab Furosemide [Lasix] 20 mg PO DAILY PRN tab PRN Reason: Edema Gabapentin [Neurontin] 300 mg PO BID #6 cap Acetaminophen Tab [Tylenol] 650 mg PO Q6HR PRN tab PRN Reason: Fever And/ Or Pain INSULIN LISPRO (HumaLOG) [humaLOG] 0 unit SQ ACHS #10 ml Continue carvediloL [Coreg] 6.25 mg PO BID Esomeprazole Magnesium [NexIUM] 40 mg PO DAILY Amiodarone [Cordarone] 200 mg PO DAILY Dicyclomine [Bentyl] 10 mg PO TID Sucralfate [Carafate] 1 gm PO TID Losartan [Cozaar] 25 mg PO DAILY Mirtazapine [Remeron] 30 mg PO HS Atorvastatin [Lipitor] 20 mg PO DAILY ARIPiprazole [Abilify] 20 mg PO HS Warfarin [Coumadin] 1 mg PO SUFRSA metFORMIN HCL 500 mg PO BID Liothyronine Sodium 25 mcg PO DAILY Levothyroxine Sodium [Synthroid] 100 mcg PO DAILY Latanoprost/Pf [Latanoprost 0.005% Eye Drop] 1 drop BOTH EYES HS oxyCODONE-APAP 10-325MG [Percocet 10-325 mg] 1 tab PO QID PRN #12 tab PRN Reason: Pain Warfarin [Coumadin] 1 mg PO MOTUWETH Discontinued Cyclobenzaprine [Flexeril] 5 mg PO DAILY Cyclobenzaprine [Flexeril] 10 mg PO HS Gabapentin [Neurontin] 300 mg PO HS DULoxetine HCL [Cymbalta] 60 mg PO HS amLODIPine BESYLATE 5 mg PO DAILY Diclofenac Sodium Gel [Voltaren Gel] 2 gm TOPICAL BID PRN PRN Reason: Pain Discharge Medication List Esomeprazole Magnesium [NexIUM] 40 mg PO DAILY 07/26/19 [History] carvediloL [Coreg] 6.25 mg PO BID 07/26/19 [History] Amiodarone [Cordarone] 200 mg PO DAILY 08/28/19 [History] ARIPiprazole [Abilify] 20 mg PO HS 12/23/20 [History] Atorvastatin [Lipitor] 20 mg PO DAILY 12/23/20 [History] Dicyclomine [Bentyl] 10 mg PO TID 12/23/20 [History] Losartan [Cozaar] 25 mg PO DAILY 12/23/20 [History] Mirtazapine [Remeron] 30 mg PO HS 12/23/20 [History] Sucralfate [Carafate] 1 gm PO TID 12/23/20 [History] Latanoprost/Pf [Latanoprost 0.005% Eye Drop] 1 drop BOTH EYES HS 08/26/21 [History] Levothyroxine Sodium [Synthroid] 100 mcg PO DAILY 08/26/21 [History] Liothyronine Sodium 25 mcg PO DAILY 08/26/21 [History] Warfarin [Coumadin] 1 mg PO MOTUWETH 08/26/21 [History] Warfarin [Coumadin] 1 mg PO SUFRSA 08/26/21 [History] metFORMIN HCL 500 mg PO BID 08/26/21 [History] Acetaminophen Tab [Tylenol] 650 mg PO Q6HR PRN tab 09/02/21 [Rx] DULoxetine HCL [Cymbalta] 30 mg PO HS 09/02/21 [Rx] Furosemide [Lasix] 20 mg PO DAILY PRN tab 09/02/21 [Rx] Gabapentin [Neurontin] 300 mg PO BID #6 cap 09/02/21 [Rx] INSULIN LISPRO (HumaLOG) [humaLOG] 0 unit SQ ACHS #10 ml 09/02/21 [Rx] oxyCODONE-APAP 10-325MG [Percocet 10-325 mg] 1 tab PO QID PRN #12 tab 09/02/21 [Rx] predniSONE [Deltasone] See Taper PO DAILY 18 Days tab 09/02/21 [Rx] Follow up Appointment(s)/Referral(s): Champ Barrios MD [Primary Care Provider] - 1-2 days Thomas Garzon DO [Doctor of Osteopathic Medicine] - 10/01/21 2:15 pm Ada Andres DO [STAFF PHYSICIAN] - 09/29/21 9:15 am Activity/Diet/Wound Care/Special Instructions: May ambulate weightbearing as tolerated. Increase activity mobilization, transfers and ambulation as tolerated with therapy PT/INR daily CBC, BMP in 3 days
[2021-09-02 11:31] LABS: Glucose,Whole Blood 160 mg/dL (75-99)
[2021-09-02] MEDS ORDERED: WARFARIN 0.5 MG TAB PO ONE (18:00)
== END 2021-09-02 13:02 | DRG 64 ==
LOC: EC 17:28 → 4SSUR 19:54 → OBSVTOIN 08-30 09:51
PROVIDERS: ADMIT Family Medicine; ATTEND Family Medicine
DX: I63.512 Cerebral infarction due to unspecified occlusion or stenosis of left middle cerebral artery (principal); G93.41 Metabolic encephalopathy; E87.1 Hypo-osmolality and hyponatremia; K92.2 Gastrointestinal hemorrhage, unspecified; I42.9 Cardiomyopathy, unspecified; I48.92 Unspecified atrial flutter; D64.9 Anemia, unspecified; R47.01 Aphasia; D72.829 Elevated white blood cell count, unspecified; E03.9 Hypothyroidism, unspecified; E11.9 Type 2 diabetes mellitus without complications; E78.5 Hyperlipidemia, unspecified; Z20.822 Contact with and (suspected) exposure to COVID-19; E87.5 Hyperkalemia; G89.29 Other chronic pain; I65.22 Occlusion and stenosis of left carotid artery; J32.0 Chronic maxillary sinusitis; K21.9 Gastro-esophageal reflux disease without esophagitis; M13.0 Polyarthritis, unspecified; M41.80 Other forms of scoliosis, site unspecified; M47.819 Spondylosis without myelopathy or radiculopathy, site unspecified; M51.16 Intervertebral disc disorders with radiculopathy, lumbar region; R79.1 Abnormal coagulation profile; S70.01XA Contusion of right hip, initial encounter; S70.11XA Contusion of right thigh, initial encounter; I50.9 Heart failure, unspecified; I48.91 Unspecified atrial fibrillation; S30.0XXA Contusion of lower back and pelvis, initial encounter; I11.0 Hypertensive heart disease with heart failure; I25.10 Atherosclerotic heart disease of native coronary artery without angina pectoris; G43.909 Migraine, unspecified, not intractable, without status migrainosus; Z98.42 Cataract extraction status, left eye; Z96.653 Presence of artificial knee joint, bilateral; Z90.710 Acquired absence of both cervix and uterus; Z87.11 Personal history of peptic ulcer disease; Z86.73 Personal history of transient ischemic attack (TIA), and cerebral infarction without residual deficits; Z86.718 Personal history of other venous thrombosis and embolism; Z79.899 Other long term (current) drug therapy; Z79.890 Hormone replacement therapy; Z79.84 Long term (current) use of oral hypoglycemic drugs; Z79.01 Long term (current) use of anticoagulants
CPT/HCPCS: 36415; 70450; 70496; 70498; 70553; 72100; 72158; 72197; 73502; 80048; 80061; 81003; 83036; 83735; 84443; 85025; 85610; 87635; 93005; 93306; 93880; 94760; 96374; 96375; 99285

== ENCOUNTER 2023-02-25 00:17 | Inpatient (IN) | payer MEDICARE ==
--- NOTE | 2023-02-25 00:27 | ED ---
General Adult HPI - General Chief complaint: Shortness of Breath Stated complaint: SALIMA Time Seen by Provider: 02/25/23 00:21 Source: patient Mode of arrival: EMS Limitations: no limitations - History of Present Illness Initial comments: Dictation was produced using [employer] dictation software. please excuse any grammatical, word or spelling errors. Chief Complaint: 82-year-old female presents emergency part for shortness of breath History of Present Illness: Patient is a 82-year-old female multiple cardiac and pulmonary comorbidities brought from home by EMS for shortness of breath. Patient has been dyspneic with hemoptysis for the last several hours. She allegedly has a history of COPD. Upon EMS evaluation they felt like she was wheezing she got a breathing treatment. Patient denies any fevers. No chest pain. Patient states she does not have any cardiac comorbidities however chart review shows that patient has history of A. fib and heart failure. After the breathing treatment provided by EMS patient states that her symptoms are significantly improved. She states that she feels fine now. EMS reports hypoxia at 85% upon initial evaluation. The ROS documented in this emergency department record has been reviewed and confirmed by me. Those systems with pertinent positive or negative responses have been documented in the HPI. All other systems are other negative and/or noncontributory. PHYSICAL EXAM: General Impression: Alert and oriented x3, not in acute distress HEENT: Normocephalic atraumatic, extra-ocular movements intact, pupils equal and reactive to light bilaterally, mucous membranes moist. Cardiovascular: Heart regular rate and rhythm Chest: Able to complete full sentences, no retractions, no tachypnea, mild end inspiratory crackles Abdomen: abdomen soft, non-tender, non-distended, no organomegaly Musculoskeletal: Pulses present and equal in all extremities, 1+ pitting edema bilaterally Motor: no focal deficits noted Neurological: CN II-XII grossly intact, no focal motor or sensory deficits noted Skin: Intact with no visualized rashes Psych: Normal affect and mood ED course: 82-year-old female presents emergency department for dyspnea. This may work force pursued. Patient was found to have clinical findings to suggest pulmonary infection. She is on no supratherapeutic INR level 5.6. Patient started on antibiotics Nursing notes and chart review was performed At approximately 210 and patient became unresponsive. She allegedly told the nurse that she had a headache. Nurse went to get some Tylenol. Shortly after patient became obtunded and unresponsive. She had a pulse showed a narrow complex waveform on her monitor car operator. She is not a responsive to painful s timuli. Rapid sequence intubation was performed. Patient rushed over for CT brain for concern of intracranial bleed. Patient was assisted to CT. Real-time review of images shows catastrophic intra cranial bleed. Patient ordered for [facility], labetalol load and infusion. Code stroke was paged. Case is discussed with on-call stroke neurologist, Dr. Soto. He reviewed the films which showed catastrophic intracranial hemorrhage. His recommendation was palliative care. States that the degree of intracranial bleed is beyond any neurosurgical or neurologic intervention. Spoke with Joni who is patient's next of kin listed in her electronic medical record. He was notified of the situation and was agreeable to pursue palliative care measures. He lives in [place] and states that he can be here at approximately 5 AM. Official computed tomography scan of brain was reviewed along with radiologist. There is a large acute intracranial hemorrhage measuring greater than 9 cm with brainstem compression and coordination severe midline shift and subfalcine herniation from right to left. There is component of both subdural and subarachnoid hemorrhage. Son the bedside arrived at approximately 5:30 AM. Images were reviewed along with patient's son and patient's [id number]. Goals of care was discussed with patient's son. There agree with care and comfort measures at this time. Comfort care order set ordered. Was pt. sent in by a medical professional or institution (, PA, VISUAL EFFECTS ARTIST, urgent care, hospital, or [facility]...) When possible be specific @ -No Did you speak to anyone other than the patient for history (EMS, parent, family, police, friend...)? What history was obtained from this source @ -EMS Did you review nursing and triage notes (agree or disagree)? Why? @ -I reviewed and agree with nursing and triage notes Were old charts reviewed (outside hosp., previous admission, EMS record, old EKG, old radiological studies, urgent care reports/EKG's, [facility] records)? Report findings @ -No old charts were reviewed Differential Diagnosis (chest pain, altered mental status, abdominal pain women, abdominal pain men, vaginal bleeding, musculoskeletal, weakness, fever, dyspnea, syncope, headache, dizziness, GI bleed, back pain, seizure, CVA, palpatations, mental health)? @ -Differential Dyspnea: Coronary syndrome, arrhythmia, tamponade, asthma, COPD, pulmonary embolism, pneumonia, pneumothorax, pulmonary effusion, anaphylaxis, diabetic ketoacidosis, flailed chest, pulmonary contusion, diaphragmatic rupture, anemia, neuromuscular, this is not meant to be an all-inclusive list. EKG interpreted by me (3pts min.). @ -My EKG interpretation: Ventricular rate 98, atrial flutter, QRS 103, QTC 411. No UT prolongation, no QTC prolongation, no ST or T-wave changes noted. Overall, this EKG is unremarkable X-rays interpreted by me (1pt min.). @ -Left lower consolidation. CT interpreted by me (1pt min.). @ -Chest shows consolidation with small left pleural effusion Computed tomography scan of the brain shows large catastrophic intracranial hemorrhage U/S interpreted by me (1pt. min.). @ -None done What testing was considered but not performed or refused? (CT, X-rays, U/S, labs)? Why? @ -None What meds were considered but not given or refused? Why? @ -None Did you discuss the management of the patient with other professionals (professionals i.e. , PA, VISUAL EFFECTS ARTIST, lab, RT, psych nurse, public health social worker, plc engineer, teacher, equal opportunity officer, pillowcase maker)? Give summary @ -Case discussed with stroke neurologist, cobol developer and hospitalist Was smoking cessation discussed for >3mins.? @ -No Was critical care preformed (if so, how long)? @ -77 minutes Were there social determinants of health that impacted care today? How? (Homelessness, low income, unemployed, alcoholism, drug addiction, transportation, low edu. Level, literacy, decrease access to med. care, halfway, rehab)? @ -No Was there de-escalation of care discussed even if they declined (Discuss DNR or withdrawal of care, Hospice)? DNR status @ -De-escalation of care was discussed with patient's son over the phone. He requested that patient be DO NOT RESUSCITATE What co-morbidities impacted this encounter? (DM, HTN, Smoking, COPD, CAD, Cancer, CVA, ARF, Chemo, Hep., AIDS, mental health diagnosis, sleep apnea, morbid obesity)? @ -History of A. fib on anticoagulation therapy Was patient admitted / discharged? Hospital course, mention meds given and route, prescriptions, significant lab abnormalities, going to OR and other pertinent info. @ -See above Undiagnosed new problem with uncertain prognosis? @ -No Drug Therapy requiring intensive monitoring for toxicity (Heparin, Nitro, Insulin, Cardizem)? @ -No Were any procedures done? @ -No Diagnosis/symptom? Acute, or Chronic, or Acute on Chronic? Uncomplicated (without systemic symptoms) or Complicated (systemic symptoms)? @ -1. Acute catastrophic intracranial hemorrhage, 2. Pneumonia Side effects of treatment? @ -No Exacerbation, Progression, or Severe Exacerbation? @ -No Poses a threat to life or bodily function? How? (Chest pain, [place], [place], pneumonia, PE, COPD, DKA, ARF, appy, cholecystitis, CVA, Diverticulitis, Homicidal, Suicidal, threat to staff... and all critical care pts) @ -yes - Related Data Home Medications Medication Instructions Recorded Confirmed Esomeprazole Magnesium [NexIUM] 40 mg PO DAILY 07/26/19 08/26/21 carvediloL [Coreg] 6.25 mg PO BID 07/26/19 08/26/21 Amiodarone [Cordarone] 200 mg PO DAILY 08/28/19 08/26/21 ARIPiprazole [Abilify] 20 mg PO HS 12/23/20 08/26/21 Atorvastatin [Lipitor] 20 mg PO DAILY 12/23/20 08/26/21 Dicyclomine [Bentyl] 10 mg PO TID 12/23/20 08/26/21 Losartan [Cozaar] 25 mg PO DAILY 12/23/20 08/26/21 Mirtazapine [Remeron] 30 mg PO HS 12/23/20 08/26/21 Sucralfate [Carafate] 1 gm PO TID 12/23/20 08/26/21 Latanoprost/Pf [Latanoprost 0.005% 1 drop BOTH EYES HS 08/26/21 08/26/21 Eye Drop] Levothyroxine Sodium [Synthroid] 100 mcg PO DAILY 08/26/21 08/26/21 Liothyronine Sodium 25 mcg PO DAILY 08/26/21 08/26/21 Warfarin [Coumadin] 1 mg PO MOTUWETH 08/26/21 08/26/21 Warfarin [Coumadin] 1 mg PO SUFRSA 08/26/21 08/26/21 metFORMIN HCL 500 mg PO BID 08/26/21 08/26/21 Previous Rx's Medication Instructions Recorded Acetaminophen Tab [Tylenol] 650 mg PO Q6HR PRN tab 09/02/21 DULoxetine HCL [Cymbalta] 30 mg PO HS 09/02/21 Furosemide [Lasix] 20 mg PO DAILY PRN tab 09/02/21 Gabapentin [Neurontin] 300 mg PO BID #6 cap 09/02/21 INSULIN LISPRO (HumaLOG) [humaLOG] 0 unit SQ ACHS #10 ml 09/02/21 oxyCODONE-APAP 10-325MG [Percocet 1 tab PO QID PRN #12 tab 09/02/21 10-325 mg] predniSONE [Deltasone] See Taper PO DAILY 18 Days tab 09/02/21 Allergies Allergy/AdvReac Type Severity Reaction Status Date / Time No Known Allergies Allergy Verified 08/26/21 20:49 Review of Systems ROS Statement: Those systems with pertinent positive or pertinent negative responses have been documented in the HPI. ROS Other: All systems not noted in ROS Statement are negative. Past Medical History Past Medical History: Atrial Fibrillation, Atrial Flutter, Coronary Artery Disease (CAD), Heart Failure, Diabetes Mellitus, GERD/Reflux, GI Bleed, Hyperlipidemia, Hypertension, Osteoarthritis (OA), Pneumonia, Thyroid Disorder Additional Past Medical History / Comment(s): Pt recently admitted to [facility] on 07/30/19 with DVT R lower extremity/hemarthrosis R knee-ruptured Bowman's cyst. Other hx: AFib/flutter with past RVR, MVP, cardiomyopathy, NIDDM type II, gastric ulcer, lower GI bleed, generalized arthritis, spinal stenosis, chronic low back pain with occasional bilateral sciatica, past migraines, bronchitis, hypothyroid, anemia years ago, ABD. PAIN, CRAMPING History of Any Multi-Drug Resistant Organisms: None Reported Past Surgical History: Cholecystectomy, Hysterectomy, Joint Replacement, Orthopedic Surgery Additional Past Surgical History / Comment(s): Bilateral total knee replacement, bilateral shoulder rotator cuff repairs, L cataract removal, EGDs and colonoscopy with gastric ulcer cauterized, cardioversions/TEEs, rt hand surgery-bone removed and tendon placed, left foot surgery d/t fracture, epidural back injections. Past Anesthesia/Blood Transfusion Reactions: Motion Sickness, Postoperative Nausea & Vomiting (PONV) Additional Past Anesthesia/Blood Transfusion Reaction / Comment(s): Pt received blood in 2007 with gastric bleed without reaction. Past Psychological History: No Psychological Hx Reported Smoking Status: Never smoker Past Alcohol Use History: None Reported Past Drug Use History: None Reported - Past Family History Father Family Medical History: No Reported History Additional Family Medical History / Comment(s): Father was healthy and lived to be 80yrs old. Mother Family Medical History: No Reported History Additional Family Medical History / Comment(s): Mother was healthy and lived to be 80 yrs old-she had one kidney. General Exam Limitations: no limitations Course Vital Signs 02/25/23 02/25/23 02/25/23 00:19 00:22 00:30 Temperature 98.4 F Pulse Rate 100 Respiratory 18 Rate Blood Pressure 155/88 155/88 O2 Sat by Pulse 97 95 95 Oximetry Fraction of Inspired Oxygen (FIO2) 02/25/23 02/25/23 02/25/23 00:40 00:50 01:00 Temperature Pulse Rate 99 101 H Respiratory 24 23 Rate Blood Pressure 155/88 155/88 155/88 O2 Sat by Pulse 100 100 Oximetry Fraction of Inspired Oxygen (FIO2) 02/25/23 02/25/23 02/25/23 01:10 01:20 01:40 Temperature Pulse Rate 97 105 H Respiratory 13 0 L Rate Blood Pressure 144/83 144/83 O2 Sat by Pulse 100 Oximetry Fraction of Inspired Oxygen (FIO2) 02/25/23 02/25/23 02/25/23 01:50 01:55 02:00 Temperature Pulse Rate 123 H 112 H 128 H Respiratory 0 L 14 12 Rate Blood Pressure 150/76 200/186 O2 Sat by Pulse 94 L Oximetry Fraction of Inspired Oxygen (FIO2) 02/25/23 02/25/23 02/25/23 02:10 02:18 02:20 Temperature Pulse Rate 113 H 135 H Respiratory 21 18 Rate Blood Pressure 224/153 189/144 O2 Sat by Pulse 97 100 Oximetry Fraction of Inspired Oxygen (FIO2) 02/25/23 02/25/23 02/25/23 02:30 02:32 02:40 Temperature Pulse Rate 95 98 Respiratory 14 14 Rate Blood Pressure 189/144 113/83 189/144 O2 Sat by Pulse 94 L 94 L Oximetry Fraction of 100 Inspired Oxygen (FIO2) 02/25/23 02/25/23 02/25/23 02:47 04:02 05:00 Temperature Pulse Rate 106 H 104 H 108 H Respiratory 16 18 18 Rate Blood Pressure 120/83 124/95 139/66 O2 Sat by Pulse 97 98 97 Oximetry Fraction of Inspired Oxygen (FIO2) 02/25/23 02/25/23 02/25/23 05:51 07:59 08:18 Temperature Pulse Rate 87 101 H Respiratory 18 24 Rate Blood Pressure 130/95 165/103 O2 Sat by Pulse 100 100 Oximetry Fraction of 100 Inspired Oxygen (FIO2) 02/25/23 02/25/23 02/25/23 11:27 11:30 11:38 Temperature Pulse Rate 146 H 154 H Respiratory 26 H 26 H Rate Blood Pressure 119/100 119/100 O2 Sat by Pulse 98 98 Oximetry Fraction of 100 Inspired Oxygen (FIO2) 02/25/23 02/25/23 02/25/23 11:40 11:50 12:00 Temperature Pulse Rate 144 H 134 H 138 H Respiratory 26 H 26 H 26 H Rate Blood Pressure 85/66 88/69 78/41 O2 Sat by Pulse 98 98 98 Oximetry Fraction of Inspired Oxygen (FIO2) 02/25/23 02/25/23 02/25/23 12:10 12:20 12:30 Temperature Pulse Rate 142 H 146 H 133 H Respiratory 26 H 26 H 17 Rate Blood Pressure 113/89 123/73 73/50 O2 Sat by Pulse 98 99 99 Oximetry Fraction of Inspired Oxygen (FIO2) 02/25/23 02/25/23 02/25/23 12:40 12:50 13:00 Temperature Pulse Rate 144 H 133 H 146 H Respiratory 26 H 26 H 26 H Rate Blood Pressure 77/65 85/62 64/35 O2 Sat by Pulse 99 99 100 Oximetry Fraction of Inspired Oxygen (FIO2) 02/25/23 02/25/23 02/25/23 13:10 13:20 13:30 Temperature Pulse Rate 125 H 141 H 122 H Respiratory 26 H 26 H 21 Rate Blood Pressure 78/55 75/60 96/59 O2 Sat by Pulse 99 99 99 Oximetry Fraction of Inspired Oxygen (FIO2) 02/25/23 02/25/23 02/25/23 13:34 13:40 13:50 Temperature Pulse Rate 151 H 142 H 141 H Respiratory 20 21 26 H Rate Blood Pressure 96/67 105/82 96/51 O2 Sat by Pulse 99 100 100 Oximetry Fraction of Inspired Oxygen (FIO2) 02/25/23 02/25/23 02/25/23 14:00 14:10 14:20 Temperature Pulse Rate 133 H 129 H 129 H Respiratory 26 H 26 H 26 H Rate Blood Pressure 77/42 110/62 118/85 O2 Sat by Pulse 99 99 99 Oximetry Fraction of Inspired Oxygen (FIO2) 02/25/23 02/25/23 02/25/23 14:30 14:40 14:50 Temperature Pulse Rate 134 H 135 H 130 H Respiratory 26 H 26 H 26 H Rate Blood Pressure 87/69 92/54 76/58 O2 Sat by Pulse 99 99 99 Oximetry Fraction of Inspired Oxygen (FIO2) 02/25/23 02/25/23 15:00 15:37 Temperature Pulse Rate 129 H Respiratory 20 Rate Blood Pressure 78/54 O2 Sat by Pulse 99 Oximetry Fraction of 100 Inspired Oxygen (FIO2) Procedures - Intubation Paralytic: Rocuronium Mg Given: 50 Size: 3 Assist Device Used: fiber optic device ET Tube Size: 7.5 ET Tube Uncuffed: No Tube Secured Depth (cm): 25 Tube Secured Location: lips Tube Placement Confirmation: visualized tube passing through cords, equal breath sounds bilaterally, no breath sounds over epigastrium, confirmation by capnometry Patient Tolerated Procedure: well Intubation Complications: none - Sepsis Sepsis Focused Exam #1 Time Sepsis Criteria Met: 03: Sepsis Focused Exam Date: 02/25/23 Sepsis Focused Exam Time: 03:06 Sepsis Focused Exam Complete: Yes Vital Signs & RN Notes Reviewed: Yes Capillary Refill: < 2 Seconds: Fingers, Toes Peripheral Pulses: Normal: Radial (R), Radial (L), Posterior Tibialis (R), Posterior Tibialis (L), Dorsalis Pedis (R), Dorsalis Pedis (L) Skin Color: Normal for Patient Respiratory Exam: normal lung sounds Cardiovascular Exam: regular rate Medical Decision Making - Lab Data Result diagrams: 02/25/23 00:33 02/25/23 00:33 Lab Results 02/25/23 02/25/23 02/25/23 Range/Units 00:33 00:33 00:33 WBC 12.6 H (3.8-10.6) k/uL RBC 4.58 (3.80-5.40) m/uL Hgb 14.8 (11.4-16.0) gm/dL Hct 44.6 (34.0-46.0) % MCV 97.3 (80.0-100.0) fL MCH 32.3 (25.0-35.0) pg MCHC 33.2 (31.0-37.0) g/dL RDW 13.0 (11.5-15.5) % Plt Count 279 (150-450) k/uL MPV 7.2 Neutrophils % 75 % Lymphocytes % 19 % Monocytes % 4 % Eosinophils % 1 % Basophils % 1 % Neutrophils # 9.4 H (1.3-7.7) k/uL Lymphocytes # 2.3 (1.0-4.8) k/uL Monocytes # 0.5 (0-1.0) k/uL Eosinophils # 0.2 (0-0.7) k/uL Basophils # 0.1 (0-0.2) k/uL PT 55.4 H (9.0-12.0) sec INR 5.6 H* (<1.2) APTT 53.5 H (22.0-30.0) sec Sample Site ABG pH (7.35-7.45) ABG pCO2 (35-45) mmHg ABG pO2 (83-108) mmHg ABG HCO3 (21-25) mmol/L ABG Total CO2 (19-24) mmol/L ABG O2 Saturation (94-97) % ABG Base Excess mmol/L Gualberto Test FiO2 % Sodium 137 (137-145) mmol/L Potassium 4.3 (3.5-5.1) mmol/L Chloride 99 (98-107) mmol/L Carbon Dioxide 29 (22-30) mmol/L Anion Gap 9 mmol/L BUN 22 H (7-17) mg/dL Creatinine 1.11 H (0.52-1.04) mg/dL Est GFR (CKD-EPI)AfAm 53 (>60 ml/min/1.73 sqM) Est GFR (CKD-EPI)NonAf 46 (>60 ml/min/1.73 sqM) Glucose 135 H (74-99) mg/dL POC Glucose (mg/dL) (70-110) mg/dL POC Glu Assembler Production Line ID Calcium 8.9 (8.4-10.2) mg/dL Total Bilirubin 0.4 (0.2-1.3) mg/dL AST 25 (14-36) U/L ALT 24 (4-34) U/L Alkaline Phosphatase 142 H (38-126) U/L Troponin I (0.000-0.034) ng/mL NT-Pro-B Natriuret Pep pg/mL Total Protein 7.1 (6.3-8.2) g/dL Albumin 4.3 (3.5-5.0) g/dL Influenza Type A (PCR) (Not Detectd) Influenza Type B (PCR) (Not Detectd) RSV (PCR) (Not Detectd) SARS-CoV-2 (PCR) (Not Detectd) 02/25/23 02/25/23 02/25/23 Range/Units 00:33 00:33 01:50 WBC (3.8-10.6) k/uL RBC (3.80-5.40) m/uL Hgb (11.4-16.0) gm/dL Hct (34.0-46.0) % MCV (80.0-100.0) fL MCH (25.0-35.0) pg MCHC (31.0-37.0) g/dL RDW (11.5-15.5) % Plt Count (150-450) k/uL MPV Neutrophils % % Lymphocytes % % Monocytes % % Eosinophils % % Basophils % % Neutrophils # (1.3-7.7) k/uL Lymphocytes # (1.0-4.8) k/uL Monocytes # (0-1.0) k/uL Eosinophils # (0-0.7) k/uL Basophils # (0-0.2) k/uL PT (9.0-12.0) sec INR (<1.2) APTT (22.0-30.0) sec Sample Site ABG pH (7.35-7.45) ABG pCO2 (35-45) mmHg ABG pO2 (83-108) mmHg ABG HCO3 (21-25) mmol/L ABG Total CO2 (19-24) mmol/L ABG O2 Saturation (94-97) % ABG Base Excess mmol/L Gualberto Test FiO2 % Sodium (137-145) mmol/L Potassium (3.5-5.1) mmol/L Chloride (98-107) mmol/L Carbon Dioxide (22-30) mmol/L Anion Gap mmol/L BUN (7-17) mg/dL Creatinine (0.52-1.04) mg/dL Est GFR (CKD-EPI)AfAm (>60 ml/min/1.73 sqM) Est GFR (CKD-EPI)NonAf (>60 ml/min/1.73 sqM) Glucose (74-99) mg/dL POC Glucose (mg/dL) (70-110) mg/dL POC Glu Assembler Production Line ID Calcium (8.4-10.2) mg/dL Total Bilirubin (0.2-1.3) mg/dL AST (14-36) U/L ALT (4-34) U/L Alkaline Phosphatase (38-126) U/L Troponin I <0.012 (0.000-0.034) ng/mL NT-Pro-B Natriuret Pep 717 pg/mL Total Protein (6.3-8.2) g/dL Albumin (3.5-5.0) g/dL Influenza Type A (PCR) Not Detected (Not Detectd) Influenza Type B (PCR) Not Detected (Not Detectd) RSV (PCR) Not Detected (Not Detectd) SARS-CoV-2 (PCR) Not Detected (Not Detectd) 02/25/23 02/25/23 Range/Units 02:07 02:45 WBC (3.8-10.6) k/uL RBC (3.80-5.40) m/uL Hgb (11.4-16.0) gm/dL Hct (34.0-46.0) % MCV (80.0-100.0) fL MCH (25.0-35.0) pg MCHC (31.0-37.0) g/dL RDW (11.5-15.5) % Plt Count (150-450) k/uL MPV Neutrophils % % Lymphocytes % % Monocytes % % Eosinophils % % Basophils % % Neutrophils # (1.3-7.7) k/uL Lymphocytes # (1.0-4.8) k/uL Monocytes # (0-1.0) k/uL Eosinophils # (0-0.7) k/uL Basophils # (0-0.2) k/uL PT (9.0-12.0) sec INR (<1.2) APTT (22.0-30.0) sec Sample Site rrad ABG pH 7.24 L (7.35-7.45) ABG pCO2 48 H (35-45) mmHg ABG pO2 107 (83-108) mmHg ABG HCO3 21 (21-25) mmol/L ABG Total CO2 22 (19-24) mmol/L ABG O2 Saturation 97.7 H (94-97) % ABG Base Excess -6.5 mmol/L Gualberto Test Yes FiO2 100 % Sodium (137-145) mmol/L Potassium (3.5-5.1) mmol/L Chloride (98-107) mmol/L Carbon Dioxide (22-30) mmol/L Anion Gap mmol/L BUN (7-17) mg/dL Creatinine (0.52-1.04) mg/dL Est GFR (CKD-EPI)AfAm (>60 ml/min/1.73 sqM) Est GFR (CKD-EPI)NonAf (>60 ml/min/1.73 sqM) Glucose (74-99) mg/dL POC Glucose (mg/dL) 158 H (70-110) mg/dL POC Glu Assembler Production Line ID Joon Hayes Calcium (8.4-10.2) mg/dL Total Bilirubin (0.2-1.3) mg/dL AST (14-36) U/L ALT (4-34) U/L Alkaline Phosphatase (38-126) U/L Troponin I (0.000-0.034) ng/mL NT-Pro-B Natriuret Pep pg/mL Total Protein (6.3-8.2) g/dL Albumin (3.5-5.0) g/dL Influenza Type A (PCR) (Not Detectd) Influenza Type B (PCR) (Not Detectd) RSV (PCR) (Not Detectd) SARS-CoV-2 (PCR) (Not Detectd) Critical Care Time Critical Care Time: Yes Total Critical Care Time: 77 Disposition Clinical Impression: Pneumonia, Respiratory failure, Intracranial hemorrhage Disposition: ADMITTED IP TO THIS [facility] Condition: Critical Decision Time: 02:50
[2023-02-25 00:50] LABS: Basophils # (A) 0.1 k/uL (0-0.2); Basophils % (A) 1 %; Eosinophils # (A) 0.2 k/uL (0-0.7); Eosinophils % (A) 1 %; HCT 44.6 % (34.0-46.0); HGB 14.8 gm/dL (11.4-16.0); Lymphocytes # (A) 2.3 k/uL (1.0-4.8); Lymphocytes % (A) 19 %; MCH 32.3 pg (25.0-35.0); MCHC 33.2 g/dL (31.0-37.0); MCV 97.3 fL (80.0-100.0); Mean Platelet Volume 7.2; Monocytes # (A) 0.5 k/uL (0-1.0); Monocytes % (A) 4 %; Neutrophils # (A) 9.4 k/uL (1.3-7.7); Neutrophils % (A) 75 %; Platelet Count 279 k/uL (150-450); RBC 4.58 m/uL (3.80-5.40); WBC 12.6 k/uL (3.8-10.6)
[2023-02-25 01:04] LABS: Partial Thromboplastin Time 53.5 sec (22.0-30.0); Prothrombin Time 55.4 sec (9.0-12.0)
[2023-02-25 01:06] LABS: Albumin 4.3 g/dL (3.5-5.0); Calcium 8.9 mg/dL (8.4-10.2); Potassium 4.3 mmol/L (3.5-5.1); Total Bilirubin 0.4 mg/dL (0.2-1.3); Total Protein 7.1 g/dL (6.3-8.2)
--- NOTE | 2023-02-25 01:09 | XR ---
EXAMINATION TYPE: XR chest 2V DATE OF EXAM: 02/25/2023 COMPARISON: 01/09/2018 TECHNIQUE: PA and lateral views submitted. HISTORY: Shortness of breath FINDINGS: There is a large area of consolidation involving the left upper and lower lobe. Subsegmental changes at the right lung base with cardiomegaly. No overt failure or pneumothorax. Patient is somewhat rotat ed with atherosclerotic change aorta. Cannot exclude tiny bilateral effusions. IMPRESSION: 1. Cardiomegaly with bilateral sizable areas of consolidation favor infectious etiology or neoplasm o flako CHF correlate clinically.
[2023-02-25] MEDS ORDERED: RX INFO: IV CONTRAST WAS GIVEN 1 EACH MISC MISCELLANE PRN (01:12)
[2023-02-25 01:30] LABS: INR 5.6 (<1.2)
[2023-02-25] MEDS ORDERED: ACETAMINOPHEN TAB 325 MG TAB PO STA (01:46)
--- NOTE | 2023-02-25 01:46 | CT ---
EXAMINATION TYPE: CT chest w con DATE OF EXAM: 02/25/2023 COMPARISON: Chest x-ray 02/25/2023 HISTORY: 421.5 CT DLP: hemoptysis, galen mGycm Automated exposure control for dose reduction was used. TECHNIQUE: CT scan of the chest is performed with IV Contrast, patient injected with 80 mL of Isovue 300. MIP I mages are created on CT scanner and reviewed. 3D reconstructed images are created on an independent w orkstation and reviewed. FINDINGS: LUNGS: There are bilateral areas of consolidation greater within the left lower lobe. There is a smal l left pleural effusion. No pneumothorax. Small 4 mm nodule right lower lobe too small to characteriz e. MEDIASTINUM: There is a 1.2 cm subcarinal a pathologic lymph node. Shotty mediastinal and hilar lymph adenopathy. Dense coronary artery calcification with cardiomegaly. Aorta demonstrates atherosclerotic changes but no evidence of aneurysm. OTHER: Hypertrophic and degenerative changes of the spine. There is a hypodense lesion involving the right kidney most likely related to a renal cyst. Small hiatal hernia. Correlate for prior cholecyst ectomy. Postsurgical change involving the right shoulder correlate for prior rotator cuff repair surg vivek. IMPRESSION: 1. There are bilateral areas of consolidation with small left pleural effusion. Favor infectious etio logies such as pneumonia. Differential diagnosis would include pulmonary hemorrhage, asymmetric pulmo nary edema not excluded, but felt less likely. Follow-up to resolution recommended to exclude underly ing neoplasm. 2. Nonspecific subcarinal lymphadenopathy 3. Cardiomegaly with coronary artery calcification. 4. Hiatal hernia. 5. 4 mm right lower lobe pulmonary nodule too small to characterize follow-up short-term follow up CT scan could be obtained.
[2023-02-25] MEDS ORDERED: cefTRIAXone IN SWFI 1,000 MG/10 ML SYRINGE IVP STA (01:51)
[2023-02-25] MEDS ORDERED: AZITHROMYCIN 500 MG in SODIUM CHLORIDE 0.9% 250 ML IVPB STA (01:51)
[2023-02-25] MEDS ORDERED: SODIUM CHLORIDE 0.9% 500 ML 500 ML IV STA (01:53)
[2023-02-25] MEDS ORDERED: ONDANSETRON 4 MG/2 ML VIAL IVP STA (01:57)
[2023-02-25 02:18] LABS: Glucose,Whole Blood 158 mg/dL (70-110)
[2023-02-25] MEDS ORDERED: Kcentra PER PHARMACY 1 EACH MISC MISCELLANE PRN (02:25)
[2023-02-25] MEDS ORDERED: LABETALOL 5 MG/ML VIAL MDV IVP STA (02:26)
[2023-02-25] MEDS ORDERED: LABETALOL 200 MG in SODIUM CHLORIDE 0.9% 160 ML IV ONE (02:26)
[2023-02-25] MEDS ORDERED: HUMAN PROTHROMBIN COMPLX 500 UNIT/16 ML VIAL IV ONE ×2 (02:30)
[2023-02-25] MEDS ORDERED: HUMAN PROTHROMBIN COMPLX IV ONE (02:30)
[2023-02-25] MEDS ORDERED: PHYTONADIONE 10 MG in SODIUM CHLORIDE 0.9% 50 ML IVPB STA (02:34)
--- NOTE | 2023-02-25 02:40 | CT ---
EXAMINATION TYPE: CT brain wo con DATE OF EXAM: 02/25/2023 COMPARISON: None HISTORY: PT UNRESPONSIVE CT DLP: 1099.8 mGycm Automated exposure control for dose reduction was used. FINDINGS: There is a large intraparenchymal hemorrhage measuring greater than 9 cm involving the right parietal and temporal lobes. There is an additional focal punctate hemorrhage involving the obdulio. There is ab normal increased hyperdensity in the subarachnoid space compatible with subarachnoid hemorrhage. Ther e is abnormal hyperdensity within the right cerebral convexity. Favor a cyst subdural hematoma over e pidermal hematoma. Epidural hematoma not excluded. Maximal thickness of 1 cm. There is brainstem comp ression with uncal herniation and there is severe midline shift from right to left measuring at least 1.2 cm. There appears to be abnormal low attenuation within the white matter bilaterally. Additional hyperdensity along the cerebellar tentorium also suspicious for subdural component particularly on t he right. Calvarium grossly intact with changes of chronic sinusitis. Cerebellar tonsils are low-lying in posit ion the level of the foramen magnum. Case was discussed with the ER physician at 2:30 AM 02/25/2023 IMPRESSION: 1. Large acute intraparenchymal hemorrhage measuring greater than 9 cm with brainstem compression, un emile herniation and severe midline shift with subfalcine herniation from right to left. 2. There is a component of both subdural and subarachnoid hemorrhage as discussed above. Epidural com ponent not excluded.
--- NOTE | 2023-02-25 02:54 | XR ---
EXAMINATION TYPE: XR chest 1V portable DATE OF EXAM: 02/25/2023 COMPARISON: 02/25/2023 HISTORY: ET tube placement TECHNIQUE: Single frontal view of the chest is obtained. FINDINGS: ET tube approximately 3 cm above мария. NG tube seen extending into the abdomen likely wi thin the gastric fundus. Bilateral infiltrate greater on the left with a small left effusion. No pneu mothorax. Osseous structures stable. Heart remains enlarged. Underlying COPD not excluded. IMPRESSION: 1. ET tube 3 cm above мария. Bilateral infiltrate greater on the left with small effusion again note d.
[2023-02-25] MEDS ORDERED: NALOXONE 0.4 MG/ML 1 ML VIAL IV PRN (02:59)
[2023-02-25 03:06] LABS: ABG Base Excess -6.5 mmol/L; ABG HCO3 21 mmol/L (21-25); ABG Oxygen Saturation 97.7 % (94-97); ABG PCO2 48 mmHg (35-45); ABG PH 7.24 (7.35-7.45); ABG PO2 107 mmHg (83-108); ABG TCO2 22 mmol/L (19-24); Allen Test Performed? Yes
[2023-02-25] MEDS ORDERED: ROCURONIUM 10 MG/ML (5 ML VIAL) IV STA (03:36)
[2023-02-25] MEDS ORDERED: ONDANSETRON 4 MG/2 ML VIAL IVP PRN (05:41)
[2023-02-25] MEDS ORDERED: ARTIFICIAL TEARS-HYPROMELLOSE DROPS 15 ML BTL BOTH EYES PRN (05:41)
[2023-02-25] MEDS: HYDROmorphone 0.5 MG/0.5 ML SYRINGE IVP PRN ×3 (07:48→13:31)
--- NOTE | 2023-02-25 14:23 | P.HPIM ---
History of Present Illness H&P Date: 02/25/23 Chief Complaint: Altered mental status It is the only edema and multiple comorbidities including atrial fibrillation, hypertension, diabetes mellitus, history of COPD, congestive heart failure presented to the emergency department with shortness of breath. Patient was noted to have wheezing at the time of initial presentation. While in ER patient was noted to have acute onset of encephalopathy. And unresponsiveness patient did notify that she was having a bad headache. She was given Tylenol. Cipro due to acute onset unresponsiveness CT head was obtained which showed catastrophic intracranial bleed . Code stroke was called and on-call neurology was called. Care plan discussed with neurology by ED team patient next of kin son Joni was called and patient was transitioned to no code. The patient remained intubated at this time waiting for family to plan terminal wean CT HEAD There is a large acute intracranial hemorrhage measuring greater than 9 cm with brainstem compression and coordination severe midline shift and subfalcine herniation from right to left. There is component of both subdural and subarachnoid hemorrhage. Review of Systems ROS unobtainable: due to mental status Past Medical History Past Medical History: Atrial Fibrillation, Atrial Flutter, Coronary Artery Disease (CAD), Heart Failure, Diabetes Mellitus, GERD/Reflux, GI Bleed, Hyperlipidemia, Hypertension, Osteoarthritis (OA), Pneumonia, Thyroid Disorder Additional Past Medical History / Comment(s): Pt recently admitted to [facility] on 07/30/19 with DVT R lower extremity/hemarthrosis R knee-ruptured Bowman's cyst. Other hx: AFib/flutter with past RVR, MVP, cardiomyopathy, NIDDM type II, gastric ulcer, lower GI bleed, generalized arthritis, spinal stenosis, chronic low back pain with occasional bilateral sciatica, past migraines, bronchitis, hypothyroid, anemia years ago, ABD. PAIN, CRAMPING History of Any Multi-Drug Resistant Organisms: None Reported Past Surgical History: Cholecystectomy, Hysterectomy, Joint Replacement, Orthopedic Surgery Additional Past Surgical History / Comment(s): Bilateral total knee replacement, bilateral shoulder rotator cuff repairs, L cataract removal, EGDs and colonoscopy with gastric ulcer cauterized, cardioversions/TEEs, rt hand surgery- bone removed and tendon placed, left foot surgery d/t fracture, epidural back injections. Past Anesthesia/Blood Transfusion Reactions: Motion Sickness, Postoperative Nausea & Vomiting (PONV) Additional Past Anesthesia/Blood Transfusion Reaction / Comment(s): Pt received blood in 2007 with gastric bleed without reaction. Past Psychological History: No Psychological Hx Reported Smoking Status: Never smoker Past Alcohol Use History: None Reported Past Drug Use History: None Reported - Past Family History Father Family Medical History: No Reported History Additional Family Medical History / Comment(s): Father was healthy and lived to be 80yrs old. Mother Family Medical History: No Reported History Additional Family Medical History / Comment(s): Mother was healthy and lived to be 80 yrs old-she had one kidney. Medications and Allergies Home Medications Medication Instructions Recorded Confirmed Type Esomeprazole Magnesium [NexIUM] 40 mg PO DAILY 07/26/19 08/26/21 History carvediloL [Coreg] 6.25 mg PO BID 07/26/19 08/26/21 History Amiodarone [Cordarone] 200 mg PO DAILY 08/28/19 08/26/21 History ARIPiprazole [Abilify] 20 mg PO HS 12/23/20 08/26/21 History Atorvastatin [Lipitor] 20 mg PO DAILY 12/23/20 08/26/21 History Dicyclomine [Bentyl] 10 mg PO TID 12/23/20 08/26/21 History Losartan [Cozaar] 25 mg PO DAILY 12/23/20 08/26/21 History Mirtazapine [Remeron] 30 mg PO HS 12/23/20 08/26/21 History Sucralfate [Carafate] 1 gm PO TID 12/23/20 08/26/21 History Latanoprost/Pf [Latanoprost 0.005% 1 drop BOTH EYES HS 08/26/21 08/26/21 History Eye Drop] Levothyroxine Sodium [Synthroid] 100 mcg PO DAILY 08/26/21 08/26/21 History Liothyronine Sodium 25 mcg PO DAILY 08/26/21 08/26/21 History Warfarin [Coumadin] 1 mg PO MOTUWETH 08/26/21 08/26/21 History Warfarin [Coumadin] 1 mg PO SUFRSA 08/26/21 08/26/21 History metFORMIN HCL 500 mg PO BID 08/26/21 08/26/21 History Acetaminophen Tab [Tylenol] 650 mg PO Q6HR PRN tab 09/02/21 Rx DULoxetine HCL [Cymbalta] 30 mg PO HS 09/02/21 Rx Furosemide [Lasix] 20 mg PO DAILY PRN tab 09/02/21 Rx Gabapentin [Neurontin] 300 mg PO BID #6 cap 09/02/21 Rx INSULIN LISPRO (HumaLOG) [humaLOG] 0 unit SQ ACHS #10 ml 09/02/21 Rx oxyCODONE-APAP 10-325MG [Percocet 1 tab PO QID PRN #12 tab 09/02/21 Rx 10-325 mg] predniSONE [Deltasone] See Taper PO DAILY 18 Days tab 09/02/21 Rx Allergies Allergy/AdvReac Type Severity Reaction Status Date / Time No Known Allergies Allergy Verified 08/26/21 20:49 Physical Exam Vitals: Vital Signs Temp Pulse Resp BP Pulse Ox FiO2 02/25/23 13:34 151 H 20 96/67 99 02/25/23 11:38 100 02/25/23 08:18 101 H 24 165/103 100 02/25/23 07:59 100 02/25/23 05:51 87 18 130/95 100 02/25/23 05:00 108 H 18 139/66 97 02/25/23 04:02 104 H 18 124/95 98 02/25/23 02:47 106 H 16 120/83 97 02/25/23 02:40 98 14 118/79 94 L 100 02/25/23 02:32 95 14 113/83 94 L 02/25/23 02:30 189/144 02/25/23 02:20 189/144 02/25/23 02:18 135 H 18 100 02/25/23 02:10 113 H 21 224/153 97 02/25/23 02:00 128 H 12 200/186 94 L 02/25/23 01:55 112 H 14 150/76 02/25/23 01:50 123 H 0 L 02/25/23 01:40 105 H 0 L 02/25/23 01:20 144/83 02/25/23 01:10 97 13 144/83 100 02/25/23 01:00 101 H 23 155/88 100 02/25/23 00:50 99 24 155/88 100 02/25/23 00:40 155/88 02/25/23 00:30 155/88 95 02/25/23 00:22 95 02/25/23 00:19 98.4 F 100 18 155/88 97 Intake and Output 02/24/23 02/25/23 02/25/23 22:59 06:59 14:59 Other: Weight 97.522 kg Patient is intubated, minimally responsive particularly ill exam limited at this point Neurological examination limited secondary to intracranial hemorrhage minimal responsiveness intubated On auscultation of lungs breath sounds are equal and symmetrical bilateral, patient intubated Cardiovascular significant tachycardia noted Abdomen is distended Results CBC & Chem 7: 02/25/23 00:33 02/25/23 00:33 Labs: Abnormal Lab Results - Last 24 Hours (Table) 02/25/23 02/25/23 02/25/23 Range/Units 00:33 00:33 00:33 WBC 12.6 H (3.8-10.6) k/uL Neutrophils # 9.4 H (1.3-7.7) k/uL PT 55.4 H (9.0-12.0) sec INR 5.6 H* (<1.2) APTT 53.5 H (22.0-30.0) sec ABG pH (7.35-7.45) ABG pCO2 (35-45) mmHg ABG O2 Saturation (94-97) % BUN 22 H (7-17) mg/dL Creatinine 1.11 H (0.52-1.04) mg/dL Glucose 135 H (74-99) mg/dL POC Glucose (mg/dL) (70-110) mg/dL Alkaline Phosphatase 142 H (38-126) U/L 02/25/23 02/25/23 Range/Units 02:07 02:45 WBC (3.8-10.6) k/uL Neutrophils # (1.3-7.7) k/uL PT (9.0-12.0) sec INR (<1.2) APTT (22.0-30.0) sec ABG pH 7.24 L (7.35-7.45) ABG pCO2 48 H (35-45) mmHg ABG O2 Saturation 97.7 H (94-97) % BUN (7-17) mg/dL Creatinine (0.52-1.04) mg/dL Glucose (74-99) mg/dL POC Glucose (mg/dL) 158 H (70-110) mg/dL Alkaline Phosphatase (38-126) U/L Thrombosis Risk Factor Assmnt - DVT/VTE Prophylaxis DVT/VTE Prophylaxis: Contraindicated - See note Assessment and Plan (1) Intracranial bleed Narrative/Plan: CT HEAD There is a large acute intracranial hemorrhage measuring greater than 9 cm with brainstem compression and coordination severe midline shift and subfalcine herniation from right to left. There is component of both subdural and subarachnoid hemorrhage. Patient noted to have supratherapeutic INR of 5.6 at the time of presentation Significant to catastrophic intracranial bleed patient was transitioned to comfort measures Plan for terminal wean once family here Continue with comfort measures IV pain medications as needed Patient was intubated in the ED plan to extubate once daughter here Current Visit: Yes Status: Acute Code(s): I62.9 - NONTRAUMATIC INTRACRANIAL HEMORRHAGE, UNSPECIFIED SNOMED Code(s): 7679726
[2023-02-25 16:04] LABS: Glucose,Whole Blood 115 mg/dL (70-110)
[2023-02-25] MEDS ORDERED: ATROPINE OPHTH SOLN 1% 5ML BTL SUBLINGUAL PRN (21:03)
[2023-02-25 21:22] VITALS: TEMP 98.2
[2023-02-25] MEDS: MORPHINE SULFATE 4 MG/ML SYRINGE IV PRN ×2 (21:34→21:52)
[2023-02-25 22:43] VITALS: BP 59/30; PULSE 27; RESP 8
--- NOTE | 2023-02-27 09:27 | P.DS ---
Providers Date of admission: 02/25/23 03:01 Expected date of discharge: 02/25/23 Attending physician: Ankush Sullivan Consults: 02/25/23 03:00 Consult Physician Stat Consulting Provider: Colton Fu Reason/Comments: vented patient, Do you want consulting provider notified?: Already Contacted Primary care physician: Champ Barrios MD - Discharge Diagnosis(es) (1) Intracranial bleed Status: Acute Hospital Course: Patient presented with cough and respiratory distress at the time of presentation in ER. Patient was worked up in ER and had an acute change in mental status code stroke was called. CT head was done which showed catastrophic intracranial bleed. Family was called patient DPO with son was notified about the events. Patient was noted to have supratherapeutic INR. ER team coordinated with on-call intervention neurology and they deemed patient was at the point that she could not be treated within the intervention. Hence patient was eventually transitioned to comfort measures patient was intubated in ER however she was transitioned to comfort measures and later in the night Please refer to nursing documentation for exact time of Assessment * Intracranial bleed * Acute encephalopathy secondary to intracranial bleed * Supratherapeutic INR on anticoagulation present prior to hospitalization * Plan Patient was transitioned to comfort measures and was terminally weaned off ventilator No acute interventions were done patient was kept comfortable Patient Condition at Discharge: Critical Plan - Discharge Summary New Discharge Prescriptions: No Action carvediloL [Coreg] 6.25 mg PO BID Esomeprazole Magnesium [NexIUM] 40 mg PO DAILY Amiodarone [Cordarone] 200 mg PO DAILY Dicyclomine [Bentyl] 10 mg PO TID Sucralfate [Carafate] 1 gm PO TID Losartan [Cozaar] 25 mg PO DAILY Mirtazapine [Remeron] 30 mg PO HS Atorvastatin [Lipitor] 20 mg PO DAILY ARIPiprazole [Abilify] 20 mg PO HS Warfarin [Coumadin] 1 mg PO SUFRSA metFORMIN HCL 500 mg PO BID Liothyronine Sodium 25 mcg PO DAILY Levothyroxine Sodium [Synthroid] 100 mcg PO DAILY Latanoprost/Pf [Latanoprost 0.005% Eye Drop] 1 drop BOTH EYES HS DULoxetine HCL [Cymbalta] 30 mg PO HS predniSONE [Deltasone] See Taper PO DAILY 18 Days tab Furosemide [Lasix] 20 mg PO DAILY PRN tab PRN Reason: Edema oxyCODONE-APAP 10-325MG [Percocet 10-325 mg] 1 tab PO QID PRN #12 tab PRN Reason: Pain Warfarin [Coumadin] 1 mg PO MOTUWETH Gabapentin [Neurontin] 300 mg PO BID #6 cap Acetaminophen Tab [Tylenol] 650 mg PO Q6HR PRN tab PRN Reason: Fever And/ Or Pain INSULIN LISPRO (HumaLOG) [humaLOG] 0 unit SQ ACHS #10 ml Discharge Medication List Esomeprazole Magnesium [NexIUM] 40 mg PO DAILY 07/26/19 [History] carvediloL [Coreg] 6.25 mg PO BID 07/26/19 [History] Amiodarone [Cordarone] 200 mg PO DAILY 08/28/19 [History] ARIPiprazole [Abilify] 20 mg PO HS 12/23/20 [History] Atorvastatin [Lipitor] 20 mg PO DAILY 12/23/20 [History] Dicyclomine [Bentyl] 10 mg PO TID 12/23/20 [History] Losartan [Cozaar] 25 mg PO DAILY 12/23/20 [History] Mirtazapine [Remeron] 30 mg PO HS 12/23/20 [History] Sucralfate [Carafate] 1 gm PO TID 12/23/20 [History] Latanoprost/Pf [Latanoprost 0.005% Eye Drop] 1 drop BOTH EYES HS 08/26/21 [History] Levothyroxine Sodium [Synthroid] 100 mcg PO DAILY 08/26/21 [History] Liothyronine Sodium 25 mcg PO DAILY 08/26/21 [History] Warfarin [Coumadin] 1 mg PO MOTUWETH 08/26/21 [History] Warfarin [Coumadin] 1 mg PO SUFRSA 08/26/21 [History] metFORMIN HCL 500 mg PO BID 08/26/21 [History] Acetaminophen Tab [Tylenol] 650 mg PO Q6HR PRN tab 09/02/21 [Rx] DULoxetine HCL [Cymbalta] 30 mg PO HS 09/02/21 [Rx] Furosemide [Lasix] 20 mg PO DAILY PRN tab 09/02/21 [Rx] Gabapentin [Neurontin] 300 mg PO BID #6 cap 09/02/21 [Rx] INSULIN LISPRO (HumaLOG) [humaLOG] 0 unit SQ ACHS #10 ml 09/02/21 [Rx] oxyCODONE-APAP 10-325MG [Percocet 10-325 mg] 1 tab PO QID PRN #12 tab 09/02/21 [Rx] predniSONE [Deltasone] See Taper PO DAILY 18 Days tab 09/02/21 [Rx] Follow up Appointment(s)/Referral(s): Champ Barrios MD [Primary Care Provider] - 1-2 days - Preliminary Cause of Preliminary Cause of : Intracranial bleed
--- NOTE | 2023-02-28 11:59 | CDI ---
Documentation Clarification Form Date: 02/28/23 From: Jovana Loco Admit Date: 02/25/2023 3:01:00 AM Patient Name: Angeline Lee Visit Number: [id number] Discharge Date: 02/25/2023 11:59:00 PM ATTENTION: The Clinical Documentation Specialists (CDI) and [facility] Coding Staff appreciate your assistance in clarifying documentation. Please respond to the clarification below the line at the bottom and electronically sign. The CDI & [facility] Coding staff will review the response and follow-up if needed. Please note: Queries are made part of the Legal Health Record. If you have any questions, please contact the author of this message via ITS. Dr. Marah Vaughan, Your patient has respiratory failure per ED Note. Based on this information and the findings below, is there an additional diagnosis that is clinically appropriate for this patient? History/Risk Factors: non-traumatic intracerebral hemorrhage, compression of brain, cardiomyopathy, encephalopathy, COPD, atrial fibrillation and flutter, Hypertensive heart disease with heart failure Tobacco use: none Home oxygen: none Clinical Indicators: Presents with SOB. Complained of headache and became obtunded and unresponsive. She was found to have had catastrophic intracranial bleed. Vital signs: T 98.4, P 100, R 18, BP 155/88 Pulse oximetry: 97/95 ABG: pH 7.24 pO2 107 pCO2 48 Lactate none Treatment: Intubation with mechanical ventilation. Continuous Pulse ox Mechanical Ventilation Is there an additional diagnosis that is clinically appropriate for this patient? [ y ] Acute Hypoxic Respiratory Failure (pO2 <60 mm Hg or SpO2 <91% on room air) [ ] Acute Hypercapnic Respiratory Failure (pCO2 >50 and pH <7.35) [ ] Acute Respiratory Distress [ ] Acute Respiratory Insufficiency [ ] Other Diagnosis, please specify [ ] Unable to determine MTDD
--- NOTE | 2023-03-01 15:01 | CDI ---
Documentation Clarification Form Date: 03/01/2023 2:48:20 PM From: Jasmin Groves RN, CCDS Email: [email or web address] Admit Date: 02/25/2023 3:01:00 AM Patient Name: Angeline Lee Visit Number: [id number] Discharge Date: 02/25/2023 11:59:00 PM ATTENTION: The Clinical Documentation Specialists (CDI) and [facility] Coding Staff appreciate your assistance in clarifying documentation. Please respond to the clarification below the line at the bottom and electronically sign. The CDI & [facility] Coding staff will review the response and follow-up if needed. Please note: Queries are made part of the Legal Health Record. If you have any questions, please contact the author of this message via ITS. Dr. Marah aVughan Pneumonia is documented in the ED note. Based on this information and the findings below, is there an additional diagnosis that is clinically appropriate for this patient? Patient history/risk factors: Atrial Fibrillation, Atrial Flutter, CAD, Heart Failure, Diabetes Mellitus, GERD/Reflux, GI Bleed, Hyperlipidemia, Hypertension, OA, Pneumonia, Thyroid Disorder Clinical Indicators: ED: patient brought from home by EMS for shortness of breath. After the breathing treatment provided by EMS patient states that her symptoms are significantly improved. She states that she feels fine now. EMS reports hypoxia at 85% upon initial evaluation. General Impression: Alert and oriented x3, not in acute distress. Patient was found to have clinical findings to suggest pulmonary infection. Patient started on antibiotics. Clinical Impression: Pneumonia, Respiratory failure, Intracranial hemorrhage." 02/25 CXR: Cardiomegaly with bilateral sizable areas of consolidation favor infectious etiology or neoplasm over CHF correlate clinically. 02/25 CT chest: There are bilateral areas of consolidation with small left pleural effusion. Favor infectious etiologies such as pneumonia. 02/25 WBC 12.6 Treatment: IV Azithromycin 500mg x1 on 02/25. Rocephin 1000 mg IV x1 on 02/25. Is there an additional diagnosis that is clinically appropriate for this patient? [ y ] Pneumonia [ ] No additional diagnosis/Not clinically significant [ ] Unable to determine [ ] Other, please specify MTDD
== END 2023-02-25 23:59 | disposition expired | DRG 64 ==
LOC: EC 00:17 → 2SICU 03:01
PROVIDERS: ADMIT Hospitalist; ATTEND Hospitalist
PROC: 0D9670Z Drainage of Stomach with Drainage Device, Via Natural or Artificial Opening (ICD-10-PCS; principal; 2023-02-25)
PROC: 0BH17EZ Insertion of Endotracheal Airway into Trachea, Via Natural or Artificial Opening (ICD-10-PCS; principal; 2023-02-25)
PROC: 5A1935Z Respiratory Ventilation, Less than 24 Consecutive Hours (ICD-10-PCS; principal; 2023-02-25)
PROC: 30283B1 Transfusion of Nonautologous 4-Factor Prothrombin Complex Concentrate into Vein, Percutaneous Approach (ICD-10-PCS; 2023-02-25)
DX: I60.9 Nontraumatic subarachnoid hemorrhage, unspecified (principal); G93.5 Compression of brain; J96.01 Acute respiratory failure with hypoxia; J18.9 Pneumonia, unspecified organism; G93.49 Other encephalopathy; I42.9 Cardiomyopathy, unspecified; I48.92 Unspecified atrial flutter; R04.2 Hemoptysis; J44.9 Chronic obstructive pulmonary disease, unspecified; I62.00 Nontraumatic subdural hemorrhage, unspecified; I11.0 Hypertensive heart disease with heart failure; I50.9 Heart failure, unspecified; I48.91 Unspecified atrial fibrillation; Z79.4 Long term (current) use of insulin; Z66 Do not resuscitate; Z51.5 Encounter for palliative care; Z20.822 Contact with and (suspected) exposure to COVID-19; E03.9 Hypothyroidism, unspecified; I34.1 Nonrheumatic mitral (valve) prolapse; I25.10 Atherosclerotic heart disease of native coronary artery without angina pectoris; E78.5 Hyperlipidemia, unspecified; K21.9 Gastro-esophageal reflux disease without esophagitis; G89.29 Other chronic pain; M54.42 Lumbago with sciatica, left side; M54.41 Lumbago with sciatica, right side; M48.00 Spinal stenosis, site unspecified; R79.1 Abnormal coagulation profile; T45.515A Adverse effect of anticoagulants, initial encounter; M19.90 Unspecified osteoarthritis, unspecified site; Z79.01 Long term (current) use of anticoagulants; Z79.890 Hormone replacement therapy; Z79.84 Long term (current) use of oral hypoglycemic drugs; Z79.899 Other long term (current) drug therapy; G43.909 Migraine, unspecified, not intractable, without status migrainosus; Z86.718 Personal history of other venous thrombosis and embolism; Z96.653 Presence of artificial knee joint, bilateral
CPT/HCPCS: 36415; 36600; 70450; 71045; 71046; 71260; 80053; 82805; 83880; 84484; 85025; 85610; 85730; 87636; 93005; 96361; 96365; 96366; 96367; 96375; 96376; 99291; 99292